=== PATIENT | male | born 1945 | race Caucasian/White ===

== ENCOUNTER → 2016-10-01 | Outpatient (CLI) | payer MEDICARE | END | disposition home or self-care (01) | LOC: RADPETMAIN 11:10 | PROVIDERS: ATTEND Internal Medicine | DX: Z53.9 Procedure and treatment not carried out, unspecified reason (principal) ==

== ENCOUNTER 2016-10-27 14:03 | Inpatient (IN) | payer MEDICARE ==
[2016-10-27] MEDS ORDERED: SODIUM CHLORIDE 0.9% 500 ML IV STA ×2 (14:37→15:48)
[2016-10-27] MEDS ORDERED: SODIUM CHLORIDE 0.9% 1,000 ML IV STA ×2 (14:37→15:48)
--- NOTE | 2016-10-27 14:55 | ED ---
General Adult HPI - General Chief complaint: Recheck/Abnormal Lab/Rx Stated complaint: Abn labs sent by PCP Time Seen by Provider: 10/27/16 14:22 Source: patient, RN notes reviewed, old records reviewed Mode of arrival: wheelchair Limitations: no limitations - History of Present Illness Initial comments: This is a this is a 70-year-old male who ER with shortness of breath, chronic, patient also has asthma and COPD. Patient was sent in by his family doctor for her normal lab tests. Patient unsure what that test is. Patient does admit to fever for the last month. Generalized weakness, some significant dehydration and decreased appetite. Denies any significant weight gain or weight loss. Admits to shortness of breath and exertional dyspnea. Patient denies travel history, no known sick contacts - Related Data Home Medications Medication Instructions Recorded Confirmed Albuterol Sulfate [Proair Hfa] 1 - 2 puff INHALATION RT-Q6H PRN 10/27/16 Gabapentin [Neurontin] 100 mg PO TID 10/27/16 10/27/16 Hydrochlorothiazide [Hydrodiuril] 25 mg PO DAILY 10/27/16 10/27/16 Losartan Potassium [Cozaar] 100 mg PO DAILY 10/27/16 10/27/16 Multivitamins, Thera [Multivitamin 1 tab PO DAILY 10/27/16 10/27/16 (formulary)] Naproxen Sodium [Aleve] 220 mg PO BID PRN 10/27/16 10/27/16 Unknown Otc Sleep Aid 1 tab PO HS 10/27/16 10/27/16 Vitamin B Complex 1 cap PO DAILY 10/27/16 10/27/16 Allergies Allergy/AdvReac Type Severity Reaction Status Date / Time No Known Allergies Allergy Verified 10/27/16 15:16 Review of Systems ROS Statement: Those systems with pertinent positive or pertinent negative responses have been documented in the HPI. ROS Other: All systems not noted in ROS Statement are negative. Past Medical History Past Medical History: Asthma, COPD Additional Past Medical History / Comment(s): back problems, neuromuscular problems History of Any Multi-Drug Resistant Organisms: None Reported Past Surgical History: Orthopedic Surgery Past Psychological History: No Psychological Hx Reported Smoking Status: Current every day smoker Past Alcohol Use History: None Reported Past Drug Use History: None Reported General Exam Limitations: no limitations General appearance: alert, in no apparent distress, anxious, cachectic Head exam: Present: atraumatic, normocephalic, normal inspection Eye exam: Present: normal appearance, PERRL, EOMI. Absent: scleral icterus, conjunctival injection, periorbital swelling ENT exam: Present: normal exam, mucous membranes dry Neck exam: Present: normal inspection. Absent: tenderness, meningismus, lymphadenopathy Respiratory exam: Present: normal lung sounds bilaterally, respiratory distress , wheezes, accessory muscle use, decreased breath sounds, prolonged expiratory. Absent: rales, rhonchi, stridor Cardiovascular Exam: Present: normal rhythm, tachycardia, normal heart sounds. Absent: systolic murmur, diastolic murmur, rubs, gallop, clicks GI/Abdominal exam: Present: soft, normal bowel sounds. Absent: distended, tenderness, guarding, rebound, rigid Extremities exam: Present: normal inspection, full ROM, normal capillary refill. Absent: tenderness, pedal edema, joint swelling, calf tenderness Back exam: Present: normal inspection Neurological exam: Present: alert, oriented X3, CN II-XII intact Psychiatric exam: Present: normal affect, normal mood Skin exam: Present: warm, dry, intact, normal color. Absent: rash Course Vital Signs 10/27/16 10/27/16 10/27/16 14:15 15:05 15:37 Temperature 98.5 F 98.4 F Pulse Rate 108 H 95 Respiratory 20 18 18 Rate Blood Pressure 138/67 155/83 O2 Sat by Pulse 98 100 Oximetry - Reevaluation(s) Reevaluation #1: 10/27/16 15:52 Patient has mild shortness of breath but he states is normal for him EKG Findings - EKG Comments: EKG Findings:: EKG shows sinus tachycardia rate 105, IL 142, QRS 86, QTC 436 Medical Decision Making - Medical Decision Making 70 ER for evaluation of shortness of breath occasional cough and congestion epineural abscess, patient with pneumonia, elevated white blood cell count, patient will be admitted for IV antibiotics - Lab Data Result diagrams: 10/27/16 14:43 10/27/16 14:43 Lab Results 10/27/16 10/27/16 10/27/16 Range/Units 14:43 14:43 14:43 WBC 13.5 H (3.8-10.6) k/uL RBC 3.36 L (4.30-5.90) m/uL Hgb 11.9 L (13.0-17.5) gm/dL Hct 34.9 L (39.0-53.0) % MCV 103.9 H (80.0-100.0) fL MCH 35.6 H (25.0-35.0) pg MCHC 34.2 (31.0-37.0) g/dL RDW 14.7 (11.5-15.5) % Plt Count 551 H (150-450) k/uL Neutrophils % 78 % Lymphocytes % 12 % Monocytes % 5 % Eosinophils % 2 % Basophils % 1 % Neutrophils # 10.5 H (1.3-7.7) k/uL Lymphocytes # 1.6 (1.0-4.8) k/uL Monocytes # 0.7 (0-1.0) k/uL Eosinophils # 0.3 (0-0.7) k/uL Basophils # 0.1 (0-0.2) k/uL Macrocytosis Slight PT (9.0-12.0) sec INR (<1.1) APTT (22.0-30.0) sec Sodium 136 L (137-145) mmol/L Potassium 5.2 H (3.5-5.1) mmol/L Chloride 98 (98-107) mmol/L Carbon Dioxide 25 (22-30) mmol/L Anion Gap 13 mmol/L BUN 14 (9-20) mg/dL Creatinine 0.80 (0.66-1.25) mg/dL Est GFR (MDRD) Af Amer >60 (>60 ml/min/1.73 sqM) Est GFR (MDRD) Non-Af >60 (>60 ml/min/1.73 sqM) Glucose 108 H (74-99) mg/dL Calcium 9.0 (8.4-10.2) mg/dL Magnesium 1.6 (1.6-2.3) mg/dL Total Bilirubin 0.3 (0.2-1.3) mg/dL AST 33 (17-59) U/L ALT 45 (21-72) U/L Alkaline Phosphatase 129 H (38-126) U/L Total Creatine Kinase 51 L (55-170) U/L CK-MB (CK-2) 1.5 (0.0-2.4) ng/mL CK-MB (CK-2) Rel Index 2.9 Troponin I <0.012 (0.000-0.034) ng/mL NT-Pro-B Natriuret Pep pg/mL Total Protein 7.1 (6.3-8.2) g/dL Albumin 3.2 L (3.5-5.0) g/dL Lipase 36 (23-300) U/L 10/27/16 10/27/16 Range/Units 14:43 14:43 WBC (3.8-10.6) k/uL RBC (4.30-5.90) m/uL Hgb (13.0-17.5) gm/dL Hct (39.0-53.0) % MCV (80.0-100.0) fL MCH (25.0-35.0) pg MCHC (31.0-37.0) g/dL RDW (11.5-15.5) % Plt Count (150-450) k/uL Neutrophils % % Lymphocytes % % Monocytes % % Eosinophils % % Basophils % % Neutrophils # (1.3-7.7) k/uL Lymphocytes # (1.0-4.8) k/uL Monocytes # (0-1.0) k/uL Eosinophils # (0-0.7) k/uL Basophils # (0-0.2) k/uL Macrocytosis PT 11.4 (9.0-12.0) sec INR 1.1 (<1.1) APTT 27.6 (22.0-30.0) sec Sodium (137-145) mmol/L Potassium (3.5-5.1) mmol/L Chloride (98-107) mmol/L Carbon Dioxide (22-30) mmol/L Anion Gap mmol/L BUN (9-20) mg/dL Creatinine (0.66-1.25) mg/dL Est GFR (MDRD) Af Amer (>60 ml/min/1.73 sqM) Est GFR (MDRD) Non-Af (>60 ml/min/1.73 sqM) Glucose (74-99) mg/dL Calcium (8.4-10.2) mg/dL Magnesium (1.6-2.3) mg/dL Total Bilirubin (0.2-1.3) mg/dL AST (17-59) U/L ALT (21-72) U/L Alkaline Phosphatase (38-126) U/L Total Creatine Kinase (55-170) U/L CK-MB (CK-2) (0.0-2.4) ng/mL CK-MB (CK-2) Rel Index Troponin I (0.000-0.034) ng/mL NT-Pro-B Natriuret Pep 150 pg/mL Total Protein (6.3-8.2) g/dL Albumin (3.5-5.0) g/dL Lipase (23-300) U/L - Radiology Data Radiology results: report reviewed (Chest x-ray positive for pneumonia, right upper lobe), image reviewed Disposition Clinical Impression: Community acquired bacterial pneumonia, UTI (urinary tract infection), COPD exacerbation Disposition: ADMITTED IP TO THIS HOSP Condition: Fair Referrals: Mendoza Bowie MD [Primary Care Provider] - 1-2 days
[2016-10-27 15:04] LABS: Basophils # (A) 0.1 k/uL (0-0.2); Basophils % (A) 1 %; CH 34.1; CHCM 32.9; Eosinophils # (A) 0.3 k/uL (0-0.7); Eosinophils % (A) 2 %; HCT 34.9 % (39.0-53.0); HDW 2.63; HGB 11.9 gm/dL (13.0-17.5); Luc # (Auto) 0.43; Luc % (Auto) 3; Lymphocytes # (A) 1.6 k/uL (1.0-4.8); Lymphocytes % (A) 12 %; MCH 35.6 pg (25.0-35.0); MCHC 34.2 g/dL (31.0-37.0); MCV 103.9 fL (80.0-100.0); Macrocytosis Slight; Mean Platelet Volume 6.9; Monocytes # (A) 0.7 k/uL (0-1.0); Monocytes % (A) 5 %; Neutrophils # (A) 10.5 k/uL (1.3-7.7); Neutrophils % (A) 78 %; RBC 3.36 m/uL (4.30-5.90); RDW 14.7 % (11.5-15.5); WBC 13.5 k/uL (3.8-10.6); WBC (Perox) 13.74
[2016-10-27 15:14] LABS: ALT 45 U/L (21-72); AST 33 U/L (17-59); Alkaline Phosphatase 129 U/L (38-126); Anion Gap 13 mmol/L; Blood Urea Nitrogen 14 mg/dL (9-20); Carbon Dioxide 25 mmol/L (22-30); Chloride 98 mmol/L (98-107); Glucose 108 mg/dL (74-99); Magnesium 1.6 mg/dL (1.6-2.3); Non-African American GFR(MDRD) >60 (>60 ml/min/1.73 sqM); Potassium 5.2 mmol/L (3.5-5.1); Sodium 136 mmol/L (137-145); Total Bilirubin 0.3 mg/dL (0.2-1.3); Total Protein 7.1 g/dL (6.3-8.2)
[2016-10-27 15:18] LABS: INR 1.1 (<1.1)
[2016-10-27 15:19] LABS: Partial Thromboplastin Time 27.6 sec (22.0-30.0); Prothrombin Time 11.4 sec (9.0-12.0)
[2016-10-27 15:25] LABS: Creatine Kinase 51 U/L (55-170)
--- NOTE | 2016-10-27 15:28 | XR ---
EXAMINATION TYPE: XR chest 2V DATE OF EXAM: 10/27/2016 COMPARISON: CT exam 01/15/2016 INDICATION: Abnormal labs, fever, COPD TECHNIQUE: Frontal and lateral views of the chest are obtained. FINDINGS: The heart size is normal. The pulmonary vasculature is normal. Right upper lobe consolidation is present. There is fullness in the right hilar region. Some mild inf iltrate appears to lie within the left midlung.. IMPRESSION: 1. Right upper lobe infiltrate. Minimal infiltrate is in the left midlung. Correlate for pneumonia. 2. This should be followed to clearing. Underlying mass and neoplasm is not excluded.
[2016-10-27 15:38] LABS: Creatine Kinase MB 1.5 ng/mL (0.0-2.4); Troponin I <0.012 ng/mL (0.000-0.034)
[2016-10-27] MEDS ORDERED: LEVOFLOXACIN 750MG-D5W PMX 750 MG in DEXTROSE/WATER 1 150ML.BAG IVPB STA (15:48)
[2016-10-27] MEDS ORDERED: PNEUMONIA PROTOCOL UTILIZED 1 EACH MISC PO PRN (15:48)
[2016-10-27] MEDS ORDERED: IPRATROPIUM-ALBUTEROL 3 ML NEB INHALATION STA (15:50)
[2016-10-27] MEDS ORDERED: AMPICILLIN-SULBACTAM 3 GM in SODIUM CHLORIDE 0.9% 100 ML IVPB STA (16:41)
[2016-10-27] MEDS ORDERED: SODIUM CHLORIDE 0.9% 1,000 ML IV ONE (16:41)
[2016-10-27 16:50] LABS: Appearance,Urine Cloudy (Clear); Bacteria,Urine Rare /hpf; Bilirubin,Urine Negative (Negative); Glucose,Urine (UA) Negative (Negative); Ketones,Urine Negative (Negative); Leukocyte Esterase,Urine Large (Negative); Mucus,Urine Rare /hpf; Nitrite,Urine Negative (Negative); PH, Urine 6.5 (5.0-8.0); Particle Count 117979; Protein,Urine Negative (Negative); RBC,Urine 2 /hpf (0-5); Squamous Epithelial Cell,Urine <1 /hpf (0-4); UA Billing (MACRO vs. MICRO) MICRO; Urobilinogen,Urine <2.0 mg/dL (<2.0); WBC,Urine 28 /hpf (0-5)
[2016-10-27] MEDS ORDERED: NICOTINE 21MG/24HR PATCH TRANSDERM STA (17:18)
[2016-10-27] MEDS: SODIUM CHLORIDE 0.9% 1,000 ML IV SCH (17:52)
[2016-10-27] MEDS ORDERED: NAPROXEN 250 MG TAB PO PRN (17:58)
[2016-10-27] MEDS ORDERED: HYDROmorphone 1 MG/ML 1 ML SYRINGE IVP PRN (17:59)
[2016-10-27] MEDS: HYDROcodone/APAP 5-325MG 1 EACH TAB PO PRN (18:34)
[2016-10-27] MEDS: GABAPENTIN 100 MG CAP PO SCH ×2 (18:35→21:28)
[2016-10-27] MEDS: IPRATROPIUM-ALBUTEROL 3 ML NEB INHALATION PRN (20:06)
[2016-10-27] MEDS: TAMSULOSIN 0.4 MG CAP.ER.24H PO SCH (21:28)
[2016-10-28] MEDS: TEMAZEPAM 15 MG CAP PO PRN ×2 (00:11→23:48)
[2016-10-28 01:00] LABS: Appearance,Urine Clear (Clear); Bilirubin,Urine Negative (Negative); Glucose,Urine (UA) Negative (Negative); Ketones,Urine Negative (Negative); Leukocyte Esterase,Urine Small (Negative); Nitrite,Urine Negative (Negative); Particle Count 564; Protein,Urine Negative (Negative); RBC,Urine 23 /hpf (0-5); Specific Gravity,Urine 1.004 (1.001-1.035); UA Billing (MACRO vs. MICRO) MICRO; Urobilinogen,Urine <2.0 mg/dL (<2.0); WBC,Urine 31 /hpf (0-5)
[2016-10-28] MEDS: SODIUM CHLORIDE 0.9% 1,000 ML IV SCH ×3 (05:38→20:46)
--- NOTE | 2016-10-28 08:05 | XR ---
EXAMINATION TYPE: XR chest 2V DATE OF EXAM: 10/28/2016 HISTORY: pneumonia. REFERENCE: Previous study dated 10/27/2016. FINDINGS: The lungs are overinflated. There continues to be a right upper lobe infiltrate as well as a stable opacity in the left midlung. I suspect underlying interstitial fibrosis. The heart is not en larged. IMPRESSION: 1. COPD. 2. STABLE, BILATERAL INFILTRATES.
[2016-10-28] MEDS: NICOTINE 21MG/24HR PATCH TRANSDERM SCH (08:28)
[2016-10-28] MEDS: HYDROCHLOROTHIAZIDE 25 MG TAB PO SCH (08:28)
[2016-10-28] MEDS: GABAPENTIN 100 MG CAP PO SCH ×3 (08:28→22:02)
[2016-10-28] MEDS: LOSARTAN 50 MG TAB PO SCH (08:28)
[2016-10-28] MEDS: B COMPLEX-VIT C-VIT E-ZINC 1 EACH TAB PO SCH (08:28)
[2016-10-28] MEDS: ENOXAPARIN 40 MG/0.4 ML SYRINGE SQ SCH (08:28)
[2016-10-28] MEDS: PANTOPRAZOLE 40 MG TABLET PO SCH (08:29)
[2016-10-28] MEDS: HYDROcodone/APAP 5-325MG 1 EACH TAB PO PRN ×2 (08:30→20:43)
--- NOTE | 2016-10-28 09:36 | CT ---
EXAMINATION TYPE: CT chest wo con DATE OF EXAM: 10/28/2016 COMPARISON: January 15, 2016. HISTORY: Pneumonia vs mass shortness of breath. Difficulty breathing. CT DLP: 353.4 mGycm. Automated Exposure Control for Dose Reduction was Utilized. TECHNIQUE: CT scan of the thorax is performed without IV contrast. FINDINGS: LUNGS: Diffuse opacities mostly in the right upper lobe anteriorly are noted. This is new since the p revious study. There is also extensive opacity in the posterior superior right lower lobe consistent with pneumonia. There is a small area of airspace opacity in the anterior aspect of the left upper lo be consistent with small focal pneumonia. There is a 1.2 x 0.9 mm solid nodule in the left upper lobe which is unchanged. Several nodules in the right upper lobe are difficult to identify due to the new opacification in this lobe. There is a nodule in the right upper lobe best seen on series 3 image 14 of 78 this nodule measures roughly 1.4 x 0.8 cm. There is a second nodule just inferior to the previ ously described nodule which measures 13.0 x 10.0 cm. There is no pleural pericardial effusion. Exten sive emphysematous changes are again noted. At the left lung base there is again a cavitary focus wit h thickened tracy. This again could be due to a thick-walled bulla or previously infected bulla/posti nflammatory changes. Other etiologies are difficult to fully exclude. MEDIASTINUM: There is no aortic dilatation. Atherosclerotic calcific changes are noted. There is no e vidence of cardiomegaly or mediastinal mass or adenopathy. The visualized upper abdomen is unchanged. Again noted is a small hiatal hernia. Compression deformities at the level of T7 and T8 are unchanged. IMPRESSION: New pneumonia is identified in the superior aspect of the right lower lobe in the anterior aspect of the right and left upper lobes. It is difficult to determine whether the previously described nodules have changed at all. There is c ertainly no change in a left upper lobe nodule. Continued follow-up is required.
[2016-10-28 09:53] LABS: Anion Gap 8 mmol/L; Blood Urea Nitrogen 7 mg/dL (9-20); Calcium 8.7 mg/dL (8.4-10.2); Carbon Dioxide 22 mmol/L (22-30); Chloride 103 mmol/L (98-107); Glucose 130 mg/dL (74-99); Non-African American GFR(MDRD) >60 (>60 ml/min/1.73 sqM); Potassium 4.4 mmol/L (3.5-5.1); Sodium 133 mmol/L (137-145)
--- NOTE | 2016-10-28 10:27 | P.CNPUL ---
History of Present Illness Consult date: 10/28/16 Reason for consult: dyspnea, cough, COPD, pneumonia, lung mass, abnormal CXR/CT Chief complaint: COPD exacerbation History of present illness: Consult dated 10/28/2016 70-year-old male who is been smoking for 53 years. The patient started at the age of 17 and smoked up to 3 packs a day. The patient apparently came into the emergency department complaining of shortness of breath. He's also got cough chest congestion phlegm production. Wheezing. The patient sees a family doctor here in town. Apparently was recommended to see a service member but never did. His chest x-ray suspicious for a couple of nodules which could be early lung cancer. In addition, this most recent chest x-ray shows bilateral upper lobe infiltrates and a lower lobe infiltrate on the right. This could be cancer and/or pneumonia. The patient feels generally generally weak. Doesn't feel like himself. Feels like something is going wrong. He continues to smoke though. He also has chronic dyspnea. His been going on for months and even years. Getting worse. Review of Systems A 12 point review of system is positive for shortness of breath chest tightness wheezing cough chest congestion and some phlegm production. Patient also complains of weakness. Past Medical History Past Medical History: Asthma, COPD Additional Past Medical History / Comment(s): back problems, neuromuscular problems History of Any Multi-Drug Resistant Organisms: None Reported Past Surgical History: Orthopedic Surgery Additional Past Surgical History / Comment(s): left hip sx Past Psychological History: No Psychological Hx Reported Smoking Status: Current every day smoker Past Alcohol Use History: None Reported Past Drug Use History: None Reported Medications and Allergies Home Medications Medication Instructions Recorded Confirmed Type Albuterol Sulfate [Proair Hfa] 1 - 2 puff INHALATION RT-Q6H PRN 10/27/16 History Gabapentin [Neurontin] 100 mg PO TID 10/27/16 10/27/16 History Hydrochlorothiazide [Hydrodiuril] 25 mg PO DAILY 10/27/16 10/27/16 History Losartan Potassium [Cozaar] 100 mg PO DAILY 10/27/16 10/27/16 History Multivitamins, Thera [Multivitamin 1 tab PO DAILY 10/27/16 10/27/16 History (formulary)] Naproxen Sodium [Aleve] 220 mg PO BID PRN 10/27/16 10/27/16 History Unknown Otc Sleep Aid 1 tab PO HS 10/27/16 10/27/16 History Vitamin B Complex 1 cap PO DAILY 10/27/16 10/27/16 History Allergies Allergy/AdvReac Type Severity Reaction Status Date / Time No Known Allergies Allergy Verified 10/27/16 15:16 Physical Exam Osteopathic Statement: *. No significant issues noted on an osteopathic structural exam other than those noted in the History and Physical/Consult. Vitals: Vital Signs Temp Pulse Pulse Resp BP BP Pulse Ox 10/28/16 07:00 97.4 F L 113 H 16 145/67 93 L 10/27/16 23:00 97.5 F L 97 18 147/78 97 10/27/16 20:15 84 10/27/16 20:08 88 10/27/16 17:16 98.2 F 102 H 20 126/80 99 10/27/16 16:30 98.3 F 96 20 136/71 99 10/27/16 16:19 113 H 10/27/16 16:06 109 H 10/27/16 15:37 98.4 F 95 18 155/83 100 10/27/16 15:05 18 10/27/16 14:15 98.5 F 108 H 20 138/67 98 Intake and Output 10/27/16 10/28/16 10/28/16 22:59 06:59 14:59 Output Total 1600 1258 Balance -1600 -1258 Output: Urine 1600 1200 Straight 500 Post Void Residual 58 Other: Voiding Method Urinal # Voids 1 No acute distress, oriented 3. HEENT examination is grossly unremarkable. Mucous membranes are moist. No oral lesions. Teeth are in poor repair. Neck supple. Full range of motion. No adenopathy thyromegaly or neck vein distention. Cardio vascular examination reveals regular rhythm rate. S1-S2 normal. No S3- S4 or murmur. Lungs reveal some coarse expiratory rhonchi. Some mild expiratory wheezes. Slight prolongation. Breath sounds are equal bilaterally. Abdomen soft bowel sounds are heard. Extremities are intact. No cyanosis clubbing or edema. Skin without rash. Neurologic examination is nonfocal. Results - Laboratory Findings CBC and BMP: 10/27/16 14:43 10/28/16 09:13 PT/INR, D-dimer PT 11.4 sec (9.0-12.0) 10/27/16 14:43 INR 1.1 (<1.1) 10/27/16 14:43 Abnormal lab findings: Abnormal Labs 10/27/16 10/27/16 10/27/16 14:43 14:43 14:43 WBC 13.5 H RBC 3.36 L Hgb 11.9 L Hct 34.9 L MCV 103.9 H MCH 35.6 H Plt Count 551 H Neutrophils # 10.5 H Sodium 136 L Potassium 5.2 H BUN Creatinine Glucose 108 H Alkaline Phosphatase 129 H Total Creatine Kinase 51 L Albumin 3.2 L Urine Blood Ur Leukocyte Esterase Urine RBC Urine WBC Urine WBC Clumps Urine Bacteria Urine Mucus 10/27/16 10/28/16 10/28/16 16:30 00:45 09:13 WBC RBC Hgb Hct MCV MCH Plt Count Neutrophils # Sodium 133 L Potassium BUN 7 L Creatinine 0.60 L Glucose 130 H Alkaline Phosphatase Total Creatine Kinase Albumin Urine Blood Moderate H Ur Leukocyte Esterase Large H Small H Urine RBC 23 H Urine WBC 28 H 31 H Urine WBC Clumps Rare H Urine Bacteria Rare H Urine Mucus Rare H - Diagnostic Findings Chest x-ray: image reviewed (Chest x-ray labs and medications are all reviewed.) Assessment and Plan Plan: Plan The patient will be started on a good regimen for COPD exacerbation. This will include short acting beta agonist short acting muscarinic antagonist a long- acting beta agonist and inhaled corticosteroid. He also would benefit some good antibiotics. Since this is a community-acquired pneumonia, a combination of azithromycin and ceftriaxone would be appropriate. Finally, the patient should be on systemic corticosteroids in the form of Solu-Medrol 60 mg every 6 hours. He will need outpatient evaluation including a PET scan and a pulmonary function test. Additional recommendations suggestions are forthcoming. I do associate counsel her about the importance of smoking cessation. I don't think he is ready to quit though. Time with Patient: Greater than 30
[2016-10-28 10:56] LABS: Basophils # (A) 0.1 k/uL (0-0.2); Basophils % (A) 1 %; CHCM 32.3; Eosinophils # (A) 0.1 k/uL (0-0.7); Eosinophils % (A) 1 %; HCT 31.5 % (39.0-53.0); HGB 10.1 gm/dL (13.0-17.5); Luc # (Auto) 0.17; Luc % (Auto) 2; Lymphocytes # (A) 1.1 k/uL (1.0-4.8); Lymphocytes % (A) 11 %; MCH 33.7 pg (25.0-35.0); MCHC 31.9 g/dL (31.0-37.0); MCV 105.6 fL (80.0-100.0); Macrocytosis Moderate; Mean Platelet Volume 7.3; Monocytes # (A) 0.7 k/uL (0-1.0); Monocytes % (A) 7 %; Neutrophils # (A) 8.7 k/uL (1.3-7.7); Neutrophils % (A) 80 %; RBC 2.98 m/uL (4.30-5.90); RDW 14.9 % (11.5-15.5); WBC 10.9 k/uL (3.8-10.6); WBC (Perox) 11.33
--- NOTE | 2016-10-28 11:08 | HP ---
DATE OF ADMISSION: 10/27/2016 Chief complaints are weakness and shortness of breath, abnormal labs. HISTORY OF PRESENT ILLNESS: This is a 70-year-old gentleman with past medical history of multiple medical problems including asthma, COPD, back problems, history of pneumonia apparently, history of nicotine dependence was complaining of generalized tiredness, weakness. The patient running a fever also. The fever was actually increasing towards the end of the day according to him and the patient came to [facility] and admitted to the hospital for further evaluation and treatment. White count was elevated at 13.5 and the patient also had a chest x-ray showed apparently right upper lung infiltrate and minimal left mid lung was infiltrated. Bilateral pneumonia is suspected. The patient admitted to the hospital for further evaluation and treatment. Underlying mass and neoplasm not excluded. There is no history of any headache, loss of consciousness or seizures. No history of hematochezia, melena or chest pain or palpitations at this time. Past medical history of COPD , asthma, history of back problems, history of degenerative joint disease. Medications prior to admission include home medications are: 1. Vitamin B complex 1 p.o. daily. 2. Sleep aide. 3. Aleve 220 mg p.o. b.i.d. p.r.n. 4. Multivitamins one p.o. daily. 5. Clozaril 100 mg p.o. daily. 6. HydroDIURIL 25 mg daily. 7. Neurontin 100 milligrams p.o. t.i.d. 8. Pro-Air HFA 1 to 2 puffs q.6 p.r.n. ALLERGIES: None. FAMILY HISTORY: No history of heart disease or strokes in the family. SOCIAL HISTORY: History of smoking on a continued ongoing basis. No history of alcohol. REVIEW OF SYSTEMS: HEENT: No diminished vision. No diminished hearing. CARDIOVASCULAR: No angina or palpitations. RESPIRATORY: As mentioned earlier. GASTROINTESTINAL: No nausea or vomiting. GENITOURINARY: No dysuria. CENTRAL NERVOUS SYSTEM: No numbness, weakness. ALLERGY/IMMUNOLOGY: No asthma or hayfever. MUSCULOSKELETAL: As mentioned earlier. HEMATOLOGY/ONCOLOGY: No history of anemia. ENDOCRINE: No history of diabetes mellitus, hypothyroidism. CONSTITUTIONAL: As mentioned earlier. DERMATOLOGY: Negative. RHEUMATOLOGY: Negative. PSYCHIATRY: As mentioned earlier. PHYSICAL EXAMINATION: The patient is alert and oriented times three. Pulse 97, blood pressure 140/77, respiration 18, temperature 97.2, pulse ox 97% on room air. HEENT: Conjunctivae normal. NECK: No jugular venous distention. CARDIOVASCULAR: S1, S2 muffled. RESPIRATORY: Breath sounds diminished at the bases. Bilateral scattered rhonchi and crackles. ABDOMEN: Soft, nontender. No mass palpable. Legs: No edema. No swelling. CENTRAL NERVOUS SYSTEM: Higher functions as mentioned earlier. Moves all four limbs. No focal deficits. LYMPHATICS: No lymph nodes palpable in the neck, axillae or groin. SKIN: No ulcer, rash or bleeding. LABS: At this time shows WBC 13.2, hemoglobin 11.9, MCV 103.9, platelets of 551, sodium 130, potassium 5.2. UA noted. ASSESSMENT: 1. Bilateral pneumonia, right more than left, with possible sepsis, present on admission. 2. Increased WBC. 3. Anemia. 4. Microcytosis. 5. Nicotine dependence. 6. Increased platelets. 7. Hyponatremia. 8. Mild hyperkalemia. 9. Urinary tract infection, possibly. 10. History of asthma, chronic obstructive pulmonary disease. 11. History of degenerative joint disease. 12. History of problems. 13. History of nicotine dependence. 14. NO CODE, NO CARDIOPULMONARY RESUSCITATION, NO VENTILATOR. RECOMMENDATIONS AND DISCUSSION: In this 70-year-old gentleman who presented with multiple complex medical issues. We will monitor the patient closely. Initiate broad-spectrum IV antibiotics, bronchodilators, resume the home medications and we will also obtain pulmonary consultation. Would also recommend CT scan of the chest to rule out the possibility of aspiration and because of history of recurrent pneumonia as well. Prognosis guarded because of multiple complex medical issues. Further recommendations to follow. See orders for details. MTDD
[2016-10-28] MEDS: MULTIVITAMINS, THERA 1 EACH TAB PO SCH (11:52)
[2016-10-28] MEDS: methylPREDNISolone SOD SUCCI 125 MG/2 ML VIAL IV SCH ×3 (11:52→23:48)
[2016-10-28] MEDS: IPRATROPIUM-ALBUTEROL 3 ML NEB INHALATION PRN ×2 (12:34→19:46)
[2016-10-28] MEDS ORDERED: LEVOFLOXACIN 750MG-D5W PMX 750 MG in DEXTROSE/WATER 1 150ML.BAG IVPB SCH (16:00)
[2016-10-28] MEDS: SYMBICORT 160-4.5 MCG INHALER INHALATION SCH (19:46)
[2016-10-28] MEDS: TAMSULOSIN 0.4 MG CAP.ER.24H PO SCH (20:45)
[2016-10-28 21:59] LABS: Glucose,Whole Blood 185 mg/dL (75-99)
[2016-10-28] MEDS: INSULIN LISPRO (humaLOG) 300 UNIT/3 ML VIAL SQ SCH (22:02)
[2016-10-29] MEDS: HYDROcodone/APAP 5-325MG 1 EACH TAB PO PRN ×2 (04:27→20:28)
[2016-10-29] MEDS: methylPREDNISolone SOD SUCCI 125 MG/2 ML VIAL IV SCH ×4 (05:49→23:36)
[2016-10-29 07:19] LABS: Glucose,Whole Blood 151 mg/dL (75-99)
--- NOTE | 2016-10-29 08:48 | PN ---
DATE OF SERVICE: 10/28/2016 This 70-year-old gentleman admitted with bilateral pneumonia and also being evaluated for malignancy at this time. The patient also had pulmonary nodule. The patient is started on broad spectrum IV antibiotics. Dr. Barillas also seen the patient and recommended to continue with antibiotics, and steroids and continue to monitor. Otherwise, the patient is being closely monitored. PAST MEDICAL HISTORY: Reviewed. REVIEW OF SYSTEMS: CARDIOVASCULAR: No angina. RESPIRATORY : As mentioned earlier. GI: As mentioned earlier. GENITOURINARY: No dysuria. CENTRAL NERVOUS SYSTEM: No focal deficits. Current medications are reviewed and include: 1. [place] 5 mg q6h p.r.n. 2. DuoNeb q.i.d. and p.r.n. 3. Xanax 0.25 t.i.d. 4. Symbicort 160/4.5 two puffs b.i.d. 5. Lovenox 40 mg subcu daily. 6. Neurontin. 8. Dilaudid 0.5 q.6 p.r.n. 9. Levaquin 750 daily. 10. Cozaar. 11. Solu-Medrol. 12. Multivitamins. 13. Naprosyn. 14. Habitrol. 15. Protonix. 16. Flomax. 17. Restoril. 18. B complex. Patient is alert and oriented times three. Pulse 105. Blood pressure 150/76. Respiratory rate 16. Temperature 97 degrees. Pulse ox 94% on room air. HEENT: Conjunctivae normal. NECK: No jugular venous distention. CARDIOVASCULAR: S1, S2 muffled. RESPIRATORY: Breath sounds diminished at the bases. Bilateral scattered rhonchi. Expiratory wheezing also present. ABDOMEN: Soft. Nontender. LEGS: No edema. CENTRAL NERVOUS SYSTEM: No focal deficits. Higher functions as mentioned earlier. Moves all four limbs. LYMPHATICS: No lymph nodes palpable in the neck, axillae or groin. SKIN: No ulcer, rash or bleeding. LABS: WBC 11.2, hemoglobin 10.1. UA noted. ASSESSMENT: 1. Acute bilateral pneumonia, right more than the left, with possible sepsis, present on admission, possibly community acquired pneumonia. 2. Chronic obstructive pulmonary disease, acute exacerbation. 3. Increased WBC. 4. Anemia. 5. Microcytosis. 6. History of nicotine dependence. 7. Increased platelets. 8. Hyponatremia. 9. Mild hyperkalemia. 10. Urinary tract infection, possibly. 11. History of asthma, chronic obstructive pulmonary disease. 12. History of degenerative joint disease. 13. History of nicotine dependence. 14. NO CODE, NO CPR, NO VENT. 15. Hyponatremia. 16. Increased WBC. 17. Increased MCV. RECOMMENDATIONS AND DISCUSSION: In this 70-year-old gentleman who presented with multiple complex medical issues, we will monitor the patient closely, continue the current medications. Continue symptomatic treatment. CT scan has been ordered and reviewed. The CAT scan findings are new pneumonia identified in the superior aspect of the right lower lobe in the anterior aspect of the right and left upper lobes and difficulty to determine the previous did not change at all. No change in the left upper lobe nodule. Continued follow-up is recommended per CT report. We will continue to monitor and Dr. Barillas's input appreciated. See orders for further details. Further recommendations to follow. MTDD
[2016-10-29] MEDS: HYDROCHLOROTHIAZIDE 25 MG TAB PO SCH (09:46)
[2016-10-29] MEDS: PANTOPRAZOLE 40 MG TABLET PO SCH (09:46)
[2016-10-29] MEDS: GABAPENTIN 100 MG CAP PO SCH ×3 (09:46→22:02)
[2016-10-29] MEDS: NICOTINE 21MG/24HR PATCH TRANSDERM SCH (09:46)
[2016-10-29] MEDS: ENOXAPARIN 40 MG/0.4 ML SYRINGE SQ SCH (09:46)
[2016-10-29] MEDS: B COMPLEX-VIT C-VIT E-ZINC 1 EACH TAB PO SCH (09:46)
[2016-10-29] MEDS: LOSARTAN 50 MG TAB PO SCH (09:46)
[2016-10-29] MEDS: SODIUM CHLORIDE 0.9% 1,000 ML IV SCH (09:53)
[2016-10-29] MEDS: INSULIN LISPRO (humaLOG) 300 UNIT/3 ML VIAL SQ SCH ×4 (09:53→22:05)
[2016-10-29 10:54] LABS: Basophils % (A) 0 %; CH 34.1; CHCM 32.4; Eosinophils % (A) 0 %; HCT 34.5 % (39.0-53.0); HDW 2.68; HGB 10.8 gm/dL (13.0-17.5); Luc # (Auto) 0.08; Luc % (Auto) 1; Lymphocytes # (A) 0.9 k/uL (1.0-4.8); Lymphocytes % (A) 7 %; MCHC 31.3 g/dL (31.0-37.0); MCV 105.4 fL (80.0-100.0); Macrocytosis Moderate; Mean Platelet Volume 7.1; Monocytes # (A) 0.3 k/uL (0-1.0); Monocytes % (A) 3 %; Neutrophils # (A) 11.1 k/uL (1.3-7.7); Neutrophils % (A) 89 %; RBC 3.27 m/uL (4.30-5.90); RDW 14.9 % (11.5-15.5); WBC 12.5 k/uL (3.8-10.6); WBC (Perox) 13.11
[2016-10-29 11:07] LABS: Anion Gap 11 mmol/L; Blood Urea Nitrogen 13 mg/dL (9-20); Calcium 8.8 mg/dL (8.4-10.2); Carbon Dioxide 22 mmol/L (22-30); Chloride 100 mmol/L (98-107); Glucose 155 mg/dL (74-99); Non-African American GFR(MDRD) >60 (>60 ml/min/1.73 sqM); Potassium 4.3 mmol/L (3.5-5.1); Sodium 133 mmol/L (137-145)
[2016-10-29 11:42] LABS: Glucose,Whole Blood 139 mg/dL (75-99)
[2016-10-29] MEDS: SYMBICORT 160-4.5 MCG INHALER INHALATION SCH ×2 (12:05→19:35)
[2016-10-29] MEDS: IPRATROPIUM-ALBUTEROL 3 ML NEB INHALATION PRN ×2 (12:05→16:15)
[2016-10-29] MEDS: AZITHROMYCIN 500 MG in SODIUM CHLORIDE 0.9% 250 ML IVPB SCH (12:24)
[2016-10-29] MEDS: ALPRAZolam 0.25 MG TAB PO PRN ×2 (12:34→23:36)
[2016-10-29] MEDS: MULTIVITAMINS, THERA 1 EACH TAB PO SCH (12:34)
--- NOTE | 2016-10-29 12:49 | PN ---
DATE OF SERVICE: 10/29/2016 A 70-year-old male seen in consultation yesterday. Has been smoking a pack to 2 packs a day of cigarettes for 53+ years. The patient came in with complaints of increasing shortness of breath, cough, wheezing, coughing up some phlegm. No blood. No fever, no chills. He sees a family doctor here in town. 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 His chest x-ray was suspicious for a couple of nodules, which could be early bronchogenic carcinoma. He apparently was told to have PET scan, but never went through with it. Does not seem like a really compliant patient. Anyway, yesterday he was feeling better and today he is feeling worse again. His complaints include primarily just feeling weak and shaky. Not much more in the way of breathing difficulty. He is more short of breath when he exerts himself. Temperature 96.5, heart rate 100, respiratory 16, blood pressure 143/77, mean 99, room air saturation 96%. Appears in no acute distress. HEENT examination is grossly unremarkable. Mucous membranes are moist. No oral lesions. Neck is supple. Full range of motion. No adenopathy, thyromegaly or neck vein distention. Cardiovascular examination reveals regular rhythm and rate. S1, S2 normal. There is no murmur. Lungs reveal coarse rhonchi and wheezes. Breath sounds are diminished. There is prolongation. The patient's adventitious lung sounds are more prominent on forced maneuver. The abdomen is soft. Bowel sounds are heard. Extremities are intact. No edema. Skin without rash. Neurologic examination is nonfocal. White count 12.5, hemoglobin 10.8, hematocrit 34.5, platelet count 487,000. The rest of the labs are negative. Microbiology is all negative. No recent x-rays to report. His previously noted infiltrates are similar. Medications are reviewed. ASSESSMENT: 1. Chronic obstructive pulmonary disease exacerbation. 2. Pneumonia. 3. Rule out lung cancer. 4. Ongoing tobacco use and nicotine addiction. 5. Medical noncompliance. PLAN: The patient is on a regimen of short acting beta agonist and short acting muscarinic antagonist as well as inhaled corticosteroids and long acting beta agonist. In addition, the patient is on systemic steroids and antibiotics. He will need an outpatient PET scan and pulmonary function testing. The patient has no major complaints today other than feeling weak and fatigued. Will continue to follow. Prognosis is guarded.
[2016-10-29] MEDS ORDERED: FUROSEMIDE 10 MG/ML 2 ML VIAL IV ONE (13:02)
[2016-10-29 17:07] LABS: Glucose,Whole Blood 150 mg/dL (75-99)
[2016-10-29] MEDS: TAMSULOSIN 0.4 MG CAP.ER.24H PO SCH (20:25)
--- NOTE | 2016-10-29 20:59 | PN ---
DATE OF SERVICE: 10/29/2016 This 70-year-old gentleman who was admitted with acute bilateral pneumonia also had features of sepsis present on admission today. The patient is not feeling well according to him. No chest pain. No palpitations. No fever. Shortness of breath and cough is report. On exam, alert and oriented times three. Pulse 109, blood pressure 120/56, respiratory rate 16. Temperature 97.6, pulse ox 98% on room air. HEENT: Conjunctivae normal. NECK: No jugular venous distention. CARDIOVASCULAR: S1, S2 muffled. RESPIRATORY: Breath sounds diminished at the bases. Bilateral scattered rhonchi and crackles. Expiratory wheezing also present. ABDOMEN: Soft, nontender. No mass palpable. LEGS: No edema. No swelling. CENTRAL NERVOUS SYSTEM: Higher functions as mentioned earlier. Moves all four limbs. No focal motor or sensory deficits. LYMPHATICS: No lymph nodes palpable in the neck, axillae or groin. SKIN: No ulcer, rash or bleeding. LABS: WBC 12.9, hemoglobin 12.8. Sodium is 133. ASSESSMENT: 1. Acute bilateral pneumonia, right more than left, with possible sepsis present on admission, possible community acquired pneumonia. 2. Chronic obstructive pulmonary disease, acute exacerbation rule out lung cancer. 3. Increased WBC. 4. Anemia. 5. Microcytosis, possibly nutrition in origin. 6. History of nicotine dependence. 7. Increased platelets. 8. Hyponatremia. 9. Mild hyperkalemia. 10. Urinary tract infection possibly. 11. History of asthma, chronic obstructive pulmonary disease. 12. History of degenerative joint disease. 13. History of nicotine dependence. 14. Hyponatremia. 15. Increased WBC. 16. Increased MCV. 17. NO CODE, NO CARDIOPULMONARY AND NO VENT. RECOMMENDATIONS AND DISCUSSION: Recommend to continue current medications, continue with monitoring. Continue broad spectrum IV antibiotics. Bronchodilators. Would also recommend closely follow with pulmonary. Dr. Barillas has recommended outpatient PET scan. Guarded prognosis. Further recommendations to follow.
[2016-10-29 21:50] LABS: Glucose,Whole Blood 178 mg/dL (75-99)
[2016-10-30] MEDS: methylPREDNISolone SOD SUCCI 125 MG/2 ML VIAL IV SCH ×4 (05:48→23:56)
[2016-10-30] MEDS: HYDROcodone/APAP 5-325MG 1 EACH TAB PO PRN (05:48)
[2016-10-30 07:24] LABS: Glucose,Whole Blood 129 mg/dL (75-99)
[2016-10-30 08:48] LABS: Anion Gap 10 mmol/L; Blood Urea Nitrogen 22 mg/dL (9-20); Carbon Dioxide 23 mmol/L (22-30); Chloride 97 mmol/L (98-107); Glucose 125 mg/dL (74-99); Non-African American GFR(MDRD) >60 (>60 ml/min/1.73 sqM); Potassium 4.2 mmol/L (3.5-5.1); Sodium 130 mmol/L (137-145)
[2016-10-30] MEDS: ENOXAPARIN 40 MG/0.4 ML SYRINGE SQ SCH (09:06)
[2016-10-30] MEDS: SYMBICORT 160-4.5 MCG INHALER INHALATION SCH ×2 (09:06→19:56)
[2016-10-30] MEDS: GABAPENTIN 100 MG CAP PO SCH ×3 (09:06→22:08)
[2016-10-30] MEDS: B COMPLEX-VIT C-VIT E-ZINC 1 EACH TAB PO SCH (09:06)
[2016-10-30] MEDS: PANTOPRAZOLE 40 MG TABLET PO SCH (09:06)
[2016-10-30] MEDS: INSULIN LISPRO (humaLOG) 300 UNIT/3 ML VIAL SQ SCH ×4 (09:06→22:08)
[2016-10-30] MEDS: AZITHROMYCIN 500 MG in SODIUM CHLORIDE 0.9% 250 ML IVPB SCH (09:06)
[2016-10-30] MEDS: HYDROCHLOROTHIAZIDE 25 MG TAB PO SCH (09:07)
[2016-10-30] MEDS: LOSARTAN 50 MG TAB PO SCH (09:07)
[2016-10-30] MEDS: NICOTINE 21MG/24HR PATCH TRANSDERM SCH (09:07)
[2016-10-30 09:40] LABS: Basophils % (A) 0 %; CH 34.3; CHCM 32.4; Eosinophils % (A) 0 %; HCT 33.3 % (39.0-53.0); HDW 2.67; HGB 10.8 gm/dL (13.0-17.5); Luc # (Auto) 0.13; Luc % (Auto) 1; Lymphocytes # (A) 1.2 k/uL (1.0-4.8); Lymphocytes % (A) 7 %; MCH 34.4 pg (25.0-35.0); MCHC 32.4 g/dL (31.0-37.0); Macrocytosis Moderate; Mean Platelet Volume 7.3; Monocytes # (A) 0.4 k/uL (0-1.0); Monocytes % (A) 3 %; Neutrophils # (A) 14.1 k/uL (1.3-7.7); Neutrophils % (A) 89 %; RBC 3.14 m/uL (4.30-5.90); WBC 15.9 k/uL (3.8-10.6); WBC (Perox) 16.52
[2016-10-30] MEDS: MULTIVITAMINS, THERA 1 EACH TAB PO SCH (11:17)
[2016-10-30 11:51] LABS: Glucose,Whole Blood 131 mg/dL (75-99)
[2016-10-30] MEDS: IPRATROPIUM-ALBUTEROL 3 ML NEB INHALATION PRN (12:07)
--- NOTE | 2016-10-30 13:29 | PN ---
This is a 70-year-old male with a history of COPD exacerbation, pneumonia, possible bronchogenic carcinoma ongoing tobacco use with nicotine addiction and medical noncompliance. The patient is only a bit better today. States that sometimes he feels better and sometimes he feels worse. His primary doctor recommended a PET scan as an outpatient. He apparently did not have it done. He does not appear to be super interested in understanding or knowing what is going on in his chest. The patient may in fact have bronchogenic carcinoma. He has had profound anorexia with some weight loss. He just feels very, very weak. The CT scan of the chest done on October 28 suggests pneumonia in the superior aspect of the right lower lobe and the anterior aspect of the right and left upper lobes. In addition, he has a couple of nodules noted in the right upper lobe. One is 1.4 x 0.8 cm and the other one is 1.3 x 1 cm. CURRENT VITAL SIGNS: Temperature 96.8, heart rate 59, respiratory rate is 18, blood pressure 138/66, mean 90, and saturations are 95%. Appears in no acute distress. No respiratory distress. Lying on his side. HEENT: Examination is grossly unremarkable. Mucous membranes are moist. Neck is supple. Full range of motion. No adenopathy or thyromegaly. Cardiovascular examination reveals regular rhythm and rate. S1, S2 normal. No S3, S4 or murmur. Lungs reveal coarse rhonchi. Breath sounds are diminished. No wheezes. Breath sounds are equal bilaterally. ABDOMEN: Soft. Bowel sounds are heard. EXTREMITIES: Intact. No cyanosis, clubbing. Mild edema. Skin without rash. Lab data shows white count 15.9, hemoglobin 10.8, hematocrit 33.3, platelet count of ( ). Sodium 130, potassium 4.2, chloride 97, CO2 of 23, BUN and creatinine were 22 and 0.7. Microbiology including blood, urine and sputum are all currently negative at this point. Medications have been reviewed. ASSESSMENT: 1. Chronic obstructive pulmonary disease exacerbation complicated by bronchopneumonia. 2. Possible lung cancer. The patient has a couple of nodules in the right lung. 3. Ongoing tobacco use with nicotine addiction. 4. Medical noncompliance. PLAN: Repeat an x-ray in the morning. Additional recommendations and suggestions are forthcoming. The patient is on good medications. He is a NO CODE. He will eventually need evaluation of these nodules once he is out of the hospital.
[2016-10-30 17:06] LABS: Glucose,Whole Blood 114 mg/dL (75-99)
[2016-10-30] MEDS: ALPRAZolam 0.25 MG TAB PO PRN ×2 (17:38→22:17)
[2016-10-30 20:51] LABS: Glucose,Whole Blood 156 mg/dL (75-99)
[2016-10-30] MEDS: TAMSULOSIN 0.4 MG CAP.ER.24H PO SCH (22:08)
[2016-10-31] MEDS: methylPREDNISolone SOD SUCCI 125 MG/2 ML VIAL IV SCH ×3 (05:34→17:47)
[2016-10-31] MEDS: ALPRAZolam 0.25 MG TAB PO PRN ×2 (05:36→19:27)
--- NOTE | 2016-10-31 07:24 | PN ---
DATE OF SERVICE: 10/30/2016 This 70-year-old gentleman who was admitted with acute bilateral pneumonia, right more than left, with possible sepsis present on admission, is being closely monitored. No chest pain, palpitations. Still has cough and sputum. On exam, alert and oriented x3. Pulse 103, blood pressure 111/60, respirations 18, temperature 96.9, pulse ox 97% on room air. HEENT: Conjunctivae normal. NECK: No jugular venous distention. CARDIOVASCULAR: S1 and S2. RESPIRATORY: Breath sounds diminished at the bases. Bilateral scattered rhonchi and crackles. ABDOMEN: Soft, nontender. LEGS: No edema, no swelling. NERVOUS SYSTEM: No focal deficits. LABS: WBC 15.3, hemoglobin 10.8, sodium 130. ASSESSMENT: 1. Acute bilateral pneumonia, right more than left, with possible sepsis, present on admission, possibly community acquired pneumonia. 2. Chronic obstructive pulmonary disease acute exacerbation; rule out lung cancer. 3. Increased WBC. 4. Anemia. 5. Microcytosis, possibly nutritional in origin. 6. History of nicotine dependence. 7. Increased platelets. 8. Hyponatremia. 9. Mild hyperkalemia. 10. Urinary tract infection possibly. 11. History of asthma, chronic obstructive pulmonary disease. 12. History of degenerative joint disease. 13. History of nicotine dependence. 14. Hyponatremia. 15. Increased MCV. 16. NO CODE, NO CARDIOPULMONARY RESUSCITATION, NO VENT. RECOMMENDATIONS AND DISCUSSION: I recommend to continue the current medications, continue monitoring and symptomatic treatment. Continue with bronchodilators, continue with antibiotics. Closely follow with Dr. Barillas. Guarded prognosis. Further recommendations to follow.
--- NOTE | 2016-10-31 07:26 | XR ---
EXAMINATION TYPE: XR chest 2V DATE OF EXAM: 10/31/2016 COMPARISON: Prior chest x-ray and chest CT 10/28/2016 HISTORY: Pneumonia TECHNIQUE: Frontal and lateral views of the chest are obtained on 3 images. FINDINGS: Abdomen and lung volumes compatible with underlying COPD. Abnormal increased density persi sts in the right upper lobe, left mid lung. No pneumothorax or pleural effusion. Cardiomediastinal si lhouette, pulmonary vascularity and ysabel are not significantly changed. IMPRESSION: Stable abnormal chest x-ray with emphysematous changes, interstitial changes, correlate for pneumonia. Left-sided lung nodule. Follow-up recommended.
[2016-10-31 07:53] LABS: Glucose,Whole Blood 138 mg/dL (75-99)
[2016-10-31] MEDS: PANTOPRAZOLE 40 MG TABLET PO SCH (08:11)
[2016-10-31] MEDS: INSULIN LISPRO (humaLOG) 300 UNIT/3 ML VIAL SQ SCH ×4 (08:11→21:12)
[2016-10-31] MEDS: ENOXAPARIN 40 MG/0.4 ML SYRINGE SQ SCH (08:13)
[2016-10-31] MEDS: HYDROCHLOROTHIAZIDE 25 MG TAB PO SCH (08:13)
[2016-10-31] MEDS: LOSARTAN 50 MG TAB PO SCH (08:13)
[2016-10-31] MEDS: B COMPLEX-VIT C-VIT E-ZINC 1 EACH TAB PO SCH (08:13)
[2016-10-31] MEDS: GABAPENTIN 100 MG CAP PO SCH ×3 (08:13→21:12)
[2016-10-31] MEDS: NICOTINE 21MG/24HR PATCH TRANSDERM SCH (08:14)
[2016-10-31 08:19] LABS: Basophils % (A) 0 %; CH 33.9; CHCM 33.1; Eosinophils % (A) 0 %; HCT 35.1 % (39.0-53.0); HDW 2.82; HGB 12.1 gm/dL (13.0-17.5); Luc # (Auto) 0.13; Luc % (Auto) 1; Lymphocytes # (A) 1.2 k/uL (1.0-4.8); Lymphocytes % (A) 8 %; MCH 35.4 pg (25.0-35.0); MCHC 34.4 g/dL (31.0-37.0); MCV 102.7 fL (80.0-100.0); Macrocytosis Slight; Mean Platelet Volume 7.2; Monocytes # (A) 0.4 k/uL (0-1.0); Monocytes % (A) 3 %; Neutrophils # (A) 13.5 k/uL (1.3-7.7); Neutrophils % (A) 88 %; RBC 3.41 m/uL (4.30-5.90); RDW 14.7 % (11.5-15.5); WBC 15.3 k/uL (3.8-10.6); WBC (Perox) 16.21
[2016-10-31 08:23] LABS: Anion Gap 10 mmol/L; Blood Urea Nitrogen 26 mg/dL (9-20); Calcium 9.2 mg/dL (8.4-10.2); Carbon Dioxide 25 mmol/L (22-30); Chloride 99 mmol/L (98-107); Glucose 116 mg/dL (74-99); Non-African American GFR(MDRD) >60 (>60 ml/min/1.73 sqM); Potassium 4.4 mmol/L (3.5-5.1); Sodium 134 mmol/L (137-145)
[2016-10-31] MEDS: AZITHROMYCIN 500 MG in SODIUM CHLORIDE 0.9% 250 ML IVPB SCH (08:44)
[2016-10-31] MEDS: SYMBICORT 160-4.5 MCG INHALER INHALATION SCH ×2 (08:56→20:39)
[2016-10-31 11:45] LABS: Glucose,Whole Blood 151 mg/dL (75-99)
[2016-10-31] MEDS: MULTIVITAMINS, THERA 1 EACH TAB PO SCH (12:04)
--- NOTE | 2016-10-31 16:30 | P.PN ---
Subjective Date of service 10/31/2016 Progress note being dictated for Dr. Winters. Interval history: This a 70-year-old gentleman admitted with acute bilateral pneumonia, right greater than left, possible sepsis, and multiple other medical issues. Chest x-ray stable reporting underlying COPD ,emphysematous changes, interstitial changes, bilateral pneumonia with persistent increased density in the right upper and left midlung, left-sided lung nodule. Maintained on nebulized bronchodilators, steroids and antibiotics with improvement in breathing. Currently denies cough. Denies chest pain, palpitations. Objective - Vital Signs Vital signs: Vital Signs Temp 97.0 F L 10/31/16 07:00 Pulse 106 H 10/31/16 07:00 Resp 18 10/31/16 07:00 BP 133/84 10/31/16 07:00 Pulse Ox 93 L 10/31/16 07:00 Intake & Output 10/30/16 10/31/16 10/31/16 18:59 06:59 18:59 Intake Total 1250 Output Total 1100 Balance 150 Intake: Oral 1250 Output: Urine 1100 Other: Voiding Method Urinal # Voids 6 - Exam PHYSICAL EXAM: VITAL SIGNS: [As above] GENERAL: [Sitting up at side of bed, no acute distress] HEENT: [Pupils equal conjunctiva normal.] NECK: [Supple, no JVD] RESPIRATORY EFFORT:[ Increased, LUNGS: [bilateral bases diminished with fine bibasilar crackles, scattered coarse rhonchi CARDIOVASCULAR[ regular S1 and S2, no murmurs rubs or gallops, mild edema] GI: [Abdomen soft, nontender, positive bowel sounds. No guarding, no rigidity] PSYCH: [Alert and oriented -3, mood and affect normal.] NEURO: [No focal deficits] - Labs CBC & Chem 7: 10/31/16 07:26 10/31/16 07:26 Labs: Abnormal Lab Results - Last 24 Hours (Table) 10/30/16 10/30/16 10/31/16 Range/Units 17:00 20:35 07:26 WBC 15.3 H (3.8-10.6) k/uL RBC 3.41 L (4.30-5.90) m/uL Hgb 12.1 L (13.0-17.5) gm/dL Hct 35.1 L (39.0-53.0) % MCV 102.7 H (80.0-100.0) fL MCH 35.4 H (25.0-35.0) pg Plt Count 557 H (150-450) k/uL Neutrophils # 13.5 H (1.3-7.7) k/uL Sodium (137-145) mmol/L BUN (9-20) mg/dL Glucose (74-99) mg/dL POC Glucose (mg/dL) 114 H 156 H (75-99) mg/dL 10/31/16 10/31/16 10/31/16 Range/Units 07:26 07:41 11:39 WBC (3.8-10.6) k/uL RBC (4.30-5.90) m/uL Hgb (13.0-17.5) gm/dL Hct (39.0-53.0) % MCV (80.0-100.0) fL MCH (25.0-35.0) pg Plt Count (150-450) k/uL Neutrophils # (1.3-7.7) k/uL Sodium 134 L (137-145) mmol/L BUN 26 H (9-20) mg/dL Glucose 116 H (74-99) mg/dL POC Glucose (mg/dL) 138 H 151 H (75-99) mg/dL Microbiology - Last 24 Hours (Table) 10/27/16 16:15 Blood Culture - Preliminary Blood No Growth after 72 hours 10/27/16 14:43 Blood Culture - Preliminary Blood No Growth after 72 hours Assessment and Plan Plan: 1. Acute bilateral pneumonia right more than left, possible sepsis, present on admission, possibly community acquired. 2. [ Acute exacerbation COPD, right lung nodules, rule out lung CA]. 3. [ Anemia, microcytosis, possibly nutritional in origin]. 4. [ History of nicotine dependence]. 5. [ Increased platelet]. 6. [ Hyponatremia, improving]. 7. [Urine culture no growth 8. History of asthma, COPD 9. Degenerative joint disease 10. Ongoing nicotine dependence 11. No Code, No CPR, No Vent Plan: Continue on current medication regime ,monitoring and symptomatic treatment. Maintain nebulized bronchodilators, steroids, antibiotics. Follow closely with pulmonary. Discharge planning in progress pending pulmonary clearance. Further recommendations to follow. The impression and plan of care has been dictated as directed. : I performed a H&P examination of this patient and discussed the same with the dictator. I agree with the dictator's note. Any additional findings/opinions/ etc. will be noted.
[2016-10-31 17:31] LABS: Glucose,Whole Blood 122 mg/dL (75-99)
--- NOTE | 2016-10-31 18:19 | P.PN ---
Subjective 70-year-old male who is been smoking for 53 years. The patient started at the age of 17 and smoked up to 3 packs a day. The patient apparently came into the emergency department complaining of shortness of breath. He's also got cough chest congestion phlegm production. Wheezing. The patient sees a family doctor here in [facility]. Apparently was recommended to see a desizing machine operator head end but never did. His chest x-ray suspicious for a couple of nodules which could be early lung cancer. In addition, this most recent chest x-ray shows bilateral upper lobe infiltrates and a lower lobe infiltrate on the right. This could be cancer and/or pneumonia. The patient feels generally generally weak. Doesn't feel like himself. Feels like something is going wrong. He continues to smoke though. He also has chronic dyspnea. His been going on for months and even years. Getting worse. On 10/31/2016 the patient is being seen in follow-up. As mentioned earlier, the patient has advanced COPD and the patient is being treated for a right upper lobe pneumonia. I reviewed the previous CAT scan from October 2015 and there was no mediastinal lymphadenopathy or lung lesions and the patient's CAT scan was consistent essentially within advanced COPD, diffuse. A repeat CAT scan of the chest was done during this current hospitalization and again it shows diffuse emphysema. There was however extensive opacity in the posterior superior segment of the right lower lobe consistent with pneumonia. A small area of airspace disease or breast in the anterior aspect of the left upper lobe consistent with small focal pneumonia. A 1.2 cm solid nodule in the left upper lobe which is unchanged. Another nodule in the right upper lobe measuring 1.4 cm in size. The second in the right upper lobe measuring 1.3 cm in size. There are thick-walled bulla/postinflammatory changes in the right upper lobe. Compression deformity of the T7/T8 spine was again seen. Clinically the patient is doing slightly better compared to yesterday. His follow-up chest exit showed stable infiltration of the right upper lobe. White cell count is mildly elevated at 15.3. He remains on a combination of Rocephin and Zithromax. Objective - Vital Signs Vital signs: Vital Signs Temp 97.1 F L 10/31/16 15:00 Pulse 104 H 10/31/16 15:00 Resp 16 10/31/16 15:00 BP 132/57 10/31/16 15:00 Pulse Ox 96 10/31/16 15:00 Intake & Output 10/30/16 10/31/16 10/31/16 18:59 06:59 18:59 Intake Total 1250 Output Total 1100 Balance 150 Intake: Oral 1250 Output: Urine 1100 Other: Voiding Method Urinal # Voids 6 3 - Exam The patient appeared well nourished and normally developed. Vital signs as documented. Head exam is unremarkable. No scleral icterus or corneal arcus noted. Neck is without jugular venous distension, thyromegaly, or carotid bruits. Carotid upstrokes are brisk bilaterally. Lungs are diminished breath sounds bilaterally along with some scattered and prolonged respiratory wheezes. Cardiac exam reveals the PMI to be normally sized and situated. Rhythm is regular. First and second heart sounds normal. No murmurs, rubs or gallops. Abdominal exam reveals normal bowel sounds, no masses, no organomegaly and no aortic enlargement. Extremities are nonedematous and both femoral and pedal pulses are normal. - Labs CBC & Chem 7: 10/31/16 07:26 10/31/16 07:26 Labs: Abnormal Lab Results - Last 24 Hours (Table) 10/30/16 10/31/16 10/31/16 Range/Units 20:35 07:26 07:26 WBC 15.3 H (3.8-10.6) k/uL RBC 3.41 L (4.30-5.90) m/uL Hgb 12.1 L (13.0-17.5) gm/dL Hct 35.1 L (39.0-53.0) % MCV 102.7 H (80.0-100.0) fL MCH 35.4 H (25.0-35.0) pg Plt Count 557 H (150-450) k/uL Neutrophils # 13.5 H (1.3-7.7) k/uL Sodium 134 L (137-145) mmol/L BUN 26 H (9-20) mg/dL Glucose 116 H (74-99) mg/dL POC Glucose (mg/dL) 156 H (75-99) mg/dL 10/31/16 10/31/16 10/31/16 Range/Units 07:41 11:39 17:25 WBC (3.8-10.6) k/uL RBC (4.30-5.90) m/uL Hgb (13.0-17.5) gm/dL Hct (39.0-53.0) % MCV (80.0-100.0) fL MCH (25.0-35.0) pg Plt Count (150-450) k/uL Neutrophils # (1.3-7.7) k/uL Sodium (137-145) mmol/L BUN (9-20) mg/dL Glucose (74-99) mg/dL POC Glucose (mg/dL) 138 H 151 H 122 H (75-99) mg/dL Microbiology - Last 24 Hours (Table) 10/27/16 14:43 Blood Culture - Preliminary Blood No Growth after 96 hours 10/27/16 16:15 Blood Culture - Preliminary Blood No Growth after 72 hours Assessment and Plan Plan: Assessment 1 advanced COPD with diffuse emphysematous changes throughout the lung villalobos bilaterally with some bullous formation in the upper lobes 2 bilateral pneumonia more extensive in the right upper lobe area. Underlying malignancy is hard to exclude however based on this pneumonic changes it final recommendation or decision a malignancy cannot be made. My judgment the findings on the CAT scan are more so inflammatory and this needs to be followed very closely 3 shortness of breath secondary to above, improving 4 smoker Plan Complete a course of antibiotics. The patient can be potentially discharged home as long as his feeding pattern is improved. He needs to follow-up on outpatient basis. Follow-up chest x-ray. Bronchoscopy and transbronchial biopsies of the right upper lobe area the infiltration of the right upper lobe remains unchanged. Smoking cessation counseling was done. We'll continue to follow.
--- NOTE | 2016-10-31 19:04 | PN ---
DATE OF SERVICE: 10/31/2016 This 70-year-old gentleman who was admitted with bilateral pneumonia is being closely monitored. Seen and evaluated the patient along with nurse practitioner. Please refer to the nurse practitioner notes and impression documented as a scribe for further information. The most recent chest x-ray done this morning showed pneumonia. Further recommendations to follow. Prognosis guarded.
[2016-10-31 20:54] LABS: Glucose,Whole Blood 106 mg/dL (75-99)
[2016-10-31] MEDS: TAMSULOSIN 0.4 MG CAP.ER.24H PO SCH (21:12)
[2016-11-01] MEDS: methylPREDNISolone SOD SUCCI 125 MG/2 ML VIAL IV SCH ×2 (00:01→06:32)
[2016-11-01] MEDS: HYDROcodone/APAP 5-325MG 1 EACH TAB PO PRN ×2 (04:00→12:46)
[2016-11-01 07:25] LABS: Glucose,Whole Blood 124 mg/dL (75-99)
[2016-11-01] MEDS: SYMBICORT 160-4.5 MCG INHALER INHALATION SCH ×2 (07:35→19:52)
[2016-11-01] MEDS: ENOXAPARIN 40 MG/0.4 ML SYRINGE SQ SCH (08:03)
[2016-11-01] MEDS: AZITHROMYCIN 500 MG TAB PO SCH (08:03)
[2016-11-01] MEDS: PANTOPRAZOLE 40 MG TABLET PO SCH (08:03)
[2016-11-01] MEDS: NICOTINE 21MG/24HR PATCH TRANSDERM SCH (08:03)
[2016-11-01] MEDS: ALPRAZolam 0.25 MG TAB PO PRN ×2 (08:03→21:26)
[2016-11-01] MEDS: LOSARTAN 50 MG TAB PO SCH (08:03)
[2016-11-01] MEDS: B COMPLEX-VIT C-VIT E-ZINC 1 EACH TAB PO SCH (08:03)
[2016-11-01] MEDS: GABAPENTIN 100 MG CAP PO SCH ×3 (08:03→21:26)
[2016-11-01] MEDS: HYDROCHLOROTHIAZIDE 25 MG TAB PO SCH (08:03)
[2016-11-01] MEDS: INSULIN LISPRO (humaLOG) 300 UNIT/3 ML VIAL SQ SCH ×4 (08:04→21:26)
[2016-11-01 08:10] LABS: Basophils % (A) 0 %; CH 34.1; CHCM 32.8; Eosinophils % (A) 0 %; HCT 36.2 % (39.0-53.0); HDW 2.75; HGB 11.9 gm/dL (13.0-17.5); Luc # (Auto) 0.19; Luc % (Auto) 1; Lymphocytes # (A) 1.7 k/uL (1.0-4.8); Lymphocytes % (A) 12 %; MCH 34.2 pg (25.0-35.0); MCHC 32.7 g/dL (31.0-37.0); MCV 104.3 fL (80.0-100.0); Macrocytosis Moderate; Mean Platelet Volume 6.4; Monocytes # (A) 0.5 k/uL (0-1.0); Monocytes % (A) 4 %; Neutrophils % (A) 82 %; RBC 3.47 m/uL (4.30-5.90); WBC 13.4 k/uL (3.8-10.6); WBC (Perox) 13.99
[2016-11-01 08:24] LABS: Anion Gap 10 mmol/L; Blood Urea Nitrogen 25 mg/dL (9-20); Carbon Dioxide 25 mmol/L (22-30); Chloride 97 mmol/L (98-107); Glucose 118 mg/dL (74-99); Non-African American GFR(MDRD) >60 (>60 ml/min/1.73 sqM); Potassium 4.4 mmol/L (3.5-5.1); Sodium 132 mmol/L (137-145)
--- NOTE | 2016-11-01 12:00 | P.PN ---
Subjective 70-year-old male who is been smoking for 53 years. The patient started at the age of 17 and smoked up to 3 packs a day. The patient apparently came into the emergency department complaining of shortness of breath. He's also got cough chest congestion phlegm production. Wheezing. The patient sees a family doctor here in [facility]. Apparently was recommended to see a style advisor but never did. His chest x-ray suspicious for a couple of nodules which could be early lung cancer. In addition, this most recent chest x-ray shows bilateral upper lobe infiltrates and a lower lobe infiltrate on the right. This could be cancer and/or pneumonia. The patient feels generally generally weak. Doesn't feel like himself. Feels like something is going wrong. He continues to smoke though. He also has chronic dyspnea. His been going on for months and even years. Getting worse. On 10/31/2016 the patient is being seen in follow-up. As mentioned earlier, the patient has advanced COPD and the patient is being treated for a right upper lobe pneumonia. I reviewed the previous CAT scan from October 2015 and there was no mediastinal lymphadenopathy or lung lesions and the patient's CAT scan was consistent essentially within advanced COPD, diffuse. A repeat CAT scan of the chest was done during this current hospitalization and again it shows diffuse emphysema. There was however extensive opacity in the posterior superior segment of the right lower lobe consistent with pneumonia. A small area of airspace disease or breast in the anterior aspect of the left upper lobe consistent with small focal pneumonia. A 1.2 cm solid nodule in the left upper lobe which is unchanged. Another nodule in the right upper lobe measuring 1.4 cm in size. The second in the right upper lobe measuring 1.3 cm in size. There are thick-walled bulla/postinflammatory changes in the right upper lobe. Compression deformity of the T7/T8 spine was again seen. Clinically the patient is doing slightly better compared to yesterday. His follow-up chest exit showed stable infiltration of the right upper lobe. White cell count is mildly elevated at 15.3. He remains on a combination of Rocephin and Zithromax. On 11/01/2016 the patient is being seen in follow-up. No new complaints otherwise for today. His latest chest x-ray from yesterday showed upper lobe pulmonary infiltration more so on the right in addition to no other changes bilaterally which could be potentially either malignant or inflammatory although the second is more fevers. The patient has no fever or chills. No chest pain or pleurisy or hemoptysis at this point. Discharge planning is in progress. My commitment to this patient was an outpatient follow-up chest x- ray and possible bronchoscopy of the abnormalities persist. Note that the patient has been maintained on a combination of Symbicort and DuoNeb the last treatment [id number] on outpatient basis. He is current antibiotic coverage includes a combination of Rocephin and Zithromax. Objective - Vital Signs Vital signs: Vital Signs Temp 97.4 F L 11/01/16 07:00 Pulse 98 11/01/16 07:00 Resp 18 11/01/16 08:00 BP 154/79 11/01/16 07:00 Pulse Ox 98 11/01/16 07:37 Intake & Output 10/31/16 11/01/16 11/01/16 18:59 06:59 18:59 Intake Total 600 240 Output Total 1650 Balance -1050 240 Intake: Oral 600 240 Output: Urine 1650 Other: # Voids 3 - Exam The patient appeared well nourished and normally developed. Vital signs as documented. Head exam is unremarkable. No scleral icterus or corneal arcus noted. Neck is without jugular venous distension, thyromegaly, or carotid bruits. Carotid upstrokes are brisk bilaterally. Lungs are diminished breath sounds bilaterally along with some scattered and prolonged respiratory wheezes. Cardiac exam reveals the PMI to be normally sized and situated. Rhythm is regular. First and second heart sounds normal. No murmurs, rubs or gallops. Abdominal exam reveals normal bowel sounds, no masses, no organomegaly and no aortic enlargement. Extremities are nonedematous and both femoral and pedal pulses are normal. - Labs CBC & Chem 7: 11/01/16 07:34 11/01/16 07:34 Labs: Abnormal Lab Results - Last 24 Hours (Table) 10/31/16 10/31/16 11/01/16 Range/Units 17:25 20:53 07:19 WBC (3.8-10.6) k/uL RBC (4.30-5.90) m/uL Hgb (13.0-17.5) gm/dL Hct (39.0-53.0) % MCV (80.0-100.0) fL Plt Count (150-450) k/uL Neutrophils # (1.3-7.7) k/uL Sodium (137-145) mmol/L Chloride (98-107) mmol/L BUN (9-20) mg/dL Glucose (74-99) mg/dL POC Glucose (mg/dL) 122 H 106 H 124 H (75-99) mg/dL 11/01/16 11/01/16 Range/Units 07:34 07:34 WBC 13.4 H (3.8-10.6) k/uL RBC 3.47 L (4.30-5.90) m/uL Hgb 11.9 L (13.0-17.5) gm/dL Hct 36.2 L (39.0-53.0) % MCV 104.3 H (80.0-100.0) fL Plt Count 541 H (150-450) k/uL Neutrophils # 11.0 H (1.3-7.7) k/uL Sodium 132 L (137-145) mmol/L Chloride 97 L (98-107) mmol/L BUN 25 H (9-20) mg/dL Glucose 118 H (74-99) mg/dL POC Glucose (mg/dL) (75-99) mg/dL Microbiology - Last 24 Hours (Table) 10/27/16 16:15 Blood Culture - Preliminary Blood No Growth after 96 hours 10/27/16 14:43 Blood Culture - Preliminary Blood No Growth after 96 hours Assessment and Plan Plan: Assessment 1 advanced COPD with diffuse emphysematous changes throughout the lung villalobos bilaterally with some bullous formation in the upper lobes 2 bilateral pneumonia more extensive in the right upper lobe area. Underlying malignancy is hard to exclude however based on this pneumonic changes it final recommendation or decision a malignancy cannot be made. My judgment the findings on the CAT scan are more so inflammatory and this needs to be followed very closely 3 shortness of breath secondary to above, improving 4 smoker Plan Continue same treatment. Repeat chest x-ray in the morning. Would likely need long-term antibiotics and the choice of antibiotics. Essentially empiric knowing that cultures of been identified. We'll suggest starting this patient on Augmentin for a total of 10-14 days to be followed up in the office for repeat chest x-ray. Bronchoscopy is to follow if the abnormalities in the upper lobes persist especially the one on the right. The patient is also seeking visiting nursing care.
[2016-11-01 12:36] LABS: Glucose,Whole Blood 116 mg/dL (75-99)
[2016-11-01] MEDS: MULTIVITAMINS, THERA 1 EACH TAB PO SCH (12:46)
[2016-11-01] MEDS: methylPREDNISolone SOD SUCCI 40 MG/ML 1 ML VIAL IV SCH (15:08)
--- NOTE | 2016-11-01 16:45 | P.PN ---
Subjective Date of service 11/01/2016 Progress note being dictated for Dr. Winters. Interval history: This a 70-year-old gentleman admitted with acute bilateral pneumonia, right greater than left, possible sepsis, and multiple other medical issues. Continues on nebulized bronchodilators, steroids and antibiotics. Afebrile, tachycardic. Feels worse today, complains of fevers and chills. Currently denies cough. Denies chest pain, palpitations. Objective - Vital Signs Vital signs: Vital Signs Temp 97.4 F L 11/01/16 07:00 Pulse 127 H 11/01/16 14:10 Resp 18 11/01/16 08:00 BP 154/79 11/01/16 07:00 Pulse Ox 89 L 11/01/16 14:10 Intake & Output 10/31/16 11/01/16 11/01/16 18:59 06:59 18:59 Intake Total 600 480 Output Total 1650 1075 Balance -1050 -595 Intake: Oral 600 480 Output: Urine 1650 1075 Other: # Voids 3 # Bowel Movements 1 - Exam PHYSICAL EXAM: VITAL SIGNS: [As above] GENERAL: [Sitting up at side of bed, no acute distress] HEENT: [Pupils equal conjunctiva normal. Oral mucosa moist] NECK: [Supple, no JVD] RESPIRATORY EFFORT:[ Increased, LUNGS: [bilateral bases diminished with prolonged expiratory wheezing. CARDIOVASCULAR[ regular S1 and S2, no murmurs rubs or gallops, mild edema] GI: [Abdomen soft, nontender, positive bowel sounds. No guarding, no rigidity] PSYCH: [Alert and oriented -3, mood and affect normal.] NEURO: [No focal deficits] - Labs CBC & Chem 7: 11/01/16 07:34 11/01/16 07:34 Labs: Abnormal Lab Results - Last 24 Hours (Table) 10/31/16 10/31/16 11/01/16 Range/Units 17:25 20:53 07:19 WBC (3.8-10.6) k/uL RBC (4.30-5.90) m/uL Hgb (13.0-17.5) gm/dL Hct (39.0-53.0) % MCV (80.0-100.0) fL Plt Count (150-450) k/uL Neutrophils # (1.3-7.7) k/uL Sodium (137-145) mmol/L Chloride (98-107) mmol/L BUN (9-20) mg/dL Glucose (74-99) mg/dL POC Glucose (mg/dL) 122 H 106 H 124 H (75-99) mg/dL 11/01/16 11/01/16 11/01/16 Range/Units 07:34 07:34 12:33 WBC 13.4 H (3.8-10.6) k/uL RBC 3.47 L (4.30-5.90) m/uL Hgb 11.9 L (13.0-17.5) gm/dL Hct 36.2 L (39.0-53.0) % MCV 104.3 H (80.0-100.0) fL Plt Count 541 H (150-450) k/uL Neutrophils # 11.0 H (1.3-7.7) k/uL Sodium 132 L (137-145) mmol/L Chloride 97 L (98-107) mmol/L BUN 25 H (9-20) mg/dL Glucose 118 H (74-99) mg/dL POC Glucose (mg/dL) 116 H (75-99) mg/dL Microbiology - Last 24 Hours (Table) 10/27/16 16:15 Blood Culture - Preliminary Blood No Growth after 96 hours 10/27/16 14:43 Blood Culture - Preliminary Blood No Growth after 96 hours Assessment and Plan Plan: 1. Acute bilateral pneumonia right more than left, possible sepsis, present on admission, possibly community acquired. 2. [ Acute exacerbation COPD, right lung nodules, rule out lung CA]. 3. [ Anemia, microcytosis, possibly nutritional in origin]. 4. [ History of nicotine dependence]. 5. [ Increased platelet]. 6. [ Hyponatremia, improving]. 7. [Urine culture no growth 8. History of asthma, COPD 9. Degenerative joint disease 10. Ongoing nicotine dependence 11. No Code, No CPR, No Vent Plan: Continue on current medication regime ,monitoring and symptomatic treatment. Initially had planned for discharge but patient now complaining of fevers and chills, blood cultures ordered, discharged on hold. Maintain nebulized bronchodilators, steroids, antibiotics. Further recommendations to follow. The impression and plan of care has been dictated as directed. : I performed a H&P examination of this patient and discussed the same with the dictator. I agree with the dictator's note. Any additional findings/opinions/ etc. will be noted.
[2016-11-01 17:27] LABS: Glucose,Whole Blood 104 mg/dL (75-99)
[2016-11-01 21:04] LABS: Glucose,Whole Blood 119 mg/dL (75-99)
[2016-11-01] MEDS: TAMSULOSIN 0.4 MG CAP.ER.24H PO SCH (21:26)
[2016-11-01 23:27] VITALS: RESP 20
[2016-11-02] MEDS: methylPREDNISolone SOD SUCCI 40 MG/ML 1 ML VIAL IV SCH ×2 (00:39→09:40)
[2016-11-02] MEDS: HYDROcodone/APAP 5-325MG 1 EACH TAB PO PRN (04:25)
[2016-11-02] MEDS: SYMBICORT 160-4.5 MCG INHALER INHALATION SCH (07:13)
[2016-11-02 07:30] LABS: Glucose,Whole Blood 119 mg/dL (75-99)
[2016-11-02 07:34] VITALS: BP 150/92; TEMP 97.5
[2016-11-02 08:06] LABS: Basophils % (A) 0 %; CH 34.3; CHCM 34.3; Eosinophils % (A) 0 %; HCT 37.2 % (39.0-53.0); HDW 2.85; HGB 12.3 gm/dL (13.0-17.5); Luc # (Auto) 0.19; Luc % (Auto) 1; Lymphocytes # (A) 1.9 k/uL (1.0-4.8); Lymphocytes % (A) 14 %; MCH 33.2 pg (25.0-35.0); MCHC 33.1 g/dL (31.0-37.0); MCV 100.2 fL (80.0-100.0); Macrocytosis Slight; Mean Platelet Volume 6.8; Monocytes # (A) 0.7 k/uL (0-1.0); Monocytes % (A) 5 %; Neutrophils # (A) 11.4 k/uL (1.3-7.7); Neutrophils % (A) 80 %; RBC 3.72 m/uL (4.30-5.90); RDW 15.3 % (11.5-15.5); WBC 14.3 k/uL (3.8-10.6); WBC (Perox) 13.51
[2016-11-02 08:40] LABS: Anion Gap 9 mmol/L; Blood Urea Nitrogen 23 mg/dL (9-20); Calcium 9.1 mg/dL (8.4-10.2); Carbon Dioxide 25 mmol/L (22-30); Chloride 95 mmol/L (98-107); Glucose 115 mg/dL (74-99); Non-African American GFR(MDRD) >60 (>60 ml/min/1.73 sqM); Potassium 4.5 mmol/L (3.5-5.1); Sodium 129 mmol/L (137-145)
[2016-11-02] MEDS: NICOTINE 21MG/24HR PATCH TRANSDERM SCH (09:39)
[2016-11-02] MEDS: GABAPENTIN 100 MG CAP PO SCH (09:40)
[2016-11-02] MEDS: PANTOPRAZOLE 40 MG TABLET PO SCH (09:40)
[2016-11-02] MEDS: AZITHROMYCIN 500 MG TAB PO SCH (09:40)
[2016-11-02] MEDS: HYDROCHLOROTHIAZIDE 25 MG TAB PO SCH (09:40)
[2016-11-02] MEDS: INSULIN LISPRO (humaLOG) 300 UNIT/3 ML VIAL SQ SCH ×2 (09:40→12:50)
[2016-11-02] MEDS: LOSARTAN 50 MG TAB PO SCH (09:40)
[2016-11-02] MEDS: ENOXAPARIN 40 MG/0.4 ML SYRINGE SQ SCH (09:40)
[2016-11-02] MEDS: B COMPLEX-VIT C-VIT E-ZINC 1 EACH TAB PO SCH (09:40)
[2016-11-02] MEDS: ALPRAZolam 0.25 MG TAB PO PRN (09:42)
[2016-11-02 12:01] LABS: Glucose,Whole Blood 97 mg/dL (75-99)
[2016-11-02 12:07] VITALS: PULSE 110
[2016-11-02] MEDS: MULTIVITAMINS, THERA 1 EACH TAB PO SCH (12:50)
--- NOTE | 2016-11-02 15:34 | P.PN ---
Subjective 70-year-old male who is been smoking for 53 years. The patient started at the age of 17 and smoked up to 3 packs a day. The patient apparently came into the emergency department complaining of shortness of breath. He's also got cough chest congestion phlegm production. Wheezing. The patient sees a family doctor here in [facility]. Apparently was recommended to see a trim master operator but never did. His chest x-ray suspicious for a couple of nodules which could be early lung cancer. In addition, this most recent chest x-ray shows bilateral upper lobe infiltrates and a lower lobe infiltrate on the right. This could be cancer and/or pneumonia. The patient feels generally generally weak. Doesn't feel like himself. Feels like something is going wrong. He continues to smoke though. He also has chronic dyspnea. His been going on for months and even years. Getting worse. On 10/31/2016 the patient is being seen in follow-up. As mentioned earlier, the patient has advanced COPD and the patient is being treated for a right upper lobe pneumonia. I reviewed the previous CAT scan from October 2015 and there was no mediastinal lymphadenopathy or lung lesions and the patient's CAT scan was consistent essentially within advanced COPD, diffuse. A repeat CAT scan of the chest was done during this current hospitalization and again it shows diffuse emphysema. There was however extensive opacity in the posterior superior segment of the right lower lobe consistent with pneumonia. A small area of airspace disease or breast in the anterior aspect of the left upper lobe consistent with small focal pneumonia. A 1.2 cm solid nodule in the left upper lobe which is unchanged. Another nodule in the right upper lobe measuring 1.4 cm in size. The second in the right upper lobe measuring 1.3 cm in size. There are thick-walled bulla/postinflammatory changes in the right upper lobe. Compression deformity of the T7/T8 spine was again seen. Clinically the patient is doing slightly better compared to yesterday. His follow-up chest exit showed stable infiltration of the right upper lobe. White cell count is mildly elevated at 15.3. He remains on a combination of Rocephin and Zithromax. On 11/01/2016 the patient is being seen in follow-up. No new complaints otherwise for today. His latest chest x-ray from yesterday showed upper lobe pulmonary infiltration more so on the right in addition to no other changes bilaterally which could be potentially either malignant or inflammatory although the second is more fevers. The patient has no fever or chills. No chest pain or pleurisy or hemoptysis at this point. Discharge planning is in progress. My commitment to this patient was an outpatient follow-up chest x- ray and possible bronchoscopy of the abnormalities persist. Note that the patient has been maintained on a combination of Symbicort and DuoNeb the last treatment [id number] on outpatient basis. He is current antibiotic coverage includes a combination of Rocephin and Zithromax. On 11/02/2016 the patient is doing well. No specific complaints. Discharge planning is in progress. The patient will be discharged home to followed up with me in the office or with Dr. Jimenez regarding the upper lobe pulmonary infiltration. Suspicion for malignancy is not completely excluded. Patient has no specific complaints. Is doing well. Hemodynamically stable. Objective - Vital Signs Vital signs: Vital Signs Temp 97.5 F L 11/02/16 07:00 Pulse 110 H 11/02/16 12:05 Resp 20 11/02/16 12:05 BP 150/92 11/02/16 07:00 Pulse Ox 93 L 11/02/16 13:39 Intake & Output 11/01/16 11/02/16 11/02/16 18:59 06:59 18:59 Intake Total 480 100 640 Output Total 1575 1600 750 Balance -1095 -1500 -110 Intake: Oral 480 100 640 Output: Urine 1575 1600 750 Other: # Voids 1 # Bowel Movements 1 - Exam The patient appeared well nourished and normally developed. Vital signs as documented. Head exam is unremarkable. No scleral icterus or corneal arcus noted. Neck is without jugular venous distension, thyromegaly, or carotid bruits. Carotid upstrokes are brisk bilaterally. Lungs are diminished breath sounds bilaterally along with some scattered and prolonged respiratory wheezes. Cardiac exam reveals the PMI to be normally sized and situated. Rhythm is regular. First and second heart sounds normal. No murmurs, rubs or gallops. Abdominal exam reveals normal bowel sounds, no masses, no organomegaly and no aortic enlargement. Extremities are nonedematous and both femoral and pedal pulses are normal. - Labs CBC & Chem 7: 11/02/16 07:21 11/02/16 07:21 Labs: Abnormal Lab Results - Last 24 Hours (Table) 11/01/16 11/01/16 11/02/16 Range/Units 17:24 21:02 07:11 WBC (3.8-10.6) k/uL RBC (4.30-5.90) m/uL Hgb (13.0-17.5) gm/dL Hct (39.0-53.0) % MCV (80.0-100.0) fL Plt Count (150-450) k/uL Neutrophils # (1.3-7.7) k/uL Sodium (137-145) mmol/L Chloride (98-107) mmol/L BUN (9-20) mg/dL Glucose (74-99) mg/dL POC Glucose (mg/dL) 104 H 119 H 119 H (75-99) mg/dL 11/02/16 11/02/16 Range/Units 07:21 07:21 WBC 14.3 H (3.8-10.6) k/uL RBC 3.72 L (4.30-5.90) m/uL Hgb 12.3 L (13.0-17.5) gm/dL Hct 37.2 L (39.0-53.0) % MCV 100.2 H (80.0-100.0) fL Plt Count 600 H (150-450) k/uL Neutrophils # 11.4 H (1.3-7.7) k/uL Sodium 129 L (137-145) mmol/L Chloride 95 L (98-107) mmol/L BUN 23 H (9-20) mg/dL Glucose 115 H (74-99) mg/dL POC Glucose (mg/dL) (75-99) mg/dL Microbiology - Last 24 Hours (Table) 10/27/16 16:15 Blood Culture - Preliminary Blood No Growth after 120 hours 10/27/16 14:43 Blood Culture - Preliminary Blood No Growth after 120 hours Assessment and Plan Plan: Assessment 1 advanced COPD with diffuse emphysematous changes throughout the lung villalobos bilaterally with some bullous formation in the upper lobes 2 bilateral pneumonia more extensive in the right upper lobe area. Underlying malignancy is hard to exclude however based on this pneumonic changes it final recommendation or decision a malignancy cannot be made. My judgment the findings on the CAT scan are more so inflammatory and this needs to be followed very closely 3 shortness of breath secondary to above, improving 4 smoker Plan The patient will be going home and a combination of Ceftin and Zithromax. The patient will go back on a maintenance of Symbicort. DuoNeb nebulized treatments around the clock. Follow-up in the office in a week's time for repeat chest x-ray. Bronchoscopy was improvement in the pulmonary infiltrates.
--- NOTE | 2016-11-02 17:47 | DS ---
FINAL DIAGNOSES: 1. Acute bilateral pneumonia, right more than the left, with possible sepsis, present on admission; possibly community-acquired pneumonia. 2. Acute exacerbation of chronic obstructive pulmonary disease. 3. Right lung nodule. Rule out lung cancer. For further outpatient followup. 4. Anemia, microcytosis; possibly nutritional origin. 5. History of nicotine dependence. 6. Increased platelets. 7. Hyponatremia, improving. 8. Urine culture no growth. 9. History of asthma, chronic obstructive pulmonary disease. 10. History of degenerative joint disease. 11. Ongoing nicotine dependence. 12. NO CODE, NO CPR, NO VENT. DISCHARGE DISPOSITION: Patient will be discharged in stable condition with guarding prognosis. Total time taken 35 minutes. Discharge cleared by Pulmonary. HISTORY OF PRESENT ILLNESS: This 70-year-old gentleman was admitted with acute bilateral pneumonia. The patient also had COPD exacerbation. He was treated symptomatically. The patient improved significantly. The patient was on antibiotics. Dr. Van and Dr. Barillas saw the patient. On exam, vitals are stable. CARDIOVASCULAR: S1, S2 muffled. RESPIRATORY: Breath sounds diminished at the bases. A few scattered rhonchi. The CT scan findings recommended outpatient followup. DISCHARGE ADVICE AND MEDICATIONS: 1. Cardiac diet. 2. Activity limited until followup. 3. Follow up with primary physician, Dr. Bowie in 2 to 3 days. 4. Follow up with Dr. Van in 2 weeks. 5. ProAir HFA 1 to 2 puffs q.6 p.r.n. 6. Xanax 0.25 p.o. t.i.d. p.r.n. 7. Zithromax 500 mg p.o. daily for 5 days. 8. Symbicort 160/4.5 two puffs b.i.d. 9. Ceftin 500 mg p.o. b.i.d. for 5 days. 10. Neurontin 100 mg p.o. t.i.d. 11. Hydrodiuril 25 mg p.o. daily. 12. Albuterol/Atrovent updrafts q.i.d. and p.r.n. 13. Cozaar 100 mg p.o. daily. 14. Multivitamins 1 p.o. daily. 15. Aleve 220 mg p.o. b.i.d. p.r.n. 16. Habitrol 21 daily. 17. No smoking. 18. Prednisone taper: 40 mg daily for 3 days; 30 mg daily for 3 day; 20 mg daily for 3 days; 10 mg daily for 3 days; then stop. 19. Flomax 0.4 at bedtime. 20. Sleep aid 1 tablet p.o. at bedtime. 21. Vitamin B complex 1 capsule p.o. daily. MTDD
--- NOTE | 2016-11-03 17:15 | PN ---
DATE OF SERVICE: 11/01/2016 This 70-year-old gentleman who was admitted with pneumonia is being closely monitored. I saw and evaluated the patient along with the nurse practitioner. The patient still has bronchospasms. Please refer to the nurse practitioner's notes and impressions documented as a scribe for further information. [email or web address]
== END 2016-11-02 15:44 | disposition home health service (06) | DRG 871 ==
LOC: EC 14:03 → 4MS4W 15:49
PROVIDERS: ADMIT Hospitalist; ATTEND Hospitalist
DX: A41.9 Sepsis, unspecified organism (principal); J18.9 Pneumonia, unspecified organism; J44.0 Chronic obstructive pulmonary disease with (acute) lower respiratory infection; J44.1 Chronic obstructive pulmonary disease with (acute) exacerbation; E87.1 Hypo-osmolality and hyponatremia; F17.210 Nicotine dependence, cigarettes, uncomplicated; Z66 Do not resuscitate; R91.1 Solitary pulmonary nodule; D64.9 Anemia, unspecified; J98.01 Acute bronchospasm; Z91.19 Patient's noncompliance with other medical treatment and regimen; Z87.01 Personal history of pneumonia (recurrent); Z79.899 Other long term (current) drug therapy
CPT/HCPCS: 36415; 71020; 71250; 80048; 80053; 81001; 82550; 82553; 83605; 83690; 83735; 83880; 84484; 85025; 85610; 85730; 87040; 87070; 87086; 87205; 93005; 94640; 94760; 96365; 99285

== ENCOUNTER → 2016-11-10 | Outpatient (CLI) | payer MEDICARE ==
--- NOTE | 2016-11-10 14:10 | XR ---
EXAMINATION TYPE: XR chest 2V DATE OF EXAM: 11/10/2016 HISTORY: J15.9 community acquired bacterial pneumonia. REFERENCE: Previous study dated 10/31/2016. FINDINGS: The lungs are overinflated. There is chronic scarring in the right upper lobe. There is a s table masslike density in the left midlung Measuring 2.3 cm. The heart is mildly enlarged. Pleural spaces are clear. IMPRESSION: 1. COPD. 2. MASSLIKE DENSITY, LEFT MIDLUNG. 3. CHRONIC SCARRING AND FIBROSIS, RIGHT UPPER LOBE.
--- NOTE | 2016-11-11 10:31 | ECHOF ---
Referral Reason:R60.0 localized edema MEASUREMENTS -------- HEIGHT: 176.5 cm WEIGHT: 80.3 kg BP: 132/60 RVIDd: 3.6 cm (< 3.3) IVSd: 1.3 cm (0.6 - 1.1) LVIDd: 3.1 cm (3.9 - 5.3) LVPWd: 1.1 cm (0.6 - 1.1) IVSs: 1.4 cm LVIDs: 2.3 cm LVPWs: 1.5 cm LA Diam: 2.8 cm (2.7 - 3.8) LAESV Index (A-L): 16.36 ml/m Ao Diam: 3.6 cm (2.0 - 3.7) AV Cusp: 2.0 cm (1.5 - 2.6) MV EXCURSION: 9.761 mm (> 18.000) MV EF SLOPE: 34 mm/s (70 - 150) EPSS: 0.9 cm MV E Enrique: 0.54 m/s MV DecT: 324 ms MV A Enrique: 0.82 m/s MV E/A Ratio: 0.66 FINDINGS -------- Sinus rhythm. This was a technically adequate study. The left ventricular size is normal. There is mild concentric left ventricular hypertrophy. Overall left ventricular systolic function is normal with, an EF between 55 - 60 %. The right ventricle is mildly enlarged. Normal LA size by volume 22+/-6 ml/m2. The right atrium is normal in size. There is mild aortic valve sclerosis. Mild mitral annular calcification present. No regurgitation noted Trace/mild (physiologic) pulmonic regurgitation. The aortic root size is normal. The inferior vena cava is mildly dilated. There is no pericardial effusion. CONCLUSIONS -------- 1. Sinus rhythm. 2. Mild mitral annular calcification present. 3. No regurgitation noted 4. Trace/mild (physiologic) pulmonic regurgitation. 5. The aortic root size is normal. 6. The inferior vena cava is mildly dilated. 7. There is no pericardial effusion. 8. This was a technically adequate study. 9. The left ventricular size is normal. 10. There is mild concentric left ventricular hypertrophy. 11. Overall left ventricular systolic function is normal with, an EF between 55 - 60 %. 12. The right ventricle is mildly enlarged. 13. Normal LA size by volume 22+/-6 ml/m2. 14. The right atrium is normal in size. 15. There is mild aortic valve sclerosis. GOODWILL AMBASSADOR: Jennifer Cook RDCS
== END | disposition home or self-care (01) ==
LOC: RADECHMAIN 13:42
PROVIDERS: ATTEND Internal Medicine
DX: J44.9 Chronic obstructive pulmonary disease, unspecified (principal); J84.10 Pulmonary fibrosis, unspecified; R91.8 Other nonspecific abnormal finding of lung field; I35.8 Other nonrheumatic aortic valve disorders; I34.8 Other nonrheumatic mitral valve disorders
CPT/HCPCS: 71020; 93306

== ENCOUNTER → 2016-11-10 | Outpatient (CLI) | payer MEDICARE ==
[2016-11-10 15:35] LABS: Anisocytosis Slight; Basophils % (A) 0 %; CH 33.9; CHCM 32.9; Eosinophils % (A) 0 %; HCT 39.5 % (39.0-53.0); Luc # (Auto) 0.09; Luc % (Auto) 1; Lymphocytes # (A) 0.6 k/uL (1.0-4.8); Lymphocytes % (A) 5 %; MCHC 32.8 g/dL (31.0-37.0); MCV 103.5 fL (80.0-100.0); Macrocytosis Moderate; Mean Platelet Volume 6.6; Monocytes # (A) 0.3 k/uL (0-1.0); Monocytes % (A) 3 %; Neutrophils # (A) 11.7 k/uL (1.3-7.7); Neutrophils % (A) 92 %; RBC 3.81 m/uL (4.30-5.90); RDW 16.5 % (11.5-15.5); WBC 12.7 k/uL (3.8-10.6); WBC (Perox) 12.53
[2016-11-10 15:43] LABS: ALT 55 U/L (21-72); AST 33 U/L (17-59); Alkaline Phosphatase 92 U/L (38-126); Anion Gap 10 mmol/L; Blood Urea Nitrogen 10 mg/dL (9-20); Calcium 9.5 mg/dL (8.4-10.2); Carbon Dioxide 26 mmol/L (22-30); Chloride 95 mmol/L (98-107); Glucose 108 mg/dL (74-99); Non-African American GFR(MDRD) >60 (>60 ml/min/1.73 sqM); Potassium 4.2 mmol/L (3.5-5.1); Sodium 131 mmol/L (137-145); Total Bilirubin 0.7 mg/dL (0.2-1.3); Total Protein 6.7 g/dL (6.3-8.2)
== END | disposition home or self-care (01) ==
LOC: LABWHC1 15:03
PROVIDERS: ATTEND Internal Medicine
DX: E87.1 Hypo-osmolality and hyponatremia (principal); R60.0 Localized edema; J15.9 Unspecified bacterial pneumonia
CPT/HCPCS: 36415; 80053; 83880; 83930; 83935; 84300; 85025

== ENCOUNTER 2016-11-17 09:28 | Inpatient (IN) | payer MEDICARE ==
[2016-11-17] MEDS ORDERED: SODIUM CHLORIDE 0.9% 500 ML IV STA (09:51)
[2016-11-17 10:31] LABS: Anisocytosis Slight; Basophils % (A) 1 %; CHCM 34.4; Eosinophils # (A) 0.1 k/uL (0-0.7); Eosinophils % (A) 2 %; HDW 2.68; HGB 11.3 gm/dL (13.0-17.5); Luc % (Auto) 3; Lymphocytes # (A) 1.2 k/uL (1.0-4.8); Lymphocytes % (A) 17 %; MCH 34.1 pg (25.0-35.0); MCHC 34.4 g/dL (31.0-37.0); MCV 99.1 fL (80.0-100.0); Macrocytosis Slight; Mean Platelet Volume 6.6; Monocytes # (A) 0.3 k/uL (0-1.0); Monocytes % (A) 5 %; Neutrophils # (A) 5.2 k/uL (1.3-7.7); Neutrophils % (A) 73 %; RBC 3.33 m/uL (4.30-5.90); RDW 16.8 % (11.5-15.5); WBC 7.2 k/uL (3.8-10.6); WBC (Perox) 6.59
[2016-11-17 10:33] LABS: Partial Thromboplastin Time 22.3 sec (22.0-30.0); Prothrombin Time 10.5 sec (9.0-12.0)
--- NOTE | 2016-11-17 10:35 | XR ---
EXAMINATION TYPE: XR chest 2V DATE OF EXAM: 11/17/2016 COMPARISON: 11/10/2016 TECHNIQUE: PA and lateral views submitted. HISTORY: Chest pain FINDINGS: There is a persistent masslike consolidation in the right upper lobe. Irregular density in the left u pper lobe seen measuring 2.4 cm stable. Underlying COPD noted. Previous trauma the right clavicle wit h arthropathy of the shoulders. Heart size stable. IMPRESSION: 1. COPD with bilateral areas of masslike consolidation correlate for pneumonia versus neoplasm. Findi ngs are stable.
[2016-11-17 10:37] LABS: ALT 45 U/L (21-72); AST 38 U/L (17-59); Alkaline Phosphatase 87 U/L (38-126); Amylase <30 U/L (30-110); Anion Gap 9 mmol/L; Blood Urea Nitrogen 12 mg/dL (9-20); Carbon Dioxide 21 mmol/L (22-30); Chloride 95 mmol/L (98-107); Glucose 112 mg/dL (74-99); Magnesium 1.4 mg/dL (1.6-2.3); Non-African American GFR(MDRD) >60 (>60 ml/min/1.73 sqM); Potassium 4.5 mmol/L (3.5-5.1); Sodium 125 mmol/L (137-145); Total Bilirubin 0.6 mg/dL (0.2-1.3); Total Protein 6.2 g/dL (6.3-8.2)
--- NOTE | 2016-11-17 10:42 | ED ---
General Adult HPI - General Source: patient, family, RN notes reviewed, old records reviewed Mode of arrival: wheelchair Limitations: physical limitation <Mckenna Lopez - Last Filed: 11/17/16 11:55> <Apolinar Pinto - Last Filed: 11/17/16 13:13> - General Chief complaint: Recheck/Abnormal Lab/Rx Stated complaint: low sodium-sent by Time Seen by Provider: 11/17/16 09:39 - History of Present Illness Initial comments: This is a 70-year-old male presenting to the emergency department with multiple chief complaints. Patient reports that he had lab work done by his primary care provider 2 days ago and was told to come the emergency room for low sodium. Patient also reports that over the past few weeks she's noticed a infection over bilateral lower extremities and significant swelling. Patient reports that he left leg there has been some pus and drainage from the top of the foot. Patient reports that he was recently discharged from the hospital. Patient reports that he has occasional shortness of breath and chest pain. Patient denies any nausea or vomiting. He also reports difficulty with urination occasionally. He reports that there is been a burning sensation. Patient denies any specific fever or chills. Denies any cough, vomiting, diarrhea or changes in bowel movements. (Mckenna Lopez) - Related Data Home Medications Medication Instructions Recorded Confirmed Albuterol Sulfate [Proair Hfa] 1 - 2 puff INHALATION RT-Q6H PRN 10/27/16 Gabapentin [Neurontin] 100 mg PO TID 10/27/16 11/17/16 Hydrochlorothiazide [Hydrodiuril] 25 mg PO DAILY 10/27/16 11/17/16 Losartan Potassium [Cozaar] 100 mg PO DAILY 10/27/16 11/17/16 Multivitamins, Thera [Multivitamin 1 tab PO DAILY 10/27/16 11/17/16 (formulary)] Naproxen Sodium [Aleve] 220 mg PO BID PRN 10/27/16 11/17/16 Unknown Otc Sleep Aid 1 tab PO HS 10/27/16 11/17/16 Vitamin B Complex 1 cap PO DAILY 10/27/16 11/17/16 Previous Rx's Medication Instructions Recorded Budesonide-Formot 160-4.5 Mcg 2 puff INHALATION RT-BID #1 inh 11/01/16 [Symbicort 160-4.5 Mcg Inhaler] Ipratropium-Albuterol Nebulize 3 ml INHALATION QID #120 neb 11/01/16 [Duoneb 0.5 mg-3 mg/3 ml Soln] ALPRAZolam [Xanax] 0.25 mg PO TID PRN #20 tab 11/02/16 Nicotine 21Mg/24Hr Patch [Habitrol] 1 patch TRANSDERM DAILY #30 patch 11/02/16 Tamsulosin [Flomax] 0.4 mg PO HS #30 cap 11/02/16 Allergies Allergy/AdvReac Type Severity Reaction Status Date / Time No Known Allergies Allergy Verified 11/17/16 11:03 Review of Systems ROS Other: All systems not noted in ROS Statement are negative. <Mckenna Lopez - Last Filed: 11/17/16 11:55> ROS Other: All systems not noted in ROS Statement are negative. <Apolinar Pinto - Last Filed: 11/17/16 13:13> ROS Statement: Those systems with pertinent positive or pertinent negative responses have been documented in the HPI. Past Medical History Past Medical History: Asthma, COPD Additional Past Medical History / Comment(s): back problems, neuromuscular problems History of Any Multi-Drug Resistant Organisms: None Reported Past Surgical History: Orthopedic Surgery Additional Past Surgical History / Comment(s): left hip sx Past Psychological History: No Psychological Hx Reported Smoking Status: Current every day smoker Past Alcohol Use History: None Reported Past Drug Use History: None Reported <Mckenna Lopez - Last Filed: 11/17/16 11:55> General Exam Limitations: physical limitation General appearance: alert, in no apparent distress Head exam: Present: atraumatic, normocephalic, normal inspection Eye exam: Present: normal appearance, PERRL, EOMI. Absent: scleral icterus, conjunctival injection, periorbital swelling ENT exam: Present: normal exam, mucous membranes moist, other (Poor dentition) Neck exam: Present: normal inspection. Absent: tenderness, meningismus, lymphadenopathy Respiratory exam: Present: normal lung sounds bilaterally, wheezes (Mild bilateral wheezing and crackles.). Absent: respiratory distress, rales, rhonchi , stridor Cardiovascular Exam: Present: regular rate, normal rhythm, normal heart sounds. Absent: systolic murmur, diastolic murmur, rubs, gallop, clicks GI/Abdominal exam: Present: soft, normal bowel sounds. Absent: distended, tenderness, guarding, rebound, rigid Extremities exam: Present: full ROM, normal capillary refill, other (Patient has significant swelling over bilateral lower extremity is. Areas of erythema over the dorsum of each foot. Left foot has significant seepage and pus drainage from the top of the foot.). Absent: normal inspection, tenderness, pedal edema, joint swelling, calf tenderness Back exam: Present: normal inspection Neurological exam: Present: alert, oriented X3, CN II-XII intact Psychiatric exam: Present: normal affect, normal mood Skin exam: Present: warm, dry, intact, normal color. Absent: rash <Mckenna Lopez - Last Filed: 11/17/16 11:55> <Apolinar Pinto - Last Filed: 11/17/16 13:13> - General Exam Comments Initial Comments: 70-year-old male. Patient appears unkempt. Patient does not appear to be in any acute distress. (Mckenna Lopez) Course <Mckenna Lopez - Last Filed: 11/17/16 11:55> <Apolinar Pinto - Last Filed: 11/17/16 13:13> Vital Signs 11/17/16 11/17/16 11/17/16 09:30 10:14 11:40 Temperature 98.0 F Pulse Rate 98 88 72 Respiratory 20 18 18 Rate Blood Pressure 130/60 146/68 123/58 O2 Sat by Pulse 99 97 100 Oximetry - Reevaluation(s) Reevaluation #1: 11/17/16 13:01 I did personally do a states evaluation of this patient and do agree with the assessment and plan patient does demonstrate a right sided infiltrate likely neoplastic he does have hyponatremia the he is symptomatic from. He will be admitted I did discuss the case with Dr. Salter. (Apolinar Pinto) Medical Decision Making - Lab Data Result diagrams: 11/17/16 10:07 11/17/16 10:07 - Radiology Data Radiology results: report reviewed <Mckenna Lopez - Last Filed: 11/17/16 11:55> - Lab Data Result diagrams: 11/17/16 10:07 11/17/16 10:07 <Apolinar Pinto - Last Filed: 11/17/16 13:13> - Medical Decision Making This is a 70-year-old male presenting to the emergency department with multiple chief complaints. Patient reports that he had lab work done by his primary care provider 2 days ago and was told to come the emergency room for low sodium. Patient also reports that over the past few weeks she's noticed a infection over bilateral lower extremities and significant swelling. Patient reports that he left leg there has been some pus and drainage from the top of the foot. Patient reports that he was recently discharged from the hospital. Patient reports that he has occasional shortness of breath and chest pain. Patient denies any nausea or vomiting. He also reports difficulty with urination occasionally. He reports that there is been a burning sensation. Patient denies any specific fever or chills. Denies any cough, vomiting, diarrhea or changes in bowel movements. Patient's laboratories are reviewed. Does have significant hyponatremia sodium 125. Patient will be rehydrated. Again patient does have bilateral significant edema and possible left foot cellulitis. Chest x-ray also shows evidence of a right middle lobe consolidation possibly infectious or neoplastic in nature. Patient was started on IV antibiotic in case of infectious cause as well as to cover for skin infection over the foot. Patient agrees to admission. (Mckenna Lopez) - Lab Data Lab Results 11/17/16 11/17/16 11/17/16 Range/Units 10:07 10:07 10:07 WBC 7.2 (3.8-10.6) k/uL RBC 3.33 L (4.30-5.90) m/uL Hgb 11.3 L (13.0-17.5) gm/dL Hct 33.0 L (39.0-53.0) % MCV 99.1 (80.0-100.0) fL MCH 34.1 (25.0-35.0) pg MCHC 34.4 (31.0-37.0) g/dL RDW 16.8 H (11.5-15.5) % Plt Count 244 (150-450) k/uL Neutrophils % 73 % Lymphocytes % 17 % Monocytes % 5 % Eosinophils % 2 % Basophils % 1 % Neutrophils # 5.2 (1.3-7.7) k/uL Lymphocytes # 1.2 (1.0-4.8) k/uL Monocytes # 0.3 (0-1.0) k/uL Eosinophils # 0.1 (0-0.7) k/uL Basophils # 0.0 (0-0.2) k/uL Anisocytosis Slight Macrocytosis Slight PT (9.0-12.0) sec INR (<1.1) APTT (22.0-30.0) sec Sodium 125 L (137-145) mmol/L Potassium 4.5 (3.5-5.1) mmol/L Chloride 95 L (98-107) mmol/L Carbon Dioxide 21 L (22-30) mmol/L Anion Gap 9 mmol/L BUN 12 (9-20) mg/dL Creatinine 0.98 (0.66-1.25) mg/dL Est GFR (MDRD) Af Amer >60 (>60 ml/min/1.73 sqM) Est GFR (MDRD) Non-Af >60 (>60 ml/min/1.73 sqM) Glucose 112 H (74-99) mg/dL Plasma Lactic Acid Dwayne (0.7-2.0) mmol/L Calcium 9.0 (8.4-10.2) mg/dL Magnesium 1.4 L (1.6-2.3) mg/dL Total Bilirubin 0.6 (0.2-1.3) mg/dL AST 38 (17-59) U/L ALT 45 (21-72) U/L Alkaline Phosphatase 87 (38-126) U/L Total Creatine Kinase 234 H (55-170) U/L CK-MB (CK-2) 4.9 H* (0.0-2.4) ng/mL CK-MB (CK-2) Rel Index 2.1 Troponin I <0.012 (0.000-0.034) ng/mL NT-Pro-B Natriuret Pep pg/mL Total Protein 6.2 L (6.3-8.2) g/dL Albumin 3.3 L (3.5-5.0) g/dL Amylase <30 L (30-110) U/L Lipase 44 (23-300) U/L Urine Color Urine Appearance (Clear) Urine pH (5.0-8.0) Ur Specific [place] (1.001-1.035) Urine Protein (Negative) Urine Glucose (UA) (Negative) Urine Ketones (Negative) Urine Blood (Negative) Urine Nitrite (Negative) Urine Bilirubin (Negative) Urine Urobilinogen (<2.0) mg/dL Ur Leukocyte Esterase (Negative) 11/17/16 11/17/16 11/17/16 Range/Units 10:07 10:07 10:07 WBC (3.8-10.6) k/uL RBC (4.30-5.90) m/uL Hgb (13.0-17.5) gm/dL Hct (39.0-53.0) % MCV (80.0-100.0) fL MCH (25.0-35.0) pg MCHC (31.0-37.0) g/dL RDW (11.5-15.5) % Plt Count (150-450) k/uL Neutrophils % % Lymphocytes % % Monocytes % % Eosinophils % % Basophils % % Neutrophils # (1.3-7.7) k/uL Lymphocytes # (1.0-4.8) k/uL Monocytes # (0-1.0) k/uL Eosinophils # (0-0.7) k/uL Basophils # (0-0.2) k/uL Anisocytosis Macrocytosis PT 10.5 (9.0-12.0) sec INR 1.0 (<1.1) APTT 22.3 (22.0-30.0) sec Sodium (137-145) mmol/L Potassium (3.5-5.1) mmol/L Chloride (98-107) mmol/L Carbon Dioxide (22-30) mmol/L Anion Gap mmol/L BUN (9-20) mg/dL Creatinine (0.66-1.25) mg/dL Est GFR (MDRD) Af Amer (>60 ml/min/1.73 sqM) Est GFR (MDRD) Non-Af (>60 ml/min/1.73 sqM) Glucose (74-99) mg/dL Plasma Lactic Acid Dwayne 1.2 (0.7-2.0) mmol/L Calcium (8.4-10.2) mg/dL Magnesium (1.6-2.3) mg/dL Total Bilirubin (0.2-1.3) mg/dL AST (17-59) U/L ALT (21-72) U/L Alkaline Phosphatase (38-126) U/L Total Creatine Kinase (55-170) U/L CK-MB (CK-2) (0.0-2.4) ng/mL CK-MB (CK-2) Rel Index Troponin I (0.000-0.034) ng/mL NT-Pro-B Natriuret Pep 108 pg/mL Total Protein (6.3-8.2) g/dL Albumin (3.5-5.0) g/dL Amylase (30-110) U/L Lipase (23-300) U/L Urine Color Urine Appearance (Clear) Urine pH (5.0-8.0) Ur Specific [place] (1.001-1.035) Urine Protein (Negative) Urine Glucose (UA) (Negative) Urine Ketones (Negative) Urine Blood (Negative) Urine Nitrite (Negative) Urine Bilirubin (Negative) Urine Urobilinogen (<2.0) mg/dL Ur Leukocyte Esterase (Negative) 11/17/16 Range/Units 10:40 WBC (3.8-10.6) k/uL RBC (4.30-5.90) m/uL Hgb (13.0-17.5) gm/dL Hct (39.0-53.0) % MCV (80.0-100.0) fL MCH (25.0-35.0) pg MCHC (31.0-37.0) g/dL RDW (11.5-15.5) % Plt Count (150-450) k/uL Neutrophils % % Lymphocytes % % Monocytes % % Eosinophils % % Basophils % % Neutrophils # (1.3-7.7) k/uL Lymphocytes # (1.0-4.8) k/uL Monocytes # (0-1.0) k/uL Eosinophils # (0-0.7) k/uL Basophils # (0-0.2) k/uL Anisocytosis Macrocytosis PT (9.0-12.0) sec INR (<1.1) APTT (22.0-30.0) sec Sodium (137-145) mmol/L Potassium (3.5-5.1) mmol/L Chloride (98-107) mmol/L Carbon Dioxide (22-30) mmol/L Anion Gap mmol/L BUN (9-20) mg/dL Creatinine (0.66-1.25) mg/dL Est GFR (MDRD) Af Amer (>60 ml/min/1.73 sqM) Est GFR (MDRD) Non-Af (>60 ml/min/1.73 sqM) Glucose (74-99) mg/dL Plasma Lactic Acid Dwayne (0.7-2.0) mmol/L Calcium (8.4-10.2) mg/dL Magnesium (1.6-2.3) mg/dL Total Bilirubin (0.2-1.3) mg/dL AST (17-59) U/L ALT (21-72) U/L Alkaline Phosphatase (38-126) U/L Total Creatine Kinase (55-170) U/L CK-MB (CK-2) (0.0-2.4) ng/mL CK-MB (CK-2) Rel Index Troponin I (0.000-0.034) ng/mL NT-Pro-B Natriuret Pep pg/mL Total Protein (6.3-8.2) g/dL Albumin (3.5-5.0) g/dL Amylase (30-110) U/L Lipase (23-300) U/L Urine Color Light Yellow Urine Appearance Clear (Clear) Urine pH 7.5 (5.0-8.0) Ur Specific [place] 1.006 (1.001-1.035) Urine Protein Negative (Negative) Urine Glucose (UA) Negative (Negative) Urine Ketones Negative (Negative) Urine Blood Negative (Negative) Urine Nitrite Negative (Negative) Urine Bilirubin Negative (Negative) Urine Urobilinogen <2.0 (<2.0) mg/dL Ur Leukocyte Esterase Negative (Negative) 11/17/16 10:55 EKG shows normal sinus rhythm. During 70 bpm. NH interval 154 ms. QRS ratio 80 ms. QT QTc is 360/410 ms. Noticed this elevation or T-wave inversion. No dysphagia or ventricular arrhythmias. (Mckenna Lopez) - Radiology Data COPD with bilateral areas of masslike consolidation correlating for pneumonia versus neoplasm. Findings are stable. (Mckenna Lopez) Disposition Time of Disposition: 11:57 <Mckenna Lopez - Last Filed: 11/17/16 11:55> <Apolinar Pinto - Last Filed: 11/17/16 13:13> Clinical Impression: Hyponatremia, Pneumonia, Bilateral edema of lower extremity, Cellulitis of left foot Disposition: ADMITTED IP TO THIS HOSP Condition: Stable Referrals: Mendoza Bowie MD [Primary Care Provider] - 1-2 days
[2016-11-17 10:49] LABS: Creatine Kinase 234 U/L (55-170)
[2016-11-17 11:00] LABS: Appearance,Urine Clear (Clear); Bilirubin,Urine Negative (Negative); Glucose,Urine (UA) Negative (Negative); Ketones,Urine Negative (Negative); Leukocyte Esterase,Urine Negative (Negative); Nitrite,Urine Negative (Negative); PH, Urine 7.5 (5.0-8.0); Protein,Urine Negative (Negative); Specific Gravity,Urine 1.006 (1.001-1.035); UA Billing (MACRO vs. MICRO) CHEM; Urobilinogen,Urine <2.0 mg/dL (<2.0)
[2016-11-17 11:01] LABS: Troponin I <0.012 ng/mL (0.000-0.034)
[2016-11-17 11:02] LABS: Creatine Kinase MB 4.9 ng/mL (0.0-2.4)
[2016-11-17] MEDS ORDERED: MORPHINE SULFATE 4 MG/ML SYRINGE IV PRN (11:57)
[2016-11-17] MEDS ORDERED: ONDANSETRON 4 MG/2 ML VIAL IVP PRN (11:57)
[2016-11-17] MEDS ORDERED: NALOXONE 0.4 MG/ML 1 ML VIAL IV PRN (11:57)
[2016-11-17] MEDS ORDERED: SODIUM CHLORIDE 0.9% 1,000 ML IV SCH (12:00)
[2016-11-17] MEDS ORDERED: NAPROXEN 250 MG TAB PO PRN (12:02)
[2016-11-17] MEDS ORDERED: ALBUTEROL NEBULIZED 2.5 MG/3 ML INHALATION PRN (12:02)
[2016-11-17] MEDS ORDERED: LEVOFLOXACIN 750MG-D5W PMX 750 MG in DEXTROSE/WATER 1 150ML.BAG IVPB STA (12:02)
[2016-11-17] MEDS ORDERED: PNEUMONIA PROTOCOL UTILIZED 1 EACH MISC PO PRN (12:21)
[2016-11-17] MEDS ORDERED: RX INFO: IV CONTRAST WAS GIVEN 1 EACH MISC MISCELLANE PRN (13:02)
[2016-11-17] MEDS ORDERED: IPRATROPIUM-ALBUTEROL 3 ML NEB INHALATION PRN (13:13)
--- NOTE | 2016-11-17 13:53 | P.CNPUL ---
History of Present Illness Consult date: 11/17/16 Reason for consult: lung mass, abnormal CXR/CT, other Chief complaint: Abnormal labs dizziness abnormal chest x-ray, rule out lung cancer History of present illness: Consult dated 11/17/2016 70-year-old male with a history of multiple planes. He apparently was seen by his primary care provider couple days ago and told to come the emergency room for a low sodium. The patient complains of a number different things including lower summary edema in bilateral lower extremities cellulitis. He has also apparently has some purulent drainage from the top of his foot. He was recently discharged from the hospital at that time I saw him for COPD exacerbation and abnormal chest x-ray. He was come back and see me in the office. We're concerned about the possibility of bronchogenic carcinoma. He apparently presents today with neurologic symptoms with the lightheadedness and dizziness and for that reason, I was consulted again. Chest x-ray shows right upper lobe infiltrate and he may have in fact a right hilar mass. A previous computed tomography scan apparently shows some pulmonary nodules and cancer was certainly entertained. Review of Systems A 12 point review of system is positive for a number different complaints including lower extremity edema purulent drainage from the lower extremities cellulitis dizziness lightheadedness chronic shortness of breath. Past Medical History Past Medical History: Asthma, COPD, Pneumonia, Prostate Disorder Additional Past Medical History / Comment(s): Pt recently admitted 10/27/16 with bilateral pneumonia-possible sepsis, exacerbation COPD, UTI and R lung nodule which he was to follow up with a pet scan but has not as yet. Other hx: back problems, sciatica involving L side, tingling in legs, DJD, muscular jerks and tremors, PUD, anemia, UTIs, BPH, tinnitis bilaterally. History of Any Multi-Drug Resistant Organisms: None Reported Past Surgical History: Orthopedic Surgery Additional Past Surgical History / Comment(s): left hip ORIF, colonoscopy, bilateral cataract removal with lens implants. Past Anesthesia/Blood Transfusion Reactions: No Reported Reaction Smoking Status: Former smoker - Past Family History Father Additional Family Medical History / Comment(s): Obesity Mother Additional Family Medical History / Comment(s): Mother had alot of bronchitis and degenerative arthritis. She at the age of 91yrs. Medications and Allergies Home Medications Medication Instructions Recorded Confirmed Type Albuterol Sulfate [Proair Hfa] 1 - 2 puff INHALATION RT-Q6H PRN 10/27/16 History Gabapentin [Neurontin] 100 mg PO TID 10/27/16 11/17/16 History Hydrochlorothiazide [Hydrodiuril] 25 mg PO DAILY 10/27/16 11/17/16 History Losartan Potassium [Cozaar] 100 mg PO DAILY 10/27/16 11/17/16 History Multivitamins, Thera [Multivitamin 1 tab PO DAILY 10/27/16 11/17/16 History (formulary)] Naproxen Sodium [Aleve] 220 mg PO BID PRN 10/27/16 11/17/16 History Unknown Otc Sleep Aid 1 tab PO HS 10/27/16 11/17/16 History Vitamin B Complex 1 cap PO DAILY 10/27/16 11/17/16 History Allergies Allergy/AdvReac Type Severity Reaction Status Date / Time No Known Allergies Allergy Verified 11/17/16 11:03 Physical Exam Osteopathic Statement: *. No significant issues noted on an osteopathic structural exam other than those noted in the History and Physical/Consult. Vitals: Vital Signs Temp Pulse Resp BP Pulse Ox 11/17/16 13:19 96.9 F L 98 18 102/58 97 11/17/16 11:40 72 18 123/58 100 11/17/16 10:14 88 18 146/68 97 11/17/16 09:30 98.0 F 98 20 130/60 99 Intake and Output 11/16/16 11/17/16 11/17/16 22:59 06:59 14:59 Other: Weight 80.286 kg Patient Weight 11/18/16 06:59 Weight 80.286 kg No acute distress, oriented 3. HEENT examination is grossly unremarkable. Mixed membranes are moist. No oral lesions. Neck supple. Full range of motion. No adenopathy. Cardiovascular examination reveals a regular rhythm rate. S1-S2 normal. No murmur. Lungs are relatively clear. A few scattered rhonchi. No wheezes or crackles. Abdomen soft. Extremities reveal some edema. There is also some diffuse bilateral cellulitis with chronic venous stasis changes and hyperpigmentation. Skin is noted to have changes of hyperpigmentation and lower extremities. Results - Laboratory Findings CBC and BMP: 11/17/16 10:07 11/17/16 10:07 PT/INR, D-dimer PT 10.5 sec (9.0-12.0) 11/17/16 10:07 INR 1.0 (<1.1) 11/17/16 10:07 Abnormal lab findings: Abnormal Labs 11/17/16 11/17/16 11/17/16 10:07 10:07 10:07 RBC 3.33 L Hgb 11.3 L Hct 33.0 L RDW 16.8 H Sodium 125 L Chloride 95 L Carbon Dioxide 21 L Glucose 112 H Magnesium 1.4 L Total Creatine Kinase 234 H CK-MB (CK-2) 4.9 H* Total Protein 6.2 L Albumin 3.3 L Amylase <30 L - Diagnostic Findings Chest x-ray: image reviewed CT scan - chest: image reviewed (Labs x-rays medications and previous CAT scan is reviewed.) Assessment and Plan (1) Lung mass Status: Acute (2) Pulmonary nodules Status: Acute (3) Bilateral edema of lower extremity Status: Acute (4) Cellulitis of left foot Status: Acute (5) Hyponatremia Status: Acute (6) Pneumonia Status: Acute (7) COPD exacerbation Status: Acute (8) Community acquired bacterial pneumonia Status: Acute Plan: Plan dated 11/17/2016 The patient will have his x-ray and labs reviewed. He is currently hyponatremic. The patient's previous CAT scan we'll review. We'll give some consideration to bronchoscopy. If so we'll get a consent on chart and have the patient stay nothing by mouth. Additional recommendations and suggestions are forthcoming. Prognosis is guarded. Time with Patient: Greater than 30
[2016-11-17] MEDS ORDERED: FUROSEMIDE 10 MG/ML 4 ML VIAL IV STA (15:56)
[2016-11-17] MEDS: IPRATROPIUM-ALBUTEROL 3 ML NEB INHALATION SCH ×2 (16:09→20:42)
[2016-11-17] MEDS: GABAPENTIN 100 MG CAP PO SCH ×2 (16:51→21:16)
[2016-11-17] MEDS: methylPREDNISolone SOD SUCCI 40 MG/ML 1 ML VIAL IV SCH (16:52)
--- NOTE | 2016-11-17 17:05 | P.HPIM ---
History of Present Illness H&P Date: 11/17/16 Chief Complaint: Low-sodium This is 70-year-old gentleman who was recently admitted to the hospital with difficulty breathing. Patient was at that time treated for community-acquired pneumonia. Patient also had a computed tomography scan of the chest at that time was noted to have a right hilar mass and a endobronchial lesion around the right mainstem bronchi before bifurcation Patient was referred to follow-up with one of the correctional program specialist for an outpatient bronchoscopy/biopsy Patient apparently has seen his primary care physician was noted to have a low sodium and hence was sent in to the hospital for ongoing care Patient was also noted to have a low-sodium on the last admission as well patient complains of mild lower extremity edema with some purulent drainage on the top of his foot No significant tenderness is reported no headaches blurry vision chest pain difficulty breathing cough abdominal pain is reported. Patient states that he has had urinary urgency over the last few days Our patient's has been given a IV fluids in the emergency room Review of Systems All systems: negative (Noted in HPI) Past Medical History Past Medical History: Asthma, COPD, Pneumonia, Prostate Disorder Additional Past Medical History / Comment(s): Pt recently admitted 10/27/16 with bilateral pneumonia-possible sepsis, exacerbation COPD, UTI and R lung nodule which he was to follow up with a pet scan but has not as yet. Other hx: back problems, sciatica involving L side, tingling in legs, DJD, muscular jerks and tremors, PUD, anemia, UTIs, BPH, tinnitis bilaterally. History of Any Multi-Drug Resistant Organisms: None Reported Past Surgical History: Orthopedic Surgery Additional Past Surgical History / Comment(s): left hip ORIF, colonoscopy, bilateral cataract removal with lens implants. Past Anesthesia/Blood Transfusion Reactions: No Reported Reaction Smoking Status: Former smoker - Past Family History Father Additional Family Medical History / Comment(s): Obesity Mother Additional Family Medical History / Comment(s): Mother had alot of bronchitis and degenerative arthritis. She at the age of 91yrs. Medications and Allergies Home Medications Medication Instructions Recorded Confirmed Type Albuterol Sulfate [Proair Hfa] 1 - 2 puff INHALATION RT-Q6H PRN 10/27/16 History Gabapentin [Neurontin] 100 mg PO TID 10/27/16 11/17/16 History Hydrochlorothiazide [Hydrodiuril] 25 mg PO DAILY 10/27/16 11/17/16 History Losartan Potassium [Cozaar] 100 mg PO DAILY 10/27/16 11/17/16 History Multivitamins, Thera [Multivitamin 1 tab PO DAILY 10/27/16 11/17/16 History (formulary)] Naproxen Sodium [Aleve] 220 mg PO BID PRN 10/27/16 11/17/16 History Unknown Otc Sleep Aid 1 tab PO HS 10/27/16 11/17/16 History Vitamin B Complex 1 cap PO DAILY 10/27/16 11/17/16 History Allergies Allergy/AdvReac Type Severity Reaction Status Date / Time No Known Allergies Allergy Verified 11/17/16 11:03 Physical Exam Vitals: Vital Signs Temp Pulse Pulse Resp BP BP Pulse Ox 11/17/16 16:18 87 11/17/16 16:13 98 11/17/16 16:10 84 11/17/16 15:00 97.9 F 96 18 126/63 98 11/17/16 13:53 99 18 101/54 97 11/17/16 13:19 96.9 F L 98 18 102/58 97 11/17/16 12:21 97 11/17/16 11:40 72 18 123/58 100 11/17/16 10:14 88 18 146/68 97 11/17/16 09:30 98.0 F 98 20 130/60 99 Intake and Output 11/17/16 11/17/16 11/17/16 06:59 14:59 22:59 Output Total 500 Balance -500 Output: Urine 500 Other: Weight 80.286 kg Patient Weight 11/18/16 06:59 Weight 80.286 kg Physical exam Gen. appearance oriented 3 in no distress Neck is supple no JVD Lungs initially breath sounds hyperinflated chest with abnormal sounds can be appreciated due to the silent chest Lower extremities 1+ edema around the ankles dependent edema Heart S1-S2 heard regular rate and rhythm no murmurs appreciated Abdomen is soft nontender no organomegaly bowel sounds are intact Neurologically cranial nerves II-12 grossly intact no focal motor or sensory deficits noted Skin no abnormalities appreciated Results CBC & Chem 7: 11/17/16 10:07 11/17/16 10:07 Labs: Abnormal Lab Results - Last 24 Hours (Table) 11/17/16 11/17/16 11/17/16 Range/Units 10:07 10:07 10:07 RBC 3.33 L (4.30-5.90) m/uL Hgb 11.3 L (13.0-17.5) gm/dL Hct 33.0 L (39.0-53.0) % RDW 16.8 H (11.5-15.5) % Sodium 125 L (137-145) mmol/L Chloride 95 L (98-107) mmol/L Carbon Dioxide 21 L (22-30) mmol/L Glucose 112 H (74-99) mg/dL Magnesium 1.4 L (1.6-2.3) mg/dL Total Creatine Kinase 234 H (55-170) U/L CK-MB (CK-2) 4.9 H* (0.0-2.4) ng/mL Total Protein 6.2 L (6.3-8.2) g/dL Albumin 3.3 L (3.5-5.0) g/dL Amylase <30 L (30-110) U/L Thrombosis Risk Factor Assmnt - Choose All That Apply Any of the Below Risk Factors Present?: Yes Each Factor Represents 1 point: Abnormal pulmonary function (COPD), Obesity ( BMI >25), Sepsis (< 1month), Serious lung disease incl. pneumonia (< 1month) Other Risk Factors: Yes Each Risk Factor Represents 2 Points: Age 61-74 years Other congenital or acquired thrombophilia - If yes, enter type in comment: No Thrombosis Risk Factor Assessment Total Risk Factor Score: 6 Thrombosis Risk Factor Assessment Level: High Risk Assessment and Plan Plan: #1 euvolemic hyponatremia. Ankle edema is dependent there is no other signs of fluid overload #2 bronchogenic carcinoma? #3 long-standing tobacco use over 75 pack years # 4 Cellulitis of the left foot #5 a postobstructive pneumonic process Plan DC IV fluids patient be given a dose of Lasix Urine osmolarity serum osmolarity TSH will be done hydrochlorothiazide will be discontinued and she'll be started on a 1200 mL fluid restriction Bronchoscopy with biopsy as discussed with the correctional program specialist as well DVT prophylaxis nothing by mouth from midnight
[2016-11-17 17:09] LABS: Glucose,Whole Blood 106 mg/dL (75-99)
[2016-11-17] MEDS: INSULIN LISPRO (humaLOG) 300 UNIT/3 ML VIAL SQ SCH ×2 (17:21→21:14)
[2016-11-17 20:40] LABS: Glucose,Whole Blood 124 mg/dL (75-99)
[2016-11-17] MEDS: SYMBICORT 160-4.5 MCG INHALER INHALATION SCH (20:54)
[2016-11-17] MEDS ORDERED: TAMSULOSIN 0.4 MG CAP.ER.24H PO SCH (21:00)
[2016-11-17] MEDS: HYDROcodone/APAP 5-325MG 1 EACH TAB PO PRN (21:16)
[2016-11-17] MEDS: TAMSULOSIN 0.4 MG CAP.ER.24H PO SCH (21:16)
[2016-11-18] MEDS: methylPREDNISolone SOD SUCCI 40 MG/ML 1 ML VIAL IV SCH ×3 (01:46→16:16)
[2016-11-18] MEDS: HYDROcodone/APAP 5-325MG 1 EACH TAB PO PRN ×3 (04:13→12:18)
[2016-11-18 07:06] LABS: Glucose,Whole Blood 142 mg/dL (75-99)
[2016-11-18] MEDS: IPRATROPIUM-ALBUTEROL 3 ML NEB INHALATION SCH ×4 (07:32→19:41)
[2016-11-18] MEDS: SYMBICORT 160-4.5 MCG INHALER INHALATION SCH ×2 (07:32→19:44)
[2016-11-18] MEDS: INSULIN LISPRO (humaLOG) 300 UNIT/3 ML VIAL SQ SCH ×4 (08:02→22:12)
[2016-11-18] MEDS: NICOTINE 21MG/24HR PATCH TRANSDERM SCH (08:04)
[2016-11-18 08:05] LABS: Anion Gap 10 mmol/L; Blood Urea Nitrogen 16 mg/dL (9-20); Carbon Dioxide 21 mmol/L (22-30); Chloride 97 mmol/L (98-107); Glucose 122 mg/dL (74-99); Non-African American GFR(MDRD) >60 (>60 ml/min/1.73 sqM); Potassium 5.1 mmol/L (3.5-5.1); Sodium 128 mmol/L (137-145)
[2016-11-18 08:16] LABS: Anisocytosis Slight; Basophils % (A) 0 %; CH 33.5; CHCM 32.5; Eosinophils % (A) 0 %; HCT 37.3 % (39.0-53.0); HDW 2.63; HGB 12.3 gm/dL (13.0-17.5); Luc # (Auto) 0.07; Luc % (Auto) 1; Lymphocytes # (A) 0.6 k/uL (1.0-4.8); Lymphocytes % (A) 10 %; MCV 103.1 fL (80.0-100.0); Macrocytosis Moderate; Monocytes # (A) 0.1 k/uL (0-1.0); Monocytes % (A) 1 %; Neutrophils # (A) 5.1 k/uL (1.3-7.7); Neutrophils % (A) 87 %; RBC 3.61 m/uL (4.30-5.90); RDW 16.4 % (11.5-15.5); WBC 5.9 k/uL (3.8-10.6)
[2016-11-18] MEDS ORDERED: HYDROCHLOROTHIAZIDE 25 MG TAB PO SCH (09:00)
[2016-11-18] MEDS ORDERED: ENOXAPARIN 40 MG/0.4 ML SYRINGE SQ SCH (09:00)
--- NOTE | 2016-11-18 10:07 | P.PN ---
Subjective Progress note dated 11/18/2016 This is a 70-year-old male who I'm seeing recently. He has an abnormal chest x- ray showing some abnormalities particular in the right upper lobe. He was recently in the hospital for COPD exacerbation. He was supposed to see me in the office but never did. He was readmitted to the hospital with some heart failure changes as well as some lower extremity edema with cellulitis. He scheduled for bronchoscopy today. The computed tomography scan of the chest showed possible right hilar mass and some right upper lobe abnormalities. We' ll try to get a diagnosis today. He is a heavy smoker. The patient is feeling a bit better today. Less short of breath. Objective - Vital Signs Vital signs: Vital Signs Temp 97.8 F 11/18/16 07:00 Pulse 92 11/18/16 08:00 Resp 18 11/18/16 08:00 BP 121/63 11/18/16 07:00 Pulse Ox 96 11/18/16 07:34 Intake & Output 11/17/16 11/18/16 11/18/16 18:59 06:59 18:59 Intake Total 370 Output Total 500 1245 Balance -500 -875 Weight 80.286 kg 80.286 kg Intake: Oral 370 Output: Urine 500 1245 Other: Voiding Method Urinal Urinal Urinal - Exam No acute distress, oriented 3. HEENT examination is grossly unremarkable. Mucous membranes are moist. No oral lesions. Neck supple. No adenopathy or thyromegaly. Neck vein distention is not noted. Cardiovascular examination reveals regular rhythm rate. S1-S2 normal. No S3- S4 or murmur. Lungs reveal a few scattered rhonchi. No wheezes. A few crackles. Breath sounds are equal. Abdomen soft bowel sounds are heard. No masses or tenderness. Extremities reveal some mild edema. Some erythema and hyperemia. Neurologic examination is nonfocal. Skin shows some changes of cellulitis in the lower extremities. - Labs CBC & Chem 7: 11/18/16 07:05 11/18/16 07:05 Labs: Abnormal Lab Results - Last 24 Hours (Table) 11/17/16 11/17/16 11/17/16 Range/Units 10:07 10:07 10:07 RBC 3.33 L (4.30-5.90) m/uL Hgb 11.3 L (13.0-17.5) gm/dL Hct 33.0 L (39.0-53.0) % MCV (80.0-100.0) fL RDW 16.8 H (11.5-15.5) % Lymphocytes # (1.0-4.8) k/uL Sodium 125 L (137-145) mmol/L Chloride 95 L (98-107) mmol/L Carbon Dioxide 21 L (22-30) mmol/L Glucose 112 H (74-99) mg/dL POC Glucose (mg/dL) (75-99) mg/dL Osmolality (280-301) mosm/kg Magnesium 1.4 L (1.6-2.3) mg/dL Total Creatine Kinase 234 H (55-170) U/L CK-MB (CK-2) 4.9 H* (0.0-2.4) ng/mL Total Protein 6.2 L (6.3-8.2) g/dL Albumin 3.3 L (3.5-5.0) g/dL Amylase <30 L (30-110) U/L Ur Random Sodium (30-90) mmol/L 11/17/16 11/17/16 11/17/16 Range/Units 10:07 16:59 20:16 RBC (4.30-5.90) m/uL Hgb (13.0-17.5) gm/dL Hct (39.0-53.0) % MCV (80.0-100.0) fL RDW (11.5-15.5) % Lymphocytes # (1.0-4.8) k/uL Sodium (137-145) mmol/L Chloride (98-107) mmol/L Carbon Dioxide (22-30) mmol/L Glucose (74-99) mg/dL POC Glucose (mg/dL) 106 H 124 H (75-99) mg/dL Osmolality 261 L (280-301) mosm/kg Magnesium (1.6-2.3) mg/dL Total Creatine Kinase (55-170) U/L CK-MB (CK-2) (0.0-2.4) ng/mL Total Protein (6.3-8.2) g/dL Albumin (3.5-5.0) g/dL Amylase (30-110) U/L Ur Random Sodium (30-90) mmol/L 11/17/16 11/18/16 11/18/16 Range/Units 20:28 07:04 07:05 RBC 3.61 L (4.30-5.90) m/uL Hgb 12.3 L (13.0-17.5) gm/dL Hct 37.3 L (39.0-53.0) % MCV 103.1 H (80.0-100.0) fL RDW 16.4 H (11.5-15.5) % Lymphocytes # 0.6 L (1.0-4.8) k/uL Sodium (137-145) mmol/L Chloride (98-107) mmol/L Carbon Dioxide (22-30) mmol/L Glucose (74-99) mg/dL POC Glucose (mg/dL) 142 H (75-99) mg/dL Osmolality (280-301) mosm/kg Magnesium (1.6-2.3) mg/dL Total Creatine Kinase (55-170) U/L CK-MB (CK-2) (0.0-2.4) ng/mL Total Protein (6.3-8.2) g/dL Albumin (3.5-5.0) g/dL Amylase (30-110) U/L Ur Random Sodium 107 H (30-90) mmol/L 11/18/16 Range/Units 07:05 RBC (4.30-5.90) m/uL Hgb (13.0-17.5) gm/dL Hct (39.0-53.0) % MCV (80.0-100.0) fL RDW (11.5-15.5) % Lymphocytes # (1.0-4.8) k/uL Sodium 128 L (137-145) mmol/L Chloride 97 L (98-107) mmol/L Carbon Dioxide 21 L (22-30) mmol/L Glucose 122 H (74-99) mg/dL POC Glucose (mg/dL) (75-99) mg/dL Osmolality (280-301) mosm/kg Magnesium (1.6-2.3) mg/dL Total Creatine Kinase (55-170) U/L CK-MB (CK-2) (0.0-2.4) ng/mL Total Protein (6.3-8.2) g/dL Albumin (3.5-5.0) g/dL Amylase (30-110) U/L Ur Random Sodium (30-90) mmol/L Microbiology - Last 24 Hours (Table) 11/17/16 19:55 Gram Stain - Preliminary Sputum Assessment and Plan (1) Lung mass Status: Acute (2) Pulmonary nodules Status: Acute (3) Bilateral edema of lower extremity Status: Acute (4) Cellulitis of left foot Status: Acute (5) Hyponatremia Status: Acute (6) Pneumonia Status: Acute (7) COPD exacerbation Status: Acute (8) Community acquired bacterial pneumonia Status: Acute Plan: Plan dated 11/17/2016 The patient will have his x-ray and labs reviewed. He is currently hyponatremic. The patient's previous CAT scan we'll review. We'll give some consideration to bronchoscopy. If so we'll get a consent on chart and have the patient stay nothing by mouth. Additional recommendations and suggestions are forthcoming. Prognosis is guarded. Plan dated 11/18/2016 The patient is doing a bit better today than yesterday. He was admitted for some hyponatremia which is somewhat symptomatic. The patient will have bronchoscopy today. Probably sampled the right upper lobe. We'll do biopsies brushes and washings. We'll continue to follow closely. The patient's medications reviewed yesterday. No additional recommendations are made. Time with Patient: Less than 30
[2016-11-18] MEDS ORDERED: LACTATED RINGERS 1,000 ML IV ONE (11:00)
[2016-11-18] MEDS ORDERED: MIDAZOLAM 2 MG/2 ML VIAL ONE (11:25)
[2016-11-18] MEDS ORDERED: LIDOCAINE 1% INJ 10MG/ML (20 ML MDV) ONE (11:25)
[2016-11-18] MEDS ORDERED: GLYCOPYRROLATE 0.2 MG/ML 2 ML VIAL ONE (11:25)
[2016-11-18] MEDS ORDERED: PROPOFOL 10 MG/ML 20 ML VIAL IV ONE (11:25)
[2016-11-18] MEDS ORDERED: KETAMINE 10 MG/ML 20 ML VIAL ONE (11:25)
[2016-11-18] MEDS ORDERED: LIDOCAINE 2% INJ 20 MG/ML INTRATRACH ONE (11:28)
--- NOTE | 2016-11-18 12:14 | XR ---
EXAMINATION TYPE: XR chest 1V portable DATE OF EXAM: 11/18/2016 COMPARISON: Prior chest x-ray 11/17/2016 HISTORY: Status post bronchoscopy TECHNIQUE: Single frontal view of the chest is obtained. FINDINGS: There is no pneumothorax or pleural effusion evident. Abnormal parenchymal changes persist in the right upper lobe. No other significant interval changes. IMPRESSION: No evident complication status post bronchoscopy.
[2016-11-18] MEDS: LOSARTAN 50 MG TAB PO SCH (12:18)
[2016-11-18] MEDS: TAMSULOSIN 0.4 MG CAP.ER.24H PO SCH ×2 (12:18→22:12)
[2016-11-18] MEDS: PANTOPRAZOLE 40 MG/10 ML VIAL IV SCH (12:18)
[2016-11-18] MEDS: GABAPENTIN 100 MG CAP PO SCH ×3 (12:18→22:12)
[2016-11-18] MEDS: LORazepam 2 MG/ML SYRINGE IV PRN (12:24)
[2016-11-18 12:28] LABS: Glucose,Whole Blood 124 mg/dL (75-99)
--- NOTE | 2016-11-18 14:12 | FL ---
EXAMINATION TYPE: FL bronchoscopy DATE OF EXAM: 11/18/2016 COMPARISON: NONE HISTORY: Right upper lobe mass Fluoroscopy support supplied to the referring clinician. See dictated report from pulmonary, 1 minut e 25 seconds fluoroscopy time supplied, intraoperative image documents the procedure
[2016-11-18 15:20] LABS: RBC, Body Fluid 2060 /uL
[2016-11-18 16:46] LABS: Glucose,Whole Blood 110 mg/dL (75-99)
--- NOTE | 2016-11-18 19:36 | PCN ---
PROCEDURE: Bronchoscopy, airway examination, therapeutic lavage, BAL, brushes, right upper lobe, biopsies, transbronchial, right upper lobe, washes, right upper lobe. PREOPERATIVE DIAGNOSIS: Lung cancer. POSTOPERATIVE DIAGNOSIS: Lung cancer. There was informed consent. There was universal timeout. The procedure was done in room 1. ELECTRICAL ESTIMATOR provided unconscious sedation and general anesthesia. After the patient was adequately sedated and being fully monitored, the bronchoscope was inserted through the right nostril. It passed through the right nasopharynx into the oropharynx. The hypopharynx was identified and topicalized. The hypopharyngeal structures, including anterior commissure, true cords, false cords, arytenoids, piriform sinuses, right and left valleculae and epiglottis all appeared relatively normal. There was some yeast noted in the hypopharynx. After topicalization, the bronchoscope was pushed through the glottic opening into the trachea. There were thick secretions noted in the trachea. Tracheal [place] was sharp. Right and left mainstem were topicalized. The right upper lobe and its 3 segments, right middle lobe and its 2 segments, right lower lobe and its 5 segments, left upper lobe proper and its 2 segments, the lingula and its 2 segments, and the left lower lobe and its 4 segments all had similar findings of thick secretions. The secretions were quite viscid. They had a yellow tinge to them. There was no bleeding. There was no dominant mass. Next, under fluoroscopic guidance, there were brushes performed in the right upper lobe. Next transbronchial biopsy was performed, right upper lobe. Multiple biopsies were done. Finally, BAL took placed in the right upper lobe. The patient tolerated the procedure well. There was no bleeding. There was no obvious pneumothorax. A chest x-ray was ordered. The bronchoscope was withdrawn. The patient will be recovered. [facility] CENTERLilian
[2016-11-18 21:48] LABS: Glucose,Whole Blood 160 mg/dL (75-99)
[2016-11-19] MEDS: DOXYCYCLINE 50 MG CAP PO SCH ×3 (00:20→22:07)
[2016-11-19] MEDS: methylPREDNISolone SOD SUCCI 40 MG/ML 1 ML VIAL IV SCH ×3 (00:20→16:49)
[2016-11-19] MEDS: LORazepam 2 MG/ML SYRINGE IV PRN (02:49)
[2016-11-19 07:04] LABS: Glucose,Whole Blood 111 mg/dL (75-99)
[2016-11-19] MEDS: INSULIN LISPRO (humaLOG) 300 UNIT/3 ML VIAL SQ SCH ×4 (08:14→22:08)
--- NOTE | 2016-11-19 08:14 | PN ---
DATE OF SERVICE: 11/18/2016 INTERVAL HISTORY: Mr. Guzman is a 70-year-old male who was recently admitted to the hospital with difficulty in breathing and was found to have a community- acquired pneumonia as well as CT finding of right hilar mass and endobronchial lesion around the right mainstem bronchi before the bifurcation. Patient was referred to Pulmonary as an outpatient, follow up bronchoscopy. Otherwise, the patient was sent to the hospital by his PCP with sodium level of 125 on admission. Currently, patient is on fluid restriction and also hydrochlorothiazide has been held. Na level improved to 128. Patient was seen by Pulmonary and patient underwent bronchoscopy today and will follow up on the biopsy report. Otherwise, patient denied any new complaints and no fever, no chills, no chest pain, no short of breath. No nausea, vomiting, abdominal pain. No hematuria, no dysuria. Medications include [place] 5-325, DuoNeb, Symbicort, ceftriaxone, gabapentin, Humalog, Ativan, Cozaar, Solu-Medrol, Narcan, nicotine patch, Zofran, Protonix, Flomax. PHYSICAL EXAMINATION: A 70-year-old male lying in the bed, awake, alert, oriented x3. Appears to be slightly confused unfortunately after a bronchoscopy. VITALS: 117/58, pulse is 98, respiratory 18, temperature afebrile. Pulse ox 98 % on 2 L nasal cannula. HEENT: Atraumatic, normocephalic. Neck is supple, no JVD. CVS EXAM: S1, S2, heart. No murmurs, no gallop. LUNGS: Bilateral air entry is present and basal crackles positive. Bilateral decreased air entry basally, nonlabored breathing. Abdomen is soft, nontender. Bowel wounds are present. AURIST: Awake, alert and oriented x3. No focal deficits. EXTREMITIES: No edema, pulses palpable bilaterally. No clubbing or cyanosis. Left lower extremity redness at the ankle level. PSYCHIATRIC: Cooperative. LABORATORY DATA: WBC 5.9, hemoglobin 12.3, platelets 276, sodium 128, potassium 5.1, chloride 97, bicarb is 21, BUN 16, creatinine 0.85, calcium 9.0. IMPRESSION: 1. Hyposmolar hyponatremia. Hydrochlorothiazide has been held and will follow up sodium level. 2. Right hilar mass, status post bronchoscopy today. 3. Long history of tobacco use, over 75 pack years. 4. Cellulitis disease of the left foot. 5. Postoperative picture of obstructive pneumonia, currently on antibiotics. DISCUSSION AND PLAN: Will continue with the current antibiotics and continue to hold hydrochlorothiazide. Will follow up sodium level tomorrow. Pulmonary is on board. Further recommendations based on the clinical course. MTDD
[2016-11-19] MEDS: NICOTINE 21MG/24HR PATCH TRANSDERM SCH (08:23)
[2016-11-19] MEDS: GABAPENTIN 100 MG CAP PO SCH ×3 (08:28→22:07)
[2016-11-19] MEDS: PANTOPRAZOLE 40 MG/10 ML VIAL IV SCH (08:28)
[2016-11-19] MEDS: LOSARTAN 50 MG TAB PO SCH (08:28)
[2016-11-19] MEDS: TAMSULOSIN 0.4 MG CAP.ER.24H PO SCH ×2 (08:29→22:07)
[2016-11-19] MEDS: IPRATROPIUM-ALBUTEROL 3 ML NEB INHALATION SCH ×4 (09:17→20:51)
[2016-11-19] MEDS: SYMBICORT 160-4.5 MCG INHALER INHALATION SCH ×2 (09:17→20:51)
--- NOTE | 2016-11-19 10:05 | P.PN ---
Subjective Progress note dated 11/18/2016 This is a 70-year-old male who I'm seeing recently. He has an abnormal chest x- ray showing some abnormalities particular in the right upper lobe. He was recently in the hospital for COPD exacerbation. He was supposed to see me in the office but never did. He was readmitted to the hospital with some heart failure changes as well as some lower extremity edema with cellulitis. He scheduled for bronchoscopy today. The computed tomography scan of the chest showed possible right hilar mass and some right upper lobe abnormalities. We' ll try to get a diagnosis today. He is a heavy smoker. The patient is feeling a bit better today. Less short of breath. Progress note dated 11/19/2016 70-year-old male with a history of COPD. The patient some abnormalities in the right upper lobe. Yesterday, the bronchoscopy suite we did some brushes and biopsies and washings of the right upper lobe. It went off without incident. All the specimens are pending. The patient will see me in the office in follow- up. He was admitted with a complaint of primarily lower extremities edema with cellulitis. His legs have improved significantly since being here. From the breathing standpoint he is at baseline. Anyway the patient is doing recently well. Is a heavy smoker. The patient may go home in next day or 2. We'll make sure that he does have follow-up with me in the office. He does have a history of pulmonary nodules bilateral lower extremity edema with cellulitis hyponatremia pneumonia COPD and COPD exacerbation as well as recent diagnosis admission for pneumonia. Objective - Vital Signs Vital signs: Vital Signs Temp 97.6 F 11/19/16 07:00 Pulse 80 11/19/16 09:30 Resp 16 11/19/16 07:00 BP 122/56 11/19/16 07:00 Pulse Ox 99 11/19/16 09:18 Intake & Output 11/18/16 11/19/16 11/19/16 18:59 06:59 18:59 Intake Total 840 320 540 Output Total 500 1100 300 Balance 340 -780 240 Weight 80.286 kg Intake: IV 500 Intake, IV Titration 100 Amount cefTRIAXone 1,000 mg In 100 Sodium Chloride 0.9% 50 ml @ 100 mls/hr IVPB Q24HR [facility] Rx#:[id number] Oral 240 320 Other 540 Output: Urine 500 1100 300 Other: Voiding Method Urinal Urinal # Voids 1 - Exam No acute distress, oriented 3. HEENT examination is grossly unremarkable. Mucous membranes are moist. No oral lesions. Neck supple. No adenopathy or thyromegaly. Neck vein distention is not noted. Cardiovascular examination reveals regular rhythm rate. S1-S2 normal. No S3- S4 or murmur. Lungs reveal a few scattered rhonchi. No wheezes. A few crackles. Breath sounds are equal. Abdomen soft bowel sounds are heard. No masses or tenderness. Extremities reveal some mild edema. Some erythema and hyperemia. Neurologic examination is nonfocal. Skin shows some changes of cellulitis in the lower extremities. - Labs CBC & Chem 7: 11/18/16 07:05 11/18/16 07:05 Labs: Abnormal Lab Results - Last 24 Hours (Table) 11/18/16 11/18/16 11/18/16 Range/Units 12:26 16:44 21:47 POC Glucose (mg/dL) 124 H 110 H 160 H (75-99) mg/dL 11/19/16 Range/Units 07:03 POC Glucose (mg/dL) 111 H (75-99) mg/dL Microbiology - Last 24 Hours (Table) 11/18/16 11:45 Gram Stain - Preliminary Bronchial Washings - Right Bronchial Washings Culture - Preliminary 11/18/16 11:45 Acid Fast Bacilli Culture - Preliminary Bronchial Washings - Right 11/18/16 11:45 Fungal Culture - Preliminary Bronchial Washings - Right 11/17/16 12:15 Blood Culture - Preliminary Blood No Growth after 24 hours 11/17/16 10:07 Blood Culture - Preliminary Blood No Growth after 24 hours 11/17/16 19:55 Gram Stain - Preliminary Sputum Assessment and Plan (1) Lung mass Status: Acute (2) Pulmonary nodules Status: Acute (3) Bilateral edema of lower extremity Status: Acute (4) Cellulitis of left foot Status: Acute (5) Hyponatremia Status: Acute (6) Pneumonia Status: Acute (7) COPD exacerbation Status: Acute (8) Community acquired bacterial pneumonia Status: Acute Plan: Plan dated 11/17/2016 The patient will have his x-ray and labs reviewed. He is currently hyponatremic. The patient's previous CAT scan we'll review. We'll give some consideration to bronchoscopy. If so we'll get a consent on chart and have the patient stay nothing by mouth. Additional recommendations and suggestions are forthcoming. Prognosis is guarded. Plan dated 11/18/2016 The patient is doing a bit better today than yesterday. He was admitted for some hyponatremia which is somewhat symptomatic. The patient will have bronchoscopy today. Probably sampled the right upper lobe. We'll do biopsies brushes and washings. We'll continue to follow closely. The patient's medications reviewed yesterday. No additional recommendations are made. [place] dated 11/19/2016 The patient is doing better clinically. Lower extremities are much less swollen and edematous. He is being treated appropriately with appropriate medications. These have been reviewed. Yesterday he had minimal bronchoscopy. We did transbronchial biopsies washes and brushes in the right upper lobe. Those results are currently pending. He likely will be discharged prior to those results being back we'll make sure the office called him and gets admitted for follow-up. Also see me the last time he was here but never showed up. Time with Patient: Less than 30
[2016-11-19 11:14] LABS: Glucose,Whole Blood 129 mg/dL (75-99)
[2016-11-19] MEDS: LACTATED RINGERS 1,000 ML IV SCH (11:46)
[2016-11-19] MEDS: HYDROcodone/APAP 5-325MG 1 EACH TAB PO PRN ×2 (14:23→19:55)
[2016-11-19 15:09] LABS: Anion Gap 8 mmol/L; Blood Urea Nitrogen 19 mg/dL (9-20); Calcium 9.2 mg/dL (8.4-10.2); Carbon Dioxide 24 mmol/L (22-30); Chloride 96 mmol/L (98-107); Glucose 138 mg/dL (74-99); Non-African American GFR(MDRD) >60 (>60 ml/min/1.73 sqM); Potassium 4.4 mmol/L (3.5-5.1); Sodium 128 mmol/L (137-145)
[2016-11-19 17:16] LABS: Glucose,Whole Blood 124 mg/dL (75-99)
[2016-11-19 20:44] LABS: Glucose,Whole Blood 170 mg/dL (75-99)
[2016-11-20] MEDS: methylPREDNISolone SOD SUCCI 40 MG/ML 1 ML VIAL IV SCH ×2 (00:14→08:18)
[2016-11-20] MEDS: HYDROcodone/APAP 5-325MG 1 EACH TAB PO PRN ×3 (01:35→20:38)
[2016-11-20] MEDS: LACTATED RINGERS 1,000 ML IV SCH (07:25)
[2016-11-20 07:54] LABS: Glucose,Whole Blood 125 mg/dL (75-99)
[2016-11-20] MEDS: NICOTINE 21MG/24HR PATCH TRANSDERM SCH (08:18)
[2016-11-20] MEDS: DOXYCYCLINE 50 MG CAP PO SCH ×2 (08:18→20:39)
[2016-11-20] MEDS: TAMSULOSIN 0.4 MG CAP.ER.24H PO SCH ×2 (08:19→20:40)
[2016-11-20] MEDS: GABAPENTIN 100 MG CAP PO SCH ×3 (08:19→20:40)
[2016-11-20] MEDS: LOSARTAN 50 MG TAB PO SCH (08:19)
[2016-11-20] MEDS: PANTOPRAZOLE 40 MG/10 ML VIAL IV SCH (08:20)
[2016-11-20] MEDS: INSULIN LISPRO (humaLOG) 300 UNIT/3 ML VIAL SQ SCH ×4 (08:23→20:40)
[2016-11-20] MEDS: SYMBICORT 160-4.5 MCG INHALER INHALATION SCH ×2 (09:24→20:46)
[2016-11-20] MEDS: IPRATROPIUM-ALBUTEROL 3 ML NEB INHALATION SCH ×4 (09:24→20:46)
[2016-11-20 09:50] LABS: Anion Gap 8 mmol/L; Blood Urea Nitrogen 20 mg/dL (9-20); Calcium 9.3 mg/dL (8.4-10.2); Carbon Dioxide 25 mmol/L (22-30); Chloride 97 mmol/L (98-107); Glucose 158 mg/dL (74-99); Non-African American GFR(MDRD) >60 (>60 ml/min/1.73 sqM); Potassium 4.7 mmol/L (3.5-5.1); Sodium 130 mmol/L (137-145)
[2016-11-20 10:10] LABS: Anisocytosis Slight; Basophils % (A) 0 %; CH 33.8; CHCM 32.3; Eosinophils % (A) 0 %; HCT 35.7 % (39.0-53.0); HDW 2.63; HGB 12.1 gm/dL (13.0-17.5); Luc # (Auto) 0.13; Luc % (Auto) 1; Lymphocytes # (A) 0.9 k/uL (1.0-4.8); Lymphocytes % (A) 9 %; MCH 35.5 pg (25.0-35.0); MCHC 33.9 g/dL (31.0-37.0); MCV 104.7 fL (80.0-100.0); Macrocytosis Moderate; Mean Platelet Volume 7.2; Monocytes # (A) 0.3 k/uL (0-1.0); Monocytes % (A) 3 %; Neutrophils # (A) 8.9 k/uL (1.3-7.7); Neutrophils % (A) 87 %; RBC 3.41 m/uL (4.30-5.90); RDW 16.7 % (11.5-15.5); WBC 10.2 k/uL (3.8-10.6); WBC (Perox) 10.63
[2016-11-20 12:11] LABS: Glucose,Whole Blood 139 mg/dL (75-99)
--- NOTE | 2016-11-20 14:00 | PN ---
70 year old patient with history of COPD and some abnormalities in the right upper lobe on chest x-ray and CT scan. Bronchoscopy was performed with transbronchial biopsies and washes and brushes of the right upper lobe. Specimens are pending. From the pulmonary standpoint, the patient is doing better. Less shortness of breath. Also improved from the lower extremity standpoint, less edema. He was admitted with significant lower extremity edema and cellulitis. Anyway, from breathing standpoint, doing much better. Much less short of breath. Not coughing. No producing any phlegm. No fever. No chills. No nausea or vomiting or diarrhea. His admission diagnosis included pulmonary nodule, right upper lobe, bilateral lower extremity edema with cellulitis, hyponatremia, pneumonia and COPD exacerbation. He was recently inpatient and was to see me in the office but never made it. Temperature is 97.7, heart rate is 78. Respiratory rate is 16. Blood pressure 103/55. Mean 71. 2 L saturation 99%. Appears in no acute distress. HEENT: Grossly unremarkable. Mucous membranes are moist. No oral lesions. Neck supple. Full range of motion. No adenopathy. No thyromegaly. Neck veins are flat. Cardiovascular examination reveals distant heart sounds, S1, S2 normal. Lungs reveal a few scattered rhonchi. Some crackles at the bases. No wheezes. Abdomen soft. Neurological examination brief but nonfocal. Extremities intact. There is some edema. Significant wrinkled lower extremities consistent with improved edema. Some diffuse erythema and hyperemia noted. Chronic venous stasis changes. 1+ pitting. Skin otherwise is normal. Labs are reviewed. Sodium 130, potassium 4.7. Chloride 97, CO2 25. BUN and creatinine 20 and 0.63. As I mentioned the bronch washes are pending or negative. Medications are reviewed. Microbiology is all negative. ASSESSMENT: 1. Pulmonary nodule/abnormality, right upper lobe, status post bronchoscopy, transbronchial biopsies, washes and brushes. 2. Bilateral lower extremity edema with pitting cellulitis. 3. Hyponatremia. 4. Pneumonia. 5. Chronic obstructive pulmonary disease with recent chronic obstructive pulmonary disease exacerbation. 6. History of recent community acquired pneumonia. PLAN: From my perspective, the patient is doing much better. Additional recommendations and suggestions forthcoming. Medications are reviewed. We will continue to follow closely. The patient should see me in the office for follow. Bronch results will be discussed once they are available. [facility]
--- NOTE | 2016-11-20 16:32 | P.PN ---
Subjective Principal diagnosis: Hyponatremia and right hilar mass Mr. Guzman is a 70-year-old male who was recently admitted to the hospital with difficulty in breathing and was found to have a community-acquired pneumonia as well as CT finding of right hilar mass and endobronchial lesion around the right mainstem bronchi before the bifurcation. Patient was referred to Pulmonary as an outpatient, follow up bronchoscopy. Otherwise, the patient was sent to the hospital by his PCP with sodium level of 125 on admission. Currently, patient is on fluid restriction and also hydrochlorothiazide has been held. Na level improved to 128. Patient was seen by Pulmonary and patient underwent bronchoscopy today and will follow up on the biopsy report. Otherwise, patient denied any new complaints and no fever, no chills, no chest pain, no short of breath. No nausea, vomiting, abdominal pain. No hematuria, no dysuria. On 11/19/2016 Patient is complaining of left lower exudate sciatic pain which has been present for a while. Left ankle cellulitis is much improved. There are any worsening short of breath or chest pain. Sodium level improving. Lung biopsy report is pending at this time. Review of systems Constitutional no fever no chills no weakness respiratory. Patient currently complains of shoulder breath or chest pain. No cough or sputum production Cardiovascular: No chest pain Abdomen: No nausea vomiting abdominal pain. Musculoskeletal: left lower reduction to pain Psychiatric anxious Neurologic. No headache or dizziness or lightheadedness no numbness no tingling. All other 14 point review of systems negative except above. Objective - Vital Signs Vital signs: Vital Signs Temp 97.8 F 11/20/16 15:00 Pulse 100 11/20/16 15:00 Resp 16 11/20/16 15:00 BP 140/65 11/20/16 15:00 Pulse Ox 98 11/20/16 15:00 Intake & Output 11/19/16 11/20/16 11/20/16 18:59 06:59 18:59 Intake Total 1910 480 Output Total 3646 955 1343 Balance 810 -320 -1350 Weight 80.286 kg Intake: Intake, IV Titration 50 Amount cefTRIAXone 1,000 mg In 50 Sodium Chloride 0.9% 50 ml @ 100 mls/hr IVPB Q24HR [facility] Rx#:[id number] Oral 240 480 Other 1620 0 Output: Urine 7399 539 3205 Other: Voiding Method Urinal Urinal Urinal # Voids 1 2 - Exam A 70-year-old male lying in the bed, awake, alert, oriented x3. Appears to be slightly confused unfortunately after a bronchoscopy. HEENT: Atraumatic, normocephalic. Neck is supple, no JVD. CVS EXAM: S1, S2, heart. No murmurs, no gallop. LUNGS: Bilateral air entry is present and basal crackles positive. Bilateral decreased air entry basally, nonlabored breathing. Abdomen is soft, nontender. Bowel wounds are present. RARE/ENDANGERED SPECIES SPECIALIST: Awake, alert and oriented x3. No focal deficits. EXTREMITIES: No edema, pulses palpable bilaterally. No clubbing or cyanosis. Left lower extremity redness at the ankle level. PSYCHIATRIC: Cooperative. Anxious - Labs CBC & Chem 7: 11/20/16 08:41 11/20/16 08:41 Labs: Abnormal Lab Results - Last 24 Hours (Table) 11/19/16 11/19/16 11/20/16 Range/Units 17:13 20:43 07:34 RBC (4.30-5.90) m/uL Hgb (13.0-17.5) gm/dL Hct (39.0-53.0) % MCV (80.0-100.0) fL MCH (25.0-35.0) pg RDW (11.5-15.5) % Neutrophils # (1.3-7.7) k/uL Lymphocytes # (1.0-4.8) k/uL Sodium (137-145) mmol/L Chloride (98-107) mmol/L Creatinine (0.66-1.25) mg/dL Glucose (74-99) mg/dL POC Glucose (mg/dL) 124 H 170 H 125 H (75-99) mg/dL 11/20/16 11/20/16 11/20/16 Range/Units 08:41 08:41 12:09 RBC 3.41 L (4.30-5.90) m/uL Hgb 12.1 L (13.0-17.5) gm/dL Hct 35.7 L (39.0-53.0) % MCV 104.7 H (80.0-100.0) fL MCH 35.5 H (25.0-35.0) pg RDW 16.7 H (11.5-15.5) % Neutrophils # 8.9 H (1.3-7.7) k/uL Lymphocytes # 0.9 L (1.0-4.8) k/uL Sodium 130 L (137-145) mmol/L Chloride 97 L (98-107) mmol/L Creatinine 0.63 L (0.66-1.25) mg/dL Glucose 158 H (74-99) mg/dL POC Glucose (mg/dL) 139 H (75-99) mg/dL Microbiology - Last 24 Hours (Table) 11/17/16 12:15 Blood Culture - Preliminary Blood No Growth after 72 hours 11/17/16 10:07 Blood Culture - Preliminary Blood No Growth after 72 hours 11/18/16 11:45 Gram Stain - Final Bronchial Washings - Right Bronchial Washings Culture - Final [place] albicans 11/17/16 19:55 Gram Stain - Final Sputum Sputum Culture - Final [place] albicans 11/18/16 11:45 Acid Fast Bacilli Smear - Final Bronchial Washings - Right Acid Fast Bacilli Culture - Preliminary Assessment and Plan Plan: 1. Hyposmolar hyponatremia. Hydrochlorothiazide has been held and will follow up sodium level. Water restriction continue with. 2. Right hilar mass, status post bronchoscopy today. 3. Long history of tobacco use, over 75 pack years. 4. Cellulitis disease of the left foot. 5. Postoperative picture of obstructive pneumonia, currently on antibiotics. DISCUSSION AND PLAN: Will continue with the current antibiotics and continue to hold hydrochlorothiazide. Will follow up sodium level tomorrow. Pulmonary is on board. Further recommendations based on the clinical course. Time with Patient: Greater than 30
[2016-11-20 16:52] LABS: Glucose,Whole Blood 161 mg/dL (75-99)
--- NOTE | 2016-11-20 17:10 | P.PN ---
Subjective Principal diagnosis: Hyponatremia and right hilar mass Mr. Guzman is a 70-year-old male who was recently admitted to the hospital with difficulty in breathing and was found to have a community-acquired pneumonia as well as CT finding of right hilar mass and endobronchial lesion around the right mainstem bronchi before the bifurcation. Patient was referred to Pulmonary as an outpatient, follow up bronchoscopy. Otherwise, the patient was sent to the hospital by his PCP with sodium level of 125 on admission. Currently, patient is on fluid restriction and also hydrochlorothiazide has been held. Na level improved to 128. Patient was seen by Pulmonary and patient underwent bronchoscopy today and will follow up on the biopsy report. Otherwise, patient denied any new complaints and no fever, no chills, no chest pain, no short of breath. No nausea, vomiting, abdominal pain. No hematuria, no dysuria. On 11/19/2016 Patient is complaining of left lower exudate sciatic pain which has been present for a while. Left ankle cellulitis is much improved. There are any worsening short of breath or chest pain. Sodium level improving. Lung biopsy report is pending at this time. On 11/20/2016 Patient denied any worsening respiratory status. Patient is still having left lower cellulitis which is improving. No c/o chest pain. Sodium level improved to 1:30 today. Pathology report is pending Review of systems Constitutional no fever no chills no weakness respiratory. Patient currently complains of shoulder breath or chest pain. No cough or sputum production Cardiovascular: No chest pain Abdomen: No nausea vomiting abdominal pain. Musculoskeletal: left lower reduction to pain Psychiatric anxious Neurologic. No headache or dizziness or lightheadedness no numbness no tingling. All other 14 point review of systems negative except above. Objective - Vital Signs Vital signs: Vital Signs Temp 97.8 F 11/20/16 15:00 Pulse 92 11/20/16 16:38 Resp 16 11/20/16 15:00 BP 140/65 11/20/16 15:00 Pulse Ox 98 11/20/16 15:00 Intake & Output 11/19/16 11/20/16 11/20/16 18:59 06:59 18:59 Intake Total 1910 480 Output Total 0827 798 1693 Balance 810 -320 -1350 Weight 80.286 kg Intake: Intake, IV Titration 50 Amount cefTRIAXone 1,000 mg In 50 Sodium Chloride 0.9% 50 ml @ 100 mls/hr IVPB Q24HR [facility] Rx#:[id number] Oral 240 480 Other 1620 0 Output: Urine 0301 752 4319 Other: Voiding Method Urinal Urinal Urinal # Voids 1 2 - Exam A 70-year-old male lying in the bed, awake, alert, oriented x3. Appears to be slightly confused unfortunately after a bronchoscopy. HEENT: Atraumatic, normocephalic. Neck is supple, no JVD. CVS EXAM: S1, S2, heart. No murmurs, no gallop. LUNGS: Bilateral air entry is present and basal crackles positive. Bilateral decreased air entry basally, nonlabored breathing. Abdomen is soft, nontender. Bowel wounds are present. RN PATIENT CARE: Awake, alert and oriented x3. No focal deficits. EXTREMITIES: No edema, pulses palpable bilaterally. No clubbing or cyanosis. Left lower extremity redness at the ankle level. PSYCHIATRIC: Cooperative. Anxious - Labs CBC & Chem 7: 11/20/16 08:41 11/20/16 08:41 Labs: Abnormal Lab Results - Last 24 Hours (Table) 11/19/16 11/19/16 11/20/16 Range/Units 17:13 20:43 07:34 RBC (4.30-5.90) m/uL Hgb (13.0-17.5) gm/dL Hct (39.0-53.0) % MCV (80.0-100.0) fL MCH (25.0-35.0) pg RDW (11.5-15.5) % Neutrophils # (1.3-7.7) k/uL Lymphocytes # (1.0-4.8) k/uL Sodium (137-145) mmol/L Chloride (98-107) mmol/L Creatinine (0.66-1.25) mg/dL Glucose (74-99) mg/dL POC Glucose (mg/dL) 124 H 170 H 125 H (75-99) mg/dL 11/20/16 11/20/16 11/20/16 Range/Units 08:41 08:41 12:09 RBC 3.41 L (4.30-5.90) m/uL Hgb 12.1 L (13.0-17.5) gm/dL Hct 35.7 L (39.0-53.0) % MCV 104.7 H (80.0-100.0) fL MCH 35.5 H (25.0-35.0) pg RDW 16.7 H (11.5-15.5) % Neutrophils # 8.9 H (1.3-7.7) k/uL Lymphocytes # 0.9 L (1.0-4.8) k/uL Sodium 130 L (137-145) mmol/L Chloride 97 L (98-107) mmol/L Creatinine 0.63 L (0.66-1.25) mg/dL Glucose 158 H (74-99) mg/dL POC Glucose (mg/dL) 139 H (75-99) mg/dL 11/20/16 Range/Units 16:51 RBC (4.30-5.90) m/uL Hgb (13.0-17.5) gm/dL Hct (39.0-53.0) % MCV (80.0-100.0) fL MCH (25.0-35.0) pg RDW (11.5-15.5) % Neutrophils # (1.3-7.7) k/uL Lymphocytes # (1.0-4.8) k/uL Sodium (137-145) mmol/L Chloride (98-107) mmol/L Creatinine (0.66-1.25) mg/dL Glucose (74-99) mg/dL POC Glucose (mg/dL) 161 H (75-99) mg/dL Microbiology - Last 24 Hours (Table) 11/17/16 12:15 Blood Culture - Preliminary Blood No Growth after 72 hours 11/17/16 10:07 Blood Culture - Preliminary Blood No Growth after 72 hours 11/18/16 11:45 Gram Stain - Final Bronchial Washings - Right Bronchial Washings Culture - Final [place] albicans 11/17/16 19:55 Gram Stain - Final Sputum Sputum Culture - Final [place] albicans 11/18/16 11:45 Acid Fast Bacilli Smear - Final Bronchial Washings - Right Acid Fast Bacilli Culture - Preliminary Assessment and Plan Plan: 1. Hyposmolar hyponatremia. Hydrochlorothiazide has been held and will follow up sodium level. Water restriction continue with. 2. Right hilar mass, status post bronchoscopy on 11/18. Eating pathology report. 3. Long history of tobacco use, over 75 pack years. 4. Cellulitis of the left foot. 5. Postoperative picture of obstructive pneumonia, currently on antibiotics. DISCUSSION AND PLAN: Will continue with the current antibiotics and continue to hold hydrochlorothiazide. Sodium level improved to 1:30 today. Will follow up sodium level tomorrow. Pulmonary is on board. Further recommendations based on the clinical course. Time with Patient: Greater than 30
[2016-11-20 20:07] LABS: Glucose,Whole Blood 137 mg/dL (75-99)
[2016-11-20] MEDS: NYSTATIN 100,000 UNIT/ML SUSP 500,000 UNIT/5 ML CUP PO SCH (22:22)
[2016-11-21] MEDS: HYDROcodone/APAP 5-325MG 1 EACH TAB PO PRN ×2 (00:29→17:50)
[2016-11-21] MEDS: LACTATED RINGERS 1,000 ML IV SCH (06:25)
[2016-11-21 07:05] LABS: Glucose,Whole Blood 89 mg/dL (75-99)
[2016-11-21 07:28] LABS: Anisocytosis Slight; Basophils % (A) 0 %; CH 34.1; Eosinophils % (A) 0 %; HCT 39.7 % (39.0-53.0); HDW 2.58; HGB 12.7 gm/dL (13.0-17.5); Luc # (Auto) 0.18; Luc % (Auto) 2; Lymphocytes # (A) 1.8 k/uL (1.0-4.8); Lymphocytes % (A) 17 %; MCH 34.2 pg (25.0-35.0); Macrocytosis Marked; Mean Platelet Volume 6.9; Monocytes # (A) 0.6 k/uL (0-1.0); Monocytes % (A) 5 %; Neutrophils # (A) 7.8 k/uL (1.3-7.7); Neutrophils % (A) 75 %; RBC 3.71 m/uL (4.30-5.90); WBC 10.4 k/uL (3.8-10.6); WBC (Perox) 9.92
[2016-11-21] MEDS: SYMBICORT 160-4.5 MCG INHALER INHALATION SCH ×2 (07:32→19:25)
[2016-11-21] MEDS: IPRATROPIUM-ALBUTEROL 3 ML NEB INHALATION SCH ×4 (07:32→19:25)
[2016-11-21 07:45] LABS: Anion Gap 7 mmol/L; Blood Urea Nitrogen 22 mg/dL (9-20); Calcium 9.4 mg/dL (8.4-10.2); Carbon Dioxide 26 mmol/L (22-30); Chloride 99 mmol/L (98-107); Glucose 78 mg/dL (74-99); Non-African American GFR(MDRD) >60 (>60 ml/min/1.73 sqM); Potassium 4.6 mmol/L (3.5-5.1); Sodium 132 mmol/L (137-145)
[2016-11-21] MEDS: PSYLLIUM HUSK 100% 6 GM PACKET PO SCH (08:17)
[2016-11-21] MEDS: predniSONE 20 MG TAB PO SCH (08:17)
[2016-11-21] MEDS: TAMSULOSIN 0.4 MG CAP.ER.24H PO SCH ×2 (08:17→22:20)
[2016-11-21] MEDS: INSULIN LISPRO (humaLOG) 300 UNIT/3 ML VIAL SQ SCH ×4 (08:18→22:20)
[2016-11-21] MEDS: LOSARTAN 50 MG TAB PO SCH (08:18)
[2016-11-21] MEDS: NYSTATIN 100,000 UNIT/ML SUSP 500,000 UNIT/5 ML CUP PO SCH ×4 (08:18→22:20)
[2016-11-21] MEDS: DOXYCYCLINE 50 MG CAP PO SCH ×2 (08:18→22:20)
[2016-11-21] MEDS: GABAPENTIN 100 MG CAP PO SCH ×3 (08:18→22:20)
[2016-11-21] MEDS: PANTOPRAZOLE 40 MG TABLET PO SCH (08:18)
[2016-11-21] MEDS: NICOTINE 21MG/24HR PATCH TRANSDERM SCH (08:18)
[2016-11-21 12:19] LABS: Glucose,Whole Blood 110 mg/dL (75-99)
[2016-11-21 16:40] LABS: Glucose,Whole Blood 107 mg/dL (75-99)
--- NOTE | 2016-11-21 16:54 | P.PN ---
Subjective 70-year-old male patient with known history of advanced COPD and a markedly abnormal chest x-ray and a CAT scan of the chest was being seen in follow-up. The patient has had recent hospitalization for COPD exacerbation. He was seen by Dr Barillas. Note that his chest x-ray had shown significant consolidation of the right upper lobe along with diffuse background emphysematous changes. This is very much in accordance of the previous CAT scan of the chest that was done on 10/28/2016 that showed diffuse opacity mostly in the right upper lobe anteriorly and this was a new finding compared to the previous chest x-ray from January 2016. This was an extensive opacity in the posterior superior right lower lobe consistent with pneumonia. There was also area of airspace disease in the left upper lobe consistent with small focal of pneumonia. Another 1.2 x 0.9 cm solid nodule was seen in the left upper lobe which remain unchanged. Several nodules in the right upper lobe were also present. There was also a nodule in the right upper lobe measuring 1.4 x 0.8 cm in size and a second nodule in the right upper lobe measuring 1.3 x 1.0 cm in size. There is obvious extensive emphysematous changes bilaterally and a thick-walled bulla in the left lung base scarring also be seen. She also has compression fracture deformity of the T7 and T8 spine. Mediastinum showed no aortic dissection. No evidence of any cardiomegaly or mediastinal lymphadenopathy. Based on these findings, bronchoscopy was done last week and the results are still pending. Bronchioloalveolar lavage of the right upper lobe and the biopsies of the right upper lobe were done during the procedure. Clinically the patient is still having some shortness of breath even at rest. Minimal cough and sputum production. Apparently he remains limited bilaterally especially in the lower lobes. No pleurisy. No hemoptysis. No 70 TB exposure. No change in mental status. Resting comfortably in bed. Ankles are swollen bilaterally most on the left. Objective - Vital Signs Vital signs: Vital Signs Temp 97.8 F 11/21/16 15:00 Pulse 101 H 11/21/16 15:22 Resp 16 11/21/16 15:00 BP 152/70 11/21/16 15:00 Pulse Ox 97 11/21/16 15:14 Intake & Output 11/20/16 11/21/16 11/21/16 18:59 06:59 18:59 Intake Total 1220 Output Total 1350 500 800 Balance -1350 720 -800 Intake: IV 200 0.9 @ 20ml/hr 200 Oral 1020 Output: Urine 1350 500 800 Other: Voiding Method Urinal Bedside Commode Bedside Commode Urinal Urinal # Voids 2 1 # Bowel Movements 1 - Exam The patient appeared well nourished and normally developed. Vital signs as documented. Head exam is unremarkable. No scleral icterus or corneal arcus noted. Neck is without jugular venous distension, thyromegaly, or carotid bruits. Carotid upstrokes are brisk bilaterally. Lungs are diminished breath on the lung bases bilaterally along with some scattered expiratory wheezes heard throughout the lung villalobos.. Cardiac exam reveals the PMI to be normally sized and situated. Rhythm is regular. First and second heart sounds normal. No murmurs, rubs or gallops. Abdominal exam reveals normal bowel sounds, no masses , no organomegaly and no aortic enlargement. Extremities are edematous and both femoral and pedal pulses are normal. There is more swelling in the left ankle compared to the right. - Labs CBC & Chem 7: 11/21/16 07:11 11/21/16 07:11 Labs: Abnormal Lab Results - Last 24 Hours (Table) 11/20/16 11/20/16 11/21/16 Range/Units 16:51 20:04 07:11 RBC 3.71 L (4.30-5.90) m/uL Hgb 12.7 L (13.0-17.5) gm/dL MCV 107.0 H (80.0-100.0) fL RDW 17.0 H (11.5-15.5) % Neutrophils # 7.8 H (1.3-7.7) k/uL Sodium (137-145) mmol/L BUN (9-20) mg/dL POC Glucose (mg/dL) 161 H 137 H (75-99) mg/dL 11/21/16 11/21/16 11/21/16 Range/Units 07:11 12:12 16:38 RBC (4.30-5.90) m/uL Hgb (13.0-17.5) gm/dL MCV (80.0-100.0) fL RDW (11.5-15.5) % Neutrophils # (1.3-7.7) k/uL Sodium 132 L (137-145) mmol/L BUN 22 H (9-20) mg/dL POC Glucose (mg/dL) 110 H 107 H (75-99) mg/dL Microbiology - Last 24 Hours (Table) 11/18/16 11:45 Fungal Culture - Preliminary Bronchial Washings - Right [place] albicans 11/17/16 12:15 Blood Culture - Preliminary Blood No Growth after 96 hours 11/17/16 10:07 Blood Culture - Preliminary Blood No Growth after 96 hours Assessment and Plan Plan: Assessment 1 pneumonia, multifocal, most significant in the right upper lobe and some early infiltration was seen in the left upper lobe and the right lower lobe. 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 5 bilateral lower extremity edema 6 questionable cellulitis of the left foot 7 hyponatremia, improved 8 [id number] smoking history 9 compressive fracture of the T7 and T8 spine with chronic back pain [place] Bronchial washings are essentially showing [place] albicans, which are most likely colonizers. No other alternative microbial growth. Awaiting results of chest bronchial biopsy. He is same antibiotic coverage. Prednisone burst taper. Nicotine patch. Bronchodilators. The patient will have a repeat chest x-ray in morning. We'll continue to follow.
[2016-11-21 20:44] LABS: Glucose,Whole Blood 155 mg/dL (75-99)
[2016-11-22] MEDS: HYDROcodone/APAP 5-325MG 1 EACH TAB PO PRN ×5 (00:46→21:01)
[2016-11-22] MEDS: IPRATROPIUM-ALBUTEROL 3 ML NEB INHALATION SCH ×4 (07:03→20:26)
[2016-11-22] MEDS: SYMBICORT 160-4.5 MCG INHALER INHALATION SCH ×2 (07:03→20:26)
[2016-11-22 07:05] LABS: Glucose,Whole Blood 88 mg/dL (75-99)
[2016-11-22] MEDS: GABAPENTIN 100 MG CAP PO SCH ×3 (09:11→20:49)
[2016-11-22] MEDS: NYSTATIN 100,000 UNIT/ML SUSP 500,000 UNIT/5 ML CUP PO SCH ×4 (09:11→20:49)
[2016-11-22] MEDS: predniSONE 20 MG TAB PO SCH (09:11)
[2016-11-22] MEDS: DOXYCYCLINE 50 MG CAP PO SCH ×2 (09:11→20:49)
[2016-11-22] MEDS: PANTOPRAZOLE 40 MG TABLET PO SCH (09:11)
[2016-11-22] MEDS: TAMSULOSIN 0.4 MG CAP.ER.24H PO SCH ×2 (09:11→20:49)
[2016-11-22] MEDS: LOSARTAN 50 MG TAB PO SCH (09:11)
[2016-11-22] MEDS: INSULIN LISPRO (humaLOG) 300 UNIT/3 ML VIAL SQ SCH ×4 (09:12→20:50)
[2016-11-22] MEDS: NICOTINE 21MG/24HR PATCH TRANSDERM SCH (09:12)
[2016-11-22] MEDS: PSYLLIUM HUSK 100% 6 GM PACKET PO SCH (09:14)
[2016-11-22 11:09] LABS: Glucose,Whole Blood 107 mg/dL (75-99)
--- NOTE | 2016-11-22 12:48 | P.PN ---
Subjective Principal diagnosis: Hyponatremia and right hilar mass Mr. Guzman is a 70-year-old male who was recently admitted to the hospital with difficulty in breathing and was found to have a community-acquired pneumonia as well as CT finding of right hilar mass and endobronchial lesion around the right mainstem bronchi before the bifurcation. Patient was referred to Pulmonary as an outpatient, follow up bronchoscopy. Otherwise, the patient was sent to the hospital by his PCP with sodium level of 125 on admission. Currently, patient is on fluid restriction and also hydrochlorothiazide has been held. Na level improved to 128. Patient was seen by Pulmonary and patient underwent bronchoscopy today and will follow up on the biopsy report. Otherwise, patient denied any new complaints and no fever, no chills, no chest pain, no short of breath. No nausea, vomiting, abdominal pain. No hematuria, no dysuria. On 11/19/2016 Patient is complaining of left lower exudate sciatic pain which has been present for a while. Left ankle cellulitis is much improved. There are any worsening short of breath or chest pain. Sodium level improving. Lung biopsy report is pending at this time. On 11/20/2016 Patient denied any worsening respiratory status. Patient is still having left lower cellulitis which is improving. No c/o chest pain. Sodium level improved to !30 today. Pathology report is pending On 11/21/2016 Patient denied having any worsening of respiratory status. Lower extremity edema has improved. Lung biopsy result is pending. Sodium level has improved to 132 today Review of systems Constitutional no fever no chills no weakness respiratory. Patient currently complains of shoulder breath or chest pain. No cough or sputum production Cardiovascular: No chest pain Abdomen: No nausea vomiting abdominal pain. Musculoskeletal: left lower reduction to pain Objective - Vital Signs Vital signs: Vital Signs Temp 97.8 F 11/21/16 15:00 Pulse 94 11/21/16 19:36 Resp 16 11/21/16 23:33 BP 152/70 11/21/16 15:00 Pulse Ox 97 11/21/16 15:14 Intake & Output 11/21/16 11/21/16 11/22/16 06:59 18:59 06:59 Intake Total 1220 240 Output Total 500 1325 Balance 720 -1325 240 Intake: IV 200 0.9 @ 20ml/hr 200 Oral 1020 240 Output: Urine 500 1325 Other: Voiding Method Bedside Commode Bedside Commode Bedside Commode Urinal Urinal Urinal # Voids 2 2 # Bowel Movements 1 - Exam A 70-year-old male lying in the bed, awake, alert, oriented x3. Appears to be slightly confused unfortunately after a bronchoscopy. HEENT: Atraumatic, normocephalic. Neck is supple, no JVD. CVS EXAM: S1, S2, heart. No murmurs, no gallop. LUNGS: Bilateral air entry is present and basal crackles positive. Bilateral decreased air entry basally, nonlabored breathing. Abdomen is soft, nontender. Bowel wounds are present. BUILD MANAGER: Awake, alert and oriented x3. No focal deficits. EXTREMITIES: No edema, pulses palpable bilaterally. No clubbing or cyanosis. Left lower extremity redness at the ankle level. PSYCHIATRIC: Cooperative. Anxious - Labs CBC & Chem 7: 11/21/16 07:11 11/21/16 07:11 Labs: Abnormal Lab Results - Last 24 Hours (Table) 11/21/16 11/21/16 11/21/16 Range/Units 07:11 07:11 12:12 RBC 3.71 L (4.30-5.90) m/uL Hgb 12.7 L (13.0-17.5) gm/dL MCV 107.0 H (80.0-100.0) fL RDW 17.0 H (11.5-15.5) % Neutrophils # 7.8 H (1.3-7.7) k/uL Sodium 132 L (137-145) mmol/L BUN 22 H (9-20) mg/dL POC Glucose (mg/dL) 110 H (75-99) mg/dL 11/21/16 11/21/16 Range/Units 16:38 20:36 RBC (4.30-5.90) m/uL Hgb (13.0-17.5) gm/dL MCV (80.0-100.0) fL RDW (11.5-15.5) % Neutrophils # (1.3-7.7) k/uL Sodium (137-145) mmol/L BUN (9-20) mg/dL POC Glucose (mg/dL) 107 H 155 H (75-99) mg/dL Microbiology - Last 24 Hours (Table) 11/18/16 11:45 Fungal Culture - Preliminary Bronchial Washings - Right [place] albicans 11/17/16 12:15 Blood Culture - Preliminary Blood No Growth after 96 hours 11/17/16 10:07 Blood Culture - Preliminary Blood No Growth after 96 hours Assessment and Plan Plan: 1. Hyposmolar hyponatremia. Hydrochlorothiazide has been held and will follow up sodium level. Water restriction continue with. 2. Right hilar mass, status post bronchoscopy on 11/18. Awaiting pathology report. 3. Long history of tobacco use, over 75 pack years. 4. Cellulitis of the left foot. 5. Postoperative picture of obstructive pneumonia, currently on antibiotics. 6. Acute COPD exacerbation due to Pneumonia 7. Hx of Nicotine Addiction DISCUSSION AND PLAN: Will continue with the current antibiotics and continue to hold hydrochlorothiazide. Sodium level improved to 132 today. Will follow up sodium level tomorrow. Pulmonary is on board. Lung biopsy result is still pending C/w Prednisone and Duoneb. Further recommendations based on the clinical course. Time with Patient: Greater than 30
[2016-11-22] MEDS: LACTATED RINGERS 1,000 ML IV SCH (13:08)
--- NOTE | 2016-11-22 14:03 | XR ---
EXAMINATION TYPE: XR chest 2V DATE OF EXAM: 11/22/2016 HISTORY: pneumonia. REFERENCE: Previous study dated 11/18/2016. FINDINGS: The lungs are overinflated. There has been clearing of the patient's right upper lobe infil trate. Some residual infiltrate persists. The heart is not enlarged. Pleural spaces are clear. IMPRESSION: 1. COPD. 2. PARTIAL CLEARING OF THE PATIENT'S RIGHT UPPER LOBE INFILTRATE.
[2016-11-22] MEDS: HEPARIN SODIUM,PORCINE 5,000 UNIT/ML 1 ML VIAL SQ SCH (15:13)
--- NOTE | 2016-11-22 17:17 | P.PN ---
Subjective 70-year-old male patient with known history of advanced COPD and a markedly abnormal chest x-ray and a CAT scan of the chest was being seen in follow-up. The patient has had recent hospitalization for COPD exacerbation. He was seen by Dr Barillas. Note that his chest x-ray had shown significant consolidation of the right upper lobe along with diffuse background emphysematous changes. This is very much in accordance of the previous CAT scan of the chest that was done on 10/28/2016 that showed diffuse opacity mostly in the right upper lobe anteriorly and this was a new finding compared to the previous chest x-ray from January 2016. This was an extensive opacity in the posterior superior right lower lobe consistent with pneumonia. There was also area of airspace disease in the left upper lobe consistent with small focal of pneumonia. Another 1.2 x 0.9 cm solid nodule was seen in the left upper lobe which remain unchanged. Several nodules in the right upper lobe were also present. There was also a nodule in the right upper lobe measuring 1.4 x 0.8 cm in size and a second nodule in the right upper lobe measuring 1.3 x 1.0 cm in size. There is obvious extensive emphysematous changes bilaterally and a thick-walled bulla in the left lung base scarring also be seen. She also has compression fracture deformity of the T7 and T8 spine. Mediastinum showed no aortic dissection. No evidence of any cardiomegaly or mediastinal lymphadenopathy. Based on these findings, bronchoscopy was done last week and the results are still pending. Bronchioloalveolar lavage of the right upper lobe and the biopsies of the right upper lobe were done during the procedure. Clinically the patient is still having some shortness of breath even at rest. Minimal cough and sputum production. Apparently he remains limited bilaterally especially in the lower lobes. No pleurisy. No hemoptysis. No 70 TB exposure. No change in mental status. Resting comfortably in bed. Ankles are swollen bilaterally most on the left. Patient is seen again today 11/22/2016 in follow-up on the regular medical floor. He remains awake and alert in no acute distress. He is maintaining good O2 saturations in the high 90s on 2 L/m per nasal cannula. She's been afebrile. Hemodynamically stable. Ocular wash results reveal Virginia albicans without any other significant findings. Pathology reveals no malignant cells within the brushings or the wash. Blood cultures revealed no growth. He remains on bronchodilators and Symbicort ceftriaxone and doxycycline. His chest x-ray does reveal partial clearing of the right upper lobe infiltrate along with evidence of COPD. Objective - Vital Signs Vital signs: Vital Signs Temp 98.1 F 11/22/16 15:00 Pulse 92 11/22/16 16:37 Resp 20 11/22/16 15:00 BP 118/58 11/22/16 15:00 Pulse Ox 99 11/22/16 16:27 Intake & Output 11/21/16 11/22/16 11/22/16 18:59 06:59 18:59 Intake Total 240 Output Total 1325 1210 Balance -1325 -970 Intake: Oral 240 Output: Urine 1325 1210 Other: Voiding Method Bedside Commode Bedside Commode Bedside Commode Urinal Urinal Urinal # Voids 2 2 # Bowel Movements 1 1 - Exam The patient appeared well nourished and normally developed. Vital signs as documented. Head exam is unremarkable. No scleral icterus or corneal arcus noted. Neck is without jugular venous distension, thyromegaly, or carotid bruits. Carotid upstrokes are brisk bilaterally. Lungs are diminished breath on the lung bases bilaterally along with some scattered expiratory wheezes heard throughout the lung villalobos.. Cardiac exam reveals the PMI to be normally sized and situated. Rhythm is regular. First and second heart sounds normal. No murmurs, rubs or gallops. Abdominal exam reveals normal bowel sounds, no masses , no organomegaly and no aortic enlargement. Extremities are edematous and both femoral and pedal pulses are normal. There is more swelling in the left ankle compared to the right. - Labs CBC & Chem 7: 11/21/16 07:11 11/21/16 07:11 Labs: Abnormal Lab Results - Last 24 Hours (Table) 11/21/16 11/22/16 Range/Units 20:36 11:04 POC Glucose (mg/dL) 155 H 107 H (75-99) mg/dL Microbiology - Last 24 Hours (Table) 11/17/16 12:15 Blood Culture - Preliminary Blood No Growth after 120 hours 11/17/16 10:07 Blood Culture - Preliminary Blood No Growth after 120 hours 11/18/16 11:45 Fungal Culture - Preliminary Bronchial Washings - Right Virginia albicans Assessment and Plan Plan: Assessment 1 pneumonia, multifocal, most significant in the right upper lobe and some early infiltration was seen in the left upper lobe and the right lower lobe. 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 5 bilateral lower extremity edema 6 questionable cellulitis of the left foot 7 hyponatremia, improved 8 [id number] smoking history 9 compressive fracture of the T7 and T8 spine with chronic back pain Plan: The patient was seen and evaluated by Dr. Van. There is no malignant cells found in the bronchial wash/brushings. His chest x-ray today does show partial resolving of the right upper lobe infiltrate. The patient is improved clinically as well. He is again educated regarding the importance of complete smoking cessation. We'll continue with his current antibiotics. We will increase his activity as tolerated. We'll continue to follow.
[2016-11-22 17:24] LABS: Glucose,Whole Blood 151 mg/dL (75-99)
[2016-11-22 20:21] LABS: Glucose,Whole Blood 108 mg/dL (75-99)
[2016-11-22 22:50] VITALS: TEMP 97.4
--- NOTE | 2016-11-22 22:54 | P.PN ---
Subjective Principal diagnosis: Hyponatremia and right hilar mass Mr. Guzman is a 70-year-old male who was recently admitted to the hospital with difficulty in breathing and was found to have a community-acquired pneumonia as well as CT finding of right hilar mass and endobronchial lesion around the right mainstem bronchi before the bifurcation. Patient was referred to Pulmonary as an outpatient, follow up bronchoscopy. Otherwise, the patient was sent to the hospital by his PCP with sodium level of 125 on admission. Currently, patient is on fluid restriction and also hydrochlorothiazide has been held. Na level improved to 128. Patient was seen by Pulmonary and patient underwent bronchoscopy today and will follow up on the biopsy report. Otherwise, patient denied any new complaints and no fever, no chills, no chest pain, no short of breath. No nausea, vomiting, abdominal pain. No hematuria, no dysuria. On 11/19/2016 Patient is complaining of left lower exudate sciatic pain which has been present for a while. Left ankle cellulitis is much improved. There are any worsening short of breath or chest pain. Sodium level improving. Lung biopsy report is pending at this time. On 11/20/2016 Patient denied any worsening respiratory status. Patient is still having left lower cellulitis which is improving. No c/o chest pain. Sodium level improved to !30 today. Pathology report is pending On 11/21/2016 Patient denied having any worsening of respiratory status. Lower extremity edema has improved. Lung biopsy result is pending. Sodium level has improved to 132 today. On 11/22/2016 Patient denied any worsening of his respiration patient has been transferred to a chair beside his bed today. He is trying physical therapy. Pt to be continued on fluid restriction and sodium is steadily improving. Biopsy report is pending. Review of systems Constitutional no fever no chills no weakness respiratory. Patient currently complains of shoulder breath or chest pain. No cough or sputum production Cardiovascular: No chest pain Abdomen: No nausea vomiting abdominal pain. Musculoskeletal: left lower reduction to pain Objective - Vital Signs Vital signs: Vital Signs Temp 97.4 F L 11/22/16 22:49 Pulse 88 11/22/16 22:49 Resp 16 11/22/16 22:49 BP 126/60 11/22/16 22:49 Pulse Ox 99 11/22/16 22:49 Intake & Output 11/22/16 11/22/16 11/23/16 06:59 18:59 06:59 Intake Total 240 240 Output Total 1210 Balance -970 240 Intake: Oral 240 240 Output: Urine 1210 Other: Voiding Method Bedside Commode Bedside Commode Bedside Commode Urinal Urinal Urinal # Voids 2 # Bowel Movements 1 - Exam A 70-year-old male lying in the bed, awake, alert, oriented x3. Appears to be slightly confused unfortunately after a bronchoscopy. HEENT: Atraumatic, normocephalic. Neck is supple, no JVD. CVS EXAM: S1, S2, heart. No murmurs, no gallop. LUNGS: Bilateral air entry is present and basal crackles positive. Bilateral decreased air entry basally, nonlabored breathing. Abdomen is soft, nontender. Bowel wounds are present. [employer]ELOPER: Awake, alert and oriented x3. No focal deficits. EXTREMITIES: No edema, pulses palpable bilaterally. No clubbing or cyanosis. Left lower extremity redness at the ankle level. PSYCHIATRIC: Cooperative. Anxious - Labs CBC & Chem 7: 11/21/16 07:11 11/21/16 07:11 Labs: Abnormal Lab Results - Last 24 Hours (Table) 11/22/16 11/22/16 11/22/16 Range/Units 11:04 16:54 20:19 POC Glucose (mg/dL) 107 H 151 H 108 H (75-99) mg/dL Microbiology - Last 24 Hours (Table) 11/17/16 12:15 Blood Culture - Preliminary Blood No Growth after 120 hours 11/17/16 10:07 Blood Culture - Preliminary Blood No Growth after 120 hours Assessment and Plan Plan: 1. Hyposmolar hyponatremia. Hydrochlorothiazide has been held and will follow up sodium level. Water restriction continue with. 2. Right hilar mass, status post bronchoscopy on 11/18. Awaiting pathology report. 3. Long history of tobacco use, over 75 pack years. 4. Cellulitis of the left foot. 5. Postoperative picture of obstructive pneumonia, currently on antibiotics. 6. Acute COPD exacerbation due to Pneumonia 7. Hx of Nicotine Addiction DISCUSSION AND PLAN: Will continue with the current antibiotics and continue to hold hydrochlorothiazide. Sodium level improved to 132 today. Will follow up sodium level tomorrow. Pulmonary is on board. Lung biopsy result is still pending C/w Prednisone and Duoneb. Further recommendations based on the clinical course.
[2016-11-23] MEDS: HEPARIN SODIUM,PORCINE 5,000 UNIT/ML 1 ML VIAL SQ SCH ×3 (01:14→15:06)
[2016-11-23] MEDS: HYDROcodone/APAP 5-325MG 1 EACH TAB PO PRN ×3 (03:48→14:32)
[2016-11-23] MEDS: GABAPENTIN 100 MG CAP PO SCH ×2 (07:37→15:07)
[2016-11-23] MEDS: DOXYCYCLINE 50 MG CAP PO SCH (07:37)
[2016-11-23] MEDS: PANTOPRAZOLE 40 MG TABLET PO SCH (07:37)
[2016-11-23] MEDS: TAMSULOSIN 0.4 MG CAP.ER.24H PO SCH (07:37)
[2016-11-23] MEDS: predniSONE 20 MG TAB PO SCH (07:37)
[2016-11-23] MEDS: LOSARTAN 50 MG TAB PO SCH (07:37)
[2016-11-23] MEDS: NICOTINE 21MG/24HR PATCH TRANSDERM SCH (07:38)
[2016-11-23] MEDS: NYSTATIN 100,000 UNIT/ML SUSP 500,000 UNIT/5 ML CUP PO SCH ×2 (07:38→12:06)
[2016-11-23 07:39] LABS: Glucose,Whole Blood 95 mg/dL (75-99)
[2016-11-23] MEDS: INSULIN LISPRO (humaLOG) 300 UNIT/3 ML VIAL SQ SCH ×2 (07:39→12:06)
[2016-11-23] MEDS: LACTATED RINGERS 1,000 ML IV SCH (07:56)
[2016-11-23] MEDS: PSYLLIUM HUSK 100% 6 GM PACKET PO SCH (08:08)
[2016-11-23 08:12] VITALS: BP 120/57
[2016-11-23] MEDS: IPRATROPIUM-ALBUTEROL 3 ML NEB INHALATION SCH ×3 (08:13→15:25)
[2016-11-23] MEDS: SYMBICORT 160-4.5 MCG INHALER INHALATION SCH (08:13)
[2016-11-23 08:18] LABS: Anion Gap 6 mmol/L; Blood Urea Nitrogen 17 mg/dL (9-20); Calcium 9.4 mg/dL (8.4-10.2); Carbon Dioxide 28 mmol/L (22-30); Chloride 96 mmol/L (98-107); Glucose 92 mg/dL (74-99); Non-African American GFR(MDRD) >60 (>60 ml/min/1.73 sqM); Potassium 4.4 mmol/L (3.5-5.1); Sodium 130 mmol/L (137-145)
[2016-11-23 11:56] LABS: Glucose,Whole Blood 174 mg/dL (75-99)
[2016-11-23 12:10] VITALS: RESP 18
--- NOTE | 2016-11-23 14:36 | P.PN ---
Subjective 70-year-old male patient with known history of advanced COPD and a markedly abnormal chest x-ray and a CAT scan of the chest was being seen in follow-up. The patient has had recent hospitalization for COPD exacerbation. He was seen by Dr Barillas. Note that his chest x-ray had shown significant consolidation of the right upper lobe along with diffuse background emphysematous changes. This is very much in accordance of the previous CAT scan of the chest that was done on 10/28/2016 that showed diffuse opacity mostly in the right upper lobe anteriorly and this was a new finding compared to the previous chest x-ray from January 2016. This was an extensive opacity in the posterior superior right lower lobe consistent with pneumonia. There was also area of airspace disease in the left upper lobe consistent with small focal of pneumonia. Another 1.2 x 0.9 cm solid nodule was seen in the left upper lobe which remain unchanged. Several nodules in the right upper lobe were also present. There was also a nodule in the right upper lobe measuring 1.4 x 0.8 cm in size and a second nodule in the right upper lobe measuring 1.3 x 1.0 cm in size. There is obvious extensive emphysematous changes bilaterally and a thick-walled bulla in the left lung base scarring also be seen. She also has compression fracture deformity of the T7 and T8 spine. Mediastinum showed no aortic dissection. No evidence of any cardiomegaly or mediastinal lymphadenopathy. Based on these findings, bronchoscopy was done last week and the results are still pending. Bronchioloalveolar lavage of the right upper lobe and the biopsies of the right upper lobe were done during the procedure. Clinically the patient is still having some shortness of breath even at rest. Minimal cough and sputum production. Apparently he remains limited bilaterally especially in the lower lobes. No pleurisy. No hemoptysis. No 70 TB exposure. No change in mental status. Resting comfortably in bed. Ankles are swollen bilaterally most on the left. Patient is seen again today 11/22/2016 in follow-up on the regular medical floor. He remains awake and alert in no acute distress. He is maintaining good O2 saturations in the high 90s on 2 L/m per nasal cannula. She's been afebrile. Hemodynamically stable. Ocular wash results reveal Virginia albicans without any other significant findings. Pathology reveals no malignant cells within the brushings or the wash. Blood cultures revealed no growth. He remains on bronchodilators and Symbicort ceftriaxone and doxycycline. His chest x-ray does reveal partial clearing of the right upper lobe infiltrate along with evidence of COPD. Patient is seen again today 11/23/2016 in follow-up on the regular medical floor. He is awake and alert in no acute distress. He states he is breathing easier today as compared to yesterday and nearly back to his baseline. He is maintaining good O2 saturations in the 90s on room air. He is hemodynamically stable. Afebrile. Objective - Vital Signs Vital signs: Vital Signs Temp 97.4 F L 11/23/16 07:00 Pulse 88 11/23/16 12:18 Resp 18 11/23/16 12:08 BP 120/57 11/23/16 07:00 Pulse Ox 96 11/23/16 07:00 Intake & Output 11/22/16 11/23/16 11/23/16 18:59 06:59 18:59 Intake Total 480 1280 Output Total 1300 800 Balance -820 480 Intake: Intake, IV Titration 100 Amount cefTRIAXone 1,000 mg In 100 Sodium Chloride 0.9% 50 ml @ 100 mls/hr IVPB Q24HR [facility] Rx#:[id number] Oral 480 1180 Output: Urine 1300 800 Other: Voiding Method Bedside Commode Bedside Commode Urinal Urinal Urinal # Voids 2 2 - Exam The patient appeared well nourished and normally developed. Vital signs as documented. Head exam is unremarkable. No scleral icterus or corneal arcus noted. Neck is without jugular venous distension, thyromegaly, or carotid bruits. Carotid upstrokes are brisk bilaterally. Lungs are diminished breath on the lung bases bilaterally along with some scattered expiratory wheezes heard throughout the lung villalobos.. Cardiac exam reveals the PMI to be normally sized and situated. Rhythm is regular. First and second heart sounds normal. No murmurs, rubs or gallops. Abdominal exam reveals normal bowel sounds, no masses , no organomegaly and no aortic enlargement. Extremities are edematous and both femoral and pedal pulses are normal. There is more swelling in the left ankle compared to the right. - Labs CBC & Chem 7: 11/21/16 07:11 11/23/16 07:20 Labs: Abnormal Lab Results - Last 24 Hours (Table) 11/22/16 11/22/1617 Range/Units 16:54 20:19 07:20 Sodium 130 L (137-145) mmol/L Chloride 96 L (98-107) mmol/L POC Glucose (mg/dL) 151 H 108 H (75-99) mg/dL 11/23/16 Range/Units 11:54 Sodium (137-145) mmol/L Chloride (98-107) mmol/L POC Glucose (mg/dL) 174 H (75-99) mg/dL Microbiology - Last 24 Hours (Table) 11/17/16 12:15 Blood Culture - Final Blood No Growth after 144 hours 11/17/16 10:07 Blood Culture - Final Blood No Growth after 144 hours Assessment and Plan Plan: Assessment 1 pneumonia, multifocal, most significant in the right upper lobe and some early infiltration was seen in the left upper lobe and the right lower lobe. Both clinically and radiographically. 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 Biopsies negative for malignancy. 5 bilateral lower extremity edema 6 questionable cellulitis of the left foot 7 hyponatremia, improved 8 [id number] smoking history 9 compressive fracture of the T7 and T8 spine with chronic back pain Plan: The patient was seen and evaluated by Dr. Van. There is no malignant cells found in the bronchial wash/brushings. His chest x-ray today does show partial resolving of the right upper lobe infiltrate. The patient is improved clinically as well. He is again educated regarding the importance of complete smoking cessation. He could be discharged home from the pulmonary standpoint and complete his course of antibiotics and prednisone. Continue on bronchodilators and Symbicort. He could follow-up in our office in 1-2 weeks' time. We'll repeat a chest x-ray then. He is encouraged to call sooner with any recurrence of symptoms or other questions or concerns. The plan is for discharge to an extended care facility for continued rehabilitation.
--- NOTE | 2016-11-23 15:28 | DS ---
DATE OF ADMISSION: 11/17/2016 DATE OF DISCHARGE: 11/23/2016 CONSULTATION: Pulmonary consultation. TEST AND PROCEDURES: Bronchoscopy with biopsy. DISCHARGE DIAGNOSES: 1. Right hilar mass, status post bronchoscopy. Pathology showed fragments of benign bronchial mucosa, most likely pneumonia. 2. Right upper lobe pneumonia, ( ). 3. History of smoking ( ) pack years. 4. Cellulitis of bilateral feet, improved now. 5. Hyposmolar hyponatremia. Hydrochlorothiazide has been held and sodium level improved to 132. 6. Acute chronic obstructive pulmonary disease exacerbation. 7. Anxiety and depression. HOSPITAL COURSE: Mr. Guzman is a 70-year-old male with known history of smoking and COPD who was recently admitted to the hospital with community-acquired pneumonia as well as CT findings of right hilar mass and endobronchial lesion around the right mainstem bronchi before the bifurcation. Patient was supposed to follow with Pulmonary as an outpatient tube he did not follow up and went to PCP and was found to have a sodium level of 125. Patient admitted to the hospital with hyponatremia and hydrochlorothiazide has been held and patient's sodium level went up to 132. Otherwise, patient underwent bronchoscopy and biopsy result reported today showed benign mucosa. All the right upper lobe findings were most likely secondary to pneumonia which is clearing up as per Pulmonary. Patient will be continued on antibiotics in the form of doxycycline for 7 more days for complete resolution. Otherwise, sodium level is improved today and patient is able to tolerate physical therapy and he would benefit from transfer to rehab. Patient is also being treated for acute COPD exacerbation and tapering dose of steroids and also antibiotics now and breathing treatments. Patient did improve clinically. Denied any worsening short of breath or chest pain. No wheezing noted today. Otherwise, patient is stable to be discharged to extended care facility for rehabilitation. DISCHARGE PHYSICAL EXAM: A 70-year-old male lying in the bed comfortably, awake , alert and oriented x3. Appears in no apparent distress. VITALS: Blood pressure is 120/57, pulse is 91, respiratory rate is 16, temperature afebrile. Pulse ox 96% on room air. HEENT: Atraumatic, normocephalic. Neck is supple, No JVD. CVS exam S1, S2 heard. No murmurs, no gallop, no rub. LUNGS: Bilateral air entry is present. Diminished breath sounds bilaterally, nonlabored breathing. No wheezing, no crackles. Abdomen is soft, nontender, bowel sounds are heard. GALLEY COOK EXAM: Awake, alert and oriented x3. No focal deficits. EXTREMITIES: Bilateral lower extremity swelling of the ankle region with redness, much improved now. Pulses palpable bilaterally. PSYCHIATRIC: Anxious and seems depressed. LABORATORY DATA: Sodium 130, potassium 4.4, chloride 96, bicarb is 26, BUN 17, creatinine 0.76, calcium 9.4. Discharge physical examination done. Discharge medications include: 1. Albuterol 2 puffs inhalation q.6 hourly p.r.n. for short of breath. 2. Gabapentin 100 mg t.i.d. 3. Losartan 100 mg p.o. daily. 4. Multivitamin 1 tablet p.o. daily. 5. Naprosyn 220 mg p.o. b.i.d. p.r.n. for pain. 6. Sleep aid 1 tablet p.o. at bedtime. 7. Vitamin B complex 1 capsule p.o. daily. 8. Symbicort 2 puffs b.i.d. 9. DuoNeb q.i.d. p.r.n. for short of breath. 10. Nicotine patch 21 mg daily. 11. Flomax 0.4 mg p.o. at bedtime. 12. Xanax 0.25 mg p.o. t.i.d. p.r.n. for anxiety. 13. Doxycycline 100 mg p.o. b.i.d. for 7 more days. 14. Prednisone tapering dose 20 mg for 2 days and 10 ms for 3 days, then stop. Patient will be discharged to rehabilitation today. Follow with Dr. Mendoza Bowie is 1 to 2 days and activity as tolerated and regular diet. MTDD
[2016-11-23 15:34] VITALS: PULSE 108
== END 2016-11-23 15:40 | DRG 166 ==
LOC: EC 09:28 → 5MS5E 13:00
PROVIDERS: ADMIT Hospitalist; ATTEND Hospitalist
PROC: 0B9C8ZX Drainage of Right Upper Lung Lobe, Via Natural or Artificial Opening Endoscopic, Diagnostic (ICD-10-PCS; principal; 2016-11-18 07:30)
PROC: 0BBC8ZX Excision of Right Upper Lung Lobe, Via Natural or Artificial Opening Endoscopic, Diagnostic (ICD-10-PCS; 2016-11-18 07:30)
DX: J44.0 Chronic obstructive pulmonary disease with (acute) lower respiratory infection (principal); J15.9 Unspecified bacterial pneumonia; L03.115 Cellulitis of right lower limb; E87.1 Hypo-osmolality and hyponatremia; L03.116 Cellulitis of left lower limb; D64.9 Anemia, unspecified; J44.1 Chronic obstructive pulmonary disease with (acute) exacerbation; S22.069D Unspecified fracture of T7-T8 vertebra, subsequent encounter for fracture with routine healing; R39.15 Urgency of urination; N40.1 Benign prostatic hyperplasia with lower urinary tract symptoms; M19.90 Unspecified osteoarthritis, unspecified site; H93.13 Tinnitus, bilateral; R60.0 Localized edema; F41.9 Anxiety disorder, unspecified; I87.8 Other specified disorders of veins; M54.32 Sciatica, left side; F32.9 Major depressive disorder, single episode, unspecified; G89.29 Other chronic pain; F17.200 Nicotine dependence, unspecified, uncomplicated; Z79.899 Other long term (current) drug therapy; Z96.1 Presence of intraocular lens; Z98.41 Cataract extraction status, right eye; Z98.42 Cataract extraction status, left eye; Z87.11 Personal history of peptic ulcer disease; Z82.5 Family history of asthma and other chronic lower respiratory diseases; Z71.3 Dietary counseling and surveillance; Z79.1 Long term (current) use of non-steroidal anti-inflammatories (NSAID); Z87.81 Personal history of (healed) traumatic fracture; Z87.440 Personal history of urinary (tract) infections; Z87.01 Personal history of pneumonia (recurrent); Z79.51 Long term (current) use of inhaled steroids
CPT/HCPCS: 31623; 31624; 31628; 36415; 71010; 71020; 80048; 80053; 81003; 82150; 82550; 82553; 83605; 83690; 83735; 83880; 83930; 83935; 84300; 84443; 84484; 85025; 85610; 85730; 87040; 87070; 87102; 87116; 87205; 87206; 87252; 87496; 87498; 87502; 87529; 87798; 88104; 88108; 88305; 89050; 93005; 94640; 94760; 96361; 96365; 99285

== ENCOUNTER → 2017-02-10 | Outpatient (CLI) | payer MEDICARE, OTHER ==
[2017-02-10 11:22] LABS: Blood Urea Nitrogen 15 mg/dL (9-20); Non-African American GFR(MDRD) >60 (>60 ml/min/1.73 sqM)
--- NOTE | 2017-02-10 12:44 | CT ---
EXAMINATION TYPE: CT chest w con DATE OF EXAM: 02/10/2017 COMPARISON: CT chest October 28, 2016. Two-view chest x-ray January 30, 2017 HISTORY: right upper pneumonia per order. CT DLP: 284.5 mGycm. Automated Exposure Control for Dose Reduction was Utilized. TECHNIQUE: CT scan of the thorax is performed following with IV Contrast, patient injected with 100 mL of Omnipaque 300. FINDINGS: LUNGS: Moderate to advanced emphysematous change is redemonstrated. There is mild to moderate biapica l parenchymal scarring and fibrosis. There are new small left greater than right pleural effusions or fluid collections. There are new per ipheral reticulation and interstitial opacities suggesting edema and/or infiltrates in the lower lung s, for reference lingular linear and slightly nodular opacities near axial image 34. There are new no dular and spiculated infiltrates posterior right upper lobe abutting fissure on coronal image 69. There is some nodular consolidation in the right lower lobe which is improved from prior exam. Scatte red bulla and blebs are redemonstrated. Resolving anterior right upper lobe masslike consolidation is seen. Mild peribronchial wall thickening is improved from prior. MEDIASTINUM: There is redemonstration of enlarged subcarinal lymph node measuring 2.2 x 1.2 cm on axi al image 30. There is enlarged right paratracheal lymph node or lymph node on axial image 25. There a re enlarged bilateral hilar lymph nodes felt present. No cardiomegaly or pericardial effusion is seen . Three-vessel coronary artery catheterization and/or coronary stents are redemonstrated. There is m oderate mixed plaque in the aorta. OTHER: Bilateral gynecomastia is again seen. There is redemonstration of demineralization with mild t o moderate compression type fracture deformity at the T8 vertebra redemonstrated. IMPRESSION: Background of moderate to advanced emphysematous change with scattered fibrosis. Resolvin g bilateral upper to mid lung infiltrates are seen. There is note made of new small bilateral pleural effusions and multifocal areas of infiltrate and/or edema in the bilateral lower lungs. There is per sistent thoracic adenopathy noted.
== END | disposition home or self-care (01) ==
LOC: RADCTMAIN 10:33
PROVIDERS: ATTEND Internal Medicine Critical Care Medicine
DX: J43.9 Emphysema, unspecified (principal); J84.10 Pulmonary fibrosis, unspecified; J90 Pleural effusion, not elsewhere classified; R59.0 Localized enlarged lymph nodes
CPT/HCPCS: 82565; 84520; 71260; 36415; Q9967

== ENCOUNTER 2017-03-08 09:23 | Inpatient (IN) | payer MEDICARE, OTHER ==
[2017-03-08] MEDS ORDERED: FUROSEMIDE 10 MG/ML 4 ML VIAL IV STA (09:51)
--- NOTE | 2017-03-08 09:56 | ED ---
General Adult HPI - General Chief complaint: Shortness of Breath Stated complaint: CHEST PAIN, SOB, POSS LOW SODIUM Time Seen by Provider: 03/08/17 09:25 Source: patient, RN notes reviewed Mode of arrival: ambulatory Limitations: no limitations - History of Present Illness Initial comments: This is a 71-year-old male who presents emergency Department with a past medical history of COPD and low sodium. Patient states he also has swollen legs on a regular basis. Patient comes in today because he states he couldn't sleep last night and he was awful twitchy which occurs when he has low sodium he also has noted that is much more short of breath lately. he also is complaining of dysuria like when he has had a urinary tract infection in the past. Patient denies any chest pain or palpitations. Patient denies any recent fever chills. Patient denies any significant cough. Patient states he has noted that both of his legs are much more swollen than normal. Patient denies any abdominal pain patient denies nausea vomiting diarrhea. - Related Data Home Medications Medication Instructions Recorded Confirmed Albuterol Sulfate [Proair Hfa] 1 - 2 puff INHALATION RT-Q6H PRN 10/27/16 Gabapentin [Neurontin] 200 mg PO TID 10/27/16 03/08/17 Losartan Potassium [Cozaar] 100 mg PO DAILY 10/27/16 03/08/17 Multivitamins, Thera [Multivitamin 1 tab PO DAILY 10/27/16 03/08/17 (formulary)] Vitamin B Complex 1 cap PO DAILY 10/27/16 03/08/17 Fluticasone/Salmeterol [Advair 1 puff INHALATION RT-BID 03/08/17 03/08/17 250-50 Diskus] Omeprazole 20 mg PO DAILY 03/08/17 03/08/17 Sulfamethox-Tmp 800-160Mg [Bactrim 1 tab PO Q12HR 03/08/17 03/08/17 DS 800-160 mg] Tiotropium 18 Mcg/Puff [Spiriva] 1 cap INHALATION RT-DAILY 03/08/17 03/08/17 Previous Rx's Medication Instructions Recorded Budesonide-Formot 160-4.5 Mcg 2 puff INHALATION RT-BID #1 inh 11/01/16 [Symbicort 160-4.5 Mcg Inhaler] Tamsulosin [Flomax] 0.4 mg PO HS #30 cap 11/02/16 Allergies Allergy/AdvReac Type Severity Reaction Status Date / Time No Known Allergies Allergy Verified 03/08/17 09:42 Review of Systems ROS Statement: Those systems with pertinent positive or pertinent negative responses have been documented in the HPI. ROS Other: All systems not noted in ROS Statement are negative. Past Medical History Past Medical History: Asthma, COPD, Prostate Disorder Additional Past Medical History / Comment(s): back problems, neuromuscular problems, home o2 2L, UTI's History of Any Multi-Drug Resistant Organisms: None Reported Past Surgical History: Orthopedic Surgery Additional Past Surgical History / Comment(s): left hip sx Past Anesthesia/Blood Transfusion Reactions: No Reported Reaction Past Psychological History: Anxiety, Depression Smoking Status: Former smoker Past Alcohol Use History: None Reported Past Drug Use History: None Reported - Past Family History Father Additional Family Medical History / Comment(s): Obesity Mother Additional Family Medical History / Comment(s): Mother had alot of bronchitis and degenerative arthritis. She at the age of 91yrs. General Exam - General Exam Comments Initial Comments: GENERAL: Patient is well-developed and well-nourished. Patient is nontoxic and well- hydrated and is in mild distress. ENT: Neck is soft and supple. No significant lymphadenopathy is noted. Oropharynx is clear. Moist mucous membranes. Neck has full range of motion without eliciting any pain. EYES: The sclera were anicteric and conjunctiva were pink and moist. Extraocular movements were intact and pupils were equal round and reactive to light. Eyelids were unremarkable. PULMONARY: Occasional expiratory wheeze. CARDIOVASCULAR: There is a regular rate and rhythm without any murmurs gallops or rubs. ABDOMEN: Soft and nontender with normal bowel sounds. No palpable organomegaly was noted. There is no palpable pulsatile mass. SKIN: Skin is clear with no lesions or rashes and otherwise unremarkable. NEUROLOGIC: Patient is alert and oriented x3. Cranial nerves II through XII are grossly intact. Motor and sensory are also intact. Normal speech, volume and content. Symmetrical smile. MUSCULOSKELETAL: Normal extremities with adequate strength and full range of motion. 2+ edema bilaterally. LYMPHATICS: No significant lymphadenopathy is noted PSYCHIATRIC: Normal psychiatric evaluation. Normal interpersonal interactions appears functionally intact in deals appropriately with others. No signs of depression. No signs of anxiety. Limitations: no limitations Course Vital Signs 03/08/17 03/08/17 09:26 11:26 Temperature 98.4 F Pulse Rate 106 H 86 Respiratory 24 22 Rate Blood Pressure 164/81 142/70 O2 Sat by Pulse 90 L 92 L Oximetry Medical Decision Making - Medical Decision Making EKG shows normal sinus rhythm at 94 bpm NH interval is 152 QRS is 94 QT interval 370 QTC is 462. Patient's EKG does show some T-wave inversions in leads V1 through V4. Chest x-ray shows no acute abnormality - Lab Data Result diagrams: 03/08/17 09:50 03/08/17 09:50 Lab Results 03/08/17 03/08/17 03/08/17 Range/Units 09:50 09:50 09:50 WBC 7.3 (3.8-10.6) k/uL RBC 3.61 L (4.30-5.90) m/uL Hgb 10.7 L (13.0-17.5) gm/dL Hct 35.3 L (39.0-53.0) % MCV 97.8 (80.0-100.0) fL MCH 29.7 (25.0-35.0) pg MCHC 30.4 L (31.0-37.0) g/dL RDW 16.5 H (11.5-15.5) % Plt Count 397 (150-450) k/uL Neutrophils % 65 % Lymphocytes % 19 % Monocytes % 8 % Eosinophils % 4 % Basophils % 1 % Neutrophils # 4.8 (1.3-7.7) k/uL Lymphocytes # 1.4 (1.0-4.8) k/uL Monocytes # 0.6 (0-1.0) k/uL Eosinophils # 0.3 (0-0.7) k/uL Basophils # 0.1 (0-0.2) k/uL Hypochromasia Moderate Anisocytosis Slight Macrocytosis Slight PT (9.0-12.0) sec INR (<1.2) APTT (22.0-30.0) sec Sodium 126 L (137-145) mmol/L Potassium 4.9 (3.5-5.1) mmol/L Chloride 96 L (98-107) mmol/L Carbon Dioxide 18 L (22-30) mmol/L Anion Gap 12 mmol/L BUN 11 (9-20) mg/dL Creatinine 0.87 (0.66-1.25) mg/dL Est GFR (MDRD) Af Amer >60 (>60 ml/min/1.73 sqM) Est GFR (MDRD) Non-Af >60 (>60 ml/min/1.73 sqM) Glucose 125 H (74-99) mg/dL Calcium 9.3 (8.4-10.2) mg/dL Magnesium 1.4 L (1.6-2.3) mg/dL Total Bilirubin 0.6 (0.2-1.3) mg/dL AST 38 (17-59) U/L ALT 41 (21-72) U/L Alkaline Phosphatase 96 (38-126) U/L Total Creatine Kinase 291 H (55-170) U/L CK-MB (CK-2) 8.6 H* (0.0-2.4) ng/mL CK-MB (CK-2) Rel Index 3.0 Troponin I 0.014 (0.000-0.034) ng/mL NT-Pro-B Natriuret Pep pg/mL Total Protein 7.1 (6.3-8.2) g/dL Albumin 3.7 (3.5-5.0) g/dL Urine Color Urine Appearance (Clear) Urine pH (5.0-8.0) Ur Specific W[place] (1.001-1.035) Urine Protein (Negative) Urine Glucose (UA) (Negative) Urine Ketones (Negative) Urine Blood (Negative) Urine Nitrite (Negative) Urine Bilirubin (Negative) Urine Urobilinogen (<2.0) mg/dL Ur Leukocyte Esterase (Negative) 03/08/17 03/08/17 03/08/17 Range/Units 09:50 09:50 11:18 WBC (3.8-10.6) k/uL RBC (4.30-5.90) m/uL Hgb (13.0-17.5) gm/dL Hct (39.0-53.0) % MCV (80.0-100.0) fL MCH (25.0-35.0) pg MCHC (31.0-37.0) g/dL RDW (11.5-15.5) % Plt Count (150-450) k/uL Neutrophils % % Lymphocytes % % Monocytes % % Eosinophils % % Basophils % % Neutrophils # (1.3-7.7) k/uL Lymphocytes # (1.0-4.8) k/uL Monocytes # (0-1.0) k/uL Eosinophils # (0-0.7) k/uL Basophils # (0-0.2) k/uL Hypochromasia Anisocytosis Macrocytosis PT 11.5 (9.0-12.0) sec INR 1.2 H (<1.2) APTT 26.0 (22.0-30.0) sec Sodium (137-145) mmol/L Potassium (3.5-5.1) mmol/L Chloride (98-107) mmol/L Carbon Dioxide (22-30) mmol/L Anion Gap mmol/L BUN (9-20) mg/dL Creatinine (0.66-1.25) mg/dL Est GFR (MDRD) Af Amer (>60 ml/min/1.73 sqM) Est GFR (MDRD) Non-Af (>60 ml/min/1.73 sqM) Glucose (74-99) mg/dL Calcium (8.4-10.2) mg/dL Magnesium (1.6-2.3) mg/dL Total Bilirubin (0.2-1.3) mg/dL AST (17-59) U/L ALT (21-72) U/L Alkaline Phosphatase (38-126) U/L Total Creatine Kinase (55-170) U/L CK-MB (CK-2) (0.0-2.4) ng/mL CK-MB (CK-2) Rel Index Troponin I (0.000-0.034) ng/mL NT-Pro-B Natriuret Pep 5320 pg/mL Total Protein (6.3-8.2) g/dL Albumin (3.5-5.0) g/dL Urine Color Light Yellow Urine Appearance Clear (Clear) Urine pH 6.5 (5.0-8.0) Ur Specific [place] 1.008 (1.001-1.035) Urine Protein Negative (Negative) Urine Glucose (UA) Negative (Negative) Urine Ketones Trace H (Negative) Urine Blood Negative (Negative) Urine Nitrite Negative (Negative) Urine Bilirubin Negative (Negative) Urine Urobilinogen <2.0 (<2.0) mg/dL Ur Leukocyte Esterase Negative (Negative) Disposition Clinical Impression: Dyspnea, COPD exacerbation, Pedal edema, Hyponatremia Disposition: ADMITTED IP TO THIS HOSP Referrals: Mendoza Bowie MD [Primary Care Provider] - 1-2 days Time of Disposition: 11:57
[2017-03-08 10:10] LABS: Anisocytosis Slight; Basophils # (A) 0.1 k/uL (0-0.2); Basophils % (A) 1 %; CH 30.2; Eosinophils # (A) 0.3 k/uL (0-0.7); Eosinophils % (A) 4 %; HCT 35.3 % (39.0-53.0); HDW 2.86; HGB 10.7 gm/dL (13.0-17.5); Hypochromasia Moderate; Luc # (Auto) 0.24; Luc % (Auto) 3; Lymphocytes # (A) 1.4 k/uL (1.0-4.8); Lymphocytes % (A) 19 %; MCH 29.7 pg (25.0-35.0); MCHC 30.4 g/dL (31.0-37.0); MCV 97.8 fL (80.0-100.0); Macrocytosis Slight; Mean Platelet Volume 7.3; Monocytes # (A) 0.6 k/uL (0-1.0); Monocytes % (A) 8 %; Neutrophils # (A) 4.8 k/uL (1.3-7.7); Neutrophils % (A) 65 %; RBC 3.61 m/uL (4.30-5.90); RDW 16.5 % (11.5-15.5); WBC 7.3 k/uL (3.8-10.6)
[2017-03-08 10:19] LABS: INR 1.2 (<1.2); Prothrombin Time 11.5 sec (9.0-12.0)
[2017-03-08 10:25] LABS: ALT 41 U/L (21-72); AST 38 U/L (17-59); Alkaline Phosphatase 96 U/L (38-126); Anion Gap 12 mmol/L; Blood Urea Nitrogen 11 mg/dL (9-20); Calcium 9.3 mg/dL (8.4-10.2); Carbon Dioxide 18 mmol/L (22-30); Chloride 96 mmol/L (98-107); Glucose 125 mg/dL (74-99); Magnesium 1.4 mg/dL (1.6-2.3); Non-African American GFR(MDRD) >60 (>60 ml/min/1.73 sqM); Potassium 4.9 mmol/L (3.5-5.1); Sodium 126 mmol/L (137-145); Total Bilirubin 0.6 mg/dL (0.2-1.3); Total Protein 7.1 g/dL (6.3-8.2)
[2017-03-08 10:51] LABS: Troponin I 0.014 ng/mL (0.000-0.034)
[2017-03-08 10:59] LABS: Creatine Kinase MB 8.6 ng/mL (0.0-2.4)
--- NOTE | 2017-03-08 11:06 | XR ---
EXAMINATION TYPE: XR chest 2V DATE OF EXAM: 03/08/2017 COMPARISON: NONE TECHNIQUE: PA and lateral views submitted. HISTORY: Chest pain FINDINGS: Hyperinflation suggests COPD and there is a coarsened interstitium with areas of subsegmental consoli dation involving both lower lobes and right upper lobe. Biapical pleural thickening. Arthropathy of t he shoulders. Arthropathy of the shoulders. Mild cardiomegaly. Age-indeterminate compression deformit ies of the thoracic spine. IMPRESSION: 1. Few COPD with changes of pulmonary chronic interstitial lung disease or fibrosis. Right upper and bilateral lower lobe lobe area of superimposed infiltrate not excluded correlate clinically..
[2017-03-08 11:32] LABS: Appearance,Urine Clear (Clear); Bilirubin,Urine Negative (Negative); Glucose,Urine (UA) Negative (Negative); Ketones,Urine Trace (Negative); Leukocyte Esterase,Urine Negative (Negative); Nitrite,Urine Negative (Negative); PH, Urine 6.5 (5.0-8.0); Protein,Urine Negative (Negative); Specific Gravity,Urine 1.008 (1.001-1.035); UA Billing (MACRO vs. MICRO) CHEM; Urobilinogen,Urine <2.0 mg/dL (<2.0)
[2017-03-08] MEDS ORDERED: methylPREDNISolone SOD SUCCI 125 MG/2 ML VIAL IV STA (11:58)
[2017-03-08] MEDS ORDERED: IPRATROPIUM-ALBUTEROL 3 ML NEB INHALATION STA (12:00)
[2017-03-08] MEDS: methylPREDNISolone SOD SUCCI 125 MG/2 ML VIAL IV SCH ×4 (12:24→23:12)
[2017-03-08 13:44] VITALS: BMI 26.6
--- NOTE | 2017-03-08 14:31 | P.CNPUL ---
History of Present Illness Consult date: 03/08/17 Reason for consult: dyspnea, other (Diarrhea, urinary difficulties and leg edema ) History of present illness: Marbin is a very pleasant 70-year-old male patient who was in the hospital in November 2016 for an extensive right lung pneumonia. At that time there was a suspicion for lung mass. The patient a bronchoscopy and the results were nondiagnostic. Following his discharge from the hospital the patient went tomorrow with and it took him quite some times and he recuperated and he is coming today to see me in the outpatient. Note that he also had hyponatremia at a time of his admission. He was on 2 L/m nasal cannula. He gets short of breath with limited amount of activity. He has not smoked since October 2016. His CAT scan of the chest from October 2016 showed diffuse opacities mostly in the right upper lobe that was not present on the previous CAT scan of the chest from 2015. There was extensive opacity in the posterior superior right lower lobe consistent with pneumonia. Airspace disease also seen in the anterior aspect of the left upper lobe. There was also a nodule measuring 1.2 x 0.9 mm in the left upper lobe and several nodules in the right upper lobe that is very difficult to differentiate from pneumonia. One of the nodules in the right upper lobe is measuring 1.4 x 0.8 cm. There was extensive emphysema throughout the lung villalobos bilaterally and probably some early cavitation in the right upper lobe. As such the patient a bronchoscopy and the results were nondiagnostic for any microbes or any cancers. On 02/24/2017 Marbin was seen in FU in the office. He was pulse oxing around 90-91 % diseases of oxygen by nasal cannula. He has some excess congestion his sinuses. He was on a combination of Advair and Spiriva and he uses pro-air as needed. He typically uses around 4 times a day, 2 puffs. No significant chest congestion. No significant mucus production. No fever chills or night sweats. The CAT scan of the chest was repeated in January 2017 and it showed moderate to severe emphysema and there is [id number] biapical parenchymal scarring and fibrosis. There is also small left greater than right pleural effusions. There is also new peripheral reticular interstitial opacities suggestive of edema. The note that her consolidation in the right lower lobe has improved and there is scattered bullae throughout the lung villalobos. The right upper lobe masslike consolidation has recovered. There is redemonstration of the subcarinal lymph nodes measuring 2.2 x 1.2 cm in size. There is also a large right paratracheal lymph node. There is an enlarged hilar lymph nodes. No cardiomegaly. There is compression deformity of the T8 vertebral spine. On 03/08/2017 the patient presented himself to the burst department. Apparently over the past 24 hours his condition has gotten worse. He had become uncomfortable as the patient started having loose liquidy bowel movements and he had 3 episodes [id number]. Limited nausea. No emesis. No abdominal pain. No abdominal distention. No melena. He also was having difficulties with urination where at times he was having retention and other times he was having dysuria. Denies having any chills or fever. He was having symptoms of UTI and he had contacted his primary care physician and he was given a course of Bactrim on outpatient basis. He has also noted significant swelling in lower oximetry is bilaterally. A chest x-ray was done at time of admission and the chest x-ray findings are essentially stable to the previous chest from that was done earlier. As mentioned the patient extensive consolidation of the right upper lobe and some limited pulmonary changes and left upper lobe which were improving on subsequent CAT scan findings. The patient continues to have some nodules as mentioned in the right upper lobe measuring 1.4 x 0.8 cm in size and another nodule in the left upper lobe measuring 1.2 cm in size and this is something to be followed up at a later stage with a subsequent CAT scan of the chest. He is on a combination of Advair and Spiriva at home and he doesn't be done about treatments in addition to prior rescue inhaler on as-needed basis. His action dependent somewhat between 2-3 L/m nasal cannula. He denies having any worsening shortness of breath. Limited cough and congestion. No signs of any respiratory failure at this point. Legs are quite swollen bilaterally. No previous history of DVT or pulmonary embolism. He has been on no diuretics Review of Systems Constitutional Constitutional: no fever, no night sweats, no significant weight gain, no exercise intolerance, weight loss (___ lbs) (weakness) Eyes Eyes: no dry eyes, no vision change, no irritation ENMT Ears: no difficulty hearing, no ear pain Nose: no frequent nosebleeds, no nose problems, no sinus problems Mouth/Throat: no sore throat, no bleeding gums, no snoring, no dry mouth, no mouth ulcers, no oral abnormalities, no teeth problems Cardiovascular Cardiovascular: no chest pain, no arm pain on exertion, no palpitations, no known heart murmur, shortness of breath when walking, shortness of breath when lying down Respiratory Respiratory: no wheezing, no coughing up blood, no sleep apnea, cough, shortness of breath Gastrointestinal Gastrointestinal: no abdominal pain, no nausea, no vomiting, no constipation, normal appetite, is loose bowel movements/liquidy/diarrhea, not vomiting blood, no dyspepsia, no GERD (Diminished appetite) Genitourinary Genitourinary: no incontinence, difficulty urinating, no hematuria, increased frequency (Urine tract infection with enterococcus) Musculoskeletal Musculoskeletal: no muscle aches, his bilateral lower extremity swelling , muscle weakness, arthralgias/joint pain, back pain Integumentary Skin: no abnormal mole, no jaundice, no rashes, no laceration Neurologic Neurologic: no loss of consciousness, no numbness, no seizures, no dizziness, no migraines, no headaches, no tremor, weakness (Difficulties with mobility and ambulation) Psychiatric Psych: no depression, no sleep disturbances, feeling safe in a relationship, no alcohol abuse, no anxiety, no hallucinations, no suicidal thoughts Endocrine Endocrine: fatigue Hematologic/Lymphatic Hematologic/Lymphatic no swollen glands, no bruising, no excessive bleeding Allergic/Immunologic Allergy/Immunologic: no runny nose, no sinus pressure, no itching, no hives, no frequent sneezing Past Medical History Past Medical History: COPD, Prostate Disorder Additional Past Medical History / Comment(s): COPD, chronic hypoxic respiratory failure, BPH, recent urinary tract infection with Enterococcus faecalis, recent hospitalization for an extensive right upper lobe pneumonia, 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.4 cm in the right upper lobe and 1.2 cm and the left upper lobe, bilateral lower extremities edema, hypothermia, compression fracture of the T7/T8 spine, chronic back pain History of Any Multi-Drug Resistant Organisms: None Reported Past Surgical History: Orthopedic Surgery Additional Past Surgical History / Comment(s): left hip sx Past Anesthesia/Blood Transfusion Reactions: No Reported Reaction Past Psychological History: Anxiety, Depression Smoking Status: Former smoker Past Alcohol Use History: None Reported Past Drug Use History: None Reported - Past Family History Father Additional Family Medical History / Comment(s): Obesity Mother Additional Family Medical History / Comment(s): Mother had alot of bronchitis and degenerative arthritis. She at the age of 91yrs. Medications and Allergies Home Medications Medication Instructions Recorded Confirmed Type Albuterol Sulfate [Proair Hfa] 1 - 2 puff INHALATION RT-Q6H PRN 10/27/16 History Gabapentin [Neurontin] 200 mg PO TID 10/27/16 03/08/17 History Losartan Potassium [Cozaar] 100 mg PO DAILY 10/27/16 03/08/17 History Multivitamins, Thera [Multivitamin 1 tab PO DAILY 10/27/16 03/08/17 History (formulary)] Vitamin B Complex 1 cap PO DAILY 10/27/16 03/08/17 History Budesonide-Formot 160-4.5 Mcg 2 puff INHALATION RT-BID #1 inh 11/01/16 03/08/17 Rx [Symbicort 160-4.5 Mcg Inhaler] Tamsulosin [Flomax] 0.4 mg PO HS #30 cap 11/02/16 03/08/17 Rx Fluticasone/Salmeterol [Advair 1 puff INHALATION RT-BID 03/08/17 03/08/17 History 250-50 Diskus] Omeprazole 20 mg PO DAILY 03/08/17 03/08/17 History Sulfamethox-Tmp 800-160Mg [Bactrim 1 tab PO Q12HR 03/08/17 03/08/17 History DS 800-160 mg] Tiotropium 18 Mcg/Puff [Spiriva] 1 cap INHALATION RT-DAILY 03/08/17 03/08/17 History Allergies Allergy/AdvReac Type Severity Reaction Status Date / Time No Known Allergies Allergy Verified 03/08/17 09:42 Physical Exam Vitals: Vital Signs Temp Pulse Resp BP Pulse Ox 03/08/17 12:39 98.4 F 92 22 137/71 93 L 03/08/17 12:25 98 03/08/17 12:16 95 03/08/17 11:26 86 22 142/70 92 L 03/08/17 09:26 98.4 F 106 H 24 164/81 90 L Intake and Output 10/03/08/17 03/08/17 22:59 06:59 14:59 Other: Weight 77.111 kg Patient Weight 03/09/17 06:59 Weight 77.111 kg General Appearance no diaphoresis, no respiratory distress, speech not interrupted by breaths, no dyspnea, no pallor, cachectic, appears ill HEENT no pursed lip breathing, no jugular venous distention, no mucous membrane cyanosis, no perioral cyanosis, mallampati classification: class 1 Chest no barrel chest, no retractions, no sternocleidomastoid muscle contractions, no supraclavicular retractions, no intercostal retractions, no decreased air movement, no rhonchi, no hyperinflation, prolonged expiratory wheezing, decreased air movement Heart no right ventricular heave, no distant heart sounds, no s3 gallop GI bowel sounds: hyperactive (borborygmi), bowel sounds: diminished or absent Extremities no cyanosis, no clubbing, edema (+1-2 pitting edema in the legs) Neurologic no decreased mental status, no somnolence, no confusion Results - Laboratory Findings CBC and BMP: 03/08/17 09:50 03/08/17 09:50 PT/INR, D-dimer PT 11.5 sec (9.0-12.0) 03/08/17 09:50 INR 1.2 (<1.2) H 03/08/17 09:50 Abnormal lab findings: Abnormal Labs 03/08/17 03/08/17 03/08/17 09:50 09:50 09:50 RBC 3.61 L Hgb 10.7 L Hct 35.3 L MCHC 30.4 L RDW 16.5 H INR Sodium 126 L Chloride 96 L Carbon Dioxide 18 L Glucose 125 H Magnesium 1.4 L Total Creatine Kinase 291 H CK-MB (CK-2) 8.6 H* Urine Ketones 03/08/17 03/08/17 09:50 11:18 RBC Hgb Hct MCHC RDW INR 1.2 H Sodium Chloride Carbon Dioxide Glucose Magnesium Total Creatine Kinase CK-MB (CK-2) Urine Ketones Trace H - Diagnostic Findings Chest x-ray: image reviewed Assessment and Plan Plan: 1 new onset diarrhea, probably antibiotic induced, rule out possibility of C. diff colitis specially the patient has been on multiple antibiotics in the past and most recently the patient was completing a course of Bactrim. Will check stool for C. diff. The blood work shows a component of non-anion gap metabolic acidosis with a bicarb level of 18. 2 chronic lower extremity edema with interval worsening 3 hyponatremia 4 recent hospitalization for an extensive right upper lobe pneumonia, The patient had aggressive and advanced multilobar pneumonia affecting mainly the right upper lobe and to lesser extent the right lower lobe back in October/November 2016. He was hospitalized and he was treated with antibiotics. During the same hospitalization the patient had a bronchoscopy and the bronchioloalveolar lavage that showed no microbial growth and the patient also did not have any malignancy on the transbronchial biopsies I reviewed the computed tomography scan of the chest and the right upper lobe and the right lower lobe consolidations of both improved considerably in the order of 90%. There is some residual opacities bilaterally however I think this is related to his chronic fibrosis in addition to his advanced COPD. Malignancy is doubtful at this stage however it cannot be completely excluded. I reassured the patient about the results of the findings. 2 lung mass, lateral upper lobe nodules, 1.4 cm in the right upper lobe and 1.2 cm and the left upper lobe, I favor inflammatory changes on his CAT scan without any malignancy. I think the inflammation is improving and the patient's CAT scan has showed clearing of the right upper lobe and right lower lobe pulmonary infiltration and cavitation. 3 severe chronic obstructive pulmonary disease, Continue Spiriva and Advair as maintenance treatment for his COPD. Continue same medications. We'll continue to follow. The patient has already taken his flu shot. Continue same medications for now. 4 chronic hypoxemic respiratory failure, On O2 at 3liters/min 5 dependence on enabling machine or device 6 Very poor baseline performance and functional status. 7 recurrent urine checked infection most recent urine cultures showing Enterococcus faecalis Plan Top antibiotics for now. Repeat urinalysis and urine cultures. We'll decide antibiotic treatment if there is any ongoing urine checked infection. The patient was receiving Bactrim on outpatient basis and his most recent urine culture from December is showing Enterococcus faecalis. In any rate a repeat urinalysis and urine cultures pending and will make further decision antibiotics accordingly. In terms of his breathing, the patient COPD stable and the pneumonia itself has recovered and on today's chest x-ray there is no interval worsening or development of any new pulmonary infiltrates. The patient has some postinfectious inflammatory changes upper lobes and nodules in the upper lobes as mentioned that needs to be followed up at a later stage on outpatient basis. The patient is having diarrhea which could be related to antibiotics and this could be related to C. diff. We'll check stool for C. diff. And monitor the sodium level. Stop the IV Solu-Medrol. Restart the Advair and Spiriva. Continue the neb last treatment [id number]. Agree with Yvette specially with his extensive lower extremity edema. We'll continue to follow.
[2017-03-08] MEDS: IPRATROPIUM-ALBUTEROL 3 ML NEB INHALATION PRN ×2 (14:58→20:33)
[2017-03-08] MEDS: ALBUTEROL NEBULIZED 2.5 MG/3 ML INHALATION SCH ×2 (14:58→19:30)
[2017-03-08] MEDS ORDERED: GABAPENTIN 100 MG CAP PO SCH (16:00)
[2017-03-08] MEDS: HEPARIN SODIUM,PORCINE 5,000 UNIT/ML 1 ML VIAL SQ SCH ×2 (16:07→19:06)
--- NOTE | 2017-03-08 17:29 | P.HPIM ---
History of Present Illness H&P Date: 03/08/17 Chief Complaint: Shortness of breath This is 70-year-old gentleman patient of Dr. Mendoza Van with known history OF COPD, chronic hypoxemic respiratory failure asthma pneumonia BPH, right pulmonary nodule admitted to the emergency room secondary to shortness of breath,. He was admitted in November 2016 for the same condition and was found to have prior to that of right lung hilar mass requiring bronchoscopy with biopsy, pathology showed fragments of benign bronchial mucosa most likely secondary to pneumonia. patient is on chron ic o2, has a cat in then house taht lives in bedroom, patient complains of pain with inspiration right side. also with significant bronken sleep from neuralgia. no previous dvt or PE in past. walker on ambulation with wheelchair use He was seen in emergency room secondary to worsening shortness of breath and lower extremity edema, also has insomnia with tremors, and dysuria. Patient denies any chest pain no palpitations, no fever no chills, patient denies any productive cough, in the emergency room he was found to have significant edema with sodium of 126, hemoglobin of 10.7, mentation low at 1.4, creatinine of 0.87 , chest x-ray shows no acute abnormality, EKG shows T-wave inversion in leads V1 to V4 normal sinus rhythm. He was hypoxemic with pulse ox of 90-92%. [employer] proBNP 5300, troponin of 0.014 He was admitted secondary to COPD PD exacerbation with diastolic CHF exacerbation and dependent edema He had a CAT scan performed 02/10/2017, showing redemonstration of a large subcarinal lymph node 2.2 x 1.2 cm as well as mixed moderate plaque in the aorta , some nodular consultation the right lobe lower side which is improved from previous, scattered bullae and blebs's 3 demonstrated, resolving until right upper lobe masslike consolidation, there is mild peribronchial wall thickening improved from previous, there is small left greater than right pleural effusion there's new peripheral reticulation and interstitial opacities suggesting edema and oriented. Infiltrate there are new nodular and spiculated infiltrate posterior right upper lobe Review of Systems Constitutional: Reports as per HPI, Denies anorexia, Denies chills, Denies chronic headaches, Denies chronic pain, Denies daytime sleepiness, Denies fatigue, Denies fever, Denies lethargy, Denies malaise, Denies night sweats, Denies poor appetite, Denies sweats, Denies weakness, Denies weight gain, Denies weight loss Ears, nose, mouth and throat: Reports as per HPI, Denies ant. neck pain, Denies bleeding gums, Denies dental pain, Denies dysphagia, Denies epistaxis, Denies headache, Denies hoarseness, Denies mouth pain, Denies nasal congestion, Denies nasal discharge, Denies neck fullness/pressure, Denies neck lump, Denies nose pain, Denies odynophagia, Denies post-nasal drip, Denies sinus pain, Denies sinus pressure, Denies swelling in mouth, Denies swelling in throat, Denies sore throat, Denies vertigo, Denies voice changes Cardiovascular: Reports as per HPI, Reports dyspnea on exertion, Reports leg edema, Reports shortness of breath, Denies chest pain, Denies claudication, Denies decreased exercise tolerance, Denies edema, Denies high blood pressure, Denies irregular heart beat, Denies lightheadedness, Denies orthopnea, Denies palpitations, Denies paroxysmal nocturnal dyspnea, Denies phlebitis, Denies rapid heart beat, Denies syncope Respiratory: Reports as per HPI, Reports cough, Reports dyspnea, Denies congestion, Denies cough with sputum, Denies excessive sputum, Denies hemoptysis , Denies home oxygen, Denies pain, Denies pain on inspiration, Denies pleurisy, Denies respiratory infections, Denies sleep apnea, Denies snoring, Denies wheezing Gastrointestinal: Reports as per HPI, Denies abdominal pain, Denies belching, Denies bloating, Denies BRBPR, Denies change in bowel habits, Denies coffee ground emesis, Denies constipation, Denies diarrhea, Denies dyspepsia, Denies early satiety, Denies excessive gas, Denies heartburn, Denies hematemesis, Denies hematochezia, Denies indigestion, Denies jaundice, Denies lactose intolerance, Denies loss of appetite, Denies melena, Denies nausea, Denies vomiting Genitourinary: Reports as per HPI, Denies decreased libido, Denies difficulties fathering child, Denies discharge, Denies dysuria, Denies erectile dysfunction, Denies flank pain, Denies genital pain, Denies genital sores, Denies hematuria, Denies impotence, Denies incontinence, Denies kidney stones, Denies nocturia, Denies polyuria, Denies testicular lump, Denies testicular pain, Denies urinary frequency, Denies urinary hesitancy, Denies urinary retention Musculoskeletal: Reports as per HPI Integumentary: Reports as per HPI, Denies acne, Denies boils, Denies brittle nails, Denies change in hair/nails, Denies color changes, Denies darkening of skin, Denies depigmentation, Denies dryness, Denies foot/leg ulcers, Denies growths, Denies hirsutism, Denies lesions, Denies onychomycosis, Denies pruritus , Denies rash, Denies sores, Denies striae, Denies unusual bruising, Denies wounds Neurological: Reports as per HPI, Denies aphasia, Denies ataxia, Denies balance difficulties, Denies burning pain, Denies change in mentation, Denies change in smell/taste, Denies change in speech, Denies confusion, Denies convulsions, Denies double vision, Denies gait dysfunction, Denies head injury, Denies headaches, Denies hearing difficulties, Denies lack of coordination, Denies loss of vision, Denies memory loss, Denies migraines, Denies motor disturbance, Denies numbness, Denies paralysis, Denies paresthesias, Denies seizures, Denies sensory deficit, Denies spasticity, Denies syncope, Denies tic, Denies tingling , Denies transient paralysis, Denies tremors, Denies vertigo, Denies weakness, Denies visual changes Psychiatric: Reports as per HPI, Denies anhedonia, Denies anxiety, Denies anxiety attacks, Denies change in appetite, Denies change in libido, Denies change in sleep habits, Denies confusion, Denies depression, Denies difficulty concentrating, Denies disorientation, Denies hallucinations, Denies hopelessness , Denies hypersomnia, Denies insomnia, Denies irritability, Denies memory loss, Denies mood swings, Denies paranoia, Denies sadness/tearfulness, Denies sleep disturbances, Denies suicidal ideation Endocrine: Reports as per HPI, Denies cold intolerance, Denies deepening of the voice, Denies excessive sweating, Denies excessive thirst, Denies fatigue, Denies flushing, Denies heat intolerance, Denies high blood sugars, Denies increase in ring/shoe/hat size, Denies low blood sugars, Denies nocturia, Denies palpitations, Denies polydipsia, Denies polyphagia, Denies polyuria, Denies proptosis, Denies recent glucocorticoid use, Denies thyroid mass, Denies weight change Hematologic/Lymphatic: Reports as per HPI, Denies easy bleeding, Denies easy bruising, Denies lymphadenopathy, Denies lymphedema, Denies thrombophilia Allergic/Immunologic: Reports as per HPI, Denies allergic rhinitis, Denies anaphylaxis, Denies angioedema, Denies gluten intolerance, Denies persistent infections, Denies seasonal allergies, Denies urticaria, Denies wheezing Past Medical History Past Medical History: COPD, Prostate Disorder Additional Past Medical History / Comment(s): COPD, chronic hypoxic respiratory failure, BPH, recent urinary tract infection with Enterococcus faecalis, recent hospitalization for an extensive right upper lobe pneumonia, bilateral oil process stillman measuring 1.4 cm in the right upper lobe and 1.2 cm and the left upper lobe, bilateral lower extremities edema, hypothermia, compression fracture of the T7/T8 spine, chronic back pain History of Any Multi-Drug Resistant Organisms: None Reported Past Surgical History: Orthopedic Surgery Additional Past Surgical History / Comment(s): left hip sx Past Anesthesia/Blood Transfusion Reactions: No Reported Reaction Past Psychological History: Anxiety, Depression Smoking Status: Former smoker Past Alcohol Use History: None Reported Past Drug Use History: None Reported - Past Family History Father Family Medical History: Cancer (prostate) Additional Family Medical History / Comment(s): Obesity Mother Family Medical History: Asthma Additional Family Medical History / Comment(s): Mother had alot of bronchitis and degenerative arthritis. She at the age of 91yrs. Brother(s) Family Medical History: Cancer (prostate) Medications and Allergies Home Medications Medication Instructions Recorded Confirmed Type Albuterol Sulfate [Proair Hfa] 1 - 2 puff INHALATION RT-Q6H PRN 10/27/16 History Gabapentin [Neurontin] 200 mg PO TID 10/27/16 03/08/17 History Losartan Potassium [Cozaar] 100 mg PO DAILY 10/27/16 03/08/17 History Multivitamins, Thera [Multivitamin 1 tab PO DAILY 10/27/16 03/08/17 History (formulary)] Vitamin B Complex 1 cap PO DAILY 10/27/16 03/08/17 History Budesonide-Formot 160-4.5 Mcg 2 puff INHALATION RT-BID #1 inh 11/01/16 03/08/17 Rx [Symbicort 160-4.5 Mcg Inhaler] Tamsulosin [Flomax] 0.4 mg PO HS #30 cap 11/02/16 03/08/17 Rx Fluticasone/Salmeterol [Advair 1 puff INHALATION RT-BID 03/08/17 03/08/17 History 250-50 Diskus] Omeprazole 20 mg PO DAILY 03/08/17 03/08/17 History Sulfamethox-Tmp 800-160Mg [Bactrim 1 tab PO Q12HR 03/08/17 03/08/17 History DS 800-160 mg] Tiotropium 18 Mcg/Puff [Spiriva] 1 cap INHALATION RT-DAILY 03/08/17 03/08/17 History Allergies Allergy/AdvReac Type Severity Reaction Status Date / Time No Known Allergies Allergy Verified 03/08/17 09:42 Physical Exam Vitals: Vital Signs Temp Pulse Pulse Resp BP BP Pulse Ox 03/08/17 15:10 94 03/08/17 15:00 97.0 F L 104 H 24 136/66 90 L 03/08/17 14:59 94 03/08/17 13:43 96.9 F L 91 20 123/78 93 L 03/08/17 12:39 98.4 F 92 22 137/71 93 L 03/08/17 12:25 98 03/08/17 12:16 95 03/08/17 11:26 86 22 142/70 92 L 03/08/17 09:26 98.4 F 106 H 24 164/81 90 L Intake and Output 03/08/17 03/08/17 03/08/17 06:59 14:59 22:59 Other: # Voids 2 # Bowel Movements 1 Weight 77 kg Patient Weight 03/09/17 06:59 Weight 77 kg - Constitutional General appearance: cooperative, no acute distress - EENT Eyes: anicteric sclerae, dentition normal, normal appearance ENT: hard of hearing, normal oropharynx - Neck Neck: no lymphadenopathy, normal ROM, no other, no rigidity, no stridor, no thyromegaly - Respiratory Respiratory: bilateral: diminished, wheezing, negative: rales, rhonchi, prolonged expiration - Cardiovascular Rhythm: regular Heart sounds: normal: S1, S2 Abnormal Heart Sounds: no systolic murmur, no diastolic murmur, no rub, no S3 Gallop, no S4 Gallop, no click, no other - Gastrointestinal General gastrointestinal: normal bowel sounds, soft - Integumentary Integumentary: normal - Neurologic Neurologic: CNII-XII intact - Musculoskeletal Musculoskeletal: gait normal, strength equal bilaterally - Psychiatric Psychiatric: A&O x's 3, appropriate affect, intact judgment & insight Results CBC & Chem 7: 03/08/17 09:50 03/08/17 09:50 Labs: Abnormal Lab Results - Last 24 Hours (Table) 03/08/17 03/08/17 03/08/17 Range/Units 09:50 09:50 09:50 RBC 3.61 L (4.30-5.90) m/uL Hgb 10.7 L (13.0-17.5) gm/dL Hct 35.3 L (39.0-53.0) % MCHC 30.4 L (31.0-37.0) g/dL RDW 16.5 H (11.5-15.5) % INR (<1.2) Sodium 126 L (137-145) mmol/L Chloride 96 L (98-107) mmol/L Carbon Dioxide 18 L (22-30) mmol/L Glucose 125 H (74-99) mg/dL Magnesium 1.4 L (1.6-2.3) mg/dL Total Creatine Kinase 291 H (55-170) U/L CK-MB (CK-2) 8.6 H* (0.0-2.4) ng/mL Urine Ketones (Negative) 03/08/17 03/08/17 Range/Units 09:50 11:18 RBC (4.30-5.90) m/uL Hgb (13.0-17.5) gm/dL Hct (39.0-53.0) % MCHC (31.0-37.0) g/dL RDW (11.5-15.5) % INR 1.2 H (<1.2) Sodium (137-145) mmol/L Chloride (98-107) mmol/L Carbon Dioxide (22-30) mmol/L Glucose (74-99) mg/dL Magnesium (1.6-2.3) mg/dL Total Creatine Kinase (55-170) U/L CK-MB (CK-2) (0.0-2.4) ng/mL Urine Ketones Trace H (Negative) Laboratory Results WBC 7.3 k/uL (3.8-10.6) 03/08/17 09:50 RBC 3.61 m/uL (4.30-5.90) L 03/08/17 09:50 Hgb 10.7 gm/dL (13.0-17.5) L 03/08/17 09:50 Hct 35.3 % (39.0-53.0) L 03/08/17 09:50 MCV 97.8 fL (80.0-100.0) 03/08/17 09:50 MCH 29.7 pg (25.0-35.0) 03/08/17 09:50 MCHC 30.4 g/dL (31.0-37.0) L 03/08/17 09:50 RDW 16.5 % (11.5-15.5) H 03/08/17 09:50 Plt Count 397 k/uL (150-450) 03/08/17 09:50 Neutrophils % 65 % 03/08/17 09:50 Lymphocytes % 19 % 03/08/17 09:50 Monocytes % 8 % 03/08/17 09:50 Eosinophils % 4 % 03/08/17 09:50 Basophils % 1 % 03/08/17 09:50 Neutrophils # 4.8 k/uL (1.3-7.7) 03/08/17 09:50 Lymphocytes # 1.4 k/uL (1.0-4.8) 03/08/17 09:50 Monocytes # 0.6 k/uL (0-1.0) 03/08/17 09:50 Eosinophils # 0.3 k/uL (0-0.7) 03/08/17 09:50 Basophils # 0.1 k/uL (0-0.2) 03/08/17 09:50 Hypochromasia Moderate 03/08/17 09:50 Anisocytosis Slight 03/08/17 09:50 Macrocytosis Slight 03/08/17 09:50 PT 11.5 sec (9.0-12.0) 03/08/17 09:50 INR 1.2 (<1.2) H 03/08/17 09:50 APTT 26.0 sec (22.0-30.0) 03/08/17 09:50 Sodium 126 mmol/L (137-145) L 03/08/17 09:50 Potassium 4.9 mmol/L (3.5-5.1) 03/08/17 09:50 Chloride 96 mmol/L (98-107) L 03/08/17 09:50 Carbon Dioxide 18 mmol/L (22-30) L 03/08/17 09:50 Anion Gap 12 mmol/L 03/08/17 09:50 BUN 11 mg/dL (9-20) 03/08/17 09:50 Creatinine 0.87 mg/dL (0.66-1.25) 03/08/17 09:50 Est GFR (MDRD) Af Amer >60 (>60 ml/min/1.73 sqM) 03/08/17 09:50 Est GFR (MDRD) Non-Af >60 (>60 ml/min/1.73 sqM) 03/08/17 09:50 Glucose 125 mg/dL (74-99) H 03/08/17 09:50 Calcium 9.3 mg/dL (8.4-10.2) 03/08/17 09:50 Magnesium 1.4 mg/dL (1.6-2.3) L 03/08/17 09:50 Total Bilirubin 0.6 mg/dL (0.2-1.3) 03/08/17 09:50 AST 38 U/L (17-59) 03/08/17 09:50 ALT 41 U/L (21-72) 03/08/17 09:50 Alkaline Phosphatase 96 U/L (38-126) 03/08/17 09:50 Total Creatine Kinase 291 U/L (55-170) H 03/08/17 09:50 CK-MB (CK-2) 8.6 ng/mL (0.0-2.4) H* 03/08/17 09:50 CK-MB (CK-2) Rel Index 3.0 03/08/17 09:50 Troponin I 0.014 ng/mL (0.000-0.034) 03/08/17 09:50 NT-Pro-B Natriuret Pep 5320 pg/mL 03/08/17 09:50 Total Protein 7.1 g/dL (6.3-8.2) 03/08/17 09:50 Albumin 3.7 g/dL (3.5-5.0) 03/08/17 09:50 Urine Color Light Yellow 03/08/17 11:18 Urine Appearance Clear (Clear) 03/08/17 11:18 Urine pH 6.5 (5.0-8.0) 03/08/17 11:18 Ur Specific [place] 1.008 (1.001-1.035) 03/08/17 11:18 Urine Protein Negative (Negative) 03/08/17 11:18 Urine Glucose (UA) Negative (Negative) 03/08/17 11:18 Urine Ketones Trace (Negative) H 03/08/17 11:18 Urine Blood Negative (Negative) 03/08/17 11:18 Urine Nitrite Negative (Negative) 03/08/17 11:18 Urine Bilirubin Negative (Negative) 03/08/17 11:18 Urine Urobilinogen <2.0 mg/dL (<2.0) 03/08/17 11:18 Ur Leukocyte Esterase Negative (Negative) 03/08/17 11:18 Thrombosis Risk Factor Assmnt - DVT/VTE Prophylaxis DVT/VTE Prophylaxis: Pharmacologic Prophylaxis ordered, Mechanical Prophylaxis ordered - Choose All That Apply Any of the Below Risk Factors Present?: Yes Each Factor Represents 1 point: Abnormal pulmonary function (COPD), Swollen legs (current) Other Risk Factors: Yes Each Risk Factor Represents 2 Points: Age 61-74 years Thrombosis Risk Factor Assessment Total Risk Factor Score: 4 Thrombosis Risk Factor Assessment Level: Moderate Risk Assessment and Plan Plan: 1. COPD exacerbation, with underlying history of asthma admitted with increasing dyspnea and edema, patient was started on Solu-Medrol 60 mg every 6 hours along with nebulized albuterol and Atrovent, consult with pulmonary doctor Carlota. Patient had bronchoscopy in November 2013 secondary to a right pulmonary endobronchial nodule which shows no malignancy, performed 11/17/2016. Echocardiogram also performed November 2016 shows ejection fraction of 55-6% trace TR right ventricular Systolic pressure not commented 2. Moderately to advanced COPD with scattered fibrosis, with chronic hypoxemic respiratory failure on maintenance O2 at home At 24 /7 on maintenance Advair and Spiriva 2 chronic hypoxemic respiratory failure with COPD maintenance Advair 250/50 and Spiriva O2 dependent is a cannula quit October 2016 3. BPH with lower neck tract symptomatology, urinalysis negative, on Flomax 0.4 mg at bedtime 4 Hypertension on losartan 100 mg daily 5 Anxiety and depression stable 6 Chronic tobacco exposure Disorder of bone density with mild to moderate compression type fracture deformity at T8 old 7 chronic exposure to cat aeroallergens, [place] ALLERGY panel and IgE levels obtained. 8. old compression fracture T7-T8 with chronic low back pain, no medication changes 9. New spiculated infiltrate posterior right upper lobe the right upper lobe CAT scan noted in 02/10/2017 to be monitored as an outpatient Dr. Van aware DVT prophylaxis with subcu heparin and JOSEPH hose GI prophylaxis
[2017-03-08] MEDS: GABAPENTIN 300 MG CAP PO SCH ×2 (18:02→21:19)
[2017-03-08] MEDS ORDERED: RX INFO: IV CONTRAST WAS GIVEN 1 EACH MISC MISCELLANE PRN (19:03)
[2017-03-08] MEDS ORDERED: ENOXAPARIN 100 MG/ML SYRINGE SQ STA (19:05)
--- NOTE | 2017-03-08 20:04 | US ---
EXAMINATION TYPE: US venous doppler duplex LE DATE OF EXAM: 03/08/2017 5:38 PM COMPARISON: NONE CLINICAL HISTORY: edema pain. SIDE PERFORMED: Bilateral TECHNIQUE: The lower extremity deep venous system is examined utilizing real time linear array sonog finesse with graded compression, doppler sonography and color-flow sonography. VESSELS IMAGED: External Iliac Vein (EIV) Common Femoral Vein Deep Femoral Vein Greater Saphenous Vein * Femoral Vein Popliteal Vein Small Saphenous Vein * Proximal Calf Veins (* superficial vessels) No evidence of DVT bilateral legs Right Leg: Negative for DVT Left Leg: Negative for DVT Exam limitations due to patient unable to lay still and talking. Grayscale, color doppler, spectral doppler imaging performed of the deep veins of the lower extremiti es. There is normal flow, compressibility, vascular waveforms. IMPRESSION: Suboptimal study as detailed above per technologist without evidence of acute DVT in eith er lower extremity identified.
[2017-03-08 21:02] LABS: Glucose,Whole Blood 166 mg/dL (75-99)
[2017-03-08] MEDS: MORPHINE SULFATE 10 MG/ML SYRINGE IVP PRN (21:19)
[2017-03-08] MEDS: TAMSULOSIN 0.4 MG CAP.ER.24H PO SCH (21:19)
[2017-03-08] MEDS: FLUTICASONE 50MCG/SPRAY NASAL 16GM EA NOSTRIL SCH (21:20)
[2017-03-08] MEDS: FUROSEMIDE 10 MG/ML 4 ML VIAL IV SCH (21:20)
[2017-03-08] MEDS: MAGNESIUM OXIDE 400 MG TAB PO SCH (21:21)
[2017-03-08] MEDS: INSULIN LISPRO (humaLOG) 300 UNIT/3 ML VIAL SQ SCH (21:21)
--- NOTE | 2017-03-08 22:12 | CT ---
EXAMINATION TYPE: CT chest angio for PE DATE OF EXAM: 03/08/2017 COMPARISON: NONE HISTORY: Shortness of breath. Leg swelling CT DLP: 317.4 mGycm Automated exposure control for dose reduction was used. CONTRAST: CT Chest for pulmonary embolism performed with with IV Contrast, patient injected with 100 mL of Omni paque 350. There are 3-D post processed images. FINDINGS: There is bullous emphysema in both lungs and worse in the upper lobes. There is coarse reticular inte rstitial infiltrate in the mid and lower lung villalobos consistent with pulmonary fibrosis. There is a 2 cm somewhat spiculated infiltrate at the left posterior lung base. There are other areas of spiculat ion in the lower lobes. There is no evidence of aortic aneurysm or dissection. I see no filling defects in the pulmonary ramez elo. There are paratracheal lymph nodes that measure up to 1.5 cm. There is up to 50% wedging of mul tiple thoracic vertebral bodies. There are bronchial lymph nodes that measure up to 1 cm. Heart appea rs enlarged. IMPRESSION: No evidence of pulmonary embolism. Pleural thickening and interstitial and nodular infiltrate in the lower lobes that appears not significantly different than 02/10/2017 CT scan. There is significant jagjit aring of pulmonary infiltrates compared or older CT scan of 10/28/2016. Emphysema. Mediastinal and bronchial adenopathy consistent with inflammatory disease. Small hiatal he rnia noted.
[2017-03-09] MEDS: MORPHINE SULFATE 10 MG/ML SYRINGE IVP PRN ×2 (02:30→09:45)
[2017-03-09] MEDS: methylPREDNISolone SOD SUCCI 125 MG/2 ML VIAL IV SCH ×2 (05:38→12:55)
[2017-03-09 07:59] LABS: Glucose,Whole Blood 124 mg/dL (75-99)
[2017-03-09] MEDS: PANTOPRAZOLE 40 MG TABLET PO SCH (07:59)
[2017-03-09] MEDS: INSULIN LISPRO (humaLOG) 300 UNIT/3 ML VIAL SQ SCH ×4 (07:59→21:56)
[2017-03-09] MEDS: HEPARIN SODIUM,PORCINE 5,000 UNIT/ML 1 ML VIAL SQ SCH ×2 (07:59→17:05)
[2017-03-09] MEDS: FUROSEMIDE 10 MG/ML 4 ML VIAL IV SCH ×2 (08:00→20:31)
[2017-03-09] MEDS: FLUTICASONE 50MCG/SPRAY NASAL 16GM EA NOSTRIL SCH ×2 (08:00→20:31)
[2017-03-09] MEDS: LOSARTAN 50 MG TAB PO SCH (08:00)
[2017-03-09] MEDS: GABAPENTIN 300 MG CAP PO SCH ×3 (08:00→20:33)
[2017-03-09] MEDS: MAGNESIUM OXIDE 400 MG TAB PO SCH ×2 (08:00→20:33)
[2017-03-09 08:17] LABS: Anisocytosis Slight; Basophils % (A) 0 %; CH 30.2; CHCM 30.7; Eosinophils % (A) 0 %; HCT 36.5 % (39.0-53.0); HGB 11.1 gm/dL (13.0-17.5); Hypochromasia Marked; Luc # (Auto) 0.06; Luc % (Auto) 1; Lymphocytes # (A) 1.2 k/uL (1.0-4.8); Lymphocytes % (A) 14 %; MCH 29.9 pg (25.0-35.0); MCHC 30.3 g/dL (31.0-37.0); MCV 98.8 fL (80.0-100.0); Macrocytosis Slight; Mean Platelet Volume 7.3; Monocytes # (A) 0.2 k/uL (0-1.0); Monocytes % (A) 2 %; Neutrophils # (A) 6.9 k/uL (1.3-7.7); Neutrophils % (A) 83 %; RDW 16.8 % (11.5-15.5); WBC 8.3 k/uL (3.8-10.6); WBC (Perox) 8.07
[2017-03-09 08:23] LABS: ALT 35 U/L (21-72); AST 45 U/L (17-59); Alkaline Phosphatase 86 U/L (38-126); Anion Gap 14 mmol/L; Blood Urea Nitrogen 19 mg/dL (9-20); Calcium 9.6 mg/dL (8.4-10.2); Carbon Dioxide 20 mmol/L (22-30); Chloride 93 mmol/L (98-107); Glucose 129 mg/dL (74-99); Non-African American GFR(MDRD) >60 (>60 ml/min/1.73 sqM); Potassium 5.1 mmol/L (3.5-5.1); Sodium 127 mmol/L (137-145); Total Bilirubin 0.6 mg/dL (0.2-1.3); Total Protein 7.5 g/dL (6.3-8.2)
[2017-03-09] MEDS: IPRATROPIUM-ALBUTEROL 3 ML NEB INHALATION PRN ×2 (08:32→12:17)
[2017-03-09] MEDS: IPRATROPIUM 0.5 MG/2.5 ML NEBU INHALATION SCH ×4 (08:32→20:59)
[2017-03-09] MEDS: ALBUTEROL NEBULIZED 2.5 MG/3 ML INHALATION SCH ×4 (08:32→20:45)
--- NOTE | 2017-03-09 11:28 | P.PN ---
<Sweta Springer M - Last Filed: 03/09/17 11:10> Subjective Progress Note Date: 03/09/17 Principal diagnosis: New onset diarrhea, worsening lower extremity edema, hyponatremia Marbin is a very pleasant 70-year-old male patient who was in the hospital in November 2016 for an extensive right lung pneumonia. At that time there was a suspicion for lung mass. The patient a bronchoscopy and the results were nondiagnostic. Following his discharge from the hospital the patient went tomorrow with and it took him quite some times and he recuperated and he is coming today to see me in the outpatient. Note that he also had hyponatremia at a time of his admission. He was on 2 L/m nasal cannula. He gets short of breath with limited amount of activity. He has not smoked since October 2016. His CAT scan of the chest from October 2016 showed diffuse opacities mostly in the right upper lobe that was not present on the previous CAT scan of the chest from 2015. There was extensive opacity in the posterior superior right lower lobe consistent with pneumonia. Airspace disease also seen in the anterior aspect of the left upper lobe. There was also a nodule measuring 1.2 x 0.9 mm in the left upper lobe and several nodules in the right upper lobe that is very difficult to differentiate from pneumonia. One of the nodules in the right upper lobe is measuring 1.4 x 0.8 cm. There was extensive emphysema throughout the lung villalobos bilaterally and probably some early cavitation in the right upper lobe. As such the patient a bronchoscopy and the results were nondiagnostic for any microbes or any cancers. On 02/24/2017 Marbin was seen in FU in the office. He was pulse oxing around 90-91 % diseases of oxygen by nasal cannula. He has some excess congestion his sinuses. He was on a combination of Advair and Spiriva and he uses pro-air as needed. He typically uses around 4 times a day, 2 puffs. No significant chest congestion. No significant mucus production. No fever chills or night sweats. The CAT scan of the chest was repeated in January 2017 and it showed moderate to severe emphysema and there is [id number] biapical parenchymal scarring and fibrosis. There is also small left greater than right pleural effusions. There is also new peripheral reticular interstitial opacities suggestive of edema. The note that her consolidation in the right lower lobe has improved and there is scattered bullae throughout the lung villalobos. The right upper lobe masslike consolidation has recovered. There is redemonstration of the subcarinal lymph nodes measuring 2.2 x 1.2 cm in size. There is also a large right paratracheal lymph node. There is an enlarged hilar lymph nodes. No cardiomegaly. There is compression deformity of the T8 vertebral spine. On 03/08/2017 the patient presented himself to the emergency department. Apparently over the past 24 hours his condition has gotten worse. He had become uncomfortable as the patient started having loose liquidy bowel movements and he had 3 episodes [id number]. Limited nausea. No emesis. No abdominal pain. No abdominal distention. No melena. He also was having difficulties with urination where at times he was having retention and other times he was having dysuria. Denies having any chills or fever. He was having symptoms of UTI and he had contacted his primary care physician and he was given a course of Bactrim on outpatient basis. He has also noted significant swelling in lower oximetry is bilaterally. A chest x-ray was done at time of admission and the chest x-ray findings are essentially stable to the previous chest from that was done earlier. As mentioned the patient extensive consolidation of the right upper lobe and some limited pulmonary changes and left upper lobe which were improving on subsequent CAT scan findings. The patient continues to have some nodules as mentioned in the right upper lobe measuring 1.4 x 0.8 cm in size and another nodule in the left upper lobe measuring 1.2 cm in size and this is something to be followed up at a later stage with a subsequent CAT scan of the chest. He is on a combination of Advair and Spiriva at home and he doesn't be done about treatments in addition to prior rescue inhaler on as-needed basis. His action dependent somewhat between 2-3 L/m nasal cannula. He denies having any worsening shortness of breath. Limited cough and congestion. No signs of any respiratory failure at this point. Legs are quite swollen bilaterally. No previous history of DVT or pulmonary embolism. He has been on no diuretics. On 03/09/2017 patient seen in follow-up on medical surgical floor. He is slightly dyspneic with conversation, the right rib cage pain posteriorly is responding to IV morphine. He has persisting shooting pain in his bilateral lower extremities which is chronic for him, and is related to his underlying back problems. He had a good response to IV Lasix, he is a -1310 mL fluid balance over the last 24 hours. Lung sounds are clear diminished at the bases. No rhonchi, no wheezes, no rales appreciated. On 3 L per nasal cannula with O2 sat at 94%. Afebrile. Did have one episode of pasty stool this morning, the staff was not able to collected were C. diff analysis. Patient reports taking large amounts of Metamucil at home for his perceived constipation. Bilateral lower extremity edema has improved, patient has the thigh-high compression stockings on. Objective - Vital Signs Vital signs: Vital Signs Temp 97.1 F L 03/09/17 07:00 Pulse 97 03/09/17 08:44 Resp 18 03/09/17 08:44 BP 121/70 03/09/17 07:00 Pulse Ox 94 L 03/09/17 08:32 Intake & Output 03/08/17 03/09/17 03/09/17 18:59 06:59 18:59 Intake Total 240 950 200 Output Total 2500 Balance 240 -1550 200 Weight 77 kg 77 kg Intake: Oral 240 950 200 Output: Urine 2500 Other: # Voids 2 # Bowel Movements 1 - Exam General Appearance no diaphoresis, no respiratory distress, speech not interrupted by breaths, no dyspnea, no pallor, cachectic, appears ill HEENT no pursed lip breathing, no jugular venous distention, no mucous membrane cyanosis, no perioral cyanosis, mallampati classification: class 1 Chest no barrel chest, no retractions, no sternocleidomastoid muscle contractions, no supraclavicular retractions, no intercostal retractions, no decreased air movement, no rhonchi, no hyperinflation, prolonged expiratory wheezing, decreased air movement Heart no right ventricular heave, no distant heart sounds, no s3 gallop GI bowel sounds: hyperactive (borborygmi), bowel sounds: diminished or absent Extremities no cyanosis, no clubbing, edema (+1-2 pitting edema in the legs) Neurologic no decreased mental status, no somnolence, no confusion - Labs CBC & Chem 7: 03/09/17 07:26 03/09/17 07:25 Labs: Abnormal Lab Results - Last 24 Hours (Table) 03/08/17 03/08/17 03/08/17 Range/Units 11:18 18:11 20:53 RBC (4.30-5.90) m/uL Hgb (13.0-17.5) gm/dL Hct (39.0-53.0) % MCHC (31.0-37.0) g/dL RDW (11.5-15.5) % Plt Count (150-450) k/uL D-Dimer 1.64 H (<0.60) mg/L FEU Sodium (137-145) mmol/L Chloride (98-107) mmol/L Carbon Dioxide (22-30) mmol/L Glucose (74-99) mg/dL POC Glucose (mg/dL) 166 H (75-99) mg/dL Urine Ketones Trace H (Negative) 03/09/17 03/09/17 03/09/17 Range/Units 07:21 07:25 07:26 RBC 3.70 L (4.30-5.90) m/uL Hgb 11.1 L (13.0-17.5) gm/dL Hct 36.5 L (39.0-53.0) % MCHC 30.3 L (31.0-37.0) g/dL RDW 16.8 H (11.5-15.5) % Plt Count 478 H (150-450) k/uL D-Dimer (<0.60) mg/L FEU Sodium 127 L (137-145) mmol/L Chloride 93 L (98-107) mmol/L Carbon Dioxide 20 L (22-30) mmol/L Glucose 129 H (74-99) mg/dL POC Glucose (mg/dL) 124 H (75-99) mg/dL Urine Ketones (Negative) Microbiology - Last 24 Hours (Table) 03/08/17 20:22 Urine Culture - Preliminary Urine,Clean Catch Assessment and Plan Plan: Plan: 1 new onset diarrhea, probably antibiotic induced, rule out possibility of C. diff colitis specially the patient has been on multiple antibiotics in the past and most recently the patient was completing a course of Bactrim. Will check stool for C. diff. The blood work shows a component of non-anion gap metabolic acidosis, improved, bicarb level of 20. Patient reports taking large amounts of Metamucil for perceived constipation 2 chronic lower extremity edema with interval worsening 3 hyponatremia, improved. Serum sodium is 127 on 03/09/2017. 4 recent hospitalization for an extensive right upper lobe pneumonia, The patient had aggressive and advanced multilobar pneumonia affecting mainly the right upper lobe and to lesser extent the right lower lobe back in November 2016. He was hospitalized and he was treated with antibiotics. During the same hospitalization the patient had a bronchoscopy and the bronchioloalveolar lavage that showed no microbial growth and the patient also did not have any malignancy on the transbronchial biopsies I reviewed the computed tomography scan of the chest and the right upper lobe and the right lower lobe consolidations of both improved considerably in the order of 90%. There is some residual opacities bilaterally however I think this is related to his chronic fibrosis in addition to his advanced COPD. Malignancy is doubtful at this stage however it cannot be completely excluded. I reassured the patient about the results of the findings. 2 lung mass, lateral upper lobe nodules, 1.4 cm in the right upper lobe and 1.2 cm and the left upper lobe, I favor inflammatory changes on his CAT scan without any malignancy. I think the inflammation is improving and the patient's CAT scan has showed clearing of the right upper lobe and right lower lobe pulmonary infiltration and cavitation. 3 severe chronic obstructive pulmonary disease, Continue Spiriva and Advair as maintenance treatment for his COPD. Continue same medications. We'll continue to follow. The patient has already taken his flu shot. Continue same medications for now. 4 chronic hypoxemic respiratory failure, On O2 at 3liters/min 5 dependence on enabling machine or device 6 Very poor baseline performance and functional status. 7 recurrent urine checked infection most recent urine cultures showing Enterococcus faecalis Plan Urine culture is pending, urinalysis is negative for any signs of infection. Has been afebrile. No dysuria complaints today, urine is clear without any signs of pyuria. Lung sounds are negative for any signs of congestion. No significant sputum production. We'll decide antibiotic treatment if there is any ongoing urine checked infection. The patient was receiving Bactrim on outpatient basis and his most recent urine culture from December is showing Enterococcus faecalis. In terms of his breathing, the patient COPD stable and the pneumonia itself has recovered and on today's chest x-ray there is no interval worsening or development of any new pulmonary infiltrates. The patient has some postinfectious inflammatory changes upper lobes and nodules in the upper lobes as mentioned that needs to be followed up at a later stage on outpatient basis. The patient is having diarrhea which could be related to antibiotics and this could be related to C. Patient was put on Pulmicort and Perforomist in substitution for his Advair. Patient had only one episode of pasty stool today, staff was unable to collect and send for C. diff. Continue the neb last treatment [id number]. Continue with lasix for his extensive lower extremity edema. We'll continue to follow. I performed a history & physical examination of the patient and discussed their management with my nurse practitioner, Sweta Springer. I reviewed the nurse practitioner's note and agree with the documented findings and plan of care. Patient's is having less diarrhea, was advised not to take Metamucil today. No significant chest congestion, or wheezing. No sputum production. Responding well to Lasix. I attest the documentation by the nurse practitioner. Time with Patient: Less than 30 <Venkata Van - Last Filed: 03/09/17 15:44> Objective - Vital Signs Vital signs: Vital Signs Temp 98.0 F 03/09/17 14:41 Pulse 90 03/09/17 14:41 Resp 16 03/09/17 14:41 BP 97/50 03/09/17 14:41 Pulse Ox 97 03/09/17 14:41 Intake & Output 03/08/17 03/09/17 03/09/17 18:59 06:59 18:59 Intake Total 240 950 400 Output Total 2500 300 Balance 240 -1550 100 Weight 77 kg 77 kg Intake: Oral 240 950 400 Output: Urine 2500 300 Other: # Voids 2 # Bowel Movements 1 - Labs CBC & Chem 7: 03/09/17 07:26 03/09/17 07:25 Labs: Abnormal Lab Results - Last 24 Hours (Table) 03/08/17 03/08/17 03/09/17 Range/Units 18:11 20:53 07:21 RBC (4.30-5.90) m/uL Hgb (13.0-17.5) gm/dL Hct (39.0-53.0) % MCHC (31.0-37.0) g/dL RDW (11.5-15.5) % Plt Count (150-450) k/uL D-Dimer 1.64 H (<0.60) mg/L FEU Sodium (137-145) mmol/L Chloride (98-107) mmol/L Carbon Dioxide (22-30) mmol/L Glucose (74-99) mg/dL POC Glucose (mg/dL) 166 H 124 H (75-99) mg/dL 03/09/17 03/09/17 03/09/17 Range/Units 07:25 07:26 12:25 RBC 3.70 L (4.30-5.90) m/uL Hgb 11.1 L (13.0-17.5) gm/dL Hct 36.5 L (39.0-53.0) % MCHC 30.3 L (31.0-37.0) g/dL RDW 16.8 H (11.5-15.5) % Plt Count 478 H (150-450) k/uL D-Dimer (<0.60) mg/L FEU Sodium 127 L (137-145) mmol/L Chloride 93 L (98-107) mmol/L Carbon Dioxide 20 L (22-30) mmol/L Glucose 129 H (74-99) mg/dL POC Glucose (mg/dL) 130 H (75-99) mg/dL Microbiology - Last 24 Hours (Table) 03/08/17 20:22 Urine Culture - Preliminary Urine,Clean Catch Assessment and Plan Plan: Is a joint evaluation that was done along with the nurse practitioner. Patient is doing well. The patient is feeling much better compared to yesterday. No further episodes of diarrhea. CAT scan of the chest was noted. Nothing new from the pulmonary standpoint and we will aware of the no other lesions that the patient had in the upper lobes bilaterally. No this of pulmonary embolism. Doppler of the lower extremity is also negative. Continue diuretics. We'll follow.
[2017-03-09] MEDS: FORMOTEROL FUMARATE 20 MCG/2 ML NEBU INHALATION SCH ×2 (11:44→20:45)
[2017-03-09] MEDS: BUDESONIDE 0.5 MG/2 ML NEBU INHALATION SCH ×2 (11:44→20:45)
[2017-03-09 12:28] LABS: Glucose,Whole Blood 130 mg/dL (75-99)
--- NOTE | 2017-03-09 15:40 | P.PN ---
Subjective Progress Note Date: 03/09/17 This is 70-year-old gentleman patient of Dr. Mendoza Van with known history OF COPD, chronic hypoxemic respiratory failure asthma pneumonia BPH, right pulmonary nodule admitted to the emergency room secondary to shortness of breath,. He was admitted in November 2016 for the same condition and was found to have prior to that of right lung hilar mass requiring bronchoscopy with biopsy, pathology showed fragments of benign bronchial mucosa most likely secondary to pneumonia. patient is on chron ic o2, has a cat in then house taht lives in bedroom, patient complains of pain with inspiration right side. also with significant bronken sleep from neuralgia. no previous dvt or PE in past. walker on ambulation with wheelchair use He was seen in emergency room secondary to worsening shortness of breath and lower extremity edema, also has insomnia with tremors, and dysuria. Patient denies any chest pain no palpitations, no fever no chills, patient denies any productive cough, in the emergency room he was found to have significant edema with sodium of 126, hemoglobin of 10.7, mentation low at 1.4, creatinine of 0.87 , chest x-ray shows no acute abnormality, EKG shows T-wave inversion in leads V1 to V4 normal sinus rhythm. He was hypoxemic with pulse ox of 90-92%. CLASSIFICATION CLERK proBNP 5300, troponin of 0.014 He was admitted secondary to COPD PD exacerbation with diastolic CHF exacerbation and dependent edema He had a CAT scan performed 02/10/2017, showing redemonstration of a large subcarinal lymph node 2.2 x 1.2 cm as well as mixed moderate plaque in the aorta , some nodular consultation the right lobe lower side which is improved from previous, scattered bullae and blebs's 3 demonstrated, resolving until right upper lobe masslike consolidation, there is mild peribronchial wall thickening improved from previous, there is small left greater than right pleural effusion there's new peripheral reticulation and interstitial opacities suggesting edema and oriented. Infiltrate there are new nodular and spiculated infiltrate posterior right upper lobe 03/09: Patient states that the morphine is helping the pain in his right side of his chest at the base of his ribs but he feels groggy. This discontinued and placed on Dilaudid. Solu-Medrol will be decreased to 40 mg every 6 hours. Telemetry will be discontinued. Sodium is on the low side most likely due to SIADH. Labs ordered for this. CTA of the chest showed no evidence of pulmonary embolism. Pleural thickening and interstitial nodular infiltrate in the lower lobes not significantly different from February 10 CAT scan. There is Significant clearing of the pulmonary infiltrates compared to October 2016 CAT scan. Emphysema and bronchial adenopathy consistent with inflammatory disease. Small hiatal hernia. There is a 2 cm somewhat spiculated infiltrate in the left posterior lung base with no previous mention of this on other CAT scans. Objective - Vital Signs Vital signs: Vital Signs Temp 97.1 F L 03/09/17 07:00 Pulse 97 03/09/17 08:44 Resp 18 03/09/17 08:44 BP 121/70 03/09/17 07:00 Pulse Ox 94 L 03/09/17 08:32 Intake & Output 03/08/17 03/09/17 03/09/17 18:59 06:59 18:59 Intake Total 240 950 200 Output Total 2500 Balance 240 -1550 200 Weight 77 kg 77 kg Intake: Oral 240 950 200 Output: Urine 2500 Other: # Voids 2 # Bowel Movements 1 - Exam General appearance: cooperative, no acute distress - EENT Eyes: anicteric sclerae, dentition normal, normal appearance ENT: hard of hearing, normal oropharynx - Neck Neck: no lymphadenopathy, normal ROM, no other, no rigidity, no stridor, no thyromegaly - Respiratory Respiratory: bilateral: diminished, wheezing, negative: rales, rhonchi, prolonged expiration - Cardiovascular Rhythm: regular Heart sounds: normal: S1, S2 Abnormal Heart Sounds: no systolic murmur, no diastolic murmur, no rub, no S3 Gallop, no S4 Gallop, no click, no other - Gastrointestinal General gastrointestinal: normal bowel sounds, soft - Integumentary Integumentary: normal - Neurologic Neurologic: CNII-XII intact - Musculoskeletal Musculoskeletal: gait normal, strength equal bilaterally - Psychiatric Psychiatric: A&O x's 3, appropriate affect, intact judgment & insight - Labs CBC & Chem 7: 03/09/17 07:26 03/09/17 07:25 Labs: Abnormal Lab Results - Last 24 Hours (Table) 03/08/17 03/08/17 03/09/17 Range/Units 18:11 20:53 07:21 RBC (4.30-5.90) m/uL Hgb (13.0-17.5) gm/dL Hct (39.0-53.0) % MCHC (31.0-37.0) g/dL RDW (11.5-15.5) % Plt Count (150-450) k/uL D-Dimer 1.64 H (<0.60) mg/L FEU Sodium (137-145) mmol/L Chloride (98-107) mmol/L Carbon Dioxide (22-30) mmol/L Glucose (74-99) mg/dL POC Glucose (mg/dL) 166 H 124 H (75-99) mg/dL 03/09/17 03/09/17 Range/Units 07:25 07:26 RBC 3.70 L (4.30-5.90) m/uL Hgb 11.1 L (13.0-17.5) gm/dL Hct 36.5 L (39.0-53.0) % MCHC 30.3 L (31.0-37.0) g/dL RDW 16.8 H (11.5-15.5) % Plt Count 478 H (150-450) k/uL D-Dimer (<0.60) mg/L FEU Sodium 127 L (137-145) mmol/L Chloride 93 L (98-107) mmol/L Carbon Dioxide 20 L (22-30) mmol/L Glucose 129 H (74-99) mg/dL POC Glucose (mg/dL) (75-99) mg/dL Microbiology - Last 24 Hours (Table) 03/08/17 20:22 Urine Culture - Preliminary Urine,Clean Catch Assessment and Plan Plan: 1. COPD exacerbation, with underlying history of asthma admitted with increasing dyspnea and edema, patient was started on Solu-Medrol 60 mg every 6 hours along with nebulized albuterol and Atrovent, consult with pulmonary doctor Carlota. Patient had bronchoscopy in November 2013 secondary to a right pulmonary endobronchial nodule which shows no malignancy, performed 11/17/2016. Echocardiogram also performed November 2016 shows ejection fraction of 55-6% trace TR right ventricular Systolic pressure not commented 2. Moderately to advanced COPD with scattered fibrosis, with chronic hypoxemic respiratory failure on maintenance O2 at home At 24 /7 on maintenance Advair and Spiriva 3. Chronic hypoxemic respiratory failure with COPD maintenance Advair 250/50 and Spiriva O2 dependent is a cannula quit October 2016 4. BPH with lower neck tract symptomatology, urinalysis negative, on Flomax 0.4 mg at bedtime 5. Hypertension on losartan 100 mg daily 6. Generalized anxiety disorder and recurrent depression stable 7. Chronic tobacco exposure 8. 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 Chronic exposure to cat aeroallergens, [place] ALLERGY panel and IgE levels obtained. 10. Old compression fracture T7-T8 with chronic low back pain, no medication changes 11. New spiculated infiltrate posterior right upper lobe the right upper lobe CAT scan noted in 02/10/2017 to be monitored as an outpatient Dr. Carlota maza DVT prophylaxis with subcu heparin and JOSEPH hose GI prophylaxis Discharge plan: Home with [facility] Impression and plan of care have been directed as dictated by the signing physician. Tiffany Richards nurse practitioner acting as scribe for signing physician.
[2017-03-09 17:06] LABS: Glucose,Whole Blood 132 mg/dL (75-99)
[2017-03-09] MEDS: methylPREDNISolone SOD SUCCI 40 MG/ML 1 ML VIAL IV SCH (17:06)
[2017-03-09] MEDS: HYDROmorphone 2 MG/ML 1 ML SYRINGE IVP PRN (18:15)
[2017-03-09] MEDS: TAMSULOSIN 0.4 MG CAP.ER.24H PO SCH (20:32)
[2017-03-09 20:55] LABS: Glucose,Whole Blood 132 mg/dL (75-99)
[2017-03-10] MEDS: methylPREDNISolone SOD SUCCI 40 MG/ML 1 ML VIAL IV SCH ×4 (00:44→23:53)
[2017-03-10] MEDS: HEPARIN SODIUM,PORCINE 5,000 UNIT/ML 1 ML VIAL SQ SCH ×3 (00:45→18:59)
[2017-03-10] MEDS: HYDROmorphone 2 MG/ML 1 ML SYRINGE IVP PRN ×4 (05:39→21:30)
[2017-03-10] MEDS ORDERED: METOPROLOL TARTRATE 50 MG TAB PO ONE (06:00)
[2017-03-10] MEDS ORDERED: DILTIAZEM 125 MG in SODIUM CHLORIDE 0.9% 100 ML IV SCH (06:15)
[2017-03-10] MEDS: FORMOTEROL FUMARATE 20 MCG/2 ML NEBU INHALATION SCH ×2 (07:12→20:39)
[2017-03-10] MEDS: ALBUTEROL NEBULIZED 2.5 MG/3 ML INHALATION SCH ×4 (07:12→20:35)
[2017-03-10] MEDS: IPRATROPIUM 0.5 MG/2.5 ML NEBU INHALATION SCH ×4 (07:12→20:35)
[2017-03-10] MEDS: IPRATROPIUM-ALBUTEROL 3 ML NEB INHALATION PRN (07:12)
[2017-03-10] MEDS: BUDESONIDE 0.5 MG/2 ML NEBU INHALATION SCH ×2 (07:12→20:39)
[2017-03-10 07:57] LABS: Basophils % (A) 0 %; CH 30.6; CHCM 30.7; Eosinophils % (A) 0 %; HCT 35.7 % (39.0-53.0); HDW 3.16; HGB 10.9 gm/dL (13.0-17.5); Hypochromasia Marked; Luc # (Auto) 0.18; Luc % (Auto) 1; Lymphocytes # (A) 0.9 k/uL (1.0-4.8); Lymphocytes % (A) 4 %; MCH 30.5 pg (25.0-35.0); MCHC 30.5 g/dL (31.0-37.0); MCV 100.1 fL (80.0-100.0); Macrocytosis Slight; Monocytes % (A) 5 %; Neutrophils # (A) 20.2 k/uL (1.3-7.7); Neutrophils % (A) 90 %; RBC 3.56 m/uL (4.30-5.90); RDW 15.5 % (11.5-15.5); WBC 22.4 k/uL (3.8-10.6); WBC (Perox) 22.86
[2017-03-10 07:59] LABS: Glucose,Whole Blood 137 mg/dL (75-99)
[2017-03-10] MEDS ORDERED: HEPARIN SODIUM,PORCINE 5,000 UNIT/ML 1 ML VIAL IV PRN (08:31)
[2017-03-10] MEDS ORDERED: HEPARIN SODIUM,PORCINE 5,000 UNIT/ML 1 ML VIAL IV ONE (08:45)
[2017-03-10] MEDS ORDERED: DEXTROSE 5% IN WATER 100 ML with AMIODARONE 150 MG IV ONE (09:00)
[2017-03-10 09:01] LABS: ALT 41 U/L (21-72); AST 33 U/L (17-59); Alkaline Phosphatase 82 U/L (38-126); Anion Gap 11 mmol/L; Blood Urea Nitrogen 34 mg/dL (9-20); Calcium 9.4 mg/dL (8.4-10.2); Carbon Dioxide 24 mmol/L (22-30); Chloride 95 mmol/L (98-107); Glucose 125 mg/dL (74-99); Non-African American GFR(MDRD) >60 (>60 ml/min/1.73 sqM); Potassium 5.1 mmol/L (3.5-5.1); Sodium 130 mmol/L (137-145); Total Bilirubin 0.3 mg/dL (0.2-1.3); Total Protein 7.2 g/dL (6.3-8.2)
[2017-03-10 09:14] LABS: INR 1.1 (<1.2); Partial Thromboplastin Time 23.3 sec (22.0-30.0)
[2017-03-10] MEDS: AMIODARONE 450 MG in DEXTROSE 5% IN WATER 250 ML IV SCH ×4 (09:45→18:23)
[2017-03-10] MEDS: HEPARIN SODIUM,PORCINE/D5W PMX 25,000 UNIT in DEXTROSE/WATER 1 500ML.BAG IV SCH (09:50)
[2017-03-10] MEDS: INSULIN LISPRO (humaLOG) 300 UNIT/3 ML VIAL SQ SCH ×4 (09:53→21:29)
[2017-03-10] MEDS: FUROSEMIDE 10 MG/ML 4 ML VIAL IV SCH ×2 (09:55→21:28)
[2017-03-10] MEDS: PANTOPRAZOLE 40 MG TABLET PO SCH (09:55)
[2017-03-10] MEDS: FLUTICASONE 50MCG/SPRAY NASAL 16GM EA NOSTRIL SCH ×2 (09:55→21:28)
[2017-03-10] MEDS: LOSARTAN 50 MG TAB PO SCH (09:56)
[2017-03-10] MEDS: MAGNESIUM OXIDE 400 MG TAB PO SCH (09:56)
[2017-03-10] MEDS: GABAPENTIN 300 MG CAP PO SCH ×3 (09:56→21:30)
--- NOTE | 2017-03-10 10:36 | P.CRDCN ---
History of Present Illness Consult date: 03/10/17 Chief complaint: Shortness of breath History of present illness: This is a pleasant 72-year-old gentleman who does not follow with any housing counselor on a regular basis with a past medical history significant for advanced chronic obstructive pulmonary disease/chronic respiratory failure on home oxygen, hypertension, as well as multiple comorbid conditions was admitted to the hospital a few days ago with dyspnea and he was diagnosed with COPD exacerbation. During the hospital stay, the patient went into an A. fib with RVR. Initially plans on the EKG showed multifocal atrial tachycardia but further looking showed what it seems to be in A. fib with RVR. The patient never been diagnosed was A. fib in the past. He stated that he was experiencing at home sometimes intermittent episodes of heart racing and fluttering associated with fast heart rate. No chest pain or chest discomfort. No history of coronary artery disease or congestive heart failure or cardiac arrhythmia. In November 2016 he was admitted to the hospital and at that point an echocardiogram was performed and revealed normal LV function without any significant valvular abnormalities. The patient initially was admitted to non-telemetry floor but because of the A. fib he was admitted to 6 E. Upon arriving the floor, he was on Cardizem and drip but he was hypotensive and because of that I stopped the IV Cardizem and I put the patient on amiodarone IV. Beside that he was started on heparin IV. He was receiving losartan at 100 mg by mouth daily which I stopped and also he was on metoprolol 50 mg by mouth twice a day which I did decrease to 25 mg by mouth twice a day. 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 cm in the right upper lobe and 1.2 cm and the left upper lobe, bilateral lower extremities edema, hypothermia, compression fracture of the T7/T8 spine, chronic back pain History of Any Multi-Drug Resistant Organisms: None Reported Past Surgical History: Orthopedic Surgery Additional Past Surgical History / Comment(s): left hip sx Past Anesthesia/Blood Transfusion Reactions: No Reported Reaction Past Psychological History: Anxiety, Depression Smoking Status: Former smoker Past Alcohol Use History: None Reported Past Drug Use History: None Reported - Past Family History Father Family Medical History: Cancer (prostate) Additional Family Medical History / Comment(s): Obesity Mother Family Medical History: Asthma Additional Family Medical History / Comment(s): Mother had alot of bronchitis and degenerative arthritis. She at the age of 91yrs. Brother(s) Family Medical History: Cancer (prostate) Medications and Allergies Home Medications Medication Instructions Recorded Confirmed Type Albuterol Sulfate [Proair Hfa] 1 - 2 puff INHALATION RT-Q6H PRN 10/27/16 History Gabapentin [Neurontin] 200 mg PO TID 10/27/16 03/08/17 History Losartan Potassium [Cozaar] 100 mg PO DAILY 10/27/16 03/08/17 History Multivitamins, Thera [Multivitamin 1 tab PO DAILY 10/27/16 03/08/17 History (formulary)] Vitamin B Complex 1 cap PO DAILY 10/27/16 03/08/17 History Budesonide-Formot 160-4.5 Mcg 2 puff INHALATION RT-BID #1 inh 11/01/16 03/08/17 Rx [Symbicort 160-4.5 Mcg Inhaler] Tamsulosin [Flomax] 0.4 mg PO HS #30 cap 11/02/16 03/08/17 Rx Fluticasone/Salmeterol [Advair 1 puff INHALATION RT-BID 03/08/17 03/08/17 History 250-50 Diskus] Omeprazole 20 mg PO DAILY 03/08/17 03/08/17 History Sulfamethox-Tmp 800-160Mg [Bactrim 1 tab PO Q12HR 03/08/17 03/08/17 History DS 800-160 mg] Tiotropium 18 Mcg/Puff [Spiriva] 1 cap INHALATION RT-DAILY 03/08/17 03/08/17 History Allergies Allergy/AdvReac Type Severity Reaction Status Date / Time No Known Allergies Allergy Verified 03/08/17 09:42 Physical Exam Vitals: Vital Signs Temp Pulse Pulse Resp BP Pulse Ox 03/10/17 07:35 108 H 03/10/17 07:26 100 03/10/17 07:25 100 03/10/17 07:13 104 H 03/10/17 07:00 97.8 F 108 H 22 99/68 93 L 03/10/17 00:00 18 03/09/17 23:00 98.6 F 92 18 117/61 92 L 03/09/17 21:24 84 03/09/17 20:57 80 03/09/17 20:55 80 03/09/17 20:45 84 03/09/17 17:11 92 03/09/17 16:47 94 95 03/09/17 14:41 98.0 F 90 16 97/50 97 03/09/17 12:26 98 20 03/09/17 12:17 98 20 Intake and Output 03/09/17 03/10/17 03/10/17 22:59 06:59 14:59 Output Total 750 500 Balance -750 -500 Output: Urine 750 500 Straight 500 Other: Voiding Method Urinal - Constitutional General appearance: no acute distress - Respiratory Respiratory: bilateral: diminished - Cardiovascular Rhythm: irregularly irregular Heart sounds: normal: S1, S2 Results 03/10/17 07:33 03/10/17 07:33 Cardiac Enzymes 03/10/17 Range/Units 07:33 AST 33 (17-59) U/L Coagulation 03/10/17 Range/Units 07:30 PT 11.0 (9.0-12.0) sec APTT 23.3 (22.0-30.0) sec CBC 03/10/17 Range/Units 07:33 WBC 22.4 H (3.8-10.6) k/uL RBC 3.56 L (4.30-5.90) m/uL Hgb 10.9 L (13.0-17.5) gm/dL Hct 35.7 L (39.0-53.0) % Plt Count 485 H (150-450) k/uL Comprehensive Metabolic Panel 03/10/17 Range/Units 07:33 Sodium 130 L (137-145) mmol/L Potassium 5.1 (3.5-5.1) mmol/L Chloride 95 L (98-107) mmol/L Carbon Dioxide 24 (22-30) mmol/L BUN 34 H (9-20) mg/dL Creatinine 1.08 (0.66-1.25) mg/dL Glucose 125 H (74-99) mg/dL Calcium 9.4 (8.4-10.2) mg/dL AST 33 (17-59) U/L ALT 41 (21-72) U/L Alkaline Phosphatase 82 (38-126) U/L Total Protein 7.2 (6.3-8.2) g/dL Albumin 3.9 (3.5-5.0) g/dL Current Medications Generic Name Dose Route Start Last Admin Trade Name Freq PRN Reason Stop Dose Admin Albuterol Sulfate 2.5 mg 03/08/17 16:00 03/10/17 07:12 Ventolin Nebulized INHALATION Not Given RT-QID JUSTYN Albuterol/Ipratropium 3 ml 03/08/17 11:58 03/10/17 07:12 Duoneb 0.5 Mg-3 Mg/3 Ml Soln INHALATION 3 ml RT-Q4H PRN Administration Shortness Of Breath Or Wheezing Budesonide 0.5 mg 03/09/17 09:00 03/10/17 07:12 Pulmicort INHALATION 0.5 mg RT-BID JUSTYN Administration Fluticasone Propionate 1 spray 03/08/17 21:00 03/10/17 09:55 Flonase Nasal [place] EA NOSTRIL 1 spray BID [facility] Administration Formoterol Fumarate 20 mcg 03/09/17 09:00 03/10/17 07:12 Perforomist INHALATION 20 mcg RT-BID JUSTYN Administration Furosemide 40 mg 03/08/17 21:00 03/10/17 09:55 Lasix IV 40 mg Q12HR [facility] Administration Gabapentin 600 mg 03/08/17 17:45 03/10/17 09:56 Neurontin PO 600 mg TID JUSTYN Administration Heparin Sodium (Porcine) 5,000 unit 03/09/17 08:00 03/10/17 09:55 Heparin SQ Not Given Q8HR [facility] Heparin Sodium (Porcine) 0 unit 03/10/17 08:31 Heparin IV PER PROTOCOL PRN Low PTT Protocol Hydromorphone HCl 2 mg 03/09/17 14:42 03/10/17 05:42 Dilaudid IVP 1 mg Q4HR PRN Administration Severe Pain Amiodarone HCl 450 mg/ 259 mls @ 34.53 mls/hr 03/10/17 09:10 03/10/17 09:45 Dextrose/Water IV 03/11/17 09:11 1 mg/min .Q7H31M JUSTYN 34.53 mls/hr Protocol Administration 1 MG/MIN Heparin Sodium/Dextrose 25,000 500 mls @ 18.48 mls/hr 03/10/17 09:00 09:50 unit/ IV Solution IV 12 units/kg/hr .Q24H JUSTYN 18.48 mls/hr Protocol Administration 12 UNITS/KG/HR Insulin Human Lispro 0 unit 03/08/17 21:00 03/10/17 09:53 Humalog SQ Not Given ACHS [facility] Protocol Ipratropium [place] 0.5 mg 03/09/17 08:00 03/10/17 07:12 Atrovent Nebulized INHALATION Not Given RT-QID [facility] Magnesium Oxide 400 mg 03/08/17 21:00 03/10/17 09:56 Mag-Ox PO 400 mg BID JUSTYN Administration Methylprednisolone Sodium Succinate 40 mg 03/09/17 18:00 03/10/17 06:40 Solu-Medrol IV 40 mg Q6HR JUSTNY Administration Metoprolol Tartrate 25 mg 03/10/17 21:00 Lopressor PO BID [facility] Miscellaneous Information 1 each 03/08/17 19:03 Rx Info: Iv Contrast Was Given MISCELLANE 03/10/17 19:04 DAILY PRN Per Protocol Pantoprazole Sodium 40 mg 03/09/17 07:30 03/10/17 09:55 Protonix PO 40 mg AC-[id number] JUSTYN Administration Tamsulosin HCl 0.4 mg 03/08/17 21:00 03/09/17 20:32 Flomax PO 0.4 mg HS JUSTYN Administration Intake and Output 03/09/17 03/10/17 03/10/17 22:59 06:59 14:59 Output Total 750 500 Balance -750 -500 Output: Urine 750 500 Straight 500 Other: Voiding Method Urinal 03/10/17 07:33 03/10/17 07:33 Assessment and Plan Assessment: This is a pleasant 71-year-old gentleman was advanced COPD and chronic hypoxic respiratory failure on home oxygen was admitted to the hospital with COPD exacerbation and he went into an A. fib with RVR which is a new diagnosis atrial fibrillation. In view of the low blood pressure I would start the patient on amiodarone IV. Switching to amiodarone by mouth later on. I did stop the losartan and decrease the dose of metoprolol. Recent echocardiogram was performed and showed normal LV function. Continue anticoagulation for now.
--- NOTE | 2017-03-10 11:40 | P.PN ---
<PriscilaLissy aguirre - Last Filed: 03/10/17 11:32> Subjective Progress Note Date: 03/10/17 Principal diagnosis: Marbin is a very pleasant 70-year-old male patient who was in the hospital in November 2016 for an extensive right lung pneumonia. At that time there was a suspicion for lung mass. The patient a bronchoscopy and the results were nondiagnostic. Following his discharge from the hospital the patient went tomorrow with and it took him quite some times and he recuperated and he is coming today to see me in the outpatient. Note that he also had hyponatremia at a time of his admission. He was on 2 L/m nasal cannula. He gets short of breath with limited amount of activity. He has not smoked since October 2016. His CAT scan of the chest from October 2016 showed diffuse opacities mostly in the right upper lobe that was not present on the previous CAT scan of the chest from 2015. There was extensive opacity in the posterior superior right lower lobe consistent with pneumonia. Airspace disease also seen in the anterior aspect of the left upper lobe. There was also a nodule measuring 1.2 x 0.9 mm in the left upper lobe and several nodules in the right upper lobe that is very difficult to differentiate from pneumonia. One of the nodules in the right upper lobe is measuring 1.4 x 0.8 cm. There was extensive emphysema throughout the lung villalobos bilaterally and probably some early cavitation in the right upper lobe. As such the patient a bronchoscopy and the results were nondiagnostic for any microbes or any cancers. On 02/24/2017 Marbin was seen in FU in the office. He was pulse oxing around 90-91 % diseases of oxygen by nasal cannula. He has some excess congestion his sinuses. He was on a combination of Advair and Spiriva and he uses pro-air as needed. He typically uses around 4 times a day, 2 puffs. No significant chest congestion. No significant mucus production. No fever chills or night sweats. The CAT scan of the chest was repeated in January 2017 and it showed moderate to severe emphysema and there is [id number] biapical parenchymal scarring and fibrosis. There is also small left greater than right pleural effusions. There is also new peripheral reticular interstitial opacities suggestive of edema. The note that her consolidation in the right lower lobe has improved and there is scattered bullae throughout the lung villalobos. The right upper lobe masslike consolidation has recovered. There is redemonstration of the subcarinal lymph nodes measuring 2.2 x 1.2 cm in size. There is also a large right paratracheal lymph node. There is an enlarged hilar lymph nodes. No cardiomegaly. There is compression deformity of the T8 vertebral spine. On 03/08/2017 the patient presented himself to the emergency department. Apparently over the past 24 hours his condition has gotten worse. He had become uncomfortable as the patient started having loose liquidy bowel movements and he had 3 episodes [id number]. Limited nausea. No emesis. No abdominal pain. No abdominal distention. No melena. He also was having difficulties with urination where at times he was having retention and other times he was having dysuria. Denies having any chills or fever. He was having symptoms of UTI and he had contacted his primary care physician and he was given a course of Bactrim on outpatient basis. He has also noted significant swelling in lower oximetry is bilaterally. A chest x-ray was done at time of admission and the chest x-ray findings are essentially stable to the previous chest from that was done earlier. As mentioned the patient extensive consolidation of the right upper lobe and some limited pulmonary changes and left upper lobe which were improving on subsequent CAT scan findings. The patient continues to have some nodules as mentioned in the right upper lobe measuring 1.4 x 0.8 cm in size and another nodule in the left upper lobe measuring 1.2 cm in size and this is something to be followed up at a later stage with a subsequent CAT scan of the chest. He is on a combination of Advair and Spiriva at home and he doesn't be done about treatments in addition to prior rescue inhaler on as-needed basis. His action dependent somewhat between 2-3 L/m nasal cannula. He denies having any worsening shortness of breath. Limited cough and congestion. No signs of any respiratory failure at this point. Legs are quite swollen bilaterally. No previous history of DVT or pulmonary embolism. He has been on no diuretics. On 03/09/2017 patient seen in follow-up on medical surgical floor. He is slightly dyspneic with conversation, the right rib cage pain posteriorly is responding to IV morphine. He has persisting shooting pain in his bilateral lower extremities which is chronic for him, and is related to his underlying back problems. He had a good response to IV Lasix, he is a -1310 mL fluid balance over the last 24 hours. Lung sounds are clear diminished at the bases. No rhonchi, no wheezes, no rales appreciated. On 3 L per nasal cannula with O2 sat at 94%. Afebrile. Did have one episode of pasty stool this morning, the staff was not able to collected were C. diff analysis. Patient reports taking large amounts of Metamucil at home for his perceived constipation. Bilateral lower extremity edema has improved, patient has the thigh-high compression stockings on. 03/10/2017 the patient is seen again today in follow-up. He was transferred up to the selective care unit early this morning following a episode of atrial fibrillation with rapid reticular response. He's been initiated on amiodarone currently at 1 mg per minute along with a heparin drip. He is currently awake and alert in no acute distress. He denies any worsening shortness of breath, cough or congestion. He denies any chest pain. His heart rate is better controlled. No complaints of palpitations. His lower extremity edema is improved. Urine cultures positive for group D enterococcus, sensitivity pending. White count 22.4. Hemoglobin 10.9. Platelet count 485,000. Sodium improved to 130. Creatinine 1.08. Current temperature 99.5. Maintain O2 saturations in the 90s on 3 L. Objective - Vital Signs Vital signs: Vital Signs Temp 99.5 F 03/10/17 08:15 Pulse 97 03/10/17 08:15 Resp 24 03/10/17 08:15 BP 97/65 03/10/17 08:15 Pulse Ox 94 L 03/10/17 08:15 Intake & Output 03/09/17 03/10/17 03/10/17 18:59 06:59 18:59 Intake Total 400 Output Total 800 750 Balance -400 -750 Intake: Oral 400 Output: Urine 800 750 Straight 500 Other: Voiding Method Urinal Urinal - Exam GENERAL EXAM: Alert, comfortable in no apparent distress. HEAD: Normocephalic. EYES: Normal reaction of pupils, equal size. NOSE: Clear with pink turbinates. THROAT: No erythema or exudates. NECK: No masses, no JVD. CHEST: No chest wall deformity. LUNGS: Equal air entry with faint end expiratory wheeze. Diminished. CVS: S1 and S2 normal with no audible murmur, irregular rhythm. ABDOMEN: No hepatosplenomegaly, normal bowel sounds, no guarding or rigidity. SPINE: No scoliosis or deformity SKIN: No rashes CENTRAL NERVOUS SYSTEM: No focal deficits, tone is normal in all 4 extremities. EXTREMITIES: There is 1-2+ peripheral edema. No clubbing, no cyanosis. Peripheral pulses are intact. - Labs CBC & Chem 7: 03/10/17 07:33 03/10/17 07:33 Labs: Abnormal Lab Results - Last 24 Hours (Table) 03/09/17 03/09/17 03/09/17 Range/Units 07:25 07:26 12:25 WBC (3.8-10.6) k/uL RBC (4.30-5.90) m/uL Hgb (13.0-17.5) gm/dL Hct (39.0-53.0) % MCV (80.0-100.0) fL MCHC (31.0-37.0) g/dL Plt Count (150-450) k/uL Neutrophils # (1.3-7.7) k/uL Lymphocytes # (1.0-4.8) k/uL Sodium (137-145) mmol/L Chloride (98-107) mmol/L BUN (9-20) mg/dL Glucose (74-99) mg/dL POC Glucose (mg/dL) 130 H (75-99) mg/dL Hemoglobin A1c 6.4 H (4.0-6.0) % Osmolality 263 L (280-301) mosm/kg 03/09/17 03/09/17 03/10/17 Range/Units 17:02 20:54 07:19 WBC (3.8-10.6) k/uL RBC (4.30-5.90) m/uL Hgb (13.0-17.5) gm/dL Hct (39.0-53.0) % MCV (80.0-100.0) fL MCHC (31.0-37.0) g/dL Plt Count (150-450) k/uL Neutrophils # (1.3-7.7) k/uL Lymphocytes # (1.0-4.8) k/uL Sodium (137-145) mmol/L Chloride (98-107) mmol/L BUN (9-20) mg/dL Glucose (74-99) mg/dL POC Glucose (mg/dL) 132 H 132 H 137 H (75-99) mg/dL Hemoglobin A1c (4.0-6.0) % Osmolality (280-301) mosm/kg 03/10/17 03/10/17 Range/Units 07:33 07:33 WBC 22.4 H (3.8-10.6) k/uL RBC 3.56 L (4.30-5.90) m/uL Hgb 10.9 L (13.0-17.5) gm/dL Hct 35.7 L (39.0-53.0) % MCV 100.1 H (80.0-100.0) fL MCHC 30.5 L (31.0-37.0) g/dL Plt Count 485 H (150-450) k/uL Neutrophils # 20.2 H (1.3-7.7) k/uL Lymphocytes # 0.9 L (1.0-4.8) k/uL Sodium 130 L (137-145) mmol/L Chloride 95 L (98-107) mmol/L BUN 34 H (9-20) mg/dL Glucose 125 H (74-99) mg/dL POC Glucose (mg/dL) (75-99) mg/dL Hemoglobin A1c (4.0-6.0) % Osmolality (280-301) mosm/kg Microbiology - Last 24 Hours (Table) 03/08/17 20:22 Urine Culture - Preliminary Urine,Clean Catch Group D Enterococcus Assessment and Plan Assessment: Impression: 1 new onset diarrhea, probably antibiotic induced, rule out possibility of C. diff colitis specially the patient has been on multiple antibiotics in the past and most recently the patient was completing a course of Bactrim. Will check stool for C. diff. The blood work shows a component of non-anion gap metabolic acidosis, improved, bicarb level of 20. Patient reports taking large amounts of Metamucil for perceived constipation 2 chronic lower extremity edema with interval improvement 3 hyponatremia, improved. Serum sodium is 130 on 03/10/2017. 4 recent hospitalization for an extensive right upper lobe pneumonia, The patient had aggressive and advanced multilobar pneumonia affecting mainly the right upper lobe and to lesser extent the right lower lobe back in November 2016. He was hospitalized and he was treated with antibiotics. During the same hospitalization the patient had a bronchoscopy and the bronchioloalveolar lavage that showed no microbial growth and the patient also did not have any malignancy on the transbronchial biopsies I reviewed the computed tomography scan of the chest and the right upper lobe and the right lower lobe consolidations of both improved considerably in the order of 90%. There is some residual opacities bilaterally however I think this is related to his chronic fibrosis in addition to his advanced COPD. Malignancy is doubtful at this stage however it cannot be completely excluded. I reassured the patient about the results of the findings. 2 lung mass, lateral upper lobe nodules, 1.4 cm in the right upper lobe and 1.2 cm and the left upper lobe, I favor inflammatory changes on his CAT scan without any malignancy. I think the inflammation is improving and the patient's CAT scan has showed clearing of the right upper lobe and right lower lobe pulmonary infiltration and cavitation. 3 severe chronic obstructive pulmonary disease, Continue Spiriva and Advair as maintenance treatment for his COPD. Continue same medications. We'll continue to follow. The patient has already taken his flu shot. Continue same medications for now. 4 chronic hypoxemic respiratory failure, On O2 at 3liters/min 5 dependence on enabling machine or device 6 Very poor baseline performance and functional status. 7 recurrent urine tract infection most recent urine cultures showing group D enterococcus. #8 New onset of atrial fibrillation with a rapid ventricular response. Initiated on amiodarone and heparin. Plan: The patient was seen and evaluated by Dr. Van. He is improved from the pulmonary standpoint. He does have some dyspnea with exertion. His heart rate is currently better controlled. Remains in atrial fibrillation. We'll continue with his current medications. We will discontinue the albuterol and use Xopenex. We'll start to taper the IV Solu-Medrol as well. He remains on IV Lasix. We will increase his activity as tolerated. We'll continue to follow. I, the cosigning physician, have performed a history and physical examination on the patient. Lung sounds have bilateral end expiratory wheeze. Maintaining good O2 saturations in the 90s on 3 L/m per nasal cannula.. I have discussed the assessment and plan of care with my nurse practitioner, Lissy Francois. I attest the above documented note as dictated by her. <Venkata Van - Last Filed: 03/10/17 11:51> Objective - Vital Signs Vital signs: Vital Signs Temp 99.5 F 03/10/17 08:15 Pulse 97 03/10/17 08:15 Resp 24 03/10/17 08:15 BP 97/65 03/10/17 08:15 Pulse Ox 94 L 03/10/17 08:15 Intake & Output 03/09/17 03/10/17 03/10/17 18:59 06:59 18:59 Intake Total 400 Output Total 800 750 Balance -400 -750 Intake: Oral 400 Output: Urine 800 750 Straight 500 Other: Voiding Method Urinal Urinal # Voids 0 # Bowel Movements 0 - Labs CBC & Chem 7: 03/10/17 07:33 03/10/17 07:33 Labs: Abnormal Lab Results - Last 24 Hours (Table) 03/09/17 03/09/17 03/09/17 Range/Units 07:25 07:26 12:25 WBC (3.8-10.6) k/uL RBC (4.30-5.90) m/uL Hgb (13.0-17.5) gm/dL Hct (39.0-53.0) % MCV (80.0-100.0) fL MCHC (31.0-37.0) g/dL Plt Count (150-450) k/uL Neutrophils # (1.3-7.7) k/uL Lymphocytes # (1.0-4.8) k/uL Sodium (137-145) mmol/L Chloride (98-107) mmol/L BUN (9-20) mg/dL Glucose (74-99) mg/dL POC Glucose (mg/dL) 130 H (75-99) mg/dL Hemoglobin A1c 6.4 H (4.0-6.0) % Osmolality 263 L (280-301) mosm/kg 03/09/17 03/09/17 03/10/17 Range/Units 17:02 20:54 07:19 WBC (3.8-10.6) k/uL RBC (4.30-5.90) m/uL Hgb (13.0-17.5) gm/dL Hct (39.0-53.0) % MCV (80.0-100.0) fL MCHC (31.0-37.0) g/dL Plt Count (150-450) k/uL Neutrophils # (1.3-7.7) k/uL Lymphocytes # (1.0-4.8) k/uL Sodium (137-145) mmol/L Chloride (98-107) mmol/L BUN (9-20) mg/dL Glucose (74-99) mg/dL POC Glucose (mg/dL) 132 H 132 H 137 H (75-99) mg/dL Hemoglobin A1c (4.0-6.0) % Osmolality (280-301) mosm/kg 03/10/17 03/10/17 Range/Units 07:33 07:33 WBC 22.4 H (3.8-10.6) k/uL RBC 3.56 L (4.30-5.90) m/uL Hgb 10.9 L (13.0-17.5) gm/dL Hct 35.7 L (39.0-53.0) % MCV 100.1 H (80.0-100.0) fL MCHC 30.5 L (31.0-37.0) g/dL Plt Count 485 H (150-450) k/uL Neutrophils # 20.2 H (1.3-7.7) k/uL Lymphocytes # 0.9 L (1.0-4.8) k/uL Sodium 130 L (137-145) mmol/L Chloride 95 L (98-107) mmol/L BUN 34 H (9-20) mg/dL Glucose 125 H (74-99) mg/dL POC Glucose (mg/dL) (75-99) mg/dL Hemoglobin A1c (4.0-6.0) % Osmolality (280-301) mosm/kg Microbiology - Last 24 Hours (Table) 03/08/17 20:22 Urine Culture - Preliminary Urine,Clean Catch Group D Enterococcus Assessment and Plan Assessment: This is a joint evaluation that was done along with a nurse practitioner. The events occurring this morning was noted. The patient has developed itchy fibrillation with rapid ventricular response. The patient is currently on telemetry unit on a combination of amiodarone for rate control and the patient is also on IV heparin. No hemodynamic instability. Still being diuresed regarding his lower extremities edema. COPD remains stable. We'll continue to follow.
--- NOTE | 2017-03-10 11:58 | P.PN ---
Subjective Progress Note Date: 03/10/17 This is 70-year-old gentleman patient of Dr. Mendoza Van with known history OF COPD, chronic hypoxemic respiratory failure asthma pneumonia BPH, right pulmonary nodule admitted to the emergency room secondary to shortness of breath,. He was admitted in November 2016 for the same condition and was found to have prior to that of right lung hilar mass requiring bronchoscopy with biopsy, pathology showed fragments of benign bronchial mucosa most likely secondary to pneumonia. patient is on chron ic o2, has a cat in then house taht lives in bedroom, patient complains of pain with inspiration right side. also with significant bronken sleep from neuralgia. no previous dvt or PE in past. walker on ambulation with wheelchair use He was seen in emergency room secondary to worsening shortness of breath and lower extremity edema, also has insomnia with tremors, and dysuria. Patient denies any chest pain no palpitations, no fever no chills, patient denies any productive cough, in the emergency room he was found to have significant edema with sodium of 126, hemoglobin of 10.7, mentation low at 1.4, creatinine of 0.87 , chest x-ray shows no acute abnormality, EKG shows T-wave inversion in leads V1 to V4 normal sinus rhythm. He was hypoxemic with pulse ox of 90-92%. 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, troponin of 0.014 He was admitted secondary to COPD PD exacerbation with diastolic CHF exacerbation and dependent edema He had a CAT scan performed 02/10/2017, showing redemonstration of a large subcarinal lymph node 2.2 x 1.2 cm as well as mixed moderate plaque in the aorta , some nodular consultation the right lobe lower side which is improved from previous, scattered bullae and blebs's 3 demonstrated, resolving until right upper lobe masslike consolidation, there is mild peribronchial wall thickening improved from previous, there is small left greater than right pleural effusion there's new peripheral reticulation and interstitial opacities suggesting edema and oriented. Infiltrate there are new nodular and spiculated infiltrate posterior right upper lobe 03/09: Patient states that the morphine is helping the pain in his right side of his chest at the base of his ribs but he feels groggy. This discontinued and placed on Dilaudid. Solu-Medrol will be decreased to 40 mg every 6 hours. Telemetry will be discontinued. Sodium is on the low side most likely due to SIADH. Labs ordered for this. CTA of the chest showed no evidence of pulmonary embolism. Pleural thickening and interstitial nodular infiltrate in the lower lobes not significantly different from February 10 CAT scan. There is Significant clearing of the pulmonary infiltrates compared to October 2016 CAT scan. Emphysema and bronchial adenopathy consistent with inflammatory disease. Small hiatal hernia. There is a 2 cm somewhat spiculated infiltrate in the left posterior lung base with no previous mention of this on other CAT scans. 03/10:Patient developed atrial fibrillation with rapid ventricular response during the night. Patient was transferred to the selective care unit and cardiology is on consult. Patient is currently on heparin drip and amiodarone drip. Solu-Medrol has been decreased to 40 mg every 8 hours by pulmonary medicine. Mucinex will be added. Noted in previous admissions asthma was documented but patient has never been formally diagnosed with asthma. Objective - Vital Signs Vital signs: Vital Signs Temp 99.5 F 03/10/17 08:15 Pulse 97 03/10/17 08:15 Resp 24 03/10/17 08:15 BP 97/65 03/10/17 08:15 Pulse Ox 94 L 03/10/17 08:15 Intake & Output 03/09/17 03/10/17 03/10/17 18:59 06:59 18:59 Intake Total 400 Output Total 800 750 Balance -400 -750 Intake: Oral 400 Output: Urine 800 750 Straight 500 Other: Voiding Method Urinal Urinal # Voids 0 # Bowel Movements 0 - Exam General appearance: cooperative, no acute distress - EENT Eyes: anicteric sclerae, dentition normal, normal appearance ENT: hard of hearing, normal oropharynx - Neck Neck: no lymphadenopathy, normal ROM, no other, no rigidity, no stridor, no thyromegaly - Respiratory Respiratory: bilateral: diminished, wheezing, negative: rales, rhonchi, prolonged expiration - Cardiovascular Rhythm: regular Heart sounds: normal: S1, S2 Abnormal Heart Sounds: no systolic murmur, no diastolic murmur, no rub, no S3 Gallop, no S4 Gallop, no click, no other - Gastrointestinal General gastrointestinal: normal bowel sounds, soft - Integumentary Integumentary: normal - Neurologic Neurologic: CNII-XII intact - Musculoskeletal Musculoskeletal: gait normal, strength equal bilaterally - Psychiatric Psychiatric: A&O x's 3, appropriate affect, intact judgment & insight - Labs CBC & Chem 7: 03/10/17 07:33 03/10/17 07:33 Labs: Abnormal Lab Results - Last 24 Hours (Table) 03/09/17 03/09/17 03/09/17 Range/Units 07:25 07:26 12:25 WBC (3.8-10.6) k/uL RBC (4.30-5.90) m/uL Hgb (13.0-17.5) gm/dL Hct (39.0-53.0) % MCV (80.0-100.0) fL MCHC (31.0-37.0) g/dL Plt Count (150-450) k/uL Neutrophils # (1.3-7.7) k/uL Lymphocytes # (1.0-4.8) k/uL Sodium (137-145) mmol/L Chloride (98-107) mmol/L BUN (9-20) mg/dL Glucose (74-99) mg/dL POC Glucose (mg/dL) 130 H (75-99) mg/dL Hemoglobin A1c 6.4 H (4.0-6.0) % Osmolality 263 L (280-301) mosm/kg 03/09/17 03/09/17 03/10/17 Range/Units 17:02 20:54 07:19 WBC (3.8-10.6) k/uL RBC (4.30-5.90) m/uL Hgb (13.0-17.5) gm/dL Hct (39.0-53.0) % MCV (80.0-100.0) fL MCHC (31.0-37.0) g/dL Plt Count (150-450) k/uL Neutrophils # (1.3-7.7) k/uL Lymphocytes # (1.0-4.8) k/uL Sodium (137-145) mmol/L Chloride (98-107) mmol/L BUN (9-20) mg/dL Glucose (74-99) mg/dL POC Glucose (mg/dL) 132 H 132 H 137 H (75-99) mg/dL Hemoglobin A1c (4.0-6.0) % Osmolality (280-301) mosm/kg 03/10/17 03/10/17 Range/Units 07:33 07:33 WBC 22.4 H (3.8-10.6) k/uL RBC 3.56 L (4.30-5.90) m/uL Hgb 10.9 L (13.0-17.5) gm/dL Hct 35.7 L (39.0-53.0) % MCV 100.1 H (80.0-100.0) fL MCHC 30.5 L (31.0-37.0) g/dL Plt Count 485 H (150-450) k/uL Neutrophils # 20.2 H (1.3-7.7) k/uL Lymphocytes # 0.9 L (1.0-4.8) k/uL Sodium 130 L (137-145) mmol/L Chloride 95 L (98-107) mmol/L BUN 34 H (9-20) mg/dL Glucose 125 H (74-99) mg/dL POC Glucose (mg/dL) (75-99) mg/dL Hemoglobin A1c (4.0-6.0) % Osmolality (280-301) mosm/kg Microbiology - Last 24 Hours (Table) 03/08/17 20:22 Urine Culture - Preliminary Urine,Clean Catch Group D Enterococcus Assessment and Plan Plan: 1. COPD exacerbation, with underlying history of asthma admitted with increasing dyspnea and edema, patient was started on Solu-Medrol 40 mg every 8 hours along with nebulized albuterol and Atrovent, consult with pulmonary doctor Carlota. Patient had bronchoscopy in November 2013 secondary to a right pulmonary endobronchial nodule which shows no malignancy, performed 11/17/2016. Echocardiogram also performed November 2016 shows ejection fraction of 55-6% trace TR right ventricular Systolic pressure not commented 2. Moderately to advanced COPD with scattered fibrosis, with chronic hypoxemic respiratory failure on maintenance O2 at home At 24 /7 on maintenance Advair and Spiriva 3. Chronic hypoxemic respiratory failure with COPD maintenance Advair 250/50 and Spiriva O2 dependent is a cannula quit October 2016 4. BPH with lower neck tract symptomatology, urinalysis negative, on Flomax 0.4 mg at bedtime 5. Hypertension on losartan 100 mg daily 6. Generalized anxiety disorder and recurrent depression stable 7. Chronic tobacco exposure 8. 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 Chronic exposure to cat aeroallergens, [place] ALLERGY panel and IgE levels obtained. 10. Old compression fracture T7-T8 with chronic low back pain, no medication changes 11. New spiculated infiltrate posterior right upper lobe the right upper lobe CAT scan noted in 02/10/2017 to be monitored as an outpatient Dr. Carlota maza 12. New onset atrial fibrillation with rapid ventricular response DVT prophylaxis with subcu heparin and JOSEPH hose GI prophylaxis Discharge plan: Home with [facility] Impression and plan of care have been directed as dictated by the signing physician. Tiffayn Richards nurse practitioner acting as scribe for signing physician.
[2017-03-10 12:11] LABS: Glucose,Whole Blood 144 mg/dL (75-99)
[2017-03-10] MEDS: guaiFENesin 600 MG TABLET.ER PO SCH ×2 (12:31→21:29)
[2017-03-10 14:59] LABS: Alternaria alternata IgE <0.35 kU/L (<0.35); Asperg. fumagatus IgE <0.35 kU/L (<0.35); Asperg. fumagatus IgE Class CLASS 0; Birch(Com.Silvr) IgE Class CLASS 0; Cat Epith & Dander IgE <0.35 kU/L (<0.35); Cat Epith & Dander IgE Class CLASS 0; Clad herbarum IgE <0.35 kU/L (<0.35); Clad herbarum IgE Class CLASS 0; Common Ragweed IgE Class CLASS 0; Dermato. Pteronyssinus Class CLASS 0; Dermato. Pteronyssinus IgE <0.35 kU/L (<0.35); Dermato. farinae IgE <0.35 kU/L (<0.35); Dermato. farinae IgE Class CLASS 0; IgE (Allergen) 93.9 IU/mL (<114.0); Maple (Box Elder) IgE <0.35 kU/L (<0.35); Maple (Box Elder) IgE Class CLASS 0; Mountain Cedar IgE <0.35 kU/L (<0.35); Mountain Cedar IgE Class CLASS 0; Mouse Urine IgE Class CLASS 0; Mouse Urine Proteins,IgE <0.35 kU/L (<0.35); Mulberry IgE Class CLASS 0; Nettle IgE <0.35 kU/L (<0.35); Nettle IgE Class CLASS 0; Oak IgE <0.35 kU/L (<0.35); Penicillium notatum IgE Class CLASS 0; Rough Marshelder IgE <0.35 kU/L (<0.35); Rough Marshelder IgE Class CLASS 0; Timothy Grass IgE <0.35 kU/L (<0.35); Timothy Grass IgE Class CLASS 0; White Ash IgE Class CLASS 0
[2017-03-10 17:20] LABS: Glucose,Whole Blood 150 mg/dL (75-99)
[2017-03-10] MEDS ORDERED: METOPROLOL TARTRATE 50 MG TAB PO SCH (21:00)
[2017-03-10 21:07] LABS: Glucose,Whole Blood 135 mg/dL (75-99)
[2017-03-10] MEDS: TAMSULOSIN 0.4 MG CAP.ER.24H PO SCH (21:30)
[2017-03-10] MEDS: METOPROLOL TARTRATE 25 MG TAB PO SCH (21:30)
[2017-03-11 03:37] LABS: Anisocytosis Slight; Basophils % (A) 0 %; CH 30.2; Eosinophils % (A) 0 %; HCT 35.6 % (39.0-53.0); HDW 2.74; HGB 10.6 gm/dL (13.0-17.5); Hypochromasia Marked; Luc % (Auto) 1; Lymphocytes # (A) 0.6 k/uL (1.0-4.8); Lymphocytes % (A) 4 %; MCH 30.1 pg (25.0-35.0); MCHC 29.9 g/dL (31.0-37.0); MCV 100.8 fL (80.0-100.0); Macrocytosis Slight; Mean Platelet Volume 7.2; Monocytes # (A) 0.4 k/uL (0-1.0); Monocytes % (A) 3 %; Neutrophils # (A) 14.6 k/uL (1.3-7.7); Neutrophils % (A) 93 %; RBC 3.53 m/uL (4.30-5.90); RDW 17.1 % (11.5-15.5); WBC 15.7 k/uL (3.8-10.6); WBC (Perox) 16.69
[2017-03-11 03:51] LABS: Anion Gap 12 mmol/L; Blood Urea Nitrogen 49 mg/dL (9-20); Calcium 9.2 mg/dL (8.4-10.2); Carbon Dioxide 23 mmol/L (22-30); Chloride 94 mmol/L (98-107); Glucose 147 mg/dL (74-99); Non-African American GFR(MDRD) 54 (>60 ml/min/1.73 sqM); Potassium 4.8 mmol/L (3.5-5.1); Sodium 129 mmol/L (137-145)
[2017-03-11] MEDS: HEPARIN SODIUM,PORCINE/D5W PMX 25,000 UNIT in DEXTROSE/WATER 1 500ML.BAG IV SCH (04:09)
[2017-03-11 06:08] LABS: Glucose,Whole Blood 137 mg/dL (75-99)
[2017-03-11] MEDS: AMIODARONE 450 MG in DEXTROSE 5% IN WATER 250 ML IV SCH ×4 (06:34→09:07)
[2017-03-11] MEDS: INSULIN LISPRO (humaLOG) 300 UNIT/3 ML VIAL SQ SCH ×4 (07:05→21:55)
[2017-03-11] MEDS: PANTOPRAZOLE 40 MG TABLET PO SCH (07:05)
[2017-03-11] MEDS: FLUTICASONE 50MCG/SPRAY NASAL 16GM EA NOSTRIL SCH ×2 (08:26→21:57)
[2017-03-11] MEDS: methylPREDNISolone SOD SUCCI 40 MG/ML 1 ML VIAL IV SCH ×2 (08:26→21:58)
[2017-03-11] MEDS: guaiFENesin 600 MG TABLET.ER PO SCH ×2 (08:27→21:57)
[2017-03-11] MEDS: MAGNESIUM OXIDE 400 MG TAB PO SCH ×2 (08:27→21:57)
[2017-03-11] MEDS: FUROSEMIDE 10 MG/ML 4 ML VIAL IV SCH (08:27)
[2017-03-11] MEDS: METOPROLOL TARTRATE 25 MG TAB PO SCH (08:27)
[2017-03-11] MEDS: GABAPENTIN 300 MG CAP PO SCH ×3 (08:27→21:58)
[2017-03-11] MEDS ORDERED: DOCUSATE 100 MG CAP PO PRN (09:11)
[2017-03-11] MEDS: ALBUTEROL NEBULIZED 2.5 MG/3 ML INHALATION SCH ×4 (09:11→20:13)
[2017-03-11] MEDS ORDERED: DOCUSATE 100 MG CAP PO STA (09:11)
[2017-03-11] MEDS: BUDESONIDE 0.5 MG/2 ML NEBU INHALATION SCH ×2 (09:12→20:13)
[2017-03-11] MEDS: FORMOTEROL FUMARATE 20 MCG/2 ML NEBU INHALATION SCH ×2 (09:12→20:13)
[2017-03-11] MEDS: IPRATROPIUM 0.5 MG/2.5 ML NEBU INHALATION SCH ×4 (09:12→20:15)
[2017-03-11] MEDS: HYDROmorphone 2 MG/ML 1 ML SYRINGE IVP PRN ×2 (09:15→18:04)
--- NOTE | 2017-03-11 11:07 | P.PN ---
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 During the hospital stay, the patient went into an A. fib with RVR. Initially plans on the EKG showed multifocal atrial tachycardia but further looking showed what it seems to be in A. fib with RVR. The patient never been diagnosed was A. fib in the past. He stated that he was experiencing at home sometimes intermittent episodes of heart racing and fluttering associated with fast heart rate. No chest pain or chest discomfort. No history of coronary artery disease or congestive heart failure or cardiac arrhythmia. In November 2016 he was admitted to the hospital and at that point an echocardiogram was performed and revealed normal LV function without any significant valvular abnormalities. The patient initially was admitted to non-telemetry floor but because of the A. fib he was admitted to 6 E. Upon arriving the floor, he was on Cardizem and drip but he was hypotensive and because of that I stopped the IV Cardizem and I put the patient on amiodarone IV. Beside that he was started on heparin IV. He was receiving losartan at 100 mg by mouth daily which I stopped and also he was on metoprolol 50 mg by mouth twice a day which I did decrease to 25 mg by mouth twice a day. I'll follow-up with the patient today, he seems to be converted to normal sinus mechanism. The heart rate has been in the 80s. He is off the amiodarone IV. I would increase the dose of metoprolol to 50 mg by mouth twice a day. I will still continue holding the losartan at this point. Beside that I will start the patient on anticoagulation using Eliquis. Objective - Vital Signs Vital signs: Vital Signs Temp 97.1 F L 03/11/17 08:00 Pulse 82 03/11/17 09:41 Resp 18 03/11/17 09:30 BP 123/62 03/11/17 08:00 Pulse Ox 93 L 03/11/17 08:00 Intake & Output 03/10/17 03/11/17 03/11/17 18:59 06:59 18:59 Intake Total 759 696.576 240 Output Total 1850 Balance 759 -1153.424 240 Weight 80.5 kg Intake: Intake, IV Titration 259 696.576 Amount Amiodarone 450 mg In 259 210.284 Dextrose 5% in Water 250 ml @ 1 MG/MIN 34.53 mls/ hr IV .Q7H31M [facility] Rx#: [id number] Heparin Sodium,Porcine/ 486.292 D5w Pmx 25,000 unit In Dextrose/Water 1 500ml. bag @ 12 UNITS/KG/HR 18. 48 mls/hr IV .Q24H [facility] Rx #:[id number] Oral 500 240 Output: Urine 1850 Straight 700 Other: Voiding Method Urinal Urinal Urinal # Voids 0 # Bowel Movements 0 - Constitutional General appearance: Present: no acute distress - Respiratory Respiratory: bilateral: rales - Cardiovascular Rhythm: regular Heart sounds: normal: S1, S2 - Labs CBC & Chem 7: 03/11/17 03:10 03/11/17 03:10 Labs: Abnormal Lab Results - Last 24 Hours (Table) 03/10/17 03/10/17 03/10/17 Range/Units 11:56 16:49 16:57 WBC (3.8-10.6) k/uL RBC (4.30-5.90) m/uL Hgb (13.0-17.5) gm/dL Hct (39.0-53.0) % MCV (80.0-100.0) fL MCHC (31.0-37.0) g/dL RDW (11.5-15.5) % Neutrophils # (1.3-7.7) k/uL Lymphocytes # (1.0-4.8) k/uL APTT 76.0 H (22.0-30.0) sec Sodium (137-145) mmol/L Chloride (98-107) mmol/L BUN (9-20) mg/dL Creatinine (0.66-1.25) mg/dL Glucose (74-99) mg/dL POC Glucose (mg/dL) 144 H 150 H (75-99) mg/dL 03/10/17 03/11/17 03/11/17 Range/Units 21:06 03:10 03:10 WBC 15.7 H (3.8-10.6) k/uL RBC 3.53 L (4.30-5.90) m/uL Hgb 10.6 L (13.0-17.5) gm/dL Hct 35.6 L (39.0-53.0) % MCV 100.8 H (80.0-100.0) fL MCHC 29.9 L (31.0-37.0) g/dL RDW 17.1 H (11.5-15.5) % Neutrophils # 14.6 H (1.3-7.7) k/uL Lymphocytes # 0.6 L (1.0-4.8) k/uL APTT (22.0-30.0) sec Sodium 129 L (137-145) mmol/L Chloride 94 L (98-107) mmol/L BUN 49 H (9-20) mg/dL Creatinine 1.30 H (0.66-1.25) mg/dL Glucose 147 H (74-99) mg/dL POC Glucose (mg/dL) 135 H (75-99) mg/dL 03/11/17 03/11/17 Range/Units 03:10 06:07 WBC (3.8-10.6) k/uL RBC (4.30-5.90) m/uL Hgb (13.0-17.5) gm/dL Hct (39.0-53.0) % MCV (80.0-100.0) fL MCHC (31.0-37.0) g/dL RDW (11.5-15.5) % Neutrophils # (1.3-7.7) k/uL Lymphocytes # (1.0-4.8) k/uL APTT 64.0 H (22.0-30.0) sec Sodium (137-145) mmol/L Chloride (98-107) mmol/L BUN (9-20) mg/dL Creatinine (0.66-1.25) mg/dL Glucose (74-99) mg/dL POC Glucose (mg/dL) 137 H (75-99) mg/dL Microbiology - Last 24 Hours (Table) 03/10/17 20:43 Gram Stain - Preliminary Sputum Sputum Culture - Preliminary 03/08/17 20:22 Urine Culture - Preliminary Urine,Clean Catch Group D Enterococcus Assessment and Plan Assessment: This is a pleasant 71-year-old gentleman was advanced COPD and chronic hypoxic respiratory failure on home oxygen was admitted to the hospital with COPD exacerbation and he went into an A. fib with RVR which is a new diagnosis atrial fibrillation. The patient was converted to normal sinus mechanism. I will start the patient on oral anticoagulation and DC the heparin. Increase the dose of metoprolol. And follow-up with him.
[2017-03-11 11:30] LABS: Glucose,Whole Blood 133 mg/dL (75-99)
--- NOTE | 2017-03-11 12:05 | P.PN ---
Subjective Progress Note Date: 03/11/17 Principal diagnosis: COPD exacerbation This is 70-year-old gentleman patient of Dr. Mendoza Van with known history OF COPD, chronic hypoxemic respiratory failure asthma pneumonia BPH, right pulmonary nodule admitted to the emergency room secondary to shortness of breath,. He was admitted in November 2016 for the same condition and was found to have prior to that of right lung hilar mass requiring bronchoscopy with biopsy, pathology showed fragments of benign bronchial mucosa most likely secondary to pneumonia. patient is on chron ic o2, has a cat in then house taht lives in bedroom, patient complains of pain with inspiration right side. also with significant bronken sleep from neuralgia. no previous dvt or PE in past. walker on ambulation with wheelchair use He was seen in emergency room secondary to worsening shortness of breath and lower extremity edema, also has insomnia with tremors, and dysuria. Patient denies any chest pain no palpitations, no fever no chills, patient denies any productive cough, in the emergency room he was found to have significant edema with sodium of 126, hemoglobin of 10.7, mentation low at 1.4, creatinine of 0.87 , chest x-ray shows no acute abnormality, EKG shows T-wave inversion in leads V1 to V4 normal sinus rhythm. He was hypoxemic with pulse ox of 90-92%. 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, troponin of 0.014 He was admitted secondary to COPD PD exacerbation with diastolic CHF exacerbation and dependent edema He had a CAT scan performed 02/10/2017, showing redemonstration of a large subcarinal lymph node 2.2 x 1.2 cm as well as mixed moderate plaque in the aorta , some nodular consultation the right lobe lower side which is improved from previous, scattered bullae and blebs's 3 demonstrated, resolving until right upper lobe masslike consolidation, there is mild peribronchial wall thickening improved from previous, there is small left greater than right pleural effusion there's new peripheral reticulation and interstitial opacities suggesting edema and oriented. Infiltrate there are new nodular and spiculated infiltrate posterior right upper lobe 03/09: Patient states that the morphine is helping the pain in his right side of his chest at the base of his ribs but he feels groggy. This discontinued and placed on Dilaudid. Solu-Medrol will be decreased to 40 mg every 6 hours. Telemetry will be discontinued. Sodium is on the low side most likely due to SIADH. Labs ordered for this. CTA of the chest showed no evidence of pulmonary embolism. Pleural thickening and interstitial nodular infiltrate in the lower lobes not significantly different from February 10 CAT scan. There is Significant clearing of the pulmonary infiltrates compared to October 2016 CAT scan. Emphysema and bronchial adenopathy consistent with inflammatory disease. Small hiatal hernia. There is a 2 cm somewhat spiculated infiltrate in the left posterior lung base with no previous mention of this on other CAT scans. 03/10:Patient developed atrial fibrillation with rapid ventricular response during the night. Patient was transferred to the selective care unit and cardiology is on consult. Patient is currently on heparin drip and amiodarone drip. Solu-Medrol has been decreased to 40 mg every 8 hours by pulmonary medicine. Mucinex will be added. 03/11: Patient back to normal sinus rhythm. IV amiodarone discontinued. Patient 's metoprolol dose has been increased for rate control. elliquis for anticoagulation started today. She and his breathing better but increased crackles on respiratory examination. Started patient on chest physical therapy and flutter valve. Creatinine increased from baseline, concern for over diuresis on Lasix. Lasix switch from 40 mg IV twice a day to 40 mg IV daily Noted in previous admissions asthma was documented but patient has never been formally diagnosed with asthma. Objective - Vital Signs Vital signs: Vital Signs Temp 97.1 F L 03/11/17 08:00 Pulse 82 03/11/17 09:41 Resp 18 03/11/17 09:30 BP 123/62 03/11/17 08:00 Pulse Ox 93 L 03/11/17 08:00 Intake & Output 03/10/17 03/11/17 03/11/17 18:59 06:59 18:59 Intake Total 759 696.576 240 Output Total 1850 1300 Balance 759 -1153.424 -1060 Weight 80.5 kg Intake: Intake, IV Titration 259 696.576 Amount Amiodarone 450 mg In 259 210.284 Dextrose 5% in Water 250 ml @ 1 MG/MIN 34.53 mls/ hr IV .Q7H31M [facility] Rx#: [id number] Heparin Sodium,Porcine/ 486.292 D5w Pmx 25,000 unit In Dextrose/Water 1 500ml. bag @ 12 UNITS/KG/HR 18. 48 mls/hr IV .Q24H [facility] Rx #:[id number] Oral 500 240 Output: Urine 1850 1300 Straight 700 Other: Voiding Method Urinal Urinal Urinal # Voids 0 # Bowel Movements 0 0 - Exam - Exam General appearance: cooperative, no acute distress - EENT Eyes: anicteric sclerae, dentition normal, normal appearance ENT: hard of hearing, normal oropharynx - Neck Neck: no lymphadenopathy, normal ROM, no other, no rigidity, no stridor, no thyromegaly - Respiratory Respiratory: bilateral: diminished, wheezing, crackles bilaterally negative: rales, rhonchi, prolonged expiration - Cardiovascular Rhythm: regular Heart sounds: normal: S1, S2 Abnormal Heart Sounds: no systolic murmur, no diastolic murmur, no rub, no S3 Gallop, no S4 Gallop, no click, no other, trace swelling in the lower extremities - Gastrointestinal General gastrointestinal: normal bowel sounds, soft - Integumentary Integumentary: normal - Neurologic Neurologic: CNII-XII intact - Musculoskeletal Musculoskeletal: gait normal, strength equal bilaterally - Psychiatric Psychiatric: A&O x's 3, appropriate affect, intact judgment & insight - Labs CBC & Chem 7: 03/11/17 03:10 03/11/17 03:10 Labs: Abnormal Lab Results - Last 24 Hours (Table) 03/10/17 03/10/17 03/10/17 Range/Units 11:56 16:49 16:57 WBC (3.8-10.6) k/uL RBC (4.30-5.90) m/uL Hgb (13.0-17.5) gm/dL Hct (39.0-53.0) % MCV (80.0-100.0) fL MCHC (31.0-37.0) g/dL RDW (11.5-15.5) % Neutrophils # (1.3-7.7) k/uL Lymphocytes # (1.0-4.8) k/uL APTT 76.0 H (22.0-30.0) sec Sodium (137-145) mmol/L Chloride (98-107) mmol/L BUN (9-20) mg/dL Creatinine (0.66-1.25) mg/dL Glucose (74-99) mg/dL POC Glucose (mg/dL) 144 H 150 H (75-99) mg/dL 03/10/17 03/11/17 03/11/17 Range/Units 21:06 03:10 03:10 WBC 15.7 H (3.8-10.6) k/uL RBC 3.53 L (4.30-5.90) m/uL Hgb 10.6 L (13.0-17.5) gm/dL Hct 35.6 L (39.0-53.0) % MCV 100.8 H (80.0-100.0) fL MCHC 29.9 L (31.0-37.0) g/dL RDW 17.1 H (11.5-15.5) % Neutrophils # 14.6 H (1.3-7.7) k/uL Lymphocytes # 0.6 L (1.0-4.8) k/uL APTT (22.0-30.0) sec Sodium 129 L (137-145) mmol/L Chloride 94 L (98-107) mmol/L BUN 49 H (9-20) mg/dL Creatinine 1.30 H (0.66-1.25) mg/dL Glucose 147 H (74-99) mg/dL POC Glucose (mg/dL) 135 H (75-99) mg/dL 03/11/17 03/11/17 03/11/17 Range/Units 03:10 06:07 11:28 WBC (3.8-10.6) k/uL RBC (4.30-5.90) m/uL Hgb (13.0-17.5) gm/dL Hct (39.0-53.0) % MCV (80.0-100.0) fL MCHC (31.0-37.0) g/dL RDW (11.5-15.5) % Neutrophils # (1.3-7.7) k/uL Lymphocytes # (1.0-4.8) k/uL APTT 64.0 H (22.0-30.0) sec Sodium (137-145) mmol/L Chloride (98-107) mmol/L BUN (9-20) mg/dL Creatinine (0.66-1.25) mg/dL Glucose (74-99) mg/dL POC Glucose (mg/dL) 137 H 133 H (75-99) mg/dL Microbiology - Last 24 Hours (Table) 03/10/17 20:43 Gram Stain - Preliminary Sputum Sputum Culture - Preliminary 03/08/17 20:22 Urine Culture - Preliminary Urine,Clean Catch Group D Enterococcus Assessment and Plan Plan: 1. COPD exacerbation, with underlying history of asthma admitted with increasing dyspnea and edema, continue Solu-Medrol 40 mg every 8 hours along with nebulized albuterol and Atrovent, consult with pulmonary doctor Carlota. Patient had bronchoscopy in November 2013 secondary to a right pulmonary endobronchial nodule which shows no malignancy, performed 11/17/2016. Echocardiogram also performed November 2016 shows ejection fraction of 55-6% trace TR right ventricular Systolic pressure not commented. Started on flutter valve treatment and chest physiotherapy along with Mucinex twice a day. Lasix reduced to 40 mg IV daily. 2. Moderately to advanced COPD with scattered fibrosis, with chronic hypoxemic respiratory failure on maintenance O2 at home At 24 /7 on maintenance Advair and Spiriva 3. Chronic hypoxemic respiratory failure with COPD maintenance Advair 250/50 and Spiriva O2 dependent is a cannula quit October 2016 4. BPH with lower neck tract symptomatology, urinalysis negative, on Flomax 0.4 mg at bedtime 5. Hypertension- hold losartan 100 mg, continue metoprolol 50 mg by mouth twice a day, New medication 6. Generalized anxiety disorder and recurrent depression stable 7. Chronic tobacco exposure 8. 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 Chronic exposure to cat aeroallergens, [place] ALLERGY panel and IgE levels obtained. 10. Old compression fracture T7-T8 with chronic low back pain, no medication changes 11. New spiculated infiltrate posterior right upper lobe the right upper lobe CAT scan noted in 02/10/2017 to be monitored as an outpatient Dr. Van aware 12. New onset atrial fibrillation with rapid ventricular response- continue metoprolol with elliquis DVT prophylaxis with subcu heparin and JOSEPH hose GI prophylaxis Discharge plan: Home with [facility]
[2017-03-11] MEDS ORDERED: APIXABAN 5 MG TAB PO ONE (12:30)
--- NOTE | 2017-03-11 13:22 | P.PN ---
Subjective Progress Note Date: 03/11/17 Principal diagnosis: Marbin is a very pleasant 70-year-old male patient who was in the hospital in November 2016 for an extensive right lung pneumonia. At that time there was a suspicion for lung mass. The patient a bronchoscopy and the results were nondiagnostic. Following his discharge from the hospital the patient went tomorrow with and it took him quite some times and he recuperated and he is coming today to see me in the outpatient. Note that he also had hyponatremia at a time of his admission. He was on 2 L/m nasal cannula. He gets short of breath with limited amount of activity. He has not smoked since October 2016. His CAT scan of the chest from October 2016 showed diffuse opacities mostly in the right upper lobe that was not present on the previous CAT scan of the chest from 2015. There was extensive opacity in the posterior superior right lower lobe consistent with pneumonia. Airspace disease also seen in the anterior aspect of the left upper lobe. There was also a nodule measuring 1.2 x 0.9 mm in the left upper lobe and several nodules in the right upper lobe that is very difficult to differentiate from pneumonia. One of the nodules in the right upper lobe is measuring 1.4 x 0.8 cm. There was extensive emphysema throughout the lung villalobos bilaterally and probably some early cavitation in the right upper lobe. As such the patient a bronchoscopy and the results were nondiagnostic for any microbes or any cancers. On 02/24/2017 Marbin was seen in FU in the office. He was pulse oxing around 90-91 % diseases of oxygen by nasal cannula. He has some excess congestion his sinuses. He was on a combination of Advair and Spiriva and he uses pro-air as needed. He typically uses around 4 times a day, 2 puffs. No significant chest congestion. No significant mucus production. No fever chills or night sweats. The CAT scan of the chest was repeated in January 2017 and it showed moderate to severe emphysema and there is [id number] biapical parenchymal scarring and fibrosis. There is also small left greater than right pleural effusions. There is also new peripheral reticular interstitial opacities suggestive of edema. The note that her consolidation in the right lower lobe has improved and there is scattered bullae throughout the lung villalobos. The right upper lobe masslike consolidation has recovered. There is redemonstration of the subcarinal lymph nodes measuring 2.2 x 1.2 cm in size. There is also a large right paratracheal lymph node. There is an enlarged hilar lymph nodes. No cardiomegaly. There is compression deformity of the T8 vertebral spine. On 03/08/2017 the patient presented himself to the emergency department. Apparently over the past 24 hours his condition has gotten worse. He had become uncomfortable as the patient started having loose liquidy bowel movements and he had 3 episodes [id number]. Limited nausea. No emesis. No abdominal pain. No abdominal distention. No melena. He also was having difficulties with urination where at times he was having retention and other times he was having dysuria. Denies having any chills or fever. He was having symptoms of UTI and he had contacted his primary care physician and he was given a course of Bactrim on outpatient basis. He has also noted significant swelling in lower oximetry is bilaterally. A chest x-ray was done at time of admission and the chest x-ray findings are essentially stable to the previous chest from that was done earlier. As mentioned the patient extensive consolidation of the right upper lobe and some limited pulmonary changes and left upper lobe which were improving on subsequent CAT scan findings. The patient continues to have some nodules as mentioned in the right upper lobe measuring 1.4 x 0.8 cm in size and another nodule in the left upper lobe measuring 1.2 cm in size and this is something to be followed up at a later stage with a subsequent CAT scan of the chest. He is on a combination of Advair and Spiriva at home and he doesn't be done about treatments in addition to prior rescue inhaler on as-needed basis. His action dependent somewhat between 2-3 L/m nasal cannula. He denies having any worsening shortness of breath. Limited cough and congestion. No signs of any respiratory failure at this point. Legs are quite swollen bilaterally. No previous history of DVT or pulmonary embolism. He has been on no diuretics. On 03/09/2017 patient seen in follow-up on medical surgical floor. He is slightly dyspneic with conversation, the right rib cage pain posteriorly is responding to IV morphine. He has persisting shooting pain in his bilateral lower extremities which is chronic for him, and is related to his underlying back problems. He had a good response to IV Lasix, he is a -1310 mL fluid balance over the last 24 hours. Lung sounds are clear diminished at the bases. No rhonchi, no wheezes, no rales appreciated. On 3 L per nasal cannula with O2 sat at 94%. Afebrile. Did have one episode of pasty stool this morning, the staff was not able to collected were C. diff analysis. Patient reports taking large amounts of Metamucil at home for his perceived constipation. Bilateral lower extremity edema has improved, patient has the thigh-high compression stockings on. 03/10/2017 the patient is seen again today in follow-up. He was transferred up to the selective care unit early this morning following a episode of atrial fibrillation with rapid reticular response. He's been initiated on amiodarone currently at 1 mg per minute along with a heparin drip. He is currently awake and alert in no acute distress. He denies any worsening shortness of breath, cough or congestion. He denies any chest pain. His heart rate is better controlled. No complaints of palpitations. His lower extremity edema is improved. Urine cultures positive for group D enterococcus, sensitivity pending. White count 22.4. Hemoglobin 10.9. Platelet count 485,000. Sodium improved to 130. Creatinine 1.08. Current temperature 99.5. Maintain O2 saturations in the 90s on 3 L. The patient is seen again today 03/11/2017 in follow-up on the selective care unit. He is awake and alert in no acute distress. His atrial fib is better controlled. He denies any worsening shortness of breath, cough or congestion. He remains afebrile. Maintaining good O2 saturations in the mid 90s on 3 L/m per nasal cannula. Sputum culture is pending. White count improved at 15.7. Hemoglobin 10.6 sodium 129 creatinine 1.30 Hemodynamically stable. Objective - Vital Signs Vital signs: Vital Signs Temp 97.2 F L 03/11/17 11:59 Pulse 52 L 03/11/17 11:59 Resp 16 03/11/17 11:59 BP 132/75 03/11/17 11:59 Pulse Ox 94 L 03/11/17 11:59 Intake & Output 03/10/17 03/11/17 03/11/17 18:59 06:59 18:59 Intake Total 759 696.576 240 Output Total 1850 1300 Balance 759 -1153.424 -1060 Weight 80.5 kg Intake: Intake, IV Titration 259 696.576 Amount Amiodarone 450 mg In 259 210.284 Dextrose 5% in Water 250 ml @ 1 MG/MIN 34.53 mls/ hr IV .Q7H31M [facility] Rx#: [id number] Heparin Sodium,Porcine/ 486.292 D5w Pmx 25,000 unit In Dextrose/Water 1 500ml. bag @ 12 UNITS/KG/HR 18. 48 mls/hr IV .Q24H [facility] Rx #:[id number] Oral 500 240 Output: Urine 1850 1300 Straight 700 Other: Voiding Method Urinal Urinal Indwelling Catheter # Voids 0 # Bowel Movements 0 0 - Exam GENERAL EXAM: Alert, comfortable in no apparent distress. HEAD: Normocephalic. EYES: Normal reaction of pupils, equal size. NOSE: Clear with pink turbinates. THROAT: No erythema or exudates. NECK: No masses, no JVD. CHEST: No chest wall deformity. LUNGS: Equal air entry with faint end expiratory wheeze. Diminished. CVS: S1 and S2 normal with no audible murmur, irregular rhythm. ABDOMEN: No hepatosplenomegaly, normal bowel sounds, no guarding or rigidity. SPINE: No scoliosis or deformity SKIN: No rashes CENTRAL NERVOUS SYSTEM: No focal deficits, tone is normal in all 4 extremities. EXTREMITIES: There is 1-2+ peripheral edema. No clubbing, no cyanosis. Peripheral pulses are intact. - Labs CBC & Chem 7: 03/11/17 03:10 03/11/17 03:10 Labs: Abnormal Lab Results - Last 24 Hours (Table) 03/10/17 03/10/17 03/10/17 Range/Units 16:49 16:57 21:06 WBC (3.8-10.6) k/uL RBC (4.30-5.90) m/uL Hgb (13.0-17.5) gm/dL Hct (39.0-53.0) % MCV (80.0-100.0) fL MCHC (31.0-37.0) g/dL RDW (11.5-15.5) % Neutrophils # (1.3-7.7) k/uL Lymphocytes # (1.0-4.8) k/uL APTT 76.0 H (22.0-30.0) sec Sodium (137-145) mmol/L Chloride (98-107) mmol/L BUN (9-20) mg/dL Creatinine (0.66-1.25) mg/dL Glucose (74-99) mg/dL POC Glucose (mg/dL) 150 H 135 H (75-99) mg/dL 03/11/17 03/11/17 03/11/17 Range/Units 03:10 03:10 03:10 WBC 15.7 H (3.8-10.6) k/uL RBC 3.53 L (4.30-5.90) m/uL Hgb 10.6 L (13.0-17.5) gm/dL Hct 35.6 L (39.0-53.0) % MCV 100.8 H (80.0-100.0) fL MCHC 29.9 L (31.0-37.0) g/dL RDW 17.1 H (11.5-15.5) % Neutrophils # 14.6 H (1.3-7.7) k/uL Lymphocytes # 0.6 L (1.0-4.8) k/uL APTT 64.0 H (22.0-30.0) sec Sodium 129 L (137-145) mmol/L Chloride 94 L (98-107) mmol/L BUN 49 H (9-20) mg/dL Creatinine 1.30 H (0.66-1.25) mg/dL Glucose 147 H (74-99) mg/dL POC Glucose (mg/dL) (75-99) mg/dL 03/11/17 03/11/17 Range/Units 06:07 11:28 WBC (3.8-10.6) k/uL RBC (4.30-5.90) m/uL Hgb (13.0-17.5) gm/dL Hct (39.0-53.0) % MCV (80.0-100.0) fL MCHC (31.0-37.0) g/dL RDW (11.5-15.5) % Neutrophils # (1.3-7.7) k/uL Lymphocytes # (1.0-4.8) k/uL APTT (22.0-30.0) sec Sodium (137-145) mmol/L Chloride (98-107) mmol/L BUN (9-20) mg/dL Creatinine (0.66-1.25) mg/dL Glucose (74-99) mg/dL POC Glucose (mg/dL) 137 H 133 H (75-99) mg/dL Microbiology - Last 24 Hours (Table) 03/10/17 20:43 Gram Stain - Preliminary Sputum Sputum Culture - Preliminary 03/08/17 20:22 Urine Culture - Preliminary Urine,Clean Catch Group D Enterococcus Assessment and Plan Assessment: Impression: 1 new onset diarrhea, probably antibiotic induced, rule out possibility of C. diff colitis specially the patient has been on multiple antibiotics in the past and most recently the patient was completing a course of Bactrim. Will check stool for C. diff. The blood work shows a component of non-anion gap metabolic acidosis, improved, bicarb level of 20. Patient reports taking large amounts of Metamucil for perceived constipation 2 chronic lower extremity edema with interval improvement 3 hyponatremia, improved. Serum sodium is 129 on 03/11/2017. 4 recent hospitalization for an extensive right upper lobe pneumonia, The patient had aggressive and advanced multilobar pneumonia affecting mainly the right upper lobe and to lesser extent the right lower lobe back in October/November 2016. He was hospitalized and he was treated with antibiotics. During the same hospitalization the patient had a bronchoscopy and the bronchioloalveolar lavage that showed no microbial growth and the patient also did not have any malignancy on the transbronchial biopsies I reviewed the computed tomography scan of the chest and the right upper lobe and the right lower lobe consolidations of both improved considerably in the order of 90%. There is some residual opacities bilaterally however I think this is related to his chronic fibrosis in addition to his advanced COPD. Malignancy is doubtful at this stage however it cannot be completely excluded. I reassured the patient about the results of the findings. 2 lung mass, lateral upper lobe nodules, 1.4 cm in the right upper lobe and 1.2 cm and the left upper lobe, I favor inflammatory changes on his CAT scan without any malignancy. I think the inflammation is improving and the patient's CAT scan has showed clearing of the right upper lobe and right lower lobe pulmonary infiltration and cavitation. 3 severe chronic obstructive pulmonary disease, Continue Spiriva and Advair as maintenance treatment for his COPD. Continue same medications. We'll continue to follow. The patient has already taken his flu shot. Continue same medications for now. 4 chronic hypoxemic respiratory failure, On O2 at 3liters/min 5 dependence on enabling machine or device 6 Very poor baseline performance and functional status. 7 recurrent urine tract infection most recent urine cultures showing group D enterococcus. #8 New onset of atrial fibrillation with a rapid ventricular response. Initiated on amiodarone and heparin. Will be initiated on apixaban. Plan: The patient was seen and evaluated by Dr. Van. He is improved from the pulmonary standpoint. He does have some dyspnea with exertion. His heart rate is currently better controlled. Remains in atrial fibrillation. We'll continue with his current medications. He remains on IV Lasix. We will increase his activity as tolerated. We'll continue to follow. I, the cosigning physician, have performed a history and physical examination on the patient. Lung sounds have bilateral end expiratory wheeze. Maintaining good O2 saturations in the 90s on 3 L/m per nasal cannula.. I have discussed the assessment and plan of care with my nurse practitioner, Lissy Francois. I attest the above documented note as dictated by her.
[2017-03-11] MEDS ORDERED: METOPROLOL TARTRATE 25 MG TAB PO STA (14:56)
[2017-03-11 16:35] LABS: Glucose,Whole Blood 108 mg/dL (75-99)
[2017-03-11 21:31] LABS: Glucose,Whole Blood 111 mg/dL (75-99)
[2017-03-11] MEDS: APIXABAN 5 MG TAB PO SCH (21:57)
[2017-03-11] MEDS: TAMSULOSIN 0.4 MG CAP.ER.24H PO SCH (21:58)
[2017-03-11] MEDS: METOPROLOL TARTRATE 50 MG TAB PO SCH (21:58)
[2017-03-11] MEDS: SENNOSIDES 8.6 MG TAB PO SCH (21:58)
[2017-03-12] MEDS: HYDROmorphone 2 MG/ML 1 ML SYRINGE IVP PRN (04:50)
[2017-03-12 06:10] LABS: Glucose,Whole Blood 120 mg/dL (75-99)
[2017-03-12] MEDS: INSULIN LISPRO (humaLOG) 300 UNIT/3 ML VIAL SQ SCH ×4 (06:18→20:57)
[2017-03-12 06:36] LABS: Basophils % (A) 0 %; CH 30.5; CHCM 30.2; Eosinophils % (A) 0 %; HCT 36.8 % (39.0-53.0); HDW 3.01; HGB 10.8 gm/dL (13.0-17.5); Hypochromasia Marked; Luc # (Auto) 0.16; Luc % (Auto) 1; Lymphocytes # (A) 0.9 k/uL (1.0-4.8); Lymphocytes % (A) 7 %; MCH 29.8 pg (25.0-35.0); MCHC 29.4 g/dL (31.0-37.0); MCV 101.3 fL (80.0-100.0); Macrocytosis Slight; Mean Platelet Volume 6.9; Monocytes # (A) 0.7 k/uL (0-1.0); Monocytes % (A) 5 %; Neutrophils # (A) 10.6 k/uL (1.3-7.7); Neutrophils % (A) 86 %; RBC 3.63 m/uL (4.30-5.90); RDW 15.5 % (11.5-15.5); WBC 12.4 k/uL (3.8-10.6); WBC (Perox) 12.22
[2017-03-12 06:45] LABS: Anion Gap 8 mmol/L; Blood Urea Nitrogen 50 mg/dL (9-20); Carbon Dioxide 26 mmol/L (22-30); Chloride 97 mmol/L (98-107); Glucose 122 mg/dL (74-99); Non-African American GFR(MDRD) >60 (>60 ml/min/1.73 sqM); Potassium 5.5 mmol/L (3.5-5.1); Sodium 131 mmol/L (137-145)
[2017-03-12] MEDS: PANTOPRAZOLE 40 MG TABLET PO SCH (06:57)
[2017-03-12] MEDS: ALBUTEROL NEBULIZED 2.5 MG/3 ML INHALATION SCH (07:50)
[2017-03-12] MEDS: FORMOTEROL FUMARATE 20 MCG/2 ML NEBU INHALATION SCH ×2 (07:50→20:38)
[2017-03-12] MEDS: IPRATROPIUM 0.5 MG/2.5 ML NEBU INHALATION SCH ×4 (07:50→20:38)
[2017-03-12] MEDS: BUDESONIDE 0.5 MG/2 ML NEBU INHALATION SCH ×2 (07:50→20:38)
[2017-03-12] MEDS: APIXABAN 5 MG TAB PO SCH ×2 (07:53→20:56)
[2017-03-12] MEDS: FLUTICASONE 50MCG/SPRAY NASAL 16GM EA NOSTRIL SCH ×2 (07:53→20:56)
[2017-03-12] MEDS: GABAPENTIN 300 MG CAP PO SCH ×3 (07:54→20:58)
[2017-03-12] MEDS: guaiFENesin 600 MG TABLET.ER PO SCH ×2 (07:54→20:56)
[2017-03-12] MEDS: MAGNESIUM OXIDE 400 MG TAB PO SCH ×2 (07:55→20:57)
[2017-03-12] MEDS: METOPROLOL TARTRATE 50 MG TAB PO SCH ×2 (07:55→20:57)
[2017-03-12] MEDS: methylPREDNISolone SOD SUCCI 40 MG/ML 1 ML VIAL IV SCH ×2 (07:55→20:57)
[2017-03-12] MEDS: SENNOSIDES 8.6 MG TAB PO SCH ×2 (07:56→20:58)
[2017-03-12] MEDS: ALBUTEROL NEB (CONC) 2.5 MG/0.5 ML INHALATION SCH ×4 (08:08→20:37)
[2017-03-12] MEDS ORDERED: FUROSEMIDE 10 MG/ML 4 ML VIAL IV SCH (09:00)
--- NOTE | 2017-03-12 11:03 | P.PN ---
Subjective Principal diagnosis: New onset atrial fibrillation This is a pleasant 72-year-old gentleman who does not follow with any trimmer and reinforcer on a regular basis with a past medical history significant for advanced chronic obstructive pulmonary disease/chronic respiratory failure on home oxygen, hypertension, as well as multiple comorbid conditions was admitted to the hospital a few days ago with dyspnea and he was diagnosed with COPD exacerbation. During the hospital stay, the patient went into an A. fib with RVR. The patient never been diagnosed was A. fib in the past. He stated that he was experiencing at home sometimes intermittent episodes of heart racing and fluttering associated with fast heart rate. No chest pain or chest discomfort. No history of coronary artery disease or congestive heart failure or cardiac arrhythmia. In November 2016 he was admitted to the hospital and at that point an echocardiogram was performed and revealed normal LV function without any significant valvular abnormalities. I'll follow-up with the patient today, he seems to be converted to normal sinus mechanism. The heart rate has been controlled. He is on metoprolol and also he is on oral anticoagulation with Eliquis. Objective - Vital Signs Vital signs: Vital Signs Temp 96.9 F L 03/12/17 08:00 Pulse 86 03/12/17 08:24 Resp 17 03/12/17 08:00 BP 126/58 03/12/17 08:00 Pulse Ox 90 L 03/12/17 08:00 Intake & Output 03/11/17 03/12/17 03/12/17 19:59 06:59 18:59 Intake Total 240 Output Total 500 Balance -260 Weight Intake: IV .9 @ 10 Oral 240 Output: Urine 500 Uretheral (Baez) 500 Other: Voiding Method Indwelling Catheter # Bowel Movements - Constitutional General appearance: Present: no acute distress - Respiratory Respiratory: bilateral: rales - Cardiovascular Rhythm: regular Heart sounds: normal: S1, S2 - Labs CBC & Chem 7: 03/12/17 05:54 03/12/17 05:54 Labs: Abnormal Lab Results - Last 24 Hours (Table) 03/11/17 03/11/17 03/12/17 Range/Units 16:30 21:29 05:54 WBC (3.8-10.6) k/uL RBC (4.30-5.90) m/uL Hgb (13.0-17.5) gm/dL Hct (39.0-53.0) % MCV (80.0-100.0) fL MCHC (31.0-37.0) g/dL Neutrophils # (1.3-7.7) k/uL Lymphocytes # (1.0-4.8) k/uL Sodium 131 L (137-145) mmol/L Potassium 5.5 H (3.5-5.1) mmol/L Chloride 97 L (98-107) mmol/L BUN 50 H (9-20) mg/dL Glucose 122 H (74-99) mg/dL POC Glucose (mg/dL) 108 H 111 H (75-99) mg/dL 03/12/17 03/12/17 Range/Units 05:54 06:08 WBC 12.4 H (3.8-10.6) k/uL RBC 3.63 L (4.30-5.90) m/uL Hgb 10.8 L (13.0-17.5) gm/dL Hct 36.8 L (39.0-53.0) % MCV 101.3 H (80.0-100.0) fL MCHC 29.4 L (31.0-37.0) g/dL Neutrophils # 10.6 H (1.3-7.7) k/uL Lymphocytes # 0.9 L (1.0-4.8) k/uL Sodium (137-145) mmol/L Potassium (3.5-5.1) mmol/L Chloride (98-107) mmol/L BUN (9-20) mg/dL Glucose (74-99) mg/dL POC Glucose (mg/dL) 120 H (75-99) mg/dL Microbiology - Last 24 Hours (Table) 03/08/17 20:22 Urine Culture - Final Urine,Clean Catch Enterococcus faecalis Assessment and Plan Assessment: This is a pleasant 71-year-old gentleman was advanced COPD and chronic hypoxic respiratory failure on home oxygen was admitted to the hospital with COPD exacerbation and he went into an A. fib with RVR which is a new diagnosis atrial fibrillation. The patient was converted to normal sinus mechanism. I will continue the current medical treatment was metoprolol as well as oral anticoagulation.
[2017-03-12 11:48] LABS: Glucose,Whole Blood 119 mg/dL (75-99)
[2017-03-12] MEDS ORDERED: SODIUM POLYSTYRENE SULFONATE 15 GM/60 ML BOTTLE PO STA (12:33)
--- NOTE | 2017-03-12 12:42 | P.PN ---
Subjective Progress Note Date: 03/12/17 Principal diagnosis: COPD exacerbation This is 70-year-old gentleman patient of Dr. Mendoza Van with known history OF COPD, chronic hypoxemic respiratory failure asthma pneumonia BPH, right pulmonary nodule admitted to the emergency room secondary to shortness of breath,. He was admitted in November 2016 for the same condition and was found to have prior to that of right lung hilar mass requiring bronchoscopy with biopsy, pathology showed fragments of benign bronchial mucosa most likely secondary to pneumonia. patient is on chron ic o2, has a cat in then house taht lives in bedroom, patient complains of pain with inspiration right side. also with significant bronken sleep from neuralgia. no previous dvt or PE in past. walker on ambulation with wheelchair use He was seen in emergency room secondary to worsening shortness of breath and lower extremity edema, also has insomnia with tremors, and dysuria. Patient denies any chest pain no palpitations, no fever no chills, patient denies any productive cough, in the emergency room he was found to have significant edema with sodium of 126, hemoglobin of 10.7, mentation low at 1.4, creatinine of 0.87 , chest x-ray shows no acute abnormality, EKG shows T-wave inversion in leads V1 to V4 normal sinus rhythm. He was hypoxemic with pulse ox of 90-92%. [employer] proBNP 5300, troponin of 0.014 He was admitted secondary to COPD PD exacerbation with diastolic CHF exacerbation and dependent edema He had a CAT scan performed 02/10/2017, showing redemonstration of a large subcarinal lymph node 2.2 x 1.2 cm as well as mixed moderate plaque in the aorta , some nodular consultation the right lobe lower side which is improved from previous, scattered bullae and blebs's 3 demonstrated, resolving until right upper lobe masslike consolidation, there is mild peribronchial wall thickening improved from previous, there is small left greater than right pleural effusion there's new peripheral reticulation and interstitial opacities suggesting edema and oriented. Infiltrate there are new nodular and spiculated infiltrate posterior right upper lobe 03/09: Patient states that the morphine is helping the pain in his right side of his chest at the base of his ribs but he feels groggy. This discontinued and placed on Dilaudid. Solu-Medrol will be decreased to 40 mg every 6 hours. Telemetry will be discontinued. Sodium is on the low side most likely due to SIADH. Labs ordered for this. CTA of the chest showed no evidence of pulmonary embolism. Pleural thickening and interstitial nodular infiltrate in the lower lobes not significantly different from February 10 CAT scan. There is Significant clearing of the pulmonary infiltrates compared to October 2016 CAT scan. Emphysema and bronchial adenopathy consistent with inflammatory disease. Small hiatal hernia. There is a 2 cm somewhat spiculated infiltrate in the left posterior lung base with no previous mention of this on other CAT scans. 03/10:Patient developed atrial fibrillation with rapid ventricular response during the night. Patient was transferred to the selective care unit and cardiology is on consult. Patient is currently on heparin drip and amiodarone drip. Solu-Medrol has been decreased to 40 mg every 8 hours by pulmonary medicine. Mucinex will be added. 03/11: Patient back to normal sinus rhythm. IV amiodarone discontinued. Patient 's metoprolol dose has been increased for rate control. elliquis for anticoagulation started today. She and his breathing better but increased crackles on respiratory examination. Started patient on chest physical therapy and flutter valve. Creatinine increased from baseline, concern for over diuresis on Lasix. Lasix switch from 40 mg IV twice a day to 40 mg IV daily Noted in previous admissions asthma was documented but patient has never been formally diagnosed with asthma. 03/12 Patient is restless and is concerned about the pain in his legs last night. Pain is bad enough for him not to sleep. Gabapentin was increased at night to 900 mg and melatonin was added to patient's regimen. Dilaudid was discontinued and patient started on [place] for pain control. Patient is on Baez catheter due to urinary retention. Flomax increased to 0.8 mg for BPH Objective - Vital Signs Vital signs: Vital Signs Temp 97.0 F L 03/12/17 12:00 Pulse 75 03/12/17 12:00 Resp 20 03/12/17 12:00 BP 119/72 03/12/17 12:00 Pulse Ox 90 L 03/12/17 12:00 Intake & Output 03/11/17 03/12/17 03/12/17 19:59 06:59 18:59 Intake Total 360 Output Total 2750 Balance -2390 Weight Intake: IV .9 @ 10 Oral 360 Output: Urine 2750 Uretheral (Baez) 2750 Other: Voiding Method Indwelling Catheter # Bowel Movements - Exam - Exam General appearance: cooperative, no acute distress - EENT Eyes: anicteric sclerae, dentition normal, normal appearance ENT: hard of hearing, normal oropharynx - Neck Neck: no lymphadenopathy, normal ROM, no other, no rigidity, no stridor, no thyromegaly - Respiratory Respiratory: bilateral: diminished, wheezing, crackles bilaterally negative: rales, rhonchi, prolonged expiration - Cardiovascular Rhythm: regular Heart sounds: normal: S1, S2 Abnormal Heart Sounds: no systolic murmur, no diastolic murmur, no rub, no S3 Gallop, no S4 Gallop, no click, no other, trace swelling in the lower extremities - Gastrointestinal General gastrointestinal: normal bowel sounds, soft - Integumentary Integumentary: normal - Neurologic Neurologic: CNII-XII intact - Musculoskeletal Musculoskeletal: gait normal, strength equal bilaterally - Psychiatric Psychiatric: A&O x's 3, appropriate affect, intact judgment & insight - Labs CBC & Chem 7: 03/12/17 05:54 03/12/17 05:54 Labs: Abnormal Lab Results - Last 24 Hours (Table) 03/11/17 03/11/17 03/12/17 Range/Units 16:30 21:29 05:54 WBC (3.8-10.6) k/uL RBC (4.30-5.90) m/uL Hgb (13.0-17.5) gm/dL Hct (39.0-53.0) % MCV (80.0-100.0) fL MCHC (31.0-37.0) g/dL Neutrophils # (1.3-7.7) k/uL Lymphocytes # (1.0-4.8) k/uL Sodium 131 L (137-145) mmol/L Potassium 5.5 H (3.5-5.1) mmol/L Chloride 97 L (98-107) mmol/L BUN 50 H (9-20) mg/dL Glucose 122 H (74-99) mg/dL POC Glucose (mg/dL) 108 H 111 H (75-99) mg/dL 03/12/17 03/12/17 03/12/17 Range/Units 05:54 06:08 11:37 WBC 12.4 H (3.8-10.6) k/uL RBC 3.63 L (4.30-5.90) m/uL Hgb 10.8 L (13.0-17.5) gm/dL Hct 36.8 L (39.0-53.0) % MCV 101.3 H (80.0-100.0) fL MCHC 29.4 L (31.0-37.0) g/dL Neutrophils # 10.6 H (1.3-7.7) k/uL Lymphocytes # 0.9 L (1.0-4.8) k/uL Sodium (137-145) mmol/L Potassium (3.5-5.1) mmol/L Chloride (98-107) mmol/L BUN (9-20) mg/dL Glucose (74-99) mg/dL POC Glucose (mg/dL) 120 H 119 H (75-99) mg/dL Microbiology - Last 24 Hours (Table) 03/10/17 20:43 Gram Stain - Preliminary Sputum Sputum Culture - Preliminary Aspergillus species [place] albicans 03/08/17 20:22 Urine Culture - Final Urine,Clean Catch Enterococcus faecalis Assessment and Plan Plan: 1. COPD exacerbation, with underlying history of asthma admitted with increasing dyspnea and edema, continue Solu-Medrol 40 mg every 8 hours along with nebulized albuterol and Atrovent, consult with pulmonary doctor Carlota. Patient had bronchoscopy in November 2013 secondary to a right pulmonary endobronchial nodule which shows no malignancy, performed 11/17/2016. Echocardiogram also performed November 2016 shows ejection fraction of 55-6% trace TR right ventricular Systolic pressure not commented. Started on flutter valve treatment along with Mucinex twice a day. Lasix reduced to 40 mg po daily. 2. Moderately to advanced COPD with scattered fibrosis, with chronic hypoxemic respiratory failure on maintenance O2 at home At 24 /7 on maintenance Advair and Spiriva 3. Chronic hypoxemic respiratory failure with COPD maintenance Advair 250/50 and Spiriva O2 dependent is a cannula quit October 2016 4. BPH with lower neck tract symptomatology, urinalysis negative, on Flomax 0.8 mg at bedtime, vision is currently on Baez catheter would need to follow with urology on discharge. 5. Hypertension- hold losartan 100 mg, continue metoprolol 50 mg by mouth twice a day, New medication 6. Generalized anxiety disorder and recurrent depression stable 7. Chronic tobacco exposure 8. 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 Chronic exposure to cat aeroallergens, [place] ALLERGY panel and IgE levels obtained. 10. Old compression fracture T7-T8 with chronic low back pain, no medication changes 11. New spiculated infiltrate posterior right upper lobe the right upper lobe CAT scan noted in 02/10/2017 to be monitored as an outpatient Dr. Carlota maza 12. New onset atrial fibrillation with rapid ventricular response- continue metoprolol with elliquis DVT prophylaxis with subcu heparin and JOSEPH hose GI prophylaxis Discharge plan: Home with [facility]
--- NOTE | 2017-03-12 12:56 | P.PN ---
Subjective Progress Note Date: 03/12/17 Marbin is a very pleasant 70-year-old male patient who was in the hospital in November 2016 for an extensive right lung pneumonia. At that time there was a suspicion for lung mass. The patient a bronchoscopy and the results were nondiagnostic. Following his discharge from the hospital the patient went tomorrow with and it took him quite some times and he recuperated and he is coming today to see me in the outpatient. Note that he also had hyponatremia at a time of his admission. He was on 2 L/m nasal cannula. He gets short of breath with limited amount of activity. He has not smoked since October 2016. His CAT scan of the chest from October 2016 showed diffuse opacities mostly in the right upper lobe that was not present on the previous CAT scan of the chest from 2015. There was extensive opacity in the posterior superior right lower lobe consistent with pneumonia. Airspace disease also seen in the anterior aspect of the left upper lobe. There was also a nodule measuring 1.2 x 0.9 mm in the left upper lobe and several nodules in the right upper lobe that is very difficult to differentiate from pneumonia. One of the nodules in the right upper lobe is measuring 1.4 x 0.8 cm. There was extensive emphysema throughout the lung villalobos bilaterally and probably some early cavitation in the right upper lobe. As such the patient a bronchoscopy and the results were nondiagnostic for any microbes or any cancers. On 02/24/2017 Marbin was seen in FU in the office. He was pulse oxing around 90-91 % diseases of oxygen by nasal cannula. He has some excess congestion his sinuses. He was on a combination of Advair and Spiriva and he uses pro-air as needed. He typically uses around 4 times a day, 2 puffs. No significant chest congestion. No significant mucus production. No fever chills or night sweats. The CAT scan of the chest was repeated in January 2017 and it showed moderate to severe emphysema and there is [id number] biapical parenchymal scarring and fibrosis. There is also small left greater than right pleural effusions. There is also new peripheral reticular interstitial opacities suggestive of edema. The note that her consolidation in the right lower lobe has improved and there is scattered bullae throughout the lung villalobos. The right upper lobe masslike consolidation has recovered. There is redemonstration of the subcarinal lymph nodes measuring 2.2 x 1.2 cm in size. There is also a large right paratracheal lymph node. There is an enlarged hilar lymph nodes. No cardiomegaly. There is compression deformity of the T8 vertebral spine. On 03/08/2017 the patient presented himself to the emergency department. Apparently over the past 24 hours his condition has gotten worse. He had become uncomfortable as the patient started having loose liquidy bowel movements and he had 3 episodes [id number]. Limited nausea. No emesis. No abdominal pain. No abdominal distention. No melena. He also was having difficulties with urination where at times he was having retention and other times he was having dysuria. Denies having any chills or fever. He was having symptoms of UTI and he had contacted his primary care physician and he was given a course of Bactrim on outpatient basis. He has also noted significant swelling in lower oximetry is bilaterally. A chest x-ray was done at time of admission and the chest x-ray findings are essentially stable to the previous chest from that was done earlier. As mentioned the patient extensive consolidation of the right upper lobe and some limited pulmonary changes and left upper lobe which were improving on subsequent CAT scan findings. The patient continues to have some nodules as mentioned in the right upper lobe measuring 1.4 x 0.8 cm in size and another nodule in the left upper lobe measuring 1.2 cm in size and this is something to be followed up at a later stage with a subsequent CAT scan of the chest. He is on a combination of Advair and Spiriva at home and he doesn't be done about treatments in addition to prior rescue inhaler on as-needed basis. His action dependent somewhat between 2-3 L/m nasal cannula. He denies having any worsening shortness of breath. Limited cough and congestion. No signs of any respiratory failure at this point. Legs are quite swollen bilaterally. No previous history of DVT or pulmonary embolism. He has been on no diuretics. On 03/09/2017 patient seen in follow-up on medical surgical floor. He is slightly dyspneic with conversation, the right rib cage pain posteriorly is responding to IV morphine. He has persisting shooting pain in his bilateral lower extremities which is chronic for him, and is related to his underlying back problems. He had a good response to IV Lasix, he is a -1310 mL fluid balance over the last 24 hours. Lung sounds are clear diminished at the bases. No rhonchi, no wheezes, no rales appreciated. On 3 L per nasal cannula with O2 sat at 94%. Afebrile. Did have one episode of pasty stool this morning, the staff was not able to collected were C. diff analysis. Patient reports taking large amounts of Metamucil at home for his perceived constipation. Bilateral lower extremity edema has improved, patient has the thigh-high compression stockings on. 03/10/2017 the patient is seen again today in follow-up. He was transferred up to the selective care unit early this morning following a episode of atrial fibrillation with rapid reticular response. He's been initiated on amiodarone currently at 1 mg per minute along with a heparin drip. He is currently awake and alert in no acute distress. He denies any worsening shortness of breath, cough or congestion. He denies any chest pain. His heart rate is better controlled. No complaints of palpitations. His lower extremity edema is improved. Urine cultures positive for group D enterococcus, sensitivity pending. White count 22.4. Hemoglobin 10.9. Platelet count 485,000. Sodium improved to 130. Creatinine 1.08. Current temperature 99.5. Maintain O2 saturations in the 90s on 3 L. The patient is seen again today 03/11/2017 in follow-up on the selective care unit. He is awake and alert in no acute distress. His atrial fib is better controlled. He denies any worsening shortness of breath, cough or congestion. He remains afebrile. Maintaining good O2 saturations in the mid 90s on 3 L/m per nasal cannula. Sputum culture is pending. White count improved at 15.7. Hemoglobin 10.6 sodium 129 creatinine 1.30 Hemodynamically stable. On 5016 I'm seeing this patient for a follow-up. The patient is doing well. Cardiac rhythm is back to sinus. Hemodynamically stable. The patient is on oral anticoagulation. COPD exacerbation has subsided. The patient is also on oral Lasix with significant improvement in lower extremity edema. No chest pain. No shortness of breath. No change in mental status. No other complaints otherwise for now. Objective - Vital Signs Vital signs: Vital Signs Temp 97.0 F L 03/12/17 12:00 Pulse 75 03/12/17 12:00 Resp 20 03/12/17 12:00 BP 119/72 03/12/17 12:00 Pulse Ox 90 L 03/12/17 12:00 Intake & Output 03/11/17 03/12/17 03/12/17 19:59 06:59 18:59 Intake Total 600 Output Total 2750 Balance -2150 Weight Intake: IV .9 @ 10 Oral 600 Output: Urine 2750 Uretheral (Baez) 2750 Other: Voiding Method Indwelling Catheter # Bowel Movements - Exam GENERAL EXAM: Alert, comfortable in no apparent distress. HEAD: Normocephalic. EYES: Normal reaction of pupils, equal size. NOSE: Clear with pink turbinates. THROAT: No erythema or exudates. NECK: No masses, no JVD. CHEST: No chest wall deformity. LUNGS: Equal air entry with faint end expiratory wheeze. Diminished. CVS: S1 and S2 normal with no audible murmur, irregular rhythm. ABDOMEN: No hepatosplenomegaly, normal bowel sounds, no guarding or rigidity. SPINE: No scoliosis or deformity SKIN: No rashes CENTRAL NERVOUS SYSTEM: No focal deficits, tone is normal in all 4 extremities. EXTREMITIES: There is 1-2+ peripheral edema. No clubbing, no cyanosis. Peripheral pulses are intact. - Labs CBC & Chem 7: 03/12/17 05:54 03/12/17 05:54 Labs: Abnormal Lab Results - Last 24 Hours (Table) 03/11/17 03/11/17 03/12/17 Range/Units 16:30 21:29 05:54 WBC (3.8-10.6) k/uL RBC (4.30-5.90) m/uL Hgb (13.0-17.5) gm/dL Hct (39.0-53.0) % MCV (80.0-100.0) fL MCHC (31.0-37.0) g/dL Neutrophils # (1.3-7.7) k/uL Lymphocytes # (1.0-4.8) k/uL Sodium 131 L (137-145) mmol/L Potassium 5.5 H (3.5-5.1) mmol/L Chloride 97 L (98-107) mmol/L BUN 50 H (9-20) mg/dL Glucose 122 H (74-99) mg/dL POC Glucose (mg/dL) 108 H 111 H (75-99) mg/dL 03/12/17 03/12/17 03/12/17 Range/Units 05:54 06:08 11:37 WBC 12.4 H (3.8-10.6) k/uL RBC 3.63 L (4.30-5.90) m/uL Hgb 10.8 L (13.0-17.5) gm/dL Hct 36.8 L (39.0-53.0) % MCV 101.3 H (80.0-100.0) fL MCHC 29.4 L (31.0-37.0) g/dL Neutrophils # 10.6 H (1.3-7.7) k/uL Lymphocytes # 0.9 L (1.0-4.8) k/uL Sodium (137-145) mmol/L Potassium (3.5-5.1) mmol/L Chloride (98-107) mmol/L BUN (9-20) mg/dL Glucose (74-99) mg/dL POC Glucose (mg/dL) 120 H 119 H (75-99) mg/dL Microbiology - Last 24 Hours (Table) 03/10/17 20:43 Gram Stain - Preliminary Sputum Sputum Culture - Preliminary Aspergillus species [place] albicans 03/08/17 20:22 Urine Culture - Final Urine,Clean Catch Enterococcus faecalis Assessment and Plan Plan: Impression: 1 new onset diarrhea, recovered 2 chronic lower extremity edema with interval improvement 3 hyponatremia, improved. 4 recent hospitalization for an extensive right upper lobe pneumonia, The patient had aggressive and advanced multilobar pneumonia affecting mainly the right upper lobe and to lesser extent the right lower lobe back in October/November 2016. He was hospitalized and he was treated with antibiotics. During the same hospitalization the patient had a bronchoscopy and the bronchioloalveolar lavage that showed no microbial growth and the patient also did not have any malignancy on the transbronchial biopsies I reviewed the computed tomography scan of the chest and the right upper lobe and the right lower lobe consolidations of both improved considerably in the order of 90%. There is some residual opacities bilaterally however I think this is related to his chronic fibrosis in addition to his advanced COPD. Malignancy is doubtful at this stage however it cannot be completely excluded. I reassured the patient about the results of the findings. 2 lung mass, lateral upper lobe nodules, 1.4 cm in the right upper lobe and 1.2 cm and the left upper lobe, I favor inflammatory changes on his CAT scan without any malignancy. I think the inflammation is improving and the patient's CAT scan has showed clearing of the right upper lobe and right lower lobe pulmonary infiltration and cavitation. 3 severe chronic obstructive pulmonary disease, Continue Spiriva and Advair as maintenance treatment for his COPD. Continue same medications. We'll continue to follow. The patient has already taken his flu shot. Continue same medications for now. 4 chronic hypoxemic respiratory failure, On O2 at 3liters/min 5 dependence on enabling machine or device 6 Very poor baseline performance and functional status. 7 recurrent urine tract infection most recent urine cultures showing group D enterococcus. 8 New onset of atrial fibrillation with a rapid ventricular response. Initiated on amiodarone and heparin. Will be initiated on apixaban. Plan: Patient is doing well. Cardiac rhythm is back to sinus. COPD exacerbation has subsided and the patient has been diuresed adequately. Patient is clear for discharge from the pulmonary standpoint. He is stable and he will need a follow -up evaluation in the office regarding the pulmonary nodules and COPD.
[2017-03-12] MEDS: HYDROcodone/APAP 10-325MG 1 EACH TAB PO PRN ×2 (14:03→20:59)
[2017-03-12 16:51] LABS: Glucose,Whole Blood 121 mg/dL (75-99)
[2017-03-12 20:49] LABS: Glucose,Whole Blood 121 mg/dL (75-99)
[2017-03-12] MEDS ORDERED: TAMSULOSIN 0.4 MG CAP.ER.24H PO SCH (21:00)
[2017-03-12] MEDS ORDERED: MELATONIN 5 MG TABLET PO SCH (21:00)
[2017-03-12] MEDS ORDERED: GABAPENTIN 300 MG CAP PO SCH (22:00)
[2017-03-13 01:08] VITALS: RESP 18
[2017-03-13 06:03] LABS: Glucose,Whole Blood 130 mg/dL (75-99)
[2017-03-13] MEDS: INSULIN LISPRO (humaLOG) 300 UNIT/3 ML VIAL SQ SCH ×2 (06:05→12:35)
[2017-03-13 06:08] LABS: Basophils % (A) 0 %; CH 30.4; CHCM 30.5; Eosinophils % (A) 0 %; HCT 39.1 % (39.0-53.0); HDW 3.09; HGB 11.7 gm/dL (13.0-17.5); Hypochromasia Marked; Luc # (Auto) 0.16; Luc % (Auto) 1; Lymphocytes # (A) 1.2 k/uL (1.0-4.8); Lymphocytes % (A) 10 %; MCH 29.7 pg (25.0-35.0); MCHC 29.8 g/dL (31.0-37.0); MCV 99.6 fL (80.0-100.0); Macrocytosis Slight; Mean Platelet Volume 6.8; Monocytes # (A) 0.6 k/uL (0-1.0); Monocytes % (A) 5 %; Neutrophils # (A) 9.8 k/uL (1.3-7.7); Neutrophils % (A) 83 %; RBC 3.93 m/uL (4.30-5.90); RDW 15.2 % (11.5-15.5); WBC 11.8 k/uL (3.8-10.6); WBC (Perox) 12.09
[2017-03-13] MEDS: PANTOPRAZOLE 40 MG TABLET PO SCH (06:25)
[2017-03-13 06:33] LABS: Anion Gap 10 mmol/L; Blood Urea Nitrogen 45 mg/dL (9-20); Calcium 9.2 mg/dL (8.4-10.2); Carbon Dioxide 23 mmol/L (22-30); Chloride 96 mmol/L (98-107); Glucose 136 mg/dL (74-99); Non-African American GFR(MDRD) >60 (>60 ml/min/1.73 sqM); Potassium 5.5 mmol/L (3.5-5.1); Sodium 129 mmol/L (137-145)
[2017-03-13] MEDS: BUDESONIDE 0.5 MG/2 ML NEBU INHALATION SCH (07:15)
[2017-03-13] MEDS: IPRATROPIUM 0.5 MG/2.5 ML NEBU INHALATION SCH ×2 (07:15→11:38)
[2017-03-13] MEDS: ALBUTEROL NEBULIZED 2.5 MG/3 ML INHALATION SCH (07:15)
[2017-03-13] MEDS: FORMOTEROL FUMARATE 20 MCG/2 ML NEBU INHALATION SCH (07:15)
[2017-03-13] MEDS: ALBUTEROL NEB (CONC) 2.5 MG/0.5 ML INHALATION SCH ×2 (07:16→11:38)
[2017-03-13] MEDS: APIXABAN 5 MG TAB PO SCH (08:10)
[2017-03-13] MEDS: FLUTICASONE 50MCG/SPRAY NASAL 16GM EA NOSTRIL SCH (08:10)
[2017-03-13] MEDS: SENNOSIDES 8.6 MG TAB PO SCH (08:10)
[2017-03-13] MEDS: guaiFENesin 600 MG TABLET.ER PO SCH (08:11)
[2017-03-13] MEDS: GABAPENTIN 300 MG CAP PO SCH (08:11)
[2017-03-13] MEDS: METOPROLOL TARTRATE 50 MG TAB PO SCH (08:11)
[2017-03-13] MEDS: methylPREDNISolone SOD SUCCI 40 MG/ML 1 ML VIAL IV SCH (08:12)
[2017-03-13] MEDS: MAGNESIUM OXIDE 400 MG TAB PO SCH (08:12)
[2017-03-13] MEDS ORDERED: FUROSEMIDE 40 MG TAB PO SCH (09:00)
[2017-03-13 10:31] VITALS: BP 116/62; PULSE 81; TEMP 97
--- NOTE | 2017-03-13 11:43 | P.PN ---
Subjective Progress Note Date: 03/13/17 Principal diagnosis: Shortness of breath This is 71-year-old gentleman with history of COPD, respiratory failure, asthma, hypertension, nicotine dependence, who presented to the hospital with symptoms of progressively worsening shortness of breath. During this hospital stay, patient went into atrial fibrillation with rapid ventricular response. He is currently in a normal sinus rhythm. She was seen in consultation by Dr. Lou, continues to be in normal sinus rhythm this morning. Patient is currently on metoprolol tartrate with Eliquis. Objective - Vital Signs Vital signs: Vital Signs Temp 97.0 F L 03/13/17 08:00 Pulse 81 03/13/17 08:00 Resp 18 03/13/17 08:00 BP 116/62 03/13/17 08:00 Pulse Ox 97 03/13/17 08:00 Intake & Output 03/12/17 03/13/17 03/13/17 18:59 06:59 18:59 Intake Total 840 180 Output Total 3470 1300 Balance -2630 -1300 180 Weight 76.5 kg Intake: Oral 840 180 Output: Urine 3470 1300 Uretheral (Baez) 2750 Other: Voiding Method Indwelling Catheter Indwelling Catheter Indwelling Catheter # Bowel Movements 0 - Exam PHYSICAL EXAMINATION: HEENT: Head is atraumatic, normocephalic. Pupils equal, round. Neck is supple. There is no elevated jugular venous pressure. HEART EXAMINATION: Heart S1, S2 normal. No murmur or gallop heard. CHEST EXAMINATION: Lungs reveal expiratory wheezes throughout with fine crackles to the bases. ABDOMEN: Soft, nontender. Bowel sounds are heard. No organomegaly noted. EXTREMITIES: 2+ peripheral pulses with no evidence of peripheral edema and no calf tenderness noted. NEUROLOGIC patient is awake, alert and oriented -3. . - Labs CBC & Chem 7: 03/13/17 05:37 03/13/17 05:37 Labs: Abnormal Lab Results - Last 24 Hours (Table) 03/12/17 03/12/17 03/12/17 Range/Units 11:37 16:26 20:47 WBC (3.8-10.6) k/uL RBC (4.30-5.90) m/uL Hgb (13.0-17.5) gm/dL MCHC (31.0-37.0) g/dL Plt Count (150-450) k/uL Neutrophils # (1.3-7.7) k/uL Sodium (137-145) mmol/L Potassium (3.5-5.1) mmol/L Chloride (98-107) mmol/L BUN (9-20) mg/dL Glucose (74-99) mg/dL POC Glucose (mg/dL) 119 H 121 H 121 H (75-99) mg/dL 03/13/17 03/13/17 03/13/17 Range/Units 05:37 05:37 06:02 WBC 11.8 H (3.8-10.6) k/uL RBC 3.93 L (4.30-5.90) m/uL Hgb 11.7 L (13.0-17.5) gm/dL MCHC 29.8 L (31.0-37.0) g/dL Plt Count 502 H (150-450) k/uL Neutrophils # 9.8 H (1.3-7.7) k/uL Sodium 129 L (137-145) mmol/L Potassium 5.5 H (3.5-5.1) mmol/L Chloride 96 L (98-107) mmol/L BUN 45 H (9-20) mg/dL Glucose 136 H (74-99) mg/dL POC Glucose (mg/dL) 130 H (75-99) mg/dL Microbiology - Last 24 Hours (Table) 03/10/17 20:43 Gram Stain - Final Sputum Sputum Culture - Final Aspergillus fumigatus [place] albicans Assessment and Plan Plan: Assessment and plan #1 exacerbation of COPD #2 severe COPD on home O2 #3 hypertension #4 atrial fibrillation, paroxysmal. #5 nicotine dependence Plan From cardiology's perspective, patient may be able to be discharged home today. We will make him a follow-up appointment to see Dr. Lou in the office post discharge. Patient will continue on Eliquis along with Metoprolol. DNP note has been reviewed, I agree with a documented findings and plan of care. Patient was seen and examined.
[2017-03-13 11:45] LABS: Glucose,Whole Blood 136 mg/dL (75-99)
--- NOTE | 2017-03-13 13:02 | P.PN ---
Subjective Progress Note Date: 03/13/17 Principal diagnosis: Acute gastroenteritis and hyponatremia Marbin is a very pleasant 70-year-old male patient who was in the hospital in November 2016 for an extensive right lung pneumonia. At that time there was a suspicion for lung mass. The patient a bronchoscopy and the results were nondiagnostic. Following his discharge from the hospital the patient went tomorrow with and it took him quite some times and he recuperated and he is coming today to see me in the outpatient. Note that he also had hyponatremia at a time of his admission. He was on 2 L/m nasal cannula. He gets short of breath with limited amount of activity. He has not smoked since October 2016. His CAT scan of the chest from October 2016 showed diffuse opacities mostly in the right upper lobe that was not present on the previous CAT scan of the chest from 2015. There was extensive opacity in the posterior superior right lower lobe consistent with pneumonia. Airspace disease also seen in the anterior aspect of the left upper lobe. There was also a nodule measuring 1.2 x 0.9 mm in the left upper lobe and several nodules in the right upper lobe that is very difficult to differentiate from pneumonia. One of the nodules in the right upper lobe is measuring 1.4 x 0.8 cm. There was extensive emphysema throughout the lung villalobos bilaterally and probably some early cavitation in the right upper lobe. As such the patient a bronchoscopy and the results were nondiagnostic for any microbes or any cancers. On 02/24/2017 Marbin was seen in FU in the office. He was pulse oxing around 90-91 % diseases of oxygen by nasal cannula. He has some excess congestion his sinuses. He was on a combination of Advair and Spiriva and he uses pro-air as needed. He typically uses around 4 times a day, 2 puffs. No significant chest congestion. No significant mucus production. No fever chills or night sweats. The CAT scan of the chest was repeated in January 2017 and it showed moderate to severe emphysema and there is [id number]-[id number] biapical parenchymal scarring and fibrosis. There is also small left greater than right pleural effusions. There is also new peripheral reticular interstitial opacities suggestive of edema. The note that her consolidation in the right lower lobe has improved and there is scattered bullae throughout the lung villalobos. The right upper lobe masslike consolidation has recovered. There is redemonstration of the subcarinal lymph nodes measuring 2.2 x 1.2 cm in size. There is also a large right paratracheal lymph node. There is an enlarged hilar lymph nodes. No cardiomegaly. There is compression deformity of the T8 vertebral spine. On 03/08/2017 the patient presented himself to the emergency department. Apparently over the past 24 hours his condition has gotten worse. He had become uncomfortable as the patient started having loose liquidy bowel movements and he had 3 episodes [id number]. Limited nausea. No emesis. No abdominal pain. No abdominal distention. No melena. He also was having difficulties with urination where at times he was having retention and other times he was having dysuria. Denies having any chills or fever. He was having symptoms of UTI and he had contacted his primary care physician and he was given a course of Bactrim on outpatient basis. He has also noted significant swelling in lower oximetry is bilaterally. A chest x-ray was done at time of admission and the chest x-ray findings are essentially stable to the previous chest from that was done earlier. As mentioned the patient extensive consolidation of the right upper lobe and some limited pulmonary changes and left upper lobe which were improving on subsequent CAT scan findings. The patient continues to have some nodules as mentioned in the right upper lobe measuring 1.4 x 0.8 cm in size and another nodule in the left upper lobe measuring 1.2 cm in size and this is something to be followed up at a later stage with a subsequent CAT scan of the chest. He is on a combination of Advair and Spiriva at home and he doesn't be done about treatments in addition to prior rescue inhaler on as-needed basis. His action dependent somewhat between 2-3 L/m nasal cannula. He denies having any worsening shortness of breath. Limited cough and congestion. No signs of any respiratory failure at this point. Legs are quite swollen bilaterally. No previous history of DVT or pulmonary embolism. He has been on no diuretics. On 03/09/2017 patient seen in follow-up on medical surgical floor. He is slightly dyspneic with conversation, the right rib cage pain posteriorly is responding to IV morphine. He has persisting shooting pain in his bilateral lower extremities which is chronic for him, and is related to his underlying back problems. He had a good response to IV Lasix, he is a -1310 mL fluid balance over the last 24 hours. Lung sounds are clear diminished at the bases. No rhonchi, no wheezes, no rales appreciated. On 3 L per nasal cannula with O2 sat at 94%. Afebrile. Did have one episode of pasty stool this morning, the staff was not able to collected were C. diff analysis. Patient reports taking large amounts of Metamucil at home for his perceived constipation. Bilateral lower extremity edema has improved, patient has the thigh-high compression stockings on. 03/10/2017 the patient is seen again today in follow-up. He was transferred up to the selective care unit early this morning following a episode of atrial fibrillation with rapid reticular response. He's been initiated on amiodarone currently at 1 mg per minute along with a heparin drip. He is currently awake and alert in no acute distress. He denies any worsening shortness of breath, cough or congestion. He denies any chest pain. His heart rate is better controlled. No complaints of palpitations. His lower extremity edema is improved. Urine cultures positive for group D enterococcus, sensitivity pending. White count 22.4. Hemoglobin 10.9. Platelet count 485,000. Sodium improved to 130. Creatinine 1.08. Current temperature 99.5. Maintain O2 saturations in the 90s on 3 L. The patient is seen again today 03/11/2017 in follow-up on the selective care unit. He is awake and alert in no acute distress. His atrial fib is better controlled. He denies any worsening shortness of breath, cough or congestion. He remains afebrile. Maintaining good O2 saturations in the mid 90s on 3 L/m per nasal cannula. Sputum culture is pending. White count improved at 15.7. Hemoglobin 10.6 sodium 129 creatinine 1.30 Hemodynamically stable. On 5016 I'm seeing this patient for a follow-up. The patient is doing well. Cardiac rhythm is back to sinus. Hemodynamically stable. The patient is on oral anticoagulation. COPD exacerbation has subsided. The patient is also on oral Lasix with significant improvement in lower extremity edema. No chest pain. No shortness of breath. No change in mental status. No other complaints otherwise for now. Patient was reevaluated today on 03/13/2017, doing relatively well, patient was seen by the admitting physician, and plans are being made to discharge the patient home today. Patient is about back to his baseline. He is on oxygen at 2 L, feeling well overall and close to his baseline. CBC is relatively normal, sodium is 129, BUN is 45 creatinine is 1.0, suggestive of mild prerenal azotemia. Objective - Vital Signs Vital signs: Vital Signs Temp 97.0 F L 03/13/17 08:00 Pulse 81 03/13/17 08:00 Resp 18 03/13/17 08:00 BP 116/62 03/13/17 08:00 Pulse Ox 97 03/13/17 08:00 Intake & Output 03/12/17 03/13/17 03/13/17 18:59 06:59 18:59 Intake Total 840 180 Output Total 3470 1300 Balance -2630 -1300 180 Weight 76.5 kg Intake: Oral 840 180 Output: Urine 3470 1300 Uretheral (Baez) 2750 Other: Voiding Method Indwelling Catheter Indwelling Catheter Indwelling Catheter # Bowel Movements 0 - Exam GENERAL EXAM: Alert, comfortable in no apparent distress. HEAD: Normocephalic. EYES: Normal reaction of pupils, equal size. NOSE: Clear with pink turbinates. THROAT: No erythema or exudates. NECK: No masses, no JVD. CHEST: No chest wall deformity. LUNGS: Equal air entry with faint end expiratory wheeze. Diminished. CVS: S1 and S2 normal with no audible murmur, irregular rhythm. ABDOMEN: No hepatosplenomegaly, normal bowel sounds, no guarding or rigidity. SPINE: No scoliosis or deformity SKIN: No rashes CENTRAL NERVOUS SYSTEM: No focal deficits, tone is normal in all 4 extremities. EXTREMITIES: There is 1-2+ peripheral edema. No clubbing, no cyanosis. Peripheral pulses are intact. - Labs CBC & Chem 7: 03/13/17 05:37 03/13/17 05:37 Labs: Abnormal Lab Results - Last 24 Hours (Table) 03/12/17 03/12/17 03/13/17 Range/Units 16:26 20:47 05:37 WBC (3.8-10.6) k/uL RBC (4.30-5.90) m/uL Hgb (13.0-17.5) gm/dL MCHC (31.0-37.0) g/dL Plt Count (150-450) k/uL Neutrophils # (1.3-7.7) k/uL Sodium 129 L (137-145) mmol/L Potassium 5.5 H (3.5-5.1) mmol/L Chloride 96 L (98-107) mmol/L BUN 45 H (9-20) mg/dL Glucose 136 H (74-99) mg/dL POC Glucose (mg/dL) 121 H 121 H (75-99) mg/dL 03/13/17 03/13/17 03/13/17 Range/Units 05:37 06:02 11:42 WBC 11.8 H (3.8-10.6) k/uL RBC 3.93 L (4.30-5.90) m/uL Hgb 11.7 L (13.0-17.5) gm/dL MCHC 29.8 L (31.0-37.0) g/dL Plt Count 502 H (150-450) k/uL Neutrophils # 9.8 H (1.3-7.7) k/uL Sodium (137-145) mmol/L Potassium (3.5-5.1) mmol/L Chloride (98-107) mmol/L BUN (9-20) mg/dL Glucose (74-99) mg/dL POC Glucose (mg/dL) 130 H 136 H (75-99) mg/dL Microbiology - Last 24 Hours (Table) 03/10/17 20:43 Gram Stain - Final Sputum Sputum Culture - Final Aspergillus fumigatus [place] albicans Assessment and Plan Plan: 1 new onset diarrhea, recovered 2 chronic lower extremity edema with interval improvement 3 hyponatremia, improved. 4 recent hospitalization for an extensive right upper lobe pneumonia, The patient had aggressive and advanced multilobar pneumonia affecting mainly the right upper lobe and to lesser extent the right lower lobe back in November 2016. He was hospitalized and he was treated with antibiotics. During the same hospitalization the patient had a bronchoscopy and the bronchioloalveolar lavage that showed no microbial growth and the patient also did not have any malignancy on the transbronchial biopsies I reviewed the computed tomography scan of the chest and the right upper lobe and the right lower lobe consolidations of both improved considerably in the order of 90%. There is some residual opacities bilaterally however I think this is related to his chronic fibrosis in addition to his advanced COPD. Malignancy is doubtful at this stage however it cannot be completely excluded. I reassured the patient about the results of the findings. 2 lung mass, lateral upper lobe nodules, 1.4 cm in the right upper lobe and 1.2 cm and the left upper lobe, I favor inflammatory changes on his CAT scan without any malignancy. I think the inflammation is improving and the patient's CAT scan has showed clearing of the right upper lobe and right lower lobe pulmonary infiltration and cavitation. 3 severe chronic obstructive pulmonary disease, Continue Spiriva and Advair as maintenance treatment for his COPD. Continue same medications. We'll continue to follow. The patient has already taken his flu shot. Continue same medications for now. 4 chronic hypoxemic respiratory failure, On O2 at 3liters/min 5 dependence on enabling machine or device 6 Very poor baseline performance and functional status. 7 recurrent urine tract infection most recent urine cultures showing group D enterococcus. 8 New onset of atrial fibrillation with a rapid ventricular response. Initiated on amiodarone and now on Eliquis Recommendation: Considering the patient's COPD exacerbation has subsided, and the patient is doing well from the pulmonary perspective, cleared for discharge planning and should have follow-up in the office regarding his pulmonary nodules and his COPD. Time with Patient: Less than 30
--- NOTE | 2017-03-14 10:24 | P.DS ---
Providers Date of admission: 03/08/17 12:00 Expected date of discharge: 03/13/17 Attending physician: Millie Hightower Consults: 03/08/17 12:13 Consult Physician Urgent Consulting Provider: Venkata Van Consult Reason/Comments: COPD Do you want consulting provider notified?: Yes 03/10/17 05:17 Consult Physician Routine Consulting Provider: Bubba Lou Consult Reason/Comments: tachycardia Do you want consulting provider notified?: Yes Primary care physician: [facility] Course: This is 70-year-old gentleman patient of Dr. Mendoza Van with known history OF COPD, chronic hypoxemic respiratory failure asthma pneumonia BPH, right pulmonary nodule admitted to the emergency room secondary to shortness of breath,. He was admitted in November 2016 for the same condition and was found to have prior to that of right lung hilar mass requiring bronchoscopy with biopsy, pathology showed fragments of benign bronchial mucosa most likely secondary to pneumonia. patient is on chron ic o2, has a cat in then house taht lives in bedroom, patient complains of pain with inspiration right side. also with significant bronken sleep from neuralgia. no previous dvt or PE in past. walker on ambulation with wheelchair use He was seen in emergency room secondary to worsening shortness of breath and lower extremity edema, also has insomnia with tremors, and dysuria. Patient denies any chest pain no palpitations, no fever no chills, patient denies any productive cough, in the emergency room he was found to have significant edema with sodium of 126, hemoglobin of 10.7, mentation low at 1.4, creatinine of 0.87 , chest x-ray shows no acute abnormality, EKG shows T-wave inversion in leads V1 to V4 normal sinus rhythm. He was hypoxemic with pulse ox of 90-92%. CHARGE ACCOUNT IDENTIFICATION CLERK proBNP 5300, troponin of 0.014 He was admitted secondary to COPD PD exacerbation with diastolic CHF exacerbation and dependent edema He had a CAT scan performed 02/10/2017, showing redemonstration of a large subcarinal lymph node 2.2 x 1.2 cm as well as mixed moderate plaque in the aorta , some nodular consultation the right lobe lower side which is improved from previous, scattered bullae and blebs's 3 demonstrated, resolving until right upper lobe masslike consolidation, there is mild peribronchial wall thickening improved from previous, there is small left greater than right pleural effusion there's new peripheral reticulation and interstitial opacities suggesting edema and oriented. Infiltrate there are new nodular and spiculated infiltrate posterior right upper lobe 03/09: Patient states that the morphine is helping the pain in his right side of his chest at the base of his ribs but he feels groggy. This discontinued and placed on Dilaudid. Solu-Medrol will be decreased to 40 mg every 6 hours. Telemetry will be discontinued. Sodium is on the low side most likely due to SIADH. Labs ordered for this. CTA of the chest showed no evidence of pulmonary embolism. Pleural thickening and interstitial nodular infiltrate in the lower lobes not significantly different from February 10 CAT scan. There is Significant clearing of the pulmonary infiltrates compared to October 2016 CAT scan. Emphysema and bronchial adenopathy consistent with inflammatory disease. Small hiatal hernia. There is a 2 cm somewhat spiculated infiltrate in the left posterior lung base with no previous mention of this on other CAT scans. 03/10:Patient developed atrial fibrillation with rapid ventricular response during the night. Patient was transferred to the selective care unit and cardiology is on consult. Patient is currently on heparin drip and amiodarone drip. Solu-Medrol has been decreased to 40 mg every 8 hours by pulmonary medicine. Mucinex will be added. 03/11: Patient back to normal sinus rhythm. IV amiodarone discontinued. Patient 's metoprolol dose has been increased for rate control. elliquis for anticoagulation started today. She and his breathing better but increased crackles on respiratory examination. Started patient on chest physical therapy and flutter valve. Creatinine increased from baseline, concern for over diuresis on Lasix. Lasix switch from 40 mg IV twice a day to 40 mg IV daily Noted in previous admissions asthma was documented but patient has never been formally diagnosed with asthma. 03/12 Patient is restless and is concerned about the pain in his legs last night. Pain is bad enough for him not to sleep. Gabapentin was increased at night to 900 mg and melatonin was added to patient's regimen. Dilaudid was discontinued and patient started on [place] for pain control. Patient is on Baez catheter due to urinary retention. Flomax increased to 0.8 mg for BPH 03/13: Patient's breathing status is stable today. Patient will be discharged home with a prednisone taper and nebulizer machine has been ordered. Occupational therapy has reassessed with recommendations for home with home care. Social work met with the patient regarding discharge needs and he feels he has already medical equipment he needs and does not wish to consider subacute rehab. Patient will be discharged home today in stable condition. Discharge diagnoses: 1. COPD exacerbation 2. Moderately to advanced COPD with scattered fibrosis, with chronic hypoxemic respiratory failure on maintenance O2 at home 3. Chronic hypoxemic respiratory failure 4. BPH with lower neck tract symptomatology 5. Hypertension 6. Generalized anxiety disorder and recurrent depression stable 7. Chronic tobacco exposure 8. 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 Chronic exposure to cat aeroallergens 10. Old compression fracture T7-T8 with chronic low back pain, no medication changes 11. New spiculated infiltrate posterior right upper lobe the right upper lobe CAT scan noted in 02/10/2017 to be monitored as an outpatient Dr. Van 12. New onset atrial fibrillation with rapid ventricular response with probable paroxysmal atrial fibrillation Discharge plan: Home with [facility] Impression and plan of care have been directed as dictated by the signing physician. Tiffany Richards nurse practitioner acting as scribe for signing physician. Patient Condition at Discharge: Good Plan - Discharge Summary Discharge Rx Participant: Yes New Discharge Prescriptions: New Albuterol Nebulized (Conc) [Ventolin Nebulized (Conc)] 2.5 mg INHALATION RT- QID #120 nebu Apixaban [Eliquis] 5 mg PO BID #60 tab Docusate [Colace] 100 mg PO DAILY PRN cap PRN Reason: Constipation Furosemide [Lasix] 40 mg PO DAILY #30 tab Gabapentin [Neurontin] 300 mg PO TID #90 cap Gabapentin [Neurontin] 600 mg PO HS@2200 #30 cap guaiFENesin [Mucinex] 1,200 mg PO Q12HR tablet.er HYDROcodone/APAP 10-325MG [[place] 10-325] 1 each PO Q6H PRN #20 tab PRN Reason: Pain Magnesium Oxide [Mag-Ox] 400 mg PO BID tab Melatonin 10 mg PO HS tablet Metoprolol Tartrate [Lopressor] 50 mg PO BID #60 tab Sennosides [Senokot] 8.6 mg PO BID tab predniSONE 10 mg PO DAILY #60 tab Tamsulosin [Flomax] 0.8 mg PO HS #30 cap.er.24h Continue Vitamin B Complex 1 cap PO DAILY Multivitamins, Thera [Multivitamin (formulary)] 1 tab PO DAILY Albuterol Sulfate [Proair Hfa] 1 - 2 puff INHALATION RT-Q6H PRN PRN Reason: Shortness Of Breath Budesonide-Formot 160-4.5 Mcg [Symbicort 160-4.5 Mcg Inhaler] 2 puff INHALATION RT-BID #1 inh Tiotropium 18 Mcg/Puff [Spiriva] 1 cap INHALATION RT-DAILY Fluticasone/Salmeterol [Advair 250-50 Diskus] 1 puff INHALATION RT-BID Changed Omeprazole 40 mg PO DAILY #30 capsule.dr Discontinued Losartan Potassium [Cozaar] 100 mg PO DAILY Gabapentin [Neurontin] 200 mg PO TID Tamsulosin [Flomax] 0.4 mg PO HS #30 cap Sulfamethox-Tmp 800-160Mg [Bactrim DS 800-160 mg] 1 tab PO Q12HR Discharge Medication List Albuterol Sulfate [Proair Hfa] 1 - 2 puff INHALATION RT-Q6H PRN 10/27/16 [ History] Multivitamins, Thera [Multivitamin (formulary)] 1 tab PO DAILY 10/27/16 [History ] Vitamin B Complex 1 cap PO DAILY 10/27/16 [History] Budesonide-Formot 160-4.5 Mcg [Symbicort 160-4.5 Mcg Inhaler] 2 puff INHALATION RT-BID #1 inh 11/01/16 [Rx] Fluticasone/Salmeterol [Advair 250-50 Diskus] 1 puff INHALATION RT-BID 03/08/17 [History] Tiotropium 18 Mcg/Puff [Spiriva] 1 cap INHALATION RT-DAILY 03/08/17 [History] Albuterol Nebulized (Conc) [Ventolin Nebulized (Conc)] 2.5 mg INHALATION RT-QID #120 nebu 03/13/17 [Rx] Apixaban [Eliquis] 5 mg PO BID #60 tab 03/13/17 [Rx] Docusate [Colace] 100 mg PO DAILY PRN cap 03/13/17 [Rx] Furosemide [Lasix] 40 mg PO DAILY #30 tab 03/13/17 [Rx] Gabapentin [Neurontin] 300 mg PO TID #90 cap 03/13/17 [Rx] Gabapentin [Neurontin] 600 mg PO HS@2200 #30 cap 03/13/17 [Rx] HYDROcodone/APAP 10-325MG [[place] 10-325] 1 each PO Q6H PRN #20 tab 03/13/17 [Rx] Magnesium Oxide [Mag-Ox] 400 mg PO BID tab 03/13/17 [Rx] Melatonin 10 mg PO HS tablet 03/13/17 [Rx] Metoprolol Tartrate [Lopressor] 50 mg PO BID #60 tab 03/13/17 [Rx] Omeprazole 40 mg PO DAILY #30 capsule.dr 03/13/17 [Rx] Sennosides [Senokot] 8.6 mg PO BID tab 03/13/17 [Rx] Tamsulosin [Flomax] 0.8 mg PO HS #30 cap.er.24h 03/13/17 [Rx] guaiFENesin [Mucinex] 1,200 mg PO Q12HR tablet.er 03/13/17 [Rx] predniSONE 10 mg PO DAILY #60 tab 03/13/17 [Rx] Follow up Appointment(s)/Referral(s): Bubba Lou MD [STAFF PHYSICIAN] - 04/10/17 3:30 pm Mendoza Bowie MD [Primary Care Provider] - 03/16/17 11:00 am () Jarrell Ohara MD [STAFF PHYSICIAN] - 03/28/17 10:00 am (With phyicians research study assistant.) Venkata Van MD [STAFF PHYSICIAN] - 03/24/17 3:00 pm [facility] Visiting Nurse, [NON-STAFF] - 1 Week Patient Instructions/Handouts: A-fib (Atrial Fibrillation) (DC), COPD (Chronic Obstructive Pulmonary Disease) (DC), Safe Use of Anticoagulants (DC) Discharge Disposition: HOME WITH HOME HEALTH SERVICES
[2017-03-18 01:48] LABS: Alternaria Alternata IgG 16.4 mcg/mL (< 13.6); Cladosporium herbarium IgG 30.3 mcg/mL (< 14.7); Phoma ssp. IgG 41.8 mcg/mL (< 6.6); Saccaharomospora viridis Not detected (Not detected); Saccaharopoly. rectivirgula Not detected (Not detected)
== END 2017-03-13 14:16 | disposition home health service (06) | DRG 190 ==
LOC: EC 09:23 → 4MS4W 12:00 → 6SEL 03-10 08:05
PROVIDERS: ADMIT Family Medicine; ATTEND Family Medicine
DX: J44.1 Chronic obstructive pulmonary disease with (acute) exacerbation (principal); I50.33 Acute on chronic diastolic (congestive) heart failure; J96.11 Chronic respiratory failure with hypoxia; E87.2 Acidosis; N39.0 Urinary tract infection, site not specified; E22.2 Syndrome of inappropriate secretion of antidiuretic hormone; F33.9 Major depressive disorder, recurrent, unspecified; J84.10 Pulmonary fibrosis, unspecified; Z99.81 Dependence on supplemental oxygen; M89.9 Disorder of bone, unspecified; G89.29 Other chronic pain; I11.0 Hypertensive heart disease with heart failure; K44.9 Diaphragmatic hernia without obstruction or gangrene; I48.0 Paroxysmal atrial fibrillation; K52.9 Noninfective gastroenteritis and colitis, unspecified; R59.0 Localized enlarged lymph nodes; N40.1 Benign prostatic hyperplasia with lower urinary tract symptoms; R33.8 Other retention of urine; R30.0 Dysuria; R91.1 Solitary pulmonary nodule; K59.00 Constipation, unspecified; B95.2 Enterococcus as the cause of diseases classified elsewhere; G47.00 Insomnia, unspecified; F41.1 Generalized anxiety disorder; Z82.61 Family history of arthritis; Z82.5 Family history of asthma and other chronic lower respiratory diseases; Z79.899 Other long term (current) drug therapy; Z79.51 Long term (current) use of inhaled steroids; Z80.42 Family history of malignant neoplasm of prostate; Z87.891 Personal history of nicotine dependence; Z87.01 Personal history of pneumonia (recurrent); Z87.440 Personal history of urinary (tract) infections
CPT/HCPCS: 36415; 51798; 71020; 71275; 80048; 80053; 81003; 82550; 82553; 82785; 83036; 83735; 83880; 83930; 83935; 84300; 84484; 85025; 85379; 85610; 85730; 86001; 86003; 86606; 86609; 87070; 87077; 87086; 87186; 87205; 93005; 93970; 94640; 94760; 96374; 96375; 99285